=== PATIENT | female | born 1955 | race Caucasian/White ===

== ENCOUNTER 2016-11-13 22:22 | Emergency (ER) | payer MEDICAID ==
[~2016-11-13] VITALS: Ht 152.4 cm; Wt 49.9 kg
[~2016-11-13 22:22] MED LIST: ASPI-991 PO; CARV6.252 PO; CLON1TAB4 PO; FLUO20CA36 PO; FURO40TA5 PO; LISI-603 PO
[2016-11-13] MEDS ORDERED: LORAZEPAM INJ 2 MG/ML VIAL ONE (22:37)
[2016-11-13] MEDS ORDERED: ONDANSETRON 4 MG TAB.RAPDIS ONE (22:37)
[2016-11-13] MEDS ORDERED: ONDANSETRON 4 MG TAB.RAPDIS SL ONE (23:00)
[2016-11-13] MEDS ORDERED: LORAZEPAM INJ 2 MG/ML VIAL IM ONE (23:00)
[2016-11-14 00:44] VITALS: BP 140/92
== END 2016-11-14 00:45 | disposition home or self-care (01) ==
LOC: ER 22:29
DX: F41.9 Anxiety disorder, unspecified (principal); F17.200 Nicotine dependence, unspecified, uncomplicated; Z88.2 Allergy status to sulfonamides; Z79.82 Long term (current) use of aspirin
CPT/HCPCS: A4606; J2060; Q0162; Z7610

== ENCOUNTER 2016-11-20 07:06 | Inpatient (IN) | payer MEDICAID ==
[~2016-11-20] VITALS: Ht 160 cm; Wt 56.2 kg
[2016-11-20] VITALS (18 sets, daily range): BP systolic 50–152; BP diastolic 22–95
[2016-11-20] MEDS ORDERED: LORAZEPAM INJ 2 MG/ML VIAL ONE (07:07)
[2016-11-20] MEDS ORDERED: ALBUTEROL FS 2.5 MG/3 ML VIAL.NEB ONE ×2 (07:10→08:35)
[2016-11-20] MEDS ORDERED: IPRATROPIUM NEB FS 0.5 MG/2.5 ML AMPUL.NEB ONE (07:10)
[2016-11-20] MEDS ORDERED: methylPREDNISolone SOD SUCC 125 MG/2ML VIAL ONE (07:11)
[2016-11-20] MEDS ORDERED: methylPREDNISolone SOD SUCC 125 MG/2ML VIAL IV ONE (07:30)
[2016-11-20] MEDS ORDERED: IPRATROPIUM NEB FS 0.5 MG/2.5 ML AMPUL.NEB NEB ONE (07:30)
[2016-11-20] MEDS ORDERED: LORAZEPAM INJ 2 MG/ML VIAL IV ONE (07:30)
[2016-11-20] MEDS ORDERED: ALBUTEROL FS 2.5 MG/3 ML VIAL.NEB NEB ONE (07:30)
[2016-11-20 07:44] LABS: BASOPHILS # (AUTO) 0.1 /CMM (0.0-0.2); BASOPHILS % (AUTO) 0.6 % (0.0-2.0); DIFF TOTAL % 100 %; EOSINOPHILS % (AUTO) 0.4 % (0.0-6.0); HEMATOCRIT 34 % (33-45); HEMOGLOBIN 11.1 g/dL (11.5-14.8); LYMPHOCYTES # (AUTO) 1.3 /CMM (0.8-4.8); LYMPHOCYTES % (AUTO) 15.6 % (20.0-44.0); MEAN CORPUSCULAR HEMOGLOBIN 28 PG (26.0-33.0); MEAN CORPUSCULAR HGB CONC 32 g/dl (31.0-36.0); MEAN CORPUSCULAR VOLUME 85 fL (82-100); MONOCYTES # (AUTO) 0.4 /CMM (0.1-1.30); MONOCYTES % (AUTO) 4.8 % (2.0-12.0); NEUTROPHILS # (AUTO) 6.5 /CMM (1.8-8.9); NEUTROPHILS % (AUTO) 78.6 % (43.0-81.0); PLATELET COUNT (AUTO) 643 /CMM (150-450); RED BLOOD CELL COUNT(AUTO) 4.03 MIL/uL (4.0-5.2); WHITE BLOOD COUNT (AUTO) 8.2 K/uL (4.3-11.0)
[2016-11-20 07:57] LABS: INR 1.16 (0.87-1.13); PROTHROMBIN TIME 12.6 SECS (9.5-12.7)
[2016-11-20] MEDS ORDERED: ALBUTEROL FS 2.5 MG/3 ML VIAL.NEB CONTNEB ONE (08:00)
[2016-11-20 08:17] LABS: TROPONIN I 0.064 ng/mL (0.00-0.056)
[2016-11-20 08:20] LABS: ALBUMIN 3.4 g/dL (3.4-5.0); BILIRUBIN,DIRECT 0.2 mg/dL (0.0-0.2); BILIRUBIN,TOTAL 0.7 mg/dL (0.2-1.0); CALCIUM, SERUM 8.8 mg/dL (8.5-10.1); CREATININE 0.9 mg/dL (0.6-1.3); INDIRECT BILIRUBIN 0.5 mg/dL (0.0-1.1); POTASSIUM 4.4 mmol/L (3.5-5.1); TOTAL PROTEIN, SERUM 6.8 g/dL (6.4-8.2)
[2016-11-20 08:47] LABS: ABG BASE EXCESS -1.9 mmol/L; ABG HCO3 22.2 mmol/L; ABG PCO2 35.9 mmHg (35.0-45.0); ABG PO2 114.9 mmHg (75.0-100.0); ABG TOTAL HEMOGLOBIN 11.4 G/dL (12.0-16.0); ALLEN TEST Pass; O2Hb 96.3 % (94.0-97.0)
[2016-11-20] MEDS ORDERED: NITROGLYCERIN PACKET 1 GM PACKET ONE (08:51)
[2016-11-20] MEDS ORDERED: ASPIRIN 325 MG TABLET ONE (08:51)
[2016-11-20] MEDS ORDERED: FUROSEMIDE 40 MG/4 ML VIAL ONE (08:51)
[2016-11-20] MEDS ORDERED: FUROSEMIDE 40 MG/4 ML VIAL IV ONE (09:00)
[2016-11-20] MEDS ORDERED: ASPIRIN 325 MG TABLET PO ONE (09:00)
[2016-11-20] MEDS ORDERED: NITROGLYCERIN PACKET 1 GM PACKET TD ONE (09:00)
[2016-11-20] MEDS ORDERED: MAGNESIUM HYDROXIDE 30 ML UDC PO PRN (10:00)
[2016-11-20] MEDS ORDERED: Z GUARD REMEDY 2 OZ OINT TP PRN (10:00)
[2016-11-20] MEDS ORDERED: ACETAMINOPHEN 325 MG TABLET PO PRN (10:00)
[2016-11-20] MEDS ORDERED: ALBUTEROL FS 2.5 MG/0.5 ML VIAL.NEB NEB PRN (10:00)
[2016-11-20] MEDS ORDERED: ZOLPIDEM TARTRATE 5 MG TABLET PO PRN (10:00)
[2016-11-20] MEDS: FUROSEMIDE 40 MG/4 ML VIAL IV SCH ×3 (12:00→18:31)
[2016-11-20] MEDS: methylPREDNISolone SOD SUCC 40 MG/ML VIAL IV SCH ×2 (12:00→21:00)
[2016-11-20] MEDS: HYDROCODONE/APAP 5/325MG 1 EACH TABLET PO PRN ×2 (12:07→19:56)
[2016-11-20] MEDS: ALBUTEROL HALF STRENGTH 1.25 MG/3 ML VIAL.NEB NEB SCH ×2 (13:13→19:14)
[2016-11-20] MEDS ORDERED: IPRATROPIUM NEB FS 0.5 MG/2.5 ML AMPUL.NEB NEB SCH (13:30)
[2016-11-20] MEDS: IPRATROPIUM NEB FS 0.5 MG/2.5 ML AMPUL.NEB NEB SCH ×2 (13:30→19:14)
[2016-11-20] MEDS: FLUOXETINE HCL 20 MG CAPSULE PO SCH (16:17)
[2016-11-20] MEDS: clonazePAM 1 MG TABLET PO SCH (16:17)
[2016-11-20] MEDS: CARVEDILOL 6.25 MG TABLET PO SCH (21:00)
[2016-11-21] VITALS (15 sets, daily range): BP systolic 67–139; BP diastolic 40–91
[2016-11-21] MEDS: ALBUTEROL HALF STRENGTH 1.25 MG/3 ML VIAL.NEB NEB SCH ×4 (01:06→19:41)
[2016-11-21] MEDS: IPRATROPIUM NEB FS 0.5 MG/2.5 ML AMPUL.NEB NEB SCH ×4 (01:06→19:40)
[2016-11-21] MEDS ORDERED: ZOLPIDEM TARTRATE 5 MG TABLET ONE ×2 (01:07→23:11)
[2016-11-21] MEDS ORDERED: ZOLPIDEM TARTRATE 5 MG TABLET PO ONE (01:30)
[2016-11-21 04:50] LABS: DIFF TOTAL % 100 %; HEMATOCRIT 34 % (33-45); HEMOGLOBIN 10.7 g/dL (11.5-14.8); LYMPHOCYTES # (AUTO) 0.5 /CMM (0.8-4.8); LYMPHOCYTES % (AUTO) 4.2 % (20.0-44.0); MEAN CORPUSCULAR HEMOGLOBIN 27 PG (26.0-33.0); MEAN CORPUSCULAR HGB CONC 31 g/dl (31.0-36.0); MEAN CORPUSCULAR VOLUME 85 fL (82-100); MONOCYTES # (AUTO) 0.4 /CMM (0.1-1.30); MONOCYTES % (AUTO) 2.7 % (2.0-12.0); NEUTROPHILS # (AUTO) 12.1 /CMM (1.8-8.9); NEUTROPHILS % (AUTO) 93.1 % (43.0-81.0); PLATELET COUNT (AUTO) 629 /CMM (150-450)
[2016-11-21] MEDS: methylPREDNISolone SOD SUCC 40 MG/ML VIAL IV SCH ×3 (05:00→21:19)
[2016-11-21 05:01] LABS: ALBUMIN 2.9 g/dL (3.4-5.0); BILIRUBIN,TOTAL 0.4 mg/dL (0.2-1.0); CALCIUM, SERUM 8.6 mg/dL (8.5-10.1); CREATININE 1.5 mg/dL (0.6-1.3); POTASSIUM 4.6 mmol/L (3.5-5.1); TOTAL PROTEIN, SERUM 6.3 g/dL (6.4-8.2)
[2016-11-21 05:09] LABS: TROPONIN I 0.085 ng/mL (0.00-0.056)
[2016-11-21] MEDS: PANTOPRAZOLE 40 MG TABLET.DR PO SCH (08:02)
[2016-11-21] MEDS: FLUOXETINE HCL 20 MG CAPSULE PO SCH ×2 (08:02→16:59)
[2016-11-21] MEDS: LISINOPRIL (20MG) 20 MG TABLET PO SCH (08:02)
[2016-11-21] MEDS: clonazePAM 1 MG TABLET PO SCH ×2 (08:03→16:59)
[2016-11-21] MEDS: HYDROCODONE/APAP 5/325MG 1 EACH TABLET PO PRN ×3 (08:03→17:31)
[2016-11-21] MEDS: CARVEDILOL 6.25 MG TABLET PO SCH ×2 (08:03→21:19)
[2016-11-21] MEDS: FUROSEMIDE 40 MG/4 ML VIAL IV SCH ×3 (08:33→16:59)
[2016-11-21] MEDS ORDERED: Magnesium 1GM/D5W 100ML PREMIX 100 ML IV SCH (10:30)
[2016-11-21] MEDS ORDERED: IV SET PRIMARY PUMP SET 1 EA INFUS.SET MC ONE (11:50)
[2016-11-21] MEDS: MAG HYDROX/AL HYDROX/SIMETH 30 ML UDC PO PRN (17:31)
[2016-11-21] MEDS ORDERED: ZOLPIDEM TARTRATE 5 MG TABLET PO PRN (23:30)
[2016-11-22] VITALS: BP 96/59
[2016-11-22] MEDS: IPRATROPIUM NEB FS 0.5 MG/2.5 ML AMPUL.NEB NEB SCH ×4 (01:21→19:39)
[2016-11-22] MEDS: ALBUTEROL HALF STRENGTH 1.25 MG/3 ML VIAL.NEB NEB SCH ×4 (01:21→19:39)
[2016-11-22] MEDS: ONDANSETRON HCL/PF 4 MG/2 ML VIAL IVP PRN ×2 (04:06→12:33)
[2016-11-22] MEDS: methylPREDNISolone SOD SUCC 40 MG/ML VIAL IV SCH ×2 (04:11→12:33)
[2016-11-22] MEDS: HYDROCODONE/APAP 5/325MG 1 EACH TABLET PO PRN ×3 (04:44→19:59)
[2016-11-22 06:00] VITALS: BP 106/72
[2016-11-22 08:00] VITALS: BP 126/82
[2016-11-22 08:06] LABS: DIFF TOTAL % 100 %; HEMATOCRIT 33 % (33-45); HEMOGLOBIN 10.3 g/dL (11.5-14.8); LYMPHOCYTES # (AUTO) 0.4 /CMM (0.8-4.8); LYMPHOCYTES % (AUTO) 2.9 % (20.0-44.0); MEAN CORPUSCULAR HEMOGLOBIN 27 PG (26.0-33.0); MEAN CORPUSCULAR HGB CONC 32 g/dl (31.0-36.0); MEAN CORPUSCULAR VOLUME 86 fL (82-100); MONOCYTES # (AUTO) 0.5 /CMM (0.1-1.30); MONOCYTES % (AUTO) 3.5 % (2.0-12.0); NEUTROPHILS # (AUTO) 13.3 /CMM (1.8-8.9); NEUTROPHILS % (AUTO) 93.6 % (43.0-81.0); PLATELET COUNT (AUTO) 565 /CMM (150-450); RED BLOOD CELL COUNT(AUTO) 3.78 MIL/uL (4.0-5.2); WHITE BLOOD COUNT (AUTO) 14.2 K/uL (4.3-11.0)
[2016-11-22 08:42] LABS: ALBUMIN 2.8 g/dL (3.4-5.0); BILIRUBIN,TOTAL 0.3 mg/dL (0.2-1.0); CALCIUM, SERUM 8.4 mg/dL (8.5-10.1); CREATININE 1.5 mg/dL (0.6-1.3); PHOSPHORUS 5.2 mg/dL (2.5-4.9); POTASSIUM 4.5 mmol/L (3.5-5.1); TOTAL PROTEIN, SERUM 6.1 g/dL (6.4-8.2)
[2016-11-22 08:50] LABS: TROPONIN I 0.09 ng/mL (0.00-0.056)
[2016-11-22] MEDS: clonazePAM 1 MG TABLET PO SCH ×2 (09:02→17:06)
[2016-11-22] MEDS: PANTOPRAZOLE 40 MG TABLET.DR PO SCH (09:02)
[2016-11-22] MEDS: FLUOXETINE HCL 20 MG CAPSULE PO SCH ×2 (09:02→17:06)
[2016-11-22] MEDS: LISINOPRIL (20MG) 20 MG TABLET PO SCH (09:03)
[2016-11-22] MEDS: CARVEDILOL 6.25 MG TABLET PO SCH ×2 (09:03→21:00)
[2016-11-22] MEDS ORDERED: DEXTROSE 50%-WATER 50 ML DISP.SYRIN IV PRN (10:00)
[2016-11-22] MEDS ORDERED: BLOOD SUGAR DIAGNOSTIC 1 EACH STRIP VI SCH (12:00)
[2016-11-22] MEDS: BLOOD SUGAR DIAGNOSTIC 1 EACH STRIP IN SCH ×3 (12:39→21:13)
[2016-11-22] MEDS: INSULIN REGULAR, HUMAN 100 UNIT/ML 3 ML VIAL SQ PRN ×2 (12:54→17:10)
[2016-11-22 16:00] VITALS: BP 105/62
[2016-11-22 16:01] VITALS: BP 105/62
[2016-11-22 20:12] VITALS: BP 102/55
[2016-11-22] MEDS: *INSULIN REGULAR(HUMULIN R)HUM 100 UNIT/ML VIAL SQ PRN (21:16)
[2016-11-23] MEDS: HYDROCODONE/APAP 5/325MG 1 EACH TABLET PO PRN ×4 (00:43→19:34)
[2016-11-23] MEDS: ONDANSETRON HCL/PF 4 MG/2 ML VIAL IVP PRN (00:45)
[2016-11-23] MEDS: IPRATROPIUM NEB FS 0.5 MG/2.5 ML AMPUL.NEB NEB SCH ×4 (01:22→19:39)
[2016-11-23] MEDS: ALBUTEROL HALF STRENGTH 1.25 MG/3 ML VIAL.NEB NEB SCH ×4 (01:22→19:39)
[2016-11-23 07:09] LABS: BASOPHILS % (AUTO) 0.1 % (0.0-2.0); DIFF TOTAL % 100 %; EOSINOPHILS % (AUTO) 0.3 % (0.0-6.0); HEMATOCRIT 34 % (33-45); LYMPHOCYTES # (AUTO) 1.3 /CMM (0.8-4.8); LYMPHOCYTES % (AUTO) 9.3 % (20.0-44.0); MEAN CORPUSCULAR HEMOGLOBIN 27 PG (26.0-33.0); MEAN CORPUSCULAR HGB CONC 32 g/dl (31.0-36.0); MEAN CORPUSCULAR VOLUME 86 fL (82-100); MONOCYTES # (AUTO) 0.9 /CMM (0.1-1.30); MONOCYTES % (AUTO) 6.8 % (2.0-12.0); NEUTROPHILS # (AUTO) 11.4 /CMM (1.8-8.9); NEUTROPHILS % (AUTO) 83.5 % (43.0-81.0); PLATELET COUNT (AUTO) 571 /CMM (150-450); WHITE BLOOD COUNT (AUTO) 13.7 K/uL (4.3-11.0)
[2016-11-23 07:27] LABS: CALCIUM, SERUM 8.3 mg/dL (8.5-10.1); CREATININE 1.3 mg/dL (0.6-1.3); PHOSPHORUS 4.3 mg/dL (2.5-4.9); POTASSIUM 4.7 mmol/L (3.5-5.1)
[2016-11-23 08:00] VITALS: BP 117/82
[2016-11-23] MEDS: BLOOD SUGAR DIAGNOSTIC 1 EACH STRIP IN SCH ×4 (08:02→20:53)
[2016-11-23] MEDS: FLUOXETINE HCL 20 MG CAPSULE PO SCH ×2 (08:03→16:57)
[2016-11-23] MEDS: clonazePAM 1 MG TABLET PO SCH ×2 (08:03→16:57)
[2016-11-23] MEDS: CARVEDILOL 6.25 MG TABLET PO SCH ×2 (08:03→20:50)
[2016-11-23] MEDS: PANTOPRAZOLE 40 MG TABLET.DR PO SCH (08:03)
[2016-11-23 08:04] VITALS: BP 117/82
[2016-11-23] MEDS ORDERED: Magnesium 1GM/D5W 100ML PREMIX 100 ML IV SCH (09:00)
[2016-11-23] MEDS ORDERED: SECONDARY IV SET 1 EA INFUS.SET MC ONE (09:45)
[2016-11-23] MEDS ORDERED: IV NS 0.9% 250 ML IV ONE (09:45)
[2016-11-23] MEDS ORDERED: IV SET PRIMARY PUMP SET 1 EA INFUS.SET MC ONE (09:45)
[2016-11-23] MEDS: LEVOFLOXACIN (500MG) 500 MG TABLET PO SCH (09:50)
[2016-11-23] MEDS: MAG HYDROX/AL HYDROX/SIMETH 30 ML UDC PO PRN ×2 (10:58→17:15)
[2016-11-23] MEDS: MORPHINE SULFATE INJ 2 MG/ML DISP.SYRIN IV PRN ×3 (12:20→20:50)
[2016-11-23 16:00] VITALS: BP 92/59
[2016-11-23] MEDS: INSULIN REGULAR, HUMAN 100 UNIT/ML 3 ML VIAL SQ PRN (17:03)
[2016-11-23 20:00] VITALS: BP_SYST 153; BP_SYST 99; BP_DIAS 59; BP_DIAS 93
[2016-11-24] MEDS: IPRATROPIUM NEB FS 0.5 MG/2.5 ML AMPUL.NEB NEB SCH ×4 (01:17→20:27)
[2016-11-24] MEDS: ALBUTEROL HALF STRENGTH 1.25 MG/3 ML VIAL.NEB NEB SCH ×4 (01:17→20:27)
[2016-11-24] MEDS: MORPHINE SULFATE INJ 2 MG/ML DISP.SYRIN IV PRN ×5 (01:45→21:05)
[2016-11-24 04:00] VITALS: BP 109/74
[2016-11-24 06:57] LABS: POTASSIUM 5.1 mmol/L (3.5-5.1)
[2016-11-24] MEDS: BLOOD SUGAR DIAGNOSTIC 1 EACH STRIP IN SCH ×4 (07:35→21:34)
[2016-11-24] MEDS: PANTOPRAZOLE 40 MG TABLET.DR PO SCH (07:35)
[2016-11-24 07:38] LABS: BASOPHILS % (AUTO) 0.3 % (0.0-2.0); EOSINOPHILS # (AUTO) 0.1 /CMM (0.0-0.7); EOSINOPHILS % (AUTO) 0.6 % (0.0-6.0); HEMATOCRIT 34 % (33-45); HEMOGLOBIN 10.8 g/dL (11.5-14.8); LYMPHOCYTES # (AUTO) 1.7 /CMM (0.8-4.8); LYMPHOCYTES % (AUTO) 16.4 % (20.0-44.0); MEAN CORPUSCULAR HEMOGLOBIN 27 PG (26.0-33.0); MEAN CORPUSCULAR HGB CONC 32 g/dl (31.0-36.0); MEAN CORPUSCULAR VOLUME 86 fL (82-100); MONOCYTES # (AUTO) 0.8 /CMM (0.1-1.30); MONOCYTES % (AUTO) 8.2 % (2.0-12.0); NEUTROPHILS # (AUTO) 7.6 /CMM (1.8-8.9); NEUTROPHILS % (AUTO) 74.5 % (43.0-81.0); PLATELET COUNT (AUTO) 516 /CMM (150-450); WHITE BLOOD COUNT (AUTO) 10.2 K/uL (4.3-11.0)
[2016-11-24 08:00] VITALS: BP 108/70
[2016-11-24 08:17] LABS: DIFF TOTAL % 100 %
[2016-11-24] MEDS: clonazePAM 1 MG TABLET PO SCH ×2 (08:20→16:40)
[2016-11-24] MEDS: FLUOXETINE HCL 20 MG CAPSULE PO SCH ×2 (08:20→16:40)
[2016-11-24] MEDS: CARVEDILOL 6.25 MG TABLET PO SCH ×2 (08:21→21:00)
[2016-11-24] MEDS: MAG HYDROX/AL HYDROX/SIMETH 30 ML UDC PO PRN ×2 (08:27→15:51)
[2016-11-24] MEDS: HYDROCODONE/APAP 5/325MG 1 EACH TABLET PO PRN (11:53)
[2016-11-24 16:00] VITALS: BP 103/58
[2016-11-24] MEDS: TOBRAMYCIN OPHTH 5ML 5 ML BOTTLE RIGHTEYE SCH ×2 (17:47→21:10)
[2016-11-24 19:51] LABS: ADD UA MICROSCOPIC NO; KETONES,URINE NEGATIVE (NEGATIVE); LEUKOCYTE ESTERASE ,URINE NEGATIVE (NEGATIVE); PH,URINE 7.5 (5.0-8.0)
[2016-11-24 20:00] VITALS: BP 100/61
[2016-11-24 20:28] VITALS: BP 100/61
[2016-11-25] VITALS: BP 103/64
[2016-11-25] MEDS: ALBUTEROL HALF STRENGTH 1.25 MG/3 ML VIAL.NEB NEB SCH ×3 (00:44→14:15)
[2016-11-25] MEDS: IPRATROPIUM NEB FS 0.5 MG/2.5 ML AMPUL.NEB NEB SCH ×3 (00:44→14:15)
[2016-11-25] MEDS: MORPHINE SULFATE INJ 2 MG/ML DISP.SYRIN IV PRN ×3 (01:02→15:40)
[2016-11-25] MEDS: HYDROCODONE/APAP 5/325MG 1 EACH TABLET PO PRN ×2 (03:27→12:34)
[2016-11-25 04:00] VITALS: BP 98/70
[2016-11-25] MEDS: BLOOD SUGAR DIAGNOSTIC 1 EACH STRIP IN SCH ×2 (05:03→11:20)
[2016-11-25] MEDS: TOBRAMYCIN OPHTH 5ML 5 ML BOTTLE RIGHTEYE SCH ×2 (05:04→11:19)
[2016-11-25 08:00] VITALS: BP 116/68
[2016-11-25] MEDS: PANTOPRAZOLE 40 MG TABLET.DR PO SCH (08:37)
[2016-11-25] MEDS: clonazePAM 1 MG TABLET PO SCH (08:37)
[2016-11-25] MEDS: FLUOXETINE HCL 20 MG CAPSULE PO SCH (08:37)
[2016-11-25] MEDS: CARVEDILOL 6.25 MG TABLET PO SCH (08:37)
[2016-11-25] MEDS: LEVOFLOXACIN (500MG) 500 MG TABLET PO SCH (08:37)
[2016-11-25] MEDS: *INSULIN REGULAR(HUMULIN R)HUM 100 UNIT/ML VIAL SQ PRN (11:21)
[2016-11-25] MEDS: NYSTATIN (PYXIS) 500,000 UNIT/5 ML ORAL.SUSP PO SCH ×2 (12:33→16:22)
[2016-11-25 16:00] VITALS: BP 122/75
== END 2016-11-25 16:35 | disposition home or self-care (01) | DRG 194 ==
LOC: ER 07:08 → ICU 10:15 → TELE1 11-21 10:15 → MEDSG1 11-22 08:42
PROVIDERS: ADMIT Student in an Organized Health Care Education/Training Program; ATTEND Student in an Organized Health Care Education/Training Program
DX: I50.33 Acute on chronic diastolic (congestive) heart failure (principal); J96.01 Acute respiratory failure with hypoxia; N17.0 Acute kidney failure with tubular necrosis; J44.1 Chronic obstructive pulmonary disease with (acute) exacerbation; F17.200 Nicotine dependence, unspecified, uncomplicated; Z91.14 Patient's other noncompliance with medication regimen; I25.10 Atherosclerotic heart disease of native coronary artery without angina pectoris; I10 Essential (primary) hypertension; E78.5 Hyperlipidemia, unspecified; K21.9 Gastro-esophageal reflux disease without esophagitis; F41.0 Panic disorder [episodic paroxysmal anxiety]; Z90.710 Acquired absence of both cervix and uterus; R74.0 Nonspecific elevation of levels of transaminase and lactic acid dehydrogenase [LDH]; I24.8 Other forms of acute ischemic heart disease; E11.9 Type 2 diabetes mellitus without complications; F31.9 Bipolar disorder, unspecified; I42.9 Cardiomyopathy, unspecified; Z59.0 Homelessness; J98.11 Atelectasis; Z91.19 Patient's noncompliance with other medical treatment and regimen; H16.009 Unspecified corneal ulcer, unspecified eye
CPT/HCPCS: 36415; 36600; 71010-TC; 80048-TC; 80053-TC; 80061-TC; 80076-TC; 81000-TC; 82803-TC; 82962-TC; 83735-TC; 83880; 84100-TC; 84484-TC; 85025-TC; 85730-TC; 87081-TC; 94799-TC; A4606; J1815; J1940; J2060; J2270; J2405; J2920; J2930; J3475; J7050; Z7610

== ENCOUNTER 2016-12-15 16:02 | Emergency (ER) | payer MEDICAID, OTHER ==
[~2016-12-15] VITALS: Ht 152.4 cm; Wt 49.9 kg
[~2016-12-15 16:02] MED LIST changes: -ASPI-991 PO
[2016-12-15] MEDS ORDERED: LORAZEPAM 1 MG TABLET PO ONE (18:30)
[2016-12-15] MEDS ORDERED: ONDANSETRON 4 MG TAB.RAPDIS SL ONE (18:30)
[2016-12-15] MEDS ORDERED: ONDANSETRON 4 MG TAB.RAPDIS ONE (18:39)
[2016-12-15] MEDS ORDERED: LORAZEPAM 1 MG TABLET ONE (18:39)
[2016-12-15 19:48] VITALS: BP 140/103
== END 2016-12-15 19:50 | disposition home or self-care (01) ==
LOC: ER 16:03
DX: F41.9 Anxiety disorder, unspecified (principal); I50.9 Heart failure, unspecified; J44.9 Chronic obstructive pulmonary disease, unspecified; F17.200 Nicotine dependence, unspecified, uncomplicated; F43.10 Post-traumatic stress disorder, unspecified; Z88.2 Allergy status to sulfonamides
CPT/HCPCS: 99284; A4606; Q0162; Z7610

== ENCOUNTER 2017-01-03 22:06 | Emergency (ER) | payer OTHER ==
[~2017-01-03] VITALS: Ht 165.1 cm; Wt 65.8 kg
[2017-01-03] MEDS ORDERED: ONDANSETRON 4 MG TAB.RAPDIS ONE (22:39)
[2017-01-03 22:59] VITALS: BP 114/72
[2017-01-03] MEDS ORDERED: ONDANSETRON 4 MG TAB.RAPDIS SL ONE (23:00)
== END 2017-01-03 22:59 | disposition home or self-care (01) ==
LOC: ER 22:09
DX: F41.9 Anxiety disorder, unspecified (principal); F15.10 Other stimulant abuse, uncomplicated; I50.9 Heart failure, unspecified; J44.9 Chronic obstructive pulmonary disease, unspecified; F32.9 Major depressive disorder, single episode, unspecified; Z88.2 Allergy status to sulfonamides; F17.200 Nicotine dependence, unspecified, uncomplicated
CPT/HCPCS: 99284; A4606; Q0162; Z7610

== ENCOUNTER 2017-01-24 01:52 | Inpatient (IN) | payer OTHER ==
[~2017-01-24] VITALS: Ht 165.1 cm; Wt 63.5 kg
--- NOTE | 2017-01-24 02:00 | NUR ---
PT BB RA60 FROM HOME. N/V X3 DAYS. PT NOTED ANXIOUS. PT AOX4 RR EVEN AND UNLABORED. NO SOB NOTED. NAD NOTED. NO NVD AT THIS TIME. PT NOT DIAPHORETIC. PT GOWNED AND PLACED ON MONITOR WAITING FOR MD BILLY.
[2017-01-24] MEDS ORDERED: ONDANSETRON HCL/PF 4 MG/2 ML VIAL ONE ×2 (02:10→04:21)
[2017-01-24] MEDS ORDERED: ASPIRIN 81 MG TAB.CHEW ONE (02:10)
[2017-01-24] MEDS ORDERED: IV NS 0.9% 1,000 ML ONE (02:11)
[2017-01-24] MEDS ORDERED: NITROGLYCERIN PACKET 1 GM PACKET ONE (02:11)
[2017-01-24] MEDS ORDERED: IV SET PRIMARY 1 EA INFUS.SET MC ONE (02:11)
[2017-01-24] MEDS ORDERED: LORAZEPAM INJ 2 MG/ML VIAL ONE (02:20)
--- NOTE | 2017-01-24 02:25 | NUR ---
XRAY AT BEDSIDE
[2017-01-24] MEDS ORDERED: ASPIRIN 81 MG TAB.CHEW PO ONE (02:30)
[2017-01-24] MEDS ORDERED: LORAZEPAM INJ 2 MG/ML VIAL IV ONE (02:30)
[2017-01-24] MEDS ORDERED: NITROGLYCERIN PACKET 1 GM PACKET TD ONE (02:30)
[2017-01-24] MEDS ORDERED: ONDANSETRON HCL/PF 4 MG/2 ML VIAL IVP ONE (02:30)
[2017-01-24] MEDS ORDERED: IV NS 0.9% 1,000 ML BAG IV ONE (02:30)
--- NOTE | 2017-01-24 02:41 | NUR ---
LAB AT BEDSIDE FOR BLOOD DRAW
[2017-01-24 02:48] LABS: BASOPHILS # (AUTO) 0.1 /CMM (0.0-0.2); BASOPHILS % (AUTO) 0.8 % (0.0-2.0); EOSINOPHILS # (AUTO) 0.1 /CMM (0.0-0.7); EOSINOPHILS % (AUTO) 1.2 % (0.0-6.0); HEMATOCRIT 37 % (33-45); HEMOGLOBIN 11.5 g/dL (11.5-14.8); LYMPHOCYTES # (AUTO) 1.3 /CMM (0.8-4.8); LYMPHOCYTES % (AUTO) 16.7 % (20.0-44.0); MEAN CORPUSCULAR HEMOGLOBIN 25 PG (26.0-33.0); MEAN CORPUSCULAR HGB CONC 31 g/dl (31.0-36.0); MEAN CORPUSCULAR VOLUME 81 fL (82-100); MONOCYTES # (AUTO) 0.5 /CMM (0.1-1.30); MONOCYTES % (AUTO) 5.9 % (2.0-12.0); NEUTROPHILS # (AUTO) 5.9 /CMM (1.8-8.9); NEUTROPHILS % (AUTO) 75.4 % (43.0-81.0); PLATELET COUNT (AUTO) 388 /CMM (150-450); RDW COEFFICIENT OF VARIATION 21.8 (11.5-15.0); RED BLOOD CELL COUNT(AUTO) 4.57 MIL/uL (4.0-5.2); WHITE BLOOD COUNT (AUTO) 7.8 K/uL (4.3-11.0)
[2017-01-24] MEDS ORDERED: LORAZEPAM 1 MG TABLET ONE (02:52)
[2017-01-24] MEDS ORDERED: LORAZEPAM 1 MG TABLET PO ONE (03:00)
[2017-01-24 03:08] LABS: D-DIMER 1.34 mg/L(FEU (0.17-0.50); INR 1.17 (0.87-1.13); PROTHROMBIN TIME 12.6 SECS (9.5-12.7)
[2017-01-24] MEDS ORDERED: AZITHROMYCIN 500 MG in IV D5W 250 ML IV ONE (03:30)
[2017-01-24] MEDS ORDERED: FUROSEMIDE 40 MG/4 ML VIAL IV ONE (03:30)
[2017-01-24 03:32] LABS: TROPONIN I 0.088 ng/mL (0.00-0.056)
[2017-01-24 03:33] LABS: BILIRUBIN,DIRECT 0.2 mg/dL (0.0-0.2); BILIRUBIN,TOTAL 0.6 mg/dL (0.2-1.0); CALCIUM, SERUM 8.4 mg/dL (8.5-10.1); CREATININE 0.9 mg/dL (0.6-1.3); TOTAL PROTEIN, SERUM 6.8 g/dL (6.4-8.2)
[2017-01-24 03:39] LABS: POTASSIUM 2.8 mmol/L (3.5-5.1)
[2017-01-24] MEDS ORDERED: IV SET PRIMARY PUMP SET 1 EA INFUS.SET MC ONE (03:43)
[2017-01-24] MEDS ORDERED: AZITHROMYCIN 500 MG VIAL ONE (03:43)
[2017-01-24] MEDS ORDERED: IV D5W 250 ML IV ONE (03:43)
[2017-01-24] MEDS ORDERED: FUROSEMIDE 20 MG/2 ML VIAL ONE (03:43)
[2017-01-24] MEDS ORDERED: LORA1TAB82 PO (03:52)
[2017-01-24] MEDS ORDERED: POTASSIUM CHLORIDE 20 MEQ TAB.PRT.SR PO ONE ×3 (04:00→09:30)
--- NOTE | 2017-01-24 04:09 | NUR ---
PT ASSIGNED TO [facility] 326-2
--- NOTE | 2017-01-24 04:10 | NUR ---
PT ASSIGNED TO ROOM 324-2
--- NOTE | 2017-01-24 04:18 | NUR ---
REPORT GIVEN TO MAR GALVEZ FOR C.O.C
[2017-01-24] MEDS ORDERED: MISCELLANEOUS MED 1 EA EA XX ONE (04:30)
--- NOTE | 2017-01-24 04:34 | NUR ---
PT TRANSFERED PER ACLS PROTOCOL.
[2017-01-24 04:40] VITALS: BP 143/83
[2017-01-24 05:00] VITALS: BP 109/69
[2017-01-24] MEDS ORDERED: LORAZEPAM 1 MG TABLET PO PRN (05:00)
[2017-01-24] MEDS ORDERED: ACETAMINOPHEN 325 MG TABLET PO PRN (05:00)
[2017-01-24] MEDS ORDERED: LEVOFLOXACIN (500MG) 500 MG TABLET PO SCH (05:00)
[2017-01-24] MEDS ORDERED: HYDROCODONE/APAP 5/325MG 1 EACH TABLET ONE (05:34)
[2017-01-24] MEDS ORDERED: LEVOFLOXACIN (500MG) 500 MG TABLET ONE (05:34)
[2017-01-24] MEDS: HYDROCODONE/APAP 5/325MG 1 EACH TABLET PO PRN ×3 (05:56→18:42)
[2017-01-24 06:49] LABS: BASOPHILS % (AUTO) 0.3 % (0.0-2.0); EOSINOPHILS # (AUTO) 0.1 /CMM (0.0-0.7); EOSINOPHILS % (AUTO) 0.8 % (0.0-6.0); HEMATOCRIT 35 % (33-45); HEMOGLOBIN 11.1 g/dL (11.5-14.8); LYMPHOCYTES # (AUTO) 1.4 /CMM (0.8-4.8); LYMPHOCYTES % (AUTO) 16.2 % (20.0-44.0); MEAN CORPUSCULAR HEMOGLOBIN 26 PG (26.0-33.0); MEAN CORPUSCULAR HGB CONC 32 g/dl (31.0-36.0); MEAN CORPUSCULAR VOLUME 81 fL (82-100); MONOCYTES # (AUTO) 0.4 /CMM (0.1-1.30); MONOCYTES % (AUTO) 5.3 % (2.0-12.0); NEUTROPHILS # (AUTO) 6.5 /CMM (1.8-8.9); NEUTROPHILS % (AUTO) 77.4 % (43.0-81.0); PLATELET COUNT (AUTO) 400 /CMM (150-450); RDW COEFFICIENT OF VARIATION 21.4 (11.5-15.0); WHITE BLOOD COUNT (AUTO) 8.4 K/uL (4.3-11.0)
--- NOTE | 2017-01-24 06:53 | NUR ---
SITE RELIABILITY ENGINEER ADMITTING OPENING AND CLOSING NOTES RECEIVED PATIENT FROM ER VIA GURNEY IN BED ACLS PROTOCOL 1 EMT AND 1 RN, ALERT AND ORIENTED X 4 IV SITE NO S/S OF INFILTRATED, PATIENT DENIES PAIN AT THIS TIME. CAREFUL HEAD TO TOE SKIN ASSESSMENT IS DONE. SKIN IS INTACT RESPIRATIONS EVEN AND UNLABORED. LUNG SOUNDS CLEAR UPON AUSCULTATION, NO S/S OF ACUTE DISTRESS, NO SOB, NO COUGH, NO CONGESTION, SKIN WARM AND DRY TO TOUCH, AFEBRILE, ALL NURSING CARE NEEDS PROVIDED AND RENDERED, NEEDS ATTENDED AND ANTICIPATED, VS STABLE, KEPT CLEAN AND DRY AND COMFORTABLE, BLADDER NOT DISTENDED, ABDOMEN SOFT AND NON TENDER. NO C/O OF CONSTIPATION. ALL DUE MEDS WAS GIVEN TOLERATED. FREQUENT VISUAL CHECK DONE SAFE HAZARD FREE ENVIRONMENT PROVIDED. CALL LIGHT WITHIN EASY TO REACH, ON LOW BED AT ALL TIMES TO ENSURE SAFETY. WILL ENDORSE TO THE NEXT SHIFT CONTINUITY OF CARE.
[2017-01-24 07:17] LABS: TROPONIN I 0.097 ng/mL (0.00-0.056)
--- NOTE | 2017-01-24 07:22 | NUR ---
TELE/RN AM NOTES RECEIVED PATIENT IN BED, AWAKE, ALERT, WITHOUT SOB, NO PAIN, NO CHEST PAIN, RESTING COMFORTABLY. IV LINE PATENT, INTACT RFA. NEEDS MET, WITH CALL LIGHT WITHIN EASY REACH. WILL CONTINUE TO MONITOR ACCORDINGLY
[2017-01-24 07:34] LABS: ALBUMIN 2.7 g/dL (3.4-5.0); BILIRUBIN,TOTAL 0.6 mg/dL (0.2-1.0); CALCIUM, SERUM 8.1 mg/dL (8.5-10.1); CREATININE 0.9 mg/dL (0.6-1.3); POTASSIUM 3.1 mmol/L (3.5-5.1); TOTAL PROTEIN, SERUM 6.2 g/dL (6.4-8.2)
[2017-01-24 08:00] VITALS: BP 113/72
[2017-01-24] MEDS ORDERED: ASPIRIN EC 325 MG TABLET.DR PO SCH (09:00)
[2017-01-24] MEDS ORDERED: CARV3.122 PO (09:23)
[2017-01-24] MEDS ORDERED: Lorazepam PO (09:23)
[2017-01-24] MEDS ORDERED: POTA10TA10 PO (09:23)
[2017-01-24] MEDS ORDERED: FURO20TA4 PO (09:23)
[2017-01-24] MEDS ORDERED: Aspirin PO (09:23)
[2017-01-24] MEDS ORDERED: LISI-607 PO (09:25)
[2017-01-24] MEDS ORDERED: FUROSEMIDE 20 MG TABLET PO SCH (09:30)
[2017-01-24] MEDS ORDERED: CARVEDILOL 3.125 MG TABLET PO SCH (09:30)
[2017-01-24] MEDS ORDERED: LISINOPRIL (5MG) 5 MG TABLET PO SCH (09:30)
[2017-01-24] MEDS: POTASSIUM CHLORIDE 10 MEQ TABLET.SA PO SCH ×2 (10:16→10:22)
[2017-01-24 16:00] VITALS: BP 116/78
--- NOTE | 2017-01-24 16:41 | NUR ---
TELE/RN NOTES DR. VANEGAS, AND DR. AGUILAR INFORMED ABOUT PATIENTS ECG REPORT WITH EJECTION FRACTION 10-15%, PER DR. VANEGAS OK TO PATIENT TO D/C HOME
--- NOTE | 2017-01-24 18:58 | NUR ---
DISCHARGED PATIENT HOME IN STABLE CONDITION, VITAL SIGNS WITHIN NORMAL. WITHOUT CHEST PAIN, OR SOB.WALKED OUT WITH OFFICE PROFESSIONAL ASSISTANCE, WITH ALL HER BELONGINGS, AND D/C PAPERS, BY TAXI VOUCHER. ENCOURAGED TO F/U WITH PRIMARY PHYSICIAN WITHIN A WEEK. DISCHARGE CARE EXPLAINED, VERBALIZED UNDERSTANDING
== END 2017-01-24 18:55 | disposition home or self-care (01) | DRG 249 ==
LOC: ER 01:54 → TELE 04:11 → MED 10:37
PROVIDERS: ADMIT Internal Medicine; ATTEND Internal Medicine
DX: K52.9 Noninfective gastroenteritis and colitis, unspecified (principal); I21.4 Non-ST elevation (NSTEMI) myocardial infarction; I11.0 Hypertensive heart disease with heart failure; I50.22 Chronic systolic (congestive) heart failure; J44.9 Chronic obstructive pulmonary disease, unspecified; F41.0 Panic disorder [episodic paroxysmal anxiety]; E78.5 Hyperlipidemia, unspecified; I25.10 Atherosclerotic heart disease of native coronary artery without angina pectoris; K21.9 Gastro-esophageal reflux disease without esophagitis; Z59.0 Homelessness; Z87.891 Personal history of nicotine dependence; Z91.19 Patient's noncompliance with other medical treatment and regimen; J98.11 Atelectasis
CPT/HCPCS: 36415; 71010-TC; 80048-TC; 80053-TC; 80061-TC; 80076-TC; 83880; 84484-TC; 85025-TC; 85378-TC; 85730-TC; 87040-TC; 87081-TC; 93307-TC; A4606; J0456; J1940; J2060; J2405; J7030; J7060; Z7610

== ENCOUNTER 2017-01-30 03:36 | Emergency (ER) | payer OTHER ==
[~2017-01-30] VITALS: Ht 152.4 cm; Wt 49.9 kg
[~2017-01-30 03:36] MED LIST changes: +Aspirin PO; +CARV3.122 PO; -CARV6.252 PO; -CLON1TAB4 PO; -FLUO20CA36 PO; +FURO20TA4 PO; -FURO40TA5 PO; -LISI-603 PO; +LISI-607 PO; +Lorazepam PO; +POTA10TA10 PO
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
--- NOTE | 2017-01-30 04:30 | NUR ---
started a saline lock on the right forearm g20, blood drawn and sent to lab.
[2017-01-30] MEDS ORDERED: MAG HYDROX/AL HYDROX/SIMETH 30 ML UDC PO ONE (05:00)
[2017-01-30] MEDS ORDERED: NITROGLYCERIN PACKET 1 GM PACKET TD ONE (05:00)
[2017-01-30] MEDS ORDERED: ASPIRIN 81 MG TAB.CHEW PO ONE (05:00)
[2017-01-30] MEDS ORDERED: ASPIRIN 81 MG TAB.CHEW ONE (05:03)
[2017-01-30] MEDS ORDERED: NITROGLYCERIN PACKET 1 GM PACKET ONE (05:03)
[2017-01-30] MEDS ORDERED: MAG HYDROX/AL HYDROX/SIMETH 30 ML UDC ONE (05:03)
--- NOTE | 2017-01-30 05:10 | NUR ---
URINE COLLECTED VIA CLEAN CATCH, SENT TO LAB.
[2017-01-30 05:22] LABS: BASOPHILS % (AUTO) 0.1 % (0.0-2.0); EOSINOPHILS # (AUTO) 0.2 /CMM (0.0-0.7); EOSINOPHILS % (AUTO) 2.6 % (0.0-6.0); HEMATOCRIT 36 % (33-45); HEMOGLOBIN 11.2 g/dL (11.5-14.8); LYMPHOCYTES % (AUTO) 11.5 % (20.0-44.0); MEAN CORPUSCULAR HEMOGLOBIN 25 PG (26.0-33.0); MEAN CORPUSCULAR HGB CONC 31 g/dl (31.0-36.0); MEAN CORPUSCULAR VOLUME 81 fL (82-100); MONOCYTES # (AUTO) 0.9 /CMM (0.1-1.30); MONOCYTES % (AUTO) 9.5 % (2.0-12.0); NEUTROPHILS # (AUTO) 6.8 /CMM (1.8-8.9); NEUTROPHILS % (AUTO) 76.3 % (43.0-81.0); PLATELET COUNT (AUTO) 516 /CMM (150-450); RED BLOOD CELL COUNT(AUTO) 4.51 MIL/uL (4.0-5.2)
[2017-01-30 05:52] LABS: CALCIUM, SERUM 8.8 mg/dL (8.5-10.1)
[2017-01-30 05:55] LABS: CANNABINOID, URINE NEGATIVE (NEGATIVE); PHENCYCLIDINE SCREEN,URINE NEGATIVE (NEGATIVE)
[2017-01-30 06:03] LABS: BILIRUBIN,DIRECT 0.1 mg/dL (0.0-0.2); BILIRUBIN,TOTAL 0.3 mg/dL (0.2-1.0); TOTAL PROTEIN, SERUM 6.7 g/dL (6.4-8.2); TROPONIN I 0.075 ng/mL (0.00-0.056)
[2017-01-30 06:39] LABS: D-DIMER 1.56 mg/L(FEU (0.17-0.50); INR 1.05 (0.87-1.13); PROTHROMBIN TIME 11.3 SECS (9.5-12.7)
[2017-01-30 06:49] VITALS: BP 134/85
[2017-01-30] MEDS ORDERED: FUROSEMIDE 40 MG/4 ML VIAL ONE (06:50)
[2017-01-30] MEDS ORDERED: ACETAMINOPHEN ES 500 MG TABLET ONE (06:52)
[2017-01-30] MEDS ORDERED: ACETAMINOPHEN ES 500 MG TABLET PO ONE (07:00)
[2017-01-30] MEDS ORDERED: FUROSEMIDE 40 MG/4 ML VIAL IV ONE (07:00)
--- NOTE | 2017-01-30 07:03 | NUR ---
patient decided to AMA even after health teachings, patient signed form.
--- NOTE | 2017-01-30 07:04 | NUR ---
Patient was talking with Dr Griggs and was asking for morphine and ativan, however Dr Griggs said she was only going to order tylenol. Patient then started yelling, appearing mad and said, "I don't like that black doctor, I should have just gone to [place]! Im leaving." Patient educated with risk of her current condition, but patient wanted to AMA. Patient signed form.
== END 2017-01-30 07:04 | disposition left against medical advice (07) ==
LOC: ER 03:42
DX: R07.9 Chest pain, unspecified (principal); R94.31 Abnormal electrocardiogram [ECG] [EKG]; I50.9 Heart failure, unspecified; J44.9 Chronic obstructive pulmonary disease, unspecified; F41.9 Anxiety disorder, unspecified; F32.9 Major depressive disorder, single episode, unspecified; F17.200 Nicotine dependence, unspecified, uncomplicated; F15.10 Other stimulant abuse, uncomplicated; Z88.2 Allergy status to sulfonamides; Z79.82 Long term (current) use of aspirin
CPT/HCPCS: 36415; 71010; 80048; 80076; 80305; 83880; 84484; 85025; 85378; 85730; 93005; 99285; 99406; A4606; G0480; J1940; Z7610

== ENCOUNTER 2017-03-02 00:38 | Emergency (ER) | payer OTHER ==
[~2017-03-02] VITALS: Ht 142.2 cm; Wt 49.9 kg
[2017-03-02 00:42] VITALS: BP 139/100
--- NOTE | 2017-03-02 02:01 | NUR ---
CALLED PT IN WR, NO REPONSE
--- NOTE | 2017-03-02 02:45 | NUR ---
CALLED PT IN WR, NO REPONSE
--- NOTE | 2017-03-02 03:21 | NUR ---
CALLED PT IN WR, NO REPONSE
--- NOTE | 2017-03-02 04:12 | NUR ---
CALLED PT IN WR, NO REPONSE
--- NOTE | 2017-03-02 04:54 | NUR ---
CALLED PT IN WR, NO REPONSE
== END 2017-03-02 04:55 | disposition left against medical advice (07) ==
LOC: ER 00:39
DX: Z53.21 Procedure and treatment not carried out due to patient leaving prior to being seen by health care provider (principal)
CPT/HCPCS: A4606; Z7610

== ENCOUNTER 2017-03-02 06:51 | Emergency (ER) | payer OTHER ==
[~2017-03-02] VITALS: Ht 152.4 cm; Wt 44.9 kg
--- NOTE | 2017-03-02 07:20 | NUR ---
PRESENTS SELF TO ED DUE TO NAUSEA AND VOMITING X 3 DAYS. PT IS AFEBRILE. APPEARS ANXIOUS. WILL CONT TO MONITOR
[2017-03-02] MEDS ORDERED: ONDANSETRON HCL/PF 4 MG/2 ML VIAL ONE (07:45)
[2017-03-02] MEDS ORDERED: LORAZEPAM INJ 2 MG/ML VIAL ONE (07:45)
[2017-03-02] MEDS ORDERED: IV NS 0.9% 1,000 ML ONE (07:45)
[2017-03-02] MEDS ORDERED: IV SET PRIMARY PUMP SET 1 EA INFUS.SET MC ONE (07:45)
--- NOTE | 2017-03-02 07:45 | NUR ---
IV ACCESSED TO [facility] 20. BLOOD SAMPLE SENT TO LAB
[2017-03-02 07:59] LABS: BASOPHILS % (AUTO) 0.4 % (0.0-2.0); EOSINOPHILS % (AUTO) 0.2 % (0.0-6.0); HEMATOCRIT 39 % (33-45); HEMOGLOBIN 12.2 g/dL (11.5-14.8); LYMPHOCYTES # (AUTO) 1.2 /CMM (0.8-4.8); LYMPHOCYTES % (AUTO) 16.2 % (20.0-44.0); MEAN CORPUSCULAR HEMOGLOBIN 26 PG (26.0-33.0); MEAN CORPUSCULAR HGB CONC 31 g/dl (31.0-36.0); MEAN CORPUSCULAR VOLUME 81 fL (82-100); MONOCYTES # (AUTO) 0.4 /CMM (0.1-1.30); MONOCYTES % (AUTO) 5.7 % (2.0-12.0); NEUTROPHILS # (AUTO) 5.8 /CMM (1.8-8.9); NEUTROPHILS % (AUTO) 77.5 % (43.0-81.0); PLATELET COUNT (AUTO) 390 /CMM (150-450); RDW COEFFICIENT OF VARIATION 24.4 (11.5-15.0); RED BLOOD CELL COUNT(AUTO) 4.78 MIL/uL (4.0-5.2); WHITE BLOOD COUNT (AUTO) 7.4 K/uL (4.3-11.0)
[2017-03-02] MEDS ORDERED: IV NS 0.9% 1,000 ML BAG IV ONE (08:00)
[2017-03-02] MEDS ORDERED: LORAZEPAM INJ 2 MG/ML VIAL IV ONE (08:00)
[2017-03-02] MEDS ORDERED: ONDANSETRON HCL/PF 4 MG/2 ML VIAL IVP ONE (08:00)
[2017-03-02 08:07] LABS: CALCIUM, SERUM 8.8 mg/dL (8.5-10.1); POTASSIUM 3.1 mmol/L (3.5-5.1)
[2017-03-02 08:14] LABS: ALBUMIN 3.4 g/dL (3.4-5.0); BILIRUBIN,DIRECT 0.6 mg/dL (0.0-0.2); BILIRUBIN,TOTAL 1.8 mg/dL (0.2-1.0); TOTAL PROTEIN, SERUM 7.1 g/dL (6.4-8.2)
--- NOTE | 2017-03-02 08:40 | NUR ---
PT ASLEEP AT THIS TIME. VSS
[2017-03-02 09:56] VITALS: BP 140/80
--- NOTE | 2017-03-02 09:56 | NUR ---
IV removed. Catheter intact and site benign. Pressure and 4x4 applied to site. No bleeding noted.Patient discharged to home in stable condition. Written and verbal after care instructions given. Patient verbalizes understanding of instruction.
== END 2017-03-02 09:57 | disposition home or self-care (01) ==
LOC: ER 06:51
DX: R11.2 Nausea with vomiting, unspecified (principal); F41.9 Anxiety disorder, unspecified; I50.20 Unspecified systolic (congestive) heart failure; J44.9 Chronic obstructive pulmonary disease, unspecified; F32.9 Major depressive disorder, single episode, unspecified; F10.20 Alcohol dependence, uncomplicated; F17.210 Nicotine dependence, cigarettes, uncomplicated
CPT/HCPCS: 36415; 80048; 80076; 83690; 85025; 96361; 96374; 96375; 99284; A4606; J2060; J2405; J7030; Z7610

== ENCOUNTER 2017-12-23 09:58 | Inpatient (IN) | payer MEDICAID, OTHER ==
[~2017-12-23] VITALS: Ht 167.6 cm; Wt 54.9 kg
--- NOTE | 2017-12-23 10:21 | NUR ---
BBRA 60 FROM HOME: ANXIETY ATTACK. RUN OUT OF [employer]. VSS
[2017-12-23 10:31] LABS: BASOPHILS # (AUTO) 0.1 /CMM (0.0-0.2); BASOPHILS % (AUTO) 1.8 % (0.0-2.0); EOSINOPHILS % (AUTO) 0.3 % (0.0-6.0); HEMATOCRIT 36 % (33-45); HEMOGLOBIN 12.4 g/dL (11.5-14.8); LYMPHOCYTES # (AUTO) 0.6 /CMM (0.8-4.8); LYMPHOCYTES % (AUTO) 7.8 % (20.0-44.0); MEAN CORPUSCULAR HEMOGLOBIN 31 PG (26.0-33.0); MEAN CORPUSCULAR HGB CONC 34 g/dl (31.0-36.0); MEAN CORPUSCULAR VOLUME 91 fL (82-100); MONOCYTES # (AUTO) 0.5 /CMM (0.1-1.30); NEUTROPHILS # (AUTO) 7.1 /CMM (1.8-8.9); NEUTROPHILS % (AUTO) 84.1 % (43.0-81.0); PLATELET COUNT (AUTO) 289 /CMM (150-450); RDW COEFFICIENT OF VARIATION 13.6 (11.5-15.0); RED BLOOD CELL COUNT(AUTO) 3.97 MIL/uL (4.0-5.2); WHITE BLOOD COUNT (AUTO) 8.3 K/uL (4.3-11.0)
[2017-12-23 10:41] LABS: CALCIUM, SERUM 8.5 mg/dL (8.5-10.1); CREATININE 1.1 mg/dL (0.6-1.3); POTASSIUM 4.5 mmol/L (3.5-5.1)
[2017-12-23 10:45] LABS: INR 1.2 (0.85-1.15)
[2017-12-23 10:48] LABS: TROPONIN I 0.065 ng/mL (0.00-0.056)
[2017-12-23 10:53] LABS: ALBUMIN 3.3 g/dL (3.4-5.0); BILIRUBIN,DIRECT 0.3 mg/dL (0.0-0.2); BILIRUBIN,TOTAL 0.9 mg/dL (0.2-1.0); TOTAL PROTEIN, SERUM 6.7 g/dL (6.4-8.2)
--- NOTE | 2017-12-23 11:18 | NUR ---
PATIENT NOTED WITH ELEVATED TROPONIN LEVEL. PT DENIES CHEST PAIN. MD CHAMPAGNE AWARE. PT WILL BE ADMITTED TO TELE
--- NOTE | 2017-12-23 11:24 | NUR ---
CALLED NURSING TANK BUILDER HELPER REQUESTING BED.
[2017-12-23] MEDS ORDERED: POTA10TA15 PO (11:28)
[2017-12-23] MEDS ORDERED: ASPI-1169 PO (11:28)
[2017-12-23] MEDS ORDERED: CARV3.122 PO (11:28)
[2017-12-23] MEDS ORDERED: LORA1TAB PO (11:28)
[2017-12-23] MEDS ORDERED: FLUO20CA36 PO (11:28)
[2017-12-23] MEDS ORDERED: LISI-603 PO (11:28)
[2017-12-23] MEDS ORDERED: GABA-534 PO (11:28)
[2017-12-23] MEDS ORDERED: FURO20TA4 PO (11:28)
[2017-12-23] MEDS ORDERED: SPIR25TA PO (11:28)
[2017-12-23] MEDS ORDERED: ASPIRIN 325 MG TABLET PO ONE (11:30)
[2017-12-23] MEDS ORDERED: NITROGLYCERIN PACKET 1 GM PACKET TD ONE (11:30)
[2017-12-23] MEDS ORDERED: FUROSEMIDE 40 MG/4 ML VIAL IV ONE (11:30)
[2017-12-23] MEDS ORDERED: LORAZEPAM 1 MG TABLET PO ONE (11:30)
[2017-12-23] MEDS ORDERED: FUROSEMIDE 40 MG/4 ML VIAL ONE (11:38)
[2017-12-23] MEDS ORDERED: ASPIRIN 325 MG TABLET ONE (11:40)
[2017-12-23] MEDS ORDERED: NITROGLYCERIN PACKET 1 GM PACKET ONE (11:40)
[2017-12-23] MEDS ORDERED: LORAZEPAM 1 MG TABLET ONE (11:40)
[2017-12-23 13:30] VITALS: BP 117/64
--- NOTE | 2017-12-23 13:30 | NUR ---
TELE/RN ADMITTING NOTES RECEIVED PATIENT TO TELE UNIT FROM ER VIA [facility] WITH ADMITTING DIAGNOSIS OF CHF, CHIEF COMPLIANT OF ANXIETY AND CHEST PAIN, PAST MEDICAL HISTORY OF CHF, COPD, ANXIETY, DEPRESSION, ARTHRITIS, X6 ALLERGIC TO SULFA DRUGS. UPON ASSESSMENT PATIENT ALERT AND ORIENTED X3, PERIODS OF CONFUSION AND FORGETFULNESS. PATIENT DENIES ANY PAIN OR DISCOMORT AT THIS TIME. APPEARS CALM AND COMFORTABLE. RESPIRATIONS EVEN AND UNLABORED. ON ROOM AIR, VITAL SIGNS STABLE, WNL. PER TELE READING SINUS TACH HR 101. IV TO LEFT WRIST 20G INTACT. PENDING ADMITTING ORDERS. WILL CONTINUE TO MONITOR.
[2017-12-23] MEDS ORDERED: ACETAMINOPHEN 325 MG TABLET PO PRN (14:30)
[2017-12-23] MEDS ORDERED: Z GUARD REMEDY 2 OZ OINT TP PRN (14:30)
[2017-12-23] MEDS ORDERED: MAG HYDROX/AL HYDROX/SIMETH 30 ML UDC PO PRN (14:30)
[2017-12-23] MEDS ORDERED: ZOLPIDEM TARTRATE 5 MG TABLET PO PRN (14:30)
[2017-12-23] MEDS ORDERED: ONDANSETRON HCL/PF 4 MG/2 ML VIAL IVP PRN (14:30)
[2017-12-23] MEDS ORDERED: MAGNESIUM HYDROXIDE 30 ML UDC PO PRN (14:30)
--- NOTE | 2017-12-23 16:50 | NUR ---
TELE/RN NOTES PATIENT RESTING IN BED COMFORTABLY, NO S/S OF DISTRESS OR DISCOMFORT. PATIENT DENIES ANY CHEST PAIN, ANXIETY AT THIS TIME. PATIENT ASKING FOR DINNER, REASSURED PATIENT WILL BE RECEIVING DINNER SOON SCHEDULED
--- NOTE | 2017-12-23 18:35 | NUR ---
TELE/RN NOTES PATIENT RESTING IN BED , NO SIGNIFICANT CHANGES, STABLE AT THIS TIME. ALL NEEDS MET, SAFETY MEASURES RENDERED. PER ECHOCARDIOGRAMIST PATIENTS EF 25%. PER TELE MONITOR ST HR FLUCTATES TO THE 100S. WILL ENDORSE CARE TO FIRE CONTROL SYSTEM INSTALLER FOR MELLO
--- NOTE | 2017-12-23 19:15 | NUR ---
TELE GENERAL MAINTENANCE ENGINEER INITIAL NOTES GOT REPORT FROM AM NURSE AIMEE, AND SEEN PT IN BED AWAKE AND ALERT CONFUSION NOTED . RE-ORIENTED WHERE SHE AT AND HOW TO USED THE CALL LIGHT SYSTEM NOT IN ANY ACUTE DISTRESS NOTED. RESPIRATION EVEN AND NON-LABORED AND NO SOB NOTED. TELE SINUS TACH HEART RATE 113. KEPT HER WARM AND COMFORTABLE AT ALL TIMES. PLACE CALL LIGHT AT REACH. BED ALARM SET FOR SAFETY. WILL CONTINUE TO MONITOR.
[2017-12-23 20:00] VITALS: BP 113/68
--- NOTE | 2017-12-23 20:47 | NUR ---
INITIAL FINDING OF ECHO STUDY SHOWED EF OF 25%~. INFORMED ATTENDING NURSE (ISAMAR) OF RESULTS.
[2017-12-23] MEDS: CARVEDILOL 3.125 MG TABLET PO SCH (20:57)
[2017-12-23] MEDS: HYDROCODONE/APAP 5/325MG 1 EACH TABLET PO PRN (20:58)
[2017-12-23] MEDS: ENOXAPARIN SODIUM 40 MG/0.4 ML DISP.SYRIN SQ SCH (21:01)
[2017-12-23] MEDS: GABAPENTIN 300 MG CAPSULE PO SCH (21:55)
[2017-12-24] VITALS: BP 123/79
--- NOTE | 2017-12-24 | NUR ---
TELE LASER OPERATOR NOTES PT SEEPING COMFORTABLY IN BED AFTER PAIN MEDS GIVEN. NO SIGNS OF ANY ACUTE DISTRESS NOTED. TELE ST WITH TELE MONITOR. PLACE CALL LIGHT AT REACH.
[2017-12-24 04:00] VITALS: BP 148/93
[2017-12-24] MEDS: LORAZEPAM 1 MG TABLET PO PRN ×2 (06:28→12:21)
[2017-12-24] MEDS: HYDROCODONE/APAP 5/325MG 1 EACH TABLET PO PRN ×3 (06:31→09:51)
--- NOTE | 2017-12-24 06:31 | NUR ---
TELE TRAUMA COUNSELLOR NOTES PT WOKE UP AND SCREAMING ASKING FOR HER NORCO TABLET BECAUSE OF HER PAIN ON HER LOWER BACK AND FEELING SHE GETTING ANXIETY ATTACK. VITAL SIGNS STABLE , NORCO TABLET GIVEN AND ATIVAN ORDERED. EDUCATED PT FOR POSSIBLE SIDE EFFECT AND PT UNDERSTOOD WELL. BED ALARM SET AND KEPT HER WARM AND COMFORTABLE AT ALL TIMES. PLACE CALL LIGHT AT REACH.
--- NOTE | 2017-12-24 07:30 | NUR ---
RECEIVED BEDSIDE SBAR REPORT ON THE PATIENT. PATIENT IS A/O X3 FORGETFUL, ANXIOUS AT TIMES. PATIENT IS ASLEEP IN THE BED, EASILY AWAKEN. BED IS LOCKED IN LOWEST POSITION, SIDE RAILS UP X2, PATIENT IS AMBULATORY, BRP. CALL LIGHT WITHIN REACH. EDUCATED TO CALL FOR ASSISTANCE USING THE CALL LIGHT AND THE PATIENT VERBALIZED UNDERSTANDING. CHEST IS RISING EQUALLY BILATERALLY. PAIN CONTROLLED WITH RECENTLY ADMINISTERED PAIN MEDICATION. ALL NEEDS ARE MET AT THIS TIME. WILL CONTINUE TO ASSESS/MONITOR THROUGHOUT THE SHIFT.
--- NOTE | 2017-12-24 07:38 | NUR ---
TELE LOT TECHNICIAN CLOSING NOTES PT BACK TO REST AFTER ATIVAN GIVEN AND PAIN MEDS. BREATHING EVEN AND UN-LABORED, NOT IN ANY ACUTE DISTRESS NOTED. TELE SINUS TACH. ALL DUE MEDS GIVEN AND ALL NEEDS MET. KEPT HER WARM AND COMFORTABLE AT ALL TIMES. PLACE CALL LIGHT AT REACH. ENDORSE.
[2017-12-24 07:50] LABS: BASOPHILS % (AUTO) 0.2 % (0.0-2.0); EOSINOPHILS # (AUTO) 0.1 /CMM (0.0-0.7); EOSINOPHILS % (AUTO) 1.5 % (0.0-6.0); HEMATOCRIT 35 % (33-45); HEMOGLOBIN 11.9 g/dL (11.5-14.8); LYMPHOCYTES # (AUTO) 0.8 /CMM (0.8-4.8); LYMPHOCYTES % (AUTO) 10.2 % (20.0-44.0); MEAN CORPUSCULAR HEMOGLOBIN 32 PG (26.0-33.0); MEAN CORPUSCULAR HGB CONC 34 g/dl (31.0-36.0); MEAN CORPUSCULAR VOLUME 93 fL (82-100); MONOCYTES # (AUTO) 0.3 /CMM (0.1-1.30); MONOCYTES % (AUTO) 4.5 % (2.0-12.0); NEUTROPHILS # (AUTO) 6.2 /CMM (1.8-8.9); NEUTROPHILS % (AUTO) 83.6 % (43.0-81.0); PLATELET COUNT (AUTO) 271 /CMM (150-450); RDW COEFFICIENT OF VARIATION 14.9 (11.5-15.0); RED BLOOD CELL COUNT(AUTO) 3.78 MIL/uL (4.0-5.2); WHITE BLOOD COUNT (AUTO) 7.4 K/uL (4.3-11.0)
[2017-12-24 08:00] VITALS: BP 131/88
[2017-12-24 08:01] LABS: CALCIUM, SERUM 8.5 mg/dL (8.5-10.1); CREATININE 1.3 mg/dL (0.6-1.3); MAGNESIUM 1.7 mg/dL (1.8-2.4); PHOSPHORUS 4.3 mg/dL (2.5-4.9); POTASSIUM 4.3 mmol/L (3.5-5.1)
[2017-12-24] MEDS: SPIRONOLACTONE 25 MG TABLET PO SCH (09:24)
[2017-12-24] MEDS: FUROSEMIDE 40 MG/4 ML VIAL IV SCH ×3 (09:24→16:00)
[2017-12-24] MEDS: FLUOXETINE HCL 20 MG CAPSULE PO SCH (09:25)
[2017-12-24] MEDS: ASPIRIN 81 MG TAB.CHEW PO SCH (09:25)
[2017-12-24] MEDS: CARVEDILOL 3.125 MG TABLET PO SCH ×2 (09:26→21:41)
[2017-12-24] MEDS: LISINOPRIL (20MG) 20 MG TABLET PO SCH (09:26)
[2017-12-24 10:36] LABS: THYROID STIMULATING HORMONE 1.865 uIU/mL (0.358-3.74)
--- NOTE | 2017-12-24 10:56 | NUR ---
Social service consult for homelessness. Pt. was admitted to [facility] for elevated troponin level. EZRA is also familiar with pt. from previous admissions. EZRA and Dago met with pt. bedside. Pt. is alert and oriented x 4. Pt. is homeless. Pt. stated, she and her fiharjit Byrd almost had a section 8 apartment but it didn't workout. EZRA suggested for pt. to link up for services with [facility] who can assist with housing and other case management and drug abuse social worker. SW to give pt. information to [facility] prior to discharge. Pt. states she lives with her leonardo Byrd behind the [employer] in [place]. EZRA offered pt. homeless detention placement, however, pt. declined. Pt. is willing to accept homeless resources. Pt. is ETOH dependent and declines drug use. Pt. denies suicidal/homicidal ideations and visual/auditory hallucinations at this time. Pt. does not have an advance healthcare directive at this time. Discharge plan for pt. is to be discharged back to the streets in [place]. Pt. will need bus tokens upon discharge. EZRA to provide with the following resources prior to discharge: Homeless Resource Directory, [facility] Program list, Free and low cost health clinics and [facility] and [facility] Mental health clinic. Pt. receives food stamps. Pt. does not have any other source of income. EZRA encouraged pt. to apply for General Relief. Pt. stated she did start the process but did not complete the application. Homeless Patient Waiver Form to be completed by pt. prior to discharge.
[2017-12-24] MEDS: Magnesium 1GM/D5W 100ML PREMIX 100 ML IV SCH ×2 (12:10→13:48)
--- NOTE | 2017-12-24 14:37 | NUR ---
SW met with pt. and gave her the following referrals/resources: Homeless Resource Directory, [facility] Program list, Free and low cost health clinics and [facility] and [facility] health clinic. SW encouraged pt. to go to the [facility] to get a primary physician assigned and for her medications. Homeless patient waiver form was signed by pt. and placed in pt's chart.
[2017-12-24 16:00] VITALS: BP 131/90
--- NOTE | 2017-12-24 16:00 | NUR ---
patient refused 3rd dose of lasix stating " i keep running to the toilet, I just want to relax". risks and benefits discussed. Patient refused.
--- NOTE | 2017-12-24 18:43 | NUR ---
MS RN CLOSING PATIENT IS A/O X3 FORGETFUL, ANXIOUS AT TIMES. PATIENT IS ASLEEP IN THE BED, EASILY AWAKEN. BED IS LOCKED IN LOWEST POSITION, SIDE RAILS UP X2, PATIENT IS AMBULATORY, BRP. CALL LIGHT WITHIN REACH. EDUCATED TO CALL FOR ASSISTANCE USING THE CALL LIGHT AND THE PATIENT VERBALIZED UNDERSTANDING. CHEST IS RISING EQUALLY BILATERALLY.SPO2 96% ON RA. ALL DUE MEDICATIONS ADMINISTERED. DENIES PAIN/DISCOMFORT AT THIS TIME. ALL NEEDS ARE MET AT THIS TIME. WILL ENDORSE TO THE TEA PLANTATION WORKER FOR MELLO.
--- NOTE | 2017-12-24 19:30 | NUR ---
MS/RN NOTES RECEIVED PT. LYING IN BED RESTING. PT. IS EASILY AROUSABLE TO NAME. AWAKE, ALERT AND ORIENTED X3. BREATHING EVEN AND UNLABORED ON ROOM AIR. NO SOB, RESPIRATORY DISTRESS OR COMPLAINTS OF PAIN NOTED AT THIS TIME. PT. WITH LEFT WRIST 20 GAUGE IV SALINE LOCK PRESENT, PATENT AND INTACT. BED LOCKED AND IN LOWEST POSITION, SIDE RAILS UP X2, CALL LIGHT WITHIN REACH, WILL CONTINUE TO MONITOR.
[2017-12-24 20:00] VITALS: BP 117/77
[2017-12-24] MEDS: GABAPENTIN 300 MG CAPSULE PO SCH (21:41)
[2017-12-24] MEDS: ENOXAPARIN SODIUM 40 MG/0.4 ML DISP.SYRIN SQ SCH (21:42)
--- NOTE | 2017-12-25 06:00 | NUR ---
MS/RN NOTES RECEIVED PT. LYING IN BED RESTING. BREATHING EVEN AND UNLABORED ON ROOM AIR. NO SOB, RESPIRATORY DISTRESS OR COMPLAINTS OF PAIN NOTED AT THIS TIME AND THROUGHOUT SHIFT. PT. WITH LEFT WRIST 20 GAUGE IV SALINE LOCK PRESENT, PATENT AND INTACT. ALL PT. NEEDS MET. BED LOCKED AND IN LOWEST POSITION, SIDE RAILS UP X2, CALL LIGHT WITHIN REACH, WILL ENDORSE TO DAYSHIFT NURSE FOR CONTINUITY OF CARE.
[2017-12-25 07:25] LABS: BASOPHILS # (AUTO) 0.1 /CMM (0.0-0.2); EOSINOPHILS # (AUTO) 0.2 /CMM (0.0-0.7); EOSINOPHILS % (AUTO) 2.9 % (0.0-6.0); HEMATOCRIT 38 % (33-45); HEMOGLOBIN 12.9 g/dL (11.5-14.8); LYMPHOCYTES % (AUTO) 13.7 % (20.0-44.0); MEAN CORPUSCULAR HEMOGLOBIN 32 PG (26.0-33.0); MEAN CORPUSCULAR HGB CONC 34 g/dl (31.0-36.0); MEAN CORPUSCULAR VOLUME 93 fL (82-100); MONOCYTES # (AUTO) 0.6 /CMM (0.1-1.30); MONOCYTES % (AUTO) 8.3 % (2.0-12.0); NEUTROPHILS # (AUTO) 5.6 /CMM (1.8-8.9); NEUTROPHILS % (AUTO) 74.1 % (43.0-81.0); PLATELET COUNT (AUTO) 339 /CMM (150-450); RDW COEFFICIENT OF VARIATION 14.5 (11.5-15.0); RED BLOOD CELL COUNT(AUTO) 4.07 MIL/uL (4.0-5.2); WHITE BLOOD COUNT (AUTO) 7.6 K/uL (4.3-11.0)
[2017-12-25 07:40] LABS: TROPONIN I 0.058 ng/mL (0.00-0.056)
[2017-12-25 07:42] LABS: ALBUMIN 2.9 g/dL (3.4-5.0); BILIRUBIN,TOTAL 0.6 mg/dL (0.2-1.0); CALCIUM, SERUM 8.5 mg/dL (8.5-10.1); MAGNESIUM 2.1 mg/dL (1.8-2.4); PHOSPHORUS 4.5 mg/dL (2.5-4.9); TOTAL PROTEIN, SERUM 6.6 g/dL (6.4-8.2)
--- NOTE | 2017-12-25 07:58 | NUR ---
RN OPENING NOTES RECEIVED PT. IN BED A&OX4. BREATHING UNLABORED, AND EVENLY ON ROOM AIR. NO S/S OF ACUTE DISTRESS. BED IS IN LOWEST, AND LOCKED POSITION. 2 SIDE RAILS UP, AND INSTRUCTED PT. TO USE CALL LIGHT FOR ASSISTANCE. ALL NEEDS MET. WILL CONTINUE TO ASSESS AND MONITOR.
[2017-12-25 08:00] VITALS: BP 136/88
[2017-12-25] MEDS: HYDROCODONE/APAP 5/325MG 1 EACH TABLET PO PRN (08:18)
[2017-12-25] MEDS: ASPIRIN 81 MG TAB.CHEW PO SCH (08:35)
[2017-12-25] MEDS: SPIRONOLACTONE 25 MG TABLET PO SCH (08:35)
[2017-12-25] MEDS: FLUOXETINE HCL 20 MG CAPSULE PO SCH (08:35)
[2017-12-25] MEDS: LISINOPRIL (20MG) 20 MG TABLET PO SCH (08:36)
[2017-12-25] MEDS: CARVEDILOL 3.125 MG TABLET PO SCH ×2 (08:36→21:00)
[2017-12-25] MEDS: FUROSEMIDE 40 MG TABLET PO SCH (10:12)
[2017-12-25] MEDS: LORAZEPAM 1 MG TABLET PO PRN ×2 (11:11→21:14)
[2017-12-25 16:00] VITALS: BP 93/56
--- NOTE | 2017-12-25 18:43 | NUR ---
RN NOTES PT. STRONGLY REFUSED TO HAVE BED LINENS CHANGED. PER SWEETBREAD TRIMMER PT. WAS SHOUTING AT HER.
--- NOTE | 2017-12-25 19:29 | NUR ---
RN CLOSING NOTES PT. IS IN BED A&OX4. BREATHING UNLABORED, AND EVENLY ON ROOM AIR. NO S/S OF ACUTE DISTRESS. BED IS IN LOWEST, AND LOCKED POSITION. 2 SIDE RAILS UP, AND INSTRUCTED PT. TO USE CALL LIGHT FOR ASSISTANCE. ALL NEEDS MET. WILL ENDORSE REPORT TO NURSE.
--- NOTE | 2017-12-25 19:40 | NUR ---
MS RN OPENING NOTES RECEIVED PT ALERT, AWAKE, VERBALLY RESPONSIVE. ON ROOM AIR, RESPIRATIONS EVEN, UNLABORED, NO APPARENT DISTRESS NOTED. IV SITE LT WRIST INTACT, PATENT. DENIES ANY PAIN OR DISCOMFORT AT THIS TIME. CALL LIGHT WITHIN REACH. BED LOCKED IN LOWEST POSITION. KEPT CLEAN AND COMFORTABLE. ATTENDED ALL NEEDS. WILL CONTINUE TO MONITOR ACCORDINGLY.
[2017-12-25] MEDS: GABAPENTIN 300 MG CAPSULE PO SCH (21:09)
[2017-12-25] MEDS: ENOXAPARIN SODIUM 40 MG/0.4 ML DISP.SYRIN SQ SCH (21:11)
[2017-12-25 22:00] VITALS: BP 100/52
[2017-12-26] MEDS: HYDROCODONE/APAP 5/325MG 1 EACH TABLET PO PRN (03:53)
--- NOTE | 2017-12-26 06:39 | NUR ---
MS RN CLOSING NOTES PT IN BED, RESTING COMFORTABLY, ON ROOM AIR, RESPIRATIONS EVEN, UNLABORED, NO APPARENT DISTRESS NOTED. IV SITE INTACT, PATENT. CALL LIGHT WITHIN REACH. BED LOCKED IN LOWEST POSITION. KEPT CLEAN AND COMFORTABLE.ATTENDED ALL NEEDS. WILL CONTINUE TO MONITOR ACCORDINGLY.
--- NOTE | 2017-12-26 07:30 | NUR ---
RN OPENING NOTES RECEIVED PT. IN BED SLEEPING. BREATHING UNLABORED, AND EVENLY ON ROOM AIR. NO S/S OF ACUTE DISTRESS. BED IS IN LOWEST, AND LOCKED POSITION. 2 SIDE RAILS UP, AND CALL LIGHT IS WITHIN REACH. WILL CONTINUE TO ASSESS AND MONITOR.
[2017-12-26 07:42] LABS: BASOPHILS % (AUTO) 0.5 % (0.0-2.0); EOSINOPHILS # (AUTO) 0.2 /CMM (0.0-0.7); EOSINOPHILS % (AUTO) 3.9 % (0.0-6.0); HEMATOCRIT 38 % (33-45); HEMOGLOBIN 12.8 g/dL (11.5-14.8); LYMPHOCYTES # (AUTO) 1.1 /CMM (0.8-4.8); LYMPHOCYTES % (AUTO) 17.8 % (20.0-44.0); MEAN CORPUSCULAR HEMOGLOBIN 31 PG (26.0-33.0); MEAN CORPUSCULAR HGB CONC 34 g/dl (31.0-36.0); MEAN CORPUSCULAR VOLUME 92 fL (82-100); MONOCYTES # (AUTO) 0.7 /CMM (0.1-1.30); MONOCYTES % (AUTO) 11.5 % (2.0-12.0); NEUTROPHILS # (AUTO) 3.9 /CMM (1.8-8.9); NEUTROPHILS % (AUTO) 66.3 % (43.0-81.0); PLATELET COUNT (AUTO) 388 /CMM (150-450); RED BLOOD CELL COUNT(AUTO) 4.12 MIL/uL (4.0-5.2); WHITE BLOOD COUNT (AUTO) 5.9 K/uL (4.3-11.0)
[2017-12-26 07:58] LABS: CALCIUM, SERUM 8.7 mg/dL (8.5-10.1); CREATININE 1.1 mg/dL (0.6-1.3); POTASSIUM 4.3 mmol/L (3.5-5.1)
[2017-12-26 08:00] VITALS: BP 82/56
[2017-12-26] MEDS: FLUOXETINE HCL 20 MG CAPSULE PO SCH (09:23)
[2017-12-26] MEDS: ASPIRIN 81 MG TAB.CHEW PO SCH (09:23)
[2017-12-26] MEDS: SPIRONOLACTONE 25 MG TABLET PO SCH (09:23)
[2017-12-26] MEDS: FUROSEMIDE 40 MG TABLET PO SCH (09:23)
[2017-12-26 09:24] VITALS: BP 100/65
[2017-12-26] MEDS: CARVEDILOL 3.125 MG TABLET PO SCH (09:24)
[2017-12-26] MEDS: LISINOPRIL (20MG) 20 MG TABLET PO SCH (09:24)
[2017-12-26] MEDS: LORAZEPAM 1 MG TABLET PO PRN (09:35)
--- NOTE | 2017-12-26 14:50 | NUR ---
TUBE TELLER PT. LEFT IN MEDICALLY STABLE CONDITION WITH MAMADOU JIMENES. DISCHARGE INSTRUCTIONS PROVIDED WITH EDUCATION. PT. VERBALIZED UNDERSTANDING, AND SIGNED DISCHARGE PAPERS. BELONGINGS LIST WAS CHECKED AND SIGNED. ID BAND, AND IV WAS REMOVED WITHOUT COMPLICATIONS. ALL QUESTIONS ANSWERED. PT. LEFT WITH DISCHARGE PAPERS, AND DOCTOR'S PRESCRIPTION.
== END 2017-12-26 14:00 | disposition home or self-care (01) | DRG 194 ==
LOC: ER 09:59 → TELE 11:58 → MED 12-24 08:17
PROVIDERS: ADMIT Nurse Practitioner Acute Care; ATTEND Nurse Practitioner Acute Care
DX: I11.0 Hypertensive heart disease with heart failure (principal); I21.A1 Myocardial infarction type 2; N17.0 Acute kidney failure with tubular necrosis; I50.23 Acute on chronic systolic (congestive) heart failure; E44.0 Moderate protein-calorie malnutrition; E88.09 Other disorders of plasma-protein metabolism, not elsewhere classified; F32.9 Major depressive disorder, single episode, unspecified; F15.10 Other stimulant abuse, uncomplicated; Z59.0 Homelessness; H26.9 Unspecified cataract; Z68.1 Body mass index [BMI] 19.9 or less, adult; E78.5 Hyperlipidemia, unspecified; I25.10 Atherosclerotic heart disease of native coronary artery without angina pectoris; I25.2 Old myocardial infarction; K21.9 Gastro-esophageal reflux disease without esophagitis; Z87.891 Personal history of nicotine dependence; J44.9 Chronic obstructive pulmonary disease, unspecified; F41.0 Panic disorder [episodic paroxysmal anxiety]
CPT/HCPCS: 36415; 71045-TC; 80048-TC; 80053-TC; 80061-TC; 80076-TC; 82306; 82728-TC; 83540-TC; 83735-TC; 83880; 84100-TC; 84439-TC; 84443-TC; 84484-TC; 85025-TC; 85730-TC; 87081-TC; 93307-TC; A4606; J1650; J1940; J3475; Z7610

== ENCOUNTER 2018-03-08 03:37 | Inpatient (IN) | payer MEDICAID ==
[~2018-03-08] VITALS: Ht 167.6 cm; Wt 55.8 kg
[~2018-03-08 03:37] MED LIST changes: +ASPI-1169 PO; -Aspirin PO; -CARV3.122 PO; +FLUO20CA36 PO; -FURO20TA4 PO; +GABA-534 PO; +LISI-603 PO; -LISI-607 PO; -Lorazepam PO; -POTA10TA10 PO; +POTA10TA15 PO; +SPIR25TA PO
--- NOTE | 2018-03-08 03:45 | NUR ---
PT BIBHOME C/O "SOB X3 DAYS; HYPERVENTILATING AT 28 BPM HYDROGEOLOGY PROFESSOR" PT AOX3, SOB NOTED. PT ON ROOM AIR NOTED AT 88%, PT PLACED ON 2L NC WITH IMPROVEMENT TO 97%. NO NVD AT THIS TIME. PT GOWNED AND PLACED ON MONITOR WAITING FOR MD BILLY.
--- NOTE | 2018-03-08 03:48 | NUR ---
DR. SPENCE AT BEDSIDE FOR EVAL.
[2018-03-08] MEDS ORDERED: ONDANSETRON HCL/PF 4 MG/2 ML VIAL IV ONE (04:00)
[2018-03-08 04:04] LABS: BASOPHILS % (AUTO) 0.4 % (0.0-2.0); EOSINOPHILS % (AUTO) 0.8 % (0.0-6.0); HEMATOCRIT 40 % (33-45); HEMOGLOBIN 13.1 g/dL (11.5-14.8); LYMPHOCYTES % (AUTO) 14.8 % (20.0-44.0); MEAN CORPUSCULAR HGB CONC 33 g/dl (31.0-36.0); MEAN CORPUSCULAR VOLUME 91 fL (82-100); MONOCYTES # (AUTO) 0.4 /CMM (0.1-1.30); MONOCYTES % (AUTO) 5.5 % (2.0-12.0); NEUTROPHILS # (AUTO) 5.5 /CMM (1.8-8.9); NEUTROPHILS % (AUTO) 78.5 % (43.0-81.0); PLATELET COUNT (AUTO) 331 /CMM (150-450); RDW COEFFICIENT OF VARIATION 16.5 (11.5-15.0)
[2018-03-08] MEDS ORDERED: ONDANSETRON HCL/PF 4 MG/2 ML VIAL ONE (04:13)
[2018-03-08 04:24] LABS: TROPONIN I 0.044 ng/mL (0.00-0.056)
[2018-03-08 04:29] LABS: ALBUMIN 3.8 g/dL (3.4-5.0); BILIRUBIN,DIRECT 0.2 mg/dL (0.0-0.2); BILIRUBIN,TOTAL 0.8 mg/dL (0.2-1.0); CALCIUM, SERUM 9.3 mg/dL (8.5-10.1); CREATININE 1.1 mg/dL (0.6-1.3); POTASSIUM 3.6 mmol/L (3.5-5.1)
[2018-03-08] MEDS ORDERED: CEFTRIAXONE 1GM BAG (ER ONLY) 50 ML IV ONE (04:49)
[2018-03-08] MEDS ORDERED: AZITHROMYCIN 500 MG VIAL ONE (04:58)
[2018-03-08] MEDS ORDERED: CEFTRIAXONE 1GM BAG (ER ONLY) 1 GM/50 ML PIGGYBACK IV ONE (05:00)
[2018-03-08] MEDS ORDERED: AZITHROMYCIN 500 MG in IV D5W 250 ML IV ONE (05:00)
[2018-03-08] MEDS ORDERED: ACETAMINOPHEN 325 MG TABLET PO PRN (05:00)
[2018-03-08] MEDS ORDERED: Z GUARD REMEDY 2 OZ OINT TP PRN (05:00)
[2018-03-08] MEDS ORDERED: MAGNESIUM HYDROXIDE 30 ML UDC PO PRN (05:00)
[2018-03-08] MEDS ORDERED: FUROSEMIDE 40 MG/4 ML VIAL IV ONE (05:00)
[2018-03-08] MEDS ORDERED: MAG HYDROX/AL HYDROX/SIMETH 30 ML UDC PO PRN (05:00)
--- NOTE | 2018-03-08 05:08 | NUR ---
NOTED DISCOLORATION ON LEFT ORBITAL. MADE AWARE
--- NOTE | 2018-03-08 05:21 | NUR ---
PT ASSIGNED TO [facility] 314-2
--- NOTE | 2018-03-08 05:35 | NUR ---
REPORT GIVEN TO MAR MARTINI FOR MELLO.
[2018-03-08] MEDS ORDERED: LORAZEPAM INJ 2 MG/ML VIAL ONE (05:38)
[2018-03-08] MEDS ORDERED: LORAZEPAM INJ 2 MG/ML VIAL IV PRN (06:00)
--- NOTE | 2018-03-08 06:05 | NUR ---
BOX CAR BRACER OPENING NOTES: RECEIVED PT AND APPEARS TO BE LETHARGIC. NOTED L ORBITAL BRUISING. PT TO BE PLACED ON TELE MONITOR. PT HAS IV ZITHROMAX RUNNING AT 250ML/HR. PT HAS IV ON R AC #20G. CALL LIGHT WITHIN PT'S REACH. BED ALARM ACTIVATED. PT ON 2LPM VIA NC AND IS TOLERATING WELL. WILL CONTINUE TO MONITOR PT.
--- NOTE | 2018-03-08 06:06 | NUR ---
PT TRANSFERRED PER ACLS PROTOCOL.
[2018-03-08 06:10] VITALS: BP 111/85
[2018-03-08 06:36] LABS: INR 1.1 (0.87-1.13)
--- NOTE | 2018-03-08 07:30 | NUR ---
PLASMA PROCESSOR CLOSING NOTES: ALL NEEDS WERE ATTENDED AND ANTICIPATED FOR. PT APPEARS TO BE LETHARGIC. PT WANTS TO SLEEP FOR NOW. NOTED L ORBITAL BRUISING. PT ON TELE MONITOR AND READING SHOWS ST 113. PT HAS IV ON R AC #20G. CALL LIGHT WITHIN PT'S REACH. BED ALARM ACTIVATED. PT ON 2LPM VIA NC AND IS TOLERATING WELL. ENDORSED TO AM NURSE FOR MELLO.
--- NOTE | 2018-03-08 07:40 | NUR ---
RN OPENING NOTES RECEIVED PT. PT IS STABLE AND RESTING IN BED. NO S/S OF RESP DISTRESS/SOB, BREATHING IS UNLABORED HOWEVER RR AT 20-22. PT IS ON NC AT 2L, HOWEVER IS NON-COMPLIANT AND REFUSES TO WEAR IT. NO C/O PAIN AT THIS MOMENT. PT REMAINS LETHARGIC, PER STRADDLE BUG REPORT ATIVAN IVP GIVEN AT 0600 IN ER. TELE MONITOR IN PLACE, READING ST AT APPROX 110 BPM. IV ACCESS LOCATED ON RAC 20G, SL. [place] [id number] NAND TROP AT 0.044. PT KEPT NPO FOR POSSIBLE CARDIAC WORKUP, WILL F/U WITH . SAFETY MEASURES IN PLACE, CALL LIGHT WITHIN REACH. WILL CONTINUE TO MONITOR.
[2018-03-08 08:00] VITALS: BP 148/80
[2018-03-08 09:00] VITALS: BP 148/80
[2018-03-08] MEDS: SPIRONOLACTONE 25 MG TABLET PO SCH (09:00)
[2018-03-08] MEDS: ASPIRIN 81 MG TAB.CHEW PO SCH (09:00)
[2018-03-08] MEDS: LISINOPRIL (20MG) 20 MG TABLET PO SCH (09:00)
[2018-03-08] MEDS: FLUOXETINE HCL 20 MG CAPSULE PO SCH (09:00)
[2018-03-08] MEDS: FUROSEMIDE 40 MG/4 ML VIAL IV SCH ×3 (10:36→17:34)
[2018-03-08 10:56] LABS: THYROID STIMULATING HORMONE 2.062 uIU/mL (0.358-3.74)
[2018-03-08] MEDS: ONDANSETRON HCL/PF 4 MG/2 ML VIAL IVP PRN (11:08)
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
[2018-03-08] MEDS: HYDROCODONE/APAP 5/325MG 1 EACH TABLET PO PRN ×2 (15:10→20:27)
[2018-03-08 16:00] VITALS: BP 127/83
--- NOTE | 2018-03-08 18:39 | NUR ---
RN CLOSING NOTES PT IS IN BED RESTING. NO S/S OF RESPIRATORY DISTRESS OR SOB. NO C/O PAIN AT THIS TIME. PT HAS BEEN LETHARGIC THROUGHOUT DAY, HOWEVER EASILY AROUSABLE. PT GIVEN IV LASIX X 3, PER MD NOTE CONT DIURESIS. ALL PT NEEDS ANTICIPATED AND MET, SAFETY MEASURES IN PLACE, CALL LIGHT IN REACH. WILL ENDORSE TO SOCIAL SCIENCE RESEARCH ASSISTANT FOR MELLO.
--- NOTE | 2018-03-08 19:19 | NUR ---
MS RN OPENING NOTES: RECEIVED PT IN BED AND IS SITTING UP IN HIGH [place]S. INSTRUCTED PT TO KEEP HER NASAL CANNULA ON BUT KEEPS REMOVING IT. PT APPEARS TO BE LETHARGIC. IV IN TACT. CALL LIGHT WITHIN PT'S REACH. BED KEPT IN LOW, LOCKED POSITION, AND SIDE RAILS X 2UP. WILL CONTINUE TO MONITOR PT.
[2018-03-08 20:00] VITALS: BP 114/74
--- NOTE | 2018-03-08 20:29 | NUR ---
MS RN NOTES: PT COMPLAINING OF GENERALIZED PAIN 05/10. PT WAS ADMINISTERED NORCO 5. WILL CONTINUE TO MONITOR PT.
[2018-03-08 20:49] VITALS: BP 114/74
[2018-03-08] MEDS ORDERED: GABAPENTIN 300 MG CAPSULE PO SCH (22:00)
--- NOTE | 2018-03-08 22:41 | NUR ---
MS RN NOTES: SPOKE WITH DR. SELF. INFORMED HIM THAT PATIENT WAS ASKING FOR HE PROZAC 20MG. ALSO INFORMED HIM THAT SHE HAD A SCHEDULED DOSE THIS AM AND WAS NON-ADMIN D/T NPO DIAGNOSIS. OK TO GIVE PROZAC 20MG NOW.
[2018-03-08] MEDS ORDERED: FLUOXETINE HCL 20 MG CAPSULE PO ONE (23:00)
--- NOTE | 2018-03-09 | NUR ---
MS RN NOTES: ENDED UP NON-ADMINISTERING PROZAC D/T PATIENT BEING DROWSY AND LETHARGIC. SHE HAS A SCHEDULED PROZAC.
--- NOTE | 2018-03-09 01:28 | NUR ---
RN MS NOTES PATIENT COMPLAINT OF HEADACHE, NORCO OFFERED ORDERED , PATIENT AGREED TO NORCO,ADMINISTERED ORDERED.WILL CONTINUE TO MONITOR.
--- NOTE | 2018-03-09 06:27 | NUR ---
MS RN CLOSING NOTES: ALL NEEDS WERE ATTENDED AND ANTICIPATED FOR. PT HAS BEEN LETHARGIC THE ENTIRE SHIFT. PT WILL SAY SHE WANTS SODA AND WILL GO BACK TO SLEEP. PT ON 2LPM VIA NC AND WILL TAKE IT OFF FROM TIME TO TIME. EXPLAINED TO PT THE IMPORTANCE OF KEEPING IT ON. BED ALARM ACTIVATED. CALL LIGHT WITHIN PT'S REACH. BED KEPT IN LOW, LOCKED POSITION, AND SIDE RAILS X 2UP. WILL ENDORSE TO AM NURSE FOR MELLO.
[2018-03-09 07:15] LABS: BASOPHILS # (AUTO) 0.1 /CMM (0.0-0.2); BASOPHILS % (AUTO) 0.6 % (0.0-2.0); EOSINOPHILS % (AUTO) 2.2 % (0.0-6.0); HEMATOCRIT 46 % (33-45); HEMOGLOBIN 15.2 g/dL (11.5-14.8); LYMPHOCYTES # (AUTO) 1.2 /CMM (0.8-4.8); LYMPHOCYTES % (AUTO) 12.6 % (20.0-44.0); MEAN CORPUSCULAR HGB CONC 33 g/dl (31.0-36.0); MEAN CORPUSCULAR VOLUME 91 fL (82-100); MONOCYTES # (AUTO) 0.6 /CMM (0.1-1.30); MONOCYTES % (AUTO) 5.8 % (2.0-12.0); NEUTROPHILS # (AUTO) 7.7 /CMM (1.8-8.9); NEUTROPHILS % (AUTO) 78.8 % (43.0-81.0); PLATELET COUNT (AUTO) 326 /CMM (150-450); RDW COEFFICIENT OF VARIATION 16.3 (11.5-15.0); RED BLOOD CELL COUNT(AUTO) 5.02 MIL/uL (4.0-5.2); WHITE BLOOD COUNT (AUTO) 9.8 K/uL (4.3-11.0)
[2018-03-09 07:17] LABS: CALCIUM, SERUM 8.9 mg/dL (8.5-10.1); CREATININE 1.6 mg/dL (0.6-1.3); MAGNESIUM 1.8 mg/dL (1.8-2.4); PHOSPHORUS 5.4 mg/dL (2.5-4.9); POTASSIUM 3.9 mmol/L (3.5-5.1)
--- NOTE | 2018-03-09 07:39 | NUR ---
RN OPENING NOTES RECEIVED PATIENT IN BED RESTING, LETHARGIC. ON 2 LPM OXYGEN VIA NC, SPO2 @ 92%-94%. NO ACUTE DISTRESS, NO SOB. DENIED PAIN OR DISCOMFORT AT THIS TIME. IV SITE INTACT AND PATENT. KEPT PATIENT SAFE AND COMFORTABLE. BED IN LOW/LOCKED POSITION, SIDERAILS UPX2, BED ALARM ON FOR SAFETY, CALL LIGHT IN REACH. WILL CONTINUE TO MONITOR ACCORDINGLY.
[2018-03-09 07:44] LABS: THYROID STIMULATING HORMONE 1.65 uIU/mL (0.358-3.74)
[2018-03-09 08:00] VITALS: BP 135/86
[2018-03-09] MEDS: ASPIRIN 81 MG TAB.CHEW PO SCH (09:15)
[2018-03-09] MEDS: SPIRONOLACTONE 25 MG TABLET PO SCH (09:15)
[2018-03-09] MEDS: FLUOXETINE HCL 20 MG CAPSULE PO SCH (09:15)
[2018-03-09] MEDS: LISINOPRIL (20MG) 20 MG TABLET PO SCH (09:16)
[2018-03-09] MEDS: FUROSEMIDE 100 MG/10 ML VIAL IV SCH ×3 (09:45→18:09)
--- NOTE | 2018-03-09 09:59 | NUR ---
WOUND CARE CONSULT: LIMITED ASSESSMENT DUE TO PT REFUSAL. PT ONLY ALLOWED ASSESSMENT OF EYES AND FACE. RT EYE NOTED TO HAVE PURULENT DRAINAGE TO LOWER LID. LEFT EYE NOTED TO HAVE BRUISING. DEFER TO MD FOR RT EYE. PT STATED REST OF HER BODY IS FINE AND REFUSED ASSESSMENT. PT IS AMBULATORY AND CONTINENT. WILL SEE PRN.
[2018-03-09] MEDS ORDERED: TOBRAMYCIN OPHTH 5ML 5 ML BOTTLE RIGHTEYE SCH (10:30)
[2018-03-09] MEDS: HYDROCODONE/APAP 5/325MG 1 EACH TABLET PO PRN ×2 (10:47→18:07)
--- NOTE | 2018-03-09 12:50 | NUR ---
EZRA met with pt. bedside to discuss discharge plan. SW offered Intermediate placement, however pt. declined stating she wants to be with her isabelle Byrd. Pt. declined residential referrals/resources but will accept bus token for transportation. No other social service needs are required at this time. SW is available, if needed. EZRA updated pt's RN Oj regarding discharge plan.
[2018-03-09] MEDS: TOBRAMYCIN OPHTH 5ML 5 ML BOTTLE RIGHTEYE SCH ×3 (13:31→20:43)
[2018-03-09 16:00] VITALS: BP 117/78
[2018-03-09] MEDS ORDERED: AZITHROMYCIN 500 MG in IV D5W 250 ML IV SCH (16:00)
[2018-03-09] MEDS: CEFTRIAXONE 1 G in IV NS 0.9% 50 ML IV SCH (17:12)
[2018-03-09] MEDS: ONDANSETRON HCL/PF 4 MG/2 ML VIAL IVP PRN (18:32)
--- NOTE | 2018-03-09 19:14 | NUR ---
RN NOTES PATIENT HAVING ANXIETY ATTACK. CALLED MARLA INGRAM NP. ORDER OF ATIVAN 1MG IV ONE TIME. ADMINISTERED ATIVAN 1MG ORDERED. WILL MONIOTR/REASSESS ACCORDINGLY.
[2018-03-09] MEDS ORDERED: LORAZEPAM INJ 2 MG/ML VIAL IV ONE (19:30)
--- NOTE | 2018-03-09 19:30 | NUR ---
RN CLOSING NOTES PATIENT IN BED RESTING, CALM. NO ACUTE DISTRESS, NO SOB. ALL NEEDS ATTENDED AND PROVIDED. KEPT PATIENT SAFE AND COMFORTABLE IN BED. BED IN LOW/LOCKED POSITION, SIDERAILS UPX2, HOB ELEVATED, CALL LIGHT IN REACH. ENDORSED TO NIGHT RN FOR MELLO.
--- NOTE | 2018-03-09 19:40 | NUR ---
RN OPENING MS NOTES RECEIVED PATIENT IN BED AWAKE ALERT AND RESPONSIVE, RESPIRATIONS EVEN AND UNLABORED,02 SAT AT 100% ON 2 LITERS, PATIENT IS CURRENTLY SLEEPING BUT EASILY AROUSABLE S/P ATIVAN ORDERED PATIENT HAD A PANIC ATTACK BUT IS CURRENTLY COMFORTABLE AT THIS TIME, RIGHT AC 20 GAUGE INTACT AND PATENT. NOTED LEFT EYE DISCOLORATION, DENIES ANY PAIN OR DISCOMFORT , WILL CONTINUE TO MONITOR ORIENTED TO STAFF AND ROOM, AND CALL LIGHT, CALL LIGHT KEPT WITHIN REACH WILL CONTINUE TO MONITOR.
[2018-03-09 20:00] VITALS: BP 103/53
[2018-03-10] MEDS: HYDROCODONE/APAP 5/325MG 1 EACH TABLET PO PRN ×2 (01:28→06:01)
[2018-03-10] MEDS: TOBRAMYCIN OPHTH 5ML 5 ML BOTTLE RIGHTEYE SCH ×4 (01:31→14:54)
--- NOTE | 2018-03-10 03:09 | NUR ---
RN MS NOTES CLARIFICATION OF EYEDROPS 2 DROPS GIVEN ORDERED OF TOBRAMYCIN WHEN ADMINISTERED.
--- NOTE | 2018-03-10 06:06 | NUR ---
RN MS NOTES PATIENT COMPLAINT OF HEADACHE, NORCO OFFERED ORDERED , PATIENT AGREED TO NORCO,ADMINISTERED ORDERED.WILL CONTINUE TO MONITOR.
--- NOTE | 2018-03-10 06:45 | NUR ---
RN CLOSING MS NOTES PATIENT IN BED SLEEPING BUT EASILY AROUSABLE, DENIES ANY PAIN OR DISCOMFORT AT THIS TIME, NORCO EFFECTIVE, RESPIRATIONS EVEN AND UNLABORED,02 SAT AT 100% ON 2 LITERS, CURRENTLY COMFORTABLE AT THIS TIME, RIGHT AC 20 GAUGE INTACT AND PATENT, NO REDNESS , NO INFILTRATION PRESENT. CALL LIGHT KEPT WITHIN REACH WILL CONTINUE TO MONITOR AND ENDORSE TO NEXT SHIFT PATIENT REMAINS COMFORTABLE.
[2018-03-10 06:54] LABS: BASOPHILS % (AUTO) 0.8 % (0.0-2.0); EOSINOPHILS % (AUTO) 3.2 % (0.0-6.0); HEMATOCRIT 45 % (33-45); HEMOGLOBIN 14.9 g/dL (11.5-14.8); LYMPHOCYTES # (AUTO) 1.2 /CMM (0.8-4.8); LYMPHOCYTES % (AUTO) 18.6 % (20.0-44.0); MEAN CORPUSCULAR HGB CONC 33 g/dl (31.0-36.0); MEAN CORPUSCULAR VOLUME 91 fL (82-100); MONOCYTES # (AUTO) 0.5 /CMM (0.1-1.30); MONOCYTES % (AUTO) 7.7 % (2.0-12.0); NEUTROPHILS # (AUTO) 4.4 /CMM (1.8-8.9); NEUTROPHILS % (AUTO) 69.7 % (43.0-81.0); PLATELET COUNT (AUTO) 342 /CMM (150-450); RDW COEFFICIENT OF VARIATION 16.1 (11.5-15.0); RED BLOOD CELL COUNT(AUTO) 4.94 MIL/uL (4.0-5.2); WHITE BLOOD COUNT (AUTO) 6.4 K/uL (4.3-11.0)
[2018-03-10 07:01] LABS: ALBUMIN 3.4 g/dL (3.4-5.0); BILIRUBIN,TOTAL 0.3 mg/dL (0.2-1.0); CALCIUM, SERUM 8.7 mg/dL (8.5-10.1); CREATININE 1.6 mg/dL (0.6-1.3); MAGNESIUM 1.9 mg/dL (1.8-2.4); PHOSPHORUS 5.2 mg/dL (2.5-4.9); POTASSIUM 3.7 mmol/L (3.5-5.1); TOTAL PROTEIN, SERUM 7.1 g/dL (6.4-8.2)
[2018-03-10 08:00] VITALS: BP 96/66
--- NOTE | 2018-03-10 08:00 | NUR ---
MS RN NOTES PATIENT IN BED RESTING NO SOB OR ACUTE DISTRESS NOTED. PATIENT ALERT, ORIENTED X3. BED IN LOW LOCKED POSITION. CALL LIGHT WITHIN REACH. WILL CONTINUE TO MONITOR.
[2018-03-10] MEDS: FLUOXETINE HCL 20 MG CAPSULE PO SCH (08:44)
[2018-03-10] MEDS: ASPIRIN 81 MG TAB.CHEW PO SCH (08:44)
[2018-03-10 09:00] VITALS: BP 96/66
[2018-03-10] MEDS ORDERED: POTASSIUM CHLORIDE 20 MEQ TAB.PRT.SR PO SCH (09:00)
[2018-03-10] MEDS ORDERED: CARVEDILOL 3.125 MG TABLET PO SCH (09:00)
[2018-03-10] MEDS ORDERED: FUROSEMIDE 40 MG TABLET PO SCH (09:00)
--- NOTE | 2018-03-10 14:00 | NUR ---
MS RN NOTES PATIENT SEEN AND EVALUATED BY MARLA CENTENO ORDERS TO DISCHARGE HOME.
[2018-03-10] MEDS: CEFTRIAXONE 1 G in IV NS 0.9% 50 ML IV SCH (15:00)
[2018-03-10] MEDS ORDERED: AZITHROMYCIN 250 MG TABLET PO SCH (16:00)
--- NOTE | 2018-03-10 16:00 | NUR ---
MS RN NOTES PATIENT INFORMED OF DISCHARGE. PATIENT NOTED TO BECOME AGITATED NOTED SCREAMING PROFANITIES CALLING, STAFF NAMES. PATIENT STATES SHE MISSES HER FIANCE AND IS WONDERING WHY HE HAS NOT CALLED HER. CORAL VAT HOUSE SUPERVISOR AT BEDSIDE. PROVIDED WITH RESOURCES. PATIENT BECAME SEVERLY AGITATES STATES SHE WILL NOTE LEAVE UNTIL HER FIANCE CALLS HER. BUT SHE IS UNABLE TO RECALL HIS PHONE NUMBER OR ANY KIND OF COMMUNICATION. SECURITY CALLED WITH PRESENCE OF SECURITY PATIENT CALMED. AMERICAN STUDIES PROFESSOR ASSISTED PATIENT IN TAKING A SHOWER. PATIENT NOTED TO COOPERATE WITH SECURITY AT BEDSIDE.
--- NOTE | 2018-03-10 16:45 | NUR ---
MS RN NOTES PATIENT DISCHARGED HOME WITH TAXI. PATIENT IN STABLE CONDITION . MD AWARE OF ALL ABNORMAL LABS. PATIENT COOPERATIVE WITH DISCHARGE. DISCHARGE INSTRUCTIONS PROVIDED. PRESCRIPTION GIVEN TO PATIENT. PERIPHERAL IV REMOVED. ID BAND REMOVED. ALL BELONGINGS ACCOUNTED FOR, BELONGINGS LIST SIGNED. PATIENT PROVIDED WITH DONATED CLOTHS. ESCORTED TO [facility]AXI BY MEDICAL COMMUNICATION SPECIALIST. REFUSED SKIN ASSESSMENT AND PICTURES.
[2018-03-10] MEDS ORDERED: LACTOBACILLUS RHAMNOSUS GG 1 EACH CAP.SPRINK PO SCH (17:00)
[2018-03-23] MEDS ORDERED: FURO-144 PO (13:16)
== END 2018-03-10 16:45 | disposition home or self-care (01) | DRG 190 ==
LOC: ER 03:39 → TELE 05:25 → MED 09:30
PROVIDERS: ADMIT Nurse Practitioner Acute Care; ATTEND Nurse Practitioner Acute Care
DX: I21.A1 Myocardial infarction type 2 (principal); I50.23 Acute on chronic systolic (congestive) heart failure; J18.9 Pneumonia, unspecified organism; I11.0 Hypertensive heart disease with heart failure; N17.9 Acute kidney failure, unspecified; F32.9 Major depressive disorder, single episode, unspecified; F41.9 Anxiety disorder, unspecified; J44.9 Chronic obstructive pulmonary disease, unspecified; Z88.2 Allergy status to sulfonamides; Z79.82 Long term (current) use of aspirin; Z79.899 Other long term (current) drug therapy; I34.0 Nonrheumatic mitral (valve) insufficiency; H10.89 Other conjunctivitis; F17.200 Nicotine dependence, unspecified, uncomplicated; E78.5 Hyperlipidemia, unspecified; F41.0 Panic disorder [episodic paroxysmal anxiety]; I25.10 Atherosclerotic heart disease of native coronary artery without angina pectoris; K21.9 Gastro-esophageal reflux disease without esophagitis; Z95.810 Presence of automatic (implantable) cardiac defibrillator; Z59.0 Homelessness
CPT/HCPCS: 36415; 71045-TC; 80048-TC; 80053-TC; 80061-TC; 80076-TC; 83735-TC; 83880; 84100-TC; 84439-TC; 84443-TC; 84484-TC; 85025-TC; 85730-TC; 87081-TC; A4216; A4606; J0456; J0696; J1940; J2060; J2405; J7060; Z7610

== ENCOUNTER 2018-03-22 05:42 | Inpatient (IN) | payer MEDICAID ==
[~2018-03-22] VITALS: Ht 160 cm; Wt 54.4 kg
--- NOTE | 2018-03-22 05:42 | NUR ---
BB RA C/O "BEEN SOB FOR 3 DAYS; FEELING ANXIOUS". PT IS HYPERTENSIVE BUT OTHERWISE VSS NAD A/OX4. WILL CONTINUE TO MONITOR FOR ANY MORE CHANGES DURING THE SHIFT.
--- NOTE | 2018-03-22 05:45 | NUR ---
ER MD PUGH AT BEDSIDE FOR EVAL
[2018-03-22] MEDS ORDERED: FUROSEMIDE 40 MG/4 ML VIAL IV ONE (06:30)
[2018-03-22] MEDS ORDERED: FUROSEMIDE 40 MG/4 ML VIAL ONE (06:51)
[2018-03-22] MEDS ORDERED: OLANZAPINE 10 MG VIAL IM ONE ×2 (06:53→07:00)
[2018-03-22 07:25] LABS: CARBON DIOXIDE 24 mmol/L (21-32); CHLORIDE 105 mmol/L (98-107); CREATININE 0.8 mg/dL (0.6-1.3); GLUCOSE 132 mg/dL (74-106); POTASSIUM 3.4 mmol/L (3.5-5.1); SODIUM SERUM 140 mmol/L (136-145); UREA NITROGEN, BLOOD 29 mg/dL (7-18)
[2018-03-22] MEDS ORDERED: POTASSIUM CHLORIDE 20 MEQ TAB.PRT.SR PO ONE ×2 (07:30→07:40)
[2018-03-22 07:31] LABS: INR 1.1 (0.87-1.13)
[2018-03-22 07:32] LABS: BASOPHILS % (AUTO) 0.6 % (0.0-2.0); EOSINOPHILS % (AUTO) 0.9 % (0.0-6.0); HEMATOCRIT 38 % (33-45); HEMOGLOBIN 12.8 g/dL (11.5-14.8); LYMPHOCYTES # (AUTO) 0.9 /CMM (0.8-4.8); LYMPHOCYTES % (AUTO) 11.3 % (20.0-44.0); MEAN CORPUSCULAR HGB CONC 34 g/dl (31.0-36.0); MEAN CORPUSCULAR VOLUME 90 fL (82-100); MONOCYTES # (AUTO) 0.3 /CMM (0.1-1.30); MONOCYTES % (AUTO) 3.7 % (2.0-12.0); NEUTROPHILS # (AUTO) 6.6 /CMM (1.8-8.9); NEUTROPHILS % (AUTO) 83.5 % (43.0-81.0); PLATELET COUNT (AUTO) 281 /CMM (150-450); RDW COEFFICIENT OF VARIATION 15.7 (11.5-15.0)
[2018-03-22 07:33] LABS: TROPONIN I 0.048 ng/mL (0.00-0.056)
[2018-03-22 07:38] LABS: ALCOHOL, BLOOD < 3 mg/dL (0-0); B-TYPE NATRIURETIC PEPTIDE 15544 PG/ML (0-125)
--- NOTE | 2018-03-22 07:52 | NUR ---
PAGED DR ALBRIGHT FOR ADMISSION
--- NOTE | 2018-03-22 08:39 | NUR ---
pt sleepy but arousiable unpon command folows simple commands on nc at 2 lpm. pt in high fowlers position given medications pt able to swallow pt alert with orientation x 4. pt noted to be SOB with presured sentence structure. vital signs taken.
[2018-03-22] MEDS ORDERED: Z GUARD REMEDY 2 OZ OINT TP PRN (09:30)
[2018-03-22] MEDS ORDERED: MORPHINE SULFATE INJ 2 MG/ML DISP.SYRIN IV PRN (09:30)
[2018-03-22] MEDS ORDERED: ONDANSETRON HCL/PF 4 MG/2 ML VIAL IVP PRN (09:30)
[2018-03-22] MEDS ORDERED: MAG HYDROX/AL HYDROX/SIMETH 30 ML UDC PO PRN (09:30)
[2018-03-22] MEDS ORDERED: MAGNESIUM HYDROXIDE 30 ML UDC PO PRN (09:30)
[2018-03-22] MEDS ORDERED: ACETAMINOPHEN 325 MG TABLET PO PRN (09:30)
[2018-03-22] MEDS ORDERED: ZOLPIDEM TARTRATE 5 MG TABLET PO PRN (09:30)
[2018-03-22 10:00] VITALS: BP 104/71
--- NOTE | 2018-03-22 10:00 | NUR ---
CHANNEL LIP WETTER NOTES RECEIVED PT FROM E.R. STAFF, AWAKE, SLEEPY, ALERT AND ORIENTED, DENIES PAIN, RESPIRATIONS NORMAL AND NOT LABORED, ABLE TO WALK TO BED, ASSISTED TO BED, MADE WARM AND COMFORTABLE, ROOM SET UP ORIENTATION PROVIDED TO PT, VERBALIZED UNDERSTANDING, KEPT WARM AND COMFORTABLE.
--- NOTE | 2018-03-22 10:02 | NUR ---
pt report given to juanjose Tejada at 0930 pt departed at 0950 to [id number] . pt transferred to bed
[2018-03-22 11:00] VITALS: BP 104/71
[2018-03-22] MEDS: ENOXAPARIN SODIUM 40 MG/0.4 ML DISP.SYRIN SQ SCH (12:17)
[2018-03-22] MEDS: HYDROCODONE/APAP 5/325MG 1 EACH TABLET PO PRN ×2 (12:43→18:49)
[2018-03-22 16:00] VITALS: BP 133/90
--- NOTE | 2018-03-22 18:54 | NUR ---
CARTON LINER NOTES PT IN BED, AWAKE, WITH COMPLAINT OF LEFT LEG PAIN, NORCO GIVEN ORDERED, TOLERATES CURRENT DIET WELL, CALL LIGHT WITHIN REACH, NO SHORTNESS OF BREATH NOTED, TOLERATES ROOM AIR WELL, ALL NEEDS ATTENDED.
--- NOTE | 2018-03-22 19:35 | NUR ---
RN MS TELE OPENING NOTES RECEIVED PATIENT IN BED SLEEPING BUT EASILY AROUSABLE, RESPIRATIONS EVEN AND UNLABORED WITH EQUAL RISE AND FALL OF CHEST, NO DISTRESS PRESENT, NO COMPLAINTS OF PAIN OR DISCOMFORT AT THIS TIME, NO FACIAL GRIMACING PRESENT. LEFT HAND IV SITE, NO REDNESS NO INFILTRATION PRESENT, INTACT AND PATENT,ON TRAVEL SERVICE CONSULTANT SR AT 90-93. FLUIDS OFFERED TOLERATED, ORIENTED TO STAFF AND CALL LIGHT, CALL LIGHT KEPT WITHIN REACH, SAFETY PRECAUTIONS IN PLACE, WILL CONTINUE TO MONITOR.
[2018-03-22 20:00] VITALS: BP 121/69
[2018-03-22] MEDS ORDERED: GABAPENTIN 300 MG CAPSULE PO SCH (22:00)
[2018-03-23] VITALS: BP 103/61
[2018-03-23] MEDS: HYDROCODONE/APAP 5/325MG 1 EACH TABLET PO PRN ×3 (03:23→15:11)
--- NOTE | 2018-03-23 03:23 | NUR ---
TELEMETRY TECH NOTES PATIENT COMPLAINT OF ACHING PAIN TO LEFT LEG 05/10, REQUESTING FOR NORCO PRN , VITAL SIGNS ASSESSED PRIOR TO ADMINISTRATION , 119/73, 94, 98% RA,18,97.6. GIVEN ORDERED, REPOSITIONED FOR COMFORT WILL CONTINUE TO MONITOR EFFECTIVENESS.
[2018-03-23 04:00] VITALS: BP_SYST 116; BP_SYST 95; BP_DIAS 51; BP_DIAS 69
--- NOTE | 2018-03-23 06:45 | NUR ---
RN MS TELE CLOSING NOTES PATIENT IN BED SLEEPING BUT EASILY AROUSABLE, RESPIRATIONS EVEN AND UNLABORED WITH EQUAL RISE AND FALL OF CHEST, NO DISTRESS PRESENT, NO COMPLAINTS OF PAIN OR DISCOMFORT AT THIS TIME, NO FACIAL GRIMACING PRESENT. LEFT HAND IV SITE INTACT AND PATENT , NO REDNESS NO INFILTRATION PRESENT,ON PUBLIC HEALTH SANITARIAN TECHNICIAN SR AT 88. FLUIDS OFFERED TOLERATED,ALL NEEDS ATTENDED AT THIS TIME, FLUIDS AND SNACKS OFFERED TOLERATED, CALL LIGHT KEPT WITHIN REACH, SAFETY PRECAUTIONS IN PLACE, WILL CONTINUE TO MONITOR AND ENDORSE TO NEXT SHIFT.
[2018-03-23 07:09] LABS: BASOPHILS # (AUTO) 0.1 /CMM (0.0-0.2); EOSINOPHILS % (AUTO) 6.6 % (0.0-6.0); HEMATOCRIT 42 % (33-45); HEMOGLOBIN 13.8 g/dL (11.5-14.8); LYMPHOCYTES # (AUTO) 1.2 /CMM (0.8-4.8); LYMPHOCYTES % (AUTO) 20.8 % (20.0-44.0); MEAN CORPUSCULAR HGB CONC 33 g/dl (31.0-36.0); MEAN CORPUSCULAR VOLUME 91 fL (82-100); MONOCYTES # (AUTO) 0.3 /CMM (0.1-1.30); MONOCYTES % (AUTO) 5.5 % (2.0-12.0); NEUTROPHILS # (AUTO) 3.8 /CMM (1.8-8.9); NEUTROPHILS % (AUTO) 66.1 % (43.0-81.0); PLATELET COUNT (AUTO) 293 /CMM (150-450); RDW COEFFICIENT OF VARIATION 16.4 (11.5-15.0); RED BLOOD CELL COUNT(AUTO) 4.56 MIL/uL (4.0-5.2); WHITE BLOOD COUNT (AUTO) 5.7 K/uL (4.3-11.0)
--- NOTE | 2018-03-23 07:30 | NUR ---
RN MS NOTES PT IN BED, ASLEEP, EASILY AROUSABLE, ALERT AND ORIENTED, DENIES PAIN AT THIS TIME, RESPIRATIONS NORMAL AND NOT LABORED, CALL LIGHT WITHIN REACH, KEPT BAGGAGE AGENT BED.
[2018-03-23 07:49] LABS: CALCIUM, SERUM 8.6 mg/dL (8.5-10.1); CREATININE 1.1 mg/dL (0.6-1.3); MAGNESIUM 1.9 mg/dL (1.8-2.4); PHOSPHORUS 4.6 mg/dL (2.5-4.9); POTASSIUM 4.2 mmol/L (3.5-5.1)
[2018-03-23 08:00] VITALS: BP 135/101
[2018-03-23] MEDS ORDERED: LISINOPRIL (20MG) 20 MG TABLET PO SCH (09:00)
[2018-03-23] MEDS ORDERED: ASPIRIN 81 MG TAB.CHEW PO SCH (09:00)
[2018-03-23] MEDS ORDERED: FLUOXETINE HCL 20 MG CAPSULE PO SCH (09:00)
[2018-03-23] MEDS ORDERED: SPIRONOLACTONE 25 MG TABLET PO SCH (09:00)
[2018-03-23] MEDS: ENOXAPARIN SODIUM 40 MG/0.4 ML DISP.SYRIN SQ SCH (09:32)
[2018-03-23] MEDS: POTASSIUM CHLORIDE 20 MEQ TAB.PRT.SR PO SCH ×2 (10:53→12:15)
[2018-03-23] MEDS ORDERED: FUROSEMIDE 40 MG/4 ML VIAL IV SCH (11:00)
--- NOTE | 2018-03-23 12:05 | NUR ---
Social service consult requested by Dr. Scales for homelessness. Pt. is a 62 year old female who was admitted to [facility] for CHF. EZRA is familiar with pt. from several previous admissions. Pt. was recently discharged from [facility] last week. EZRA met with pt. bedside. Pt. is alert and oriented x 4. Pt. states she lost her medication and has had trouble breathing. Pt. tested positive for methamphetamines . Pt. stated she last used methamphetamines two days ago. EZRA offered pt. referrals to inpatient drug treatment programs and homeless nursing home placement and resources. Pt. declined to both. Pt. states she would like to be discharged back to [address] [place] [address]. [place] [address]. Pt. will require taxi transportation upon discharge. EZRA to offer pt. again homeless resources and drug treatment resources prior to discharge. No other social service needs are required at this time. SW is available, if needed.
--- NOTE | 2018-03-23 12:52 | NUR ---
RN MS NOTES PT IN BED, AWAKE, ALERT AND ORIENTED, DENIES PAIN AT THIS TIME, SEEN BY CORAL, VE TEACHER, CALL LIGHT WITHIN REACH, NOTED WITH GOOD APPETITE, NEEDS ATTENDED.
[2018-03-23] MEDS ORDERED: FURO-144 PO (13:16)
[2018-03-23] MEDS ORDERED: FUROSEMIDE 40 MG TABLET PO SCH (13:30)
[2018-03-23] MEDS ORDERED: LORAZEPAM 1 MG TABLET PO PRN (13:30)
[2018-03-23 16:00] VITALS: BP 115/72
--- NOTE | 2018-03-23 16:00 | NUR ---
RN MS NOTES PT IN BED, AWAKE, ALERT AND ORIENTED, NO SHORTNESS OF BREATH, TOLERATING ROOM AIR WELL, PAIN MEDICATION GIVEN FOR LEFT LEG PAIN, PT ABLE TO WALK WITH STEADY GAIT IN HER ROOM, SEEN BY PHYSICAL THERAPIST, PT SEEN BY DR. ALBRIGHT, DISCHARGE INSTRUCTIONS PROVIDED TO PT, VERBALIZED UNDERSTANDING, MEDICATION INSTRUCTIONS PROVIDED TO PT, VERBALIZED UNDERSTANDING, REMINDED PT TO FOLLOW UP WITH HER PRIMARY CARE PHYSICIAN, PT STATED THAT SHE IS GOING TO HER PCP TOMORROW, NEW PRESCRIPTION FOR LASIX GIVEN TO PT, MEDICATION INSTRUCTIONS PROVIDED, VERBALIZED UNDERSTANDING, BELONGINGS ACCOUNTED FOR, ASSISTED TO HOSPITAL LOBBY, PT SAID THAT A FAMILY MEMBER WILL PICK HER UP AT THE LOCATION PROVIDED TO THE TAXI, PICKED UP BY TAXI SERVICE, LEFT IN STABLE CONDITION.
[2018-03-24] MEDS ORDERED: NITROGLYCERIN 4.9 GM SPRAY ONE (14:37)
== END 2018-03-23 16:00 | disposition home or self-care (01) | DRG 194 ==
LOC: ER 05:43 → TELE 09:40 → MED 03-23 09:08
PROVIDERS: ADMIT Internal Medicine; ATTEND Internal Medicine
DX: I11.0 Hypertensive heart disease with heart failure (principal); J96.01 Acute respiratory failure with hypoxia; I50.23 Acute on chronic systolic (congestive) heart failure; F41.9 Anxiety disorder, unspecified; Z91.19 Patient's noncompliance with other medical treatment and regimen; Z59.0 Homelessness; J44.9 Chronic obstructive pulmonary disease, unspecified; F32.9 Major depressive disorder, single episode, unspecified; I25.10 Atherosclerotic heart disease of native coronary artery without angina pectoris; E78.5 Hyperlipidemia, unspecified; K21.9 Gastro-esophageal reflux disease without esophagitis; I25.2 Old myocardial infarction; F41.0 Panic disorder [episodic paroxysmal anxiety]; F19.10 Other psychoactive substance abuse, uncomplicated
CPT/HCPCS: 36415; 71045-TC; 80048-TC; 80305; 83735-TC; 83880; 84100-TC; 84484-TC; 85025-TC; 85730-TC; 87081-TC; A4606; G0480; J1650; J1940; J3490; Z7610

== ENCOUNTER 2018-04-05 03:32 | Emergency (ER) | payer MEDICAID ==
[~2018-04-05] VITALS: Ht 144.8 cm; Wt 57.6 kg
[~2018-04-05 03:32] MED LIST changes: +FURO-144 PO
[2018-04-05] MEDS ORDERED: ONDANSETRON 4 MG TAB.RAPDIS ONE (04:14)
[2018-04-05] MEDS ORDERED: LORAZEPAM 1 MG TABLET ONE (04:14)
--- NOTE | 2018-04-05 04:18 | NUR ---
pt marcelle ritter for c/o anxiety w/ intermittent cp, nausea no vomiting x today. AOx4, anxious, crying, moaning, w/ resp even & unlabored, denies any cp at this time, placed on continuous pulse-ox w/ monitoring.
--- NOTE | 2018-04-05 04:24 | NUR ---
security tech at bedside for blood draw.
--- NOTE | 2018-04-05 04:24 | NUR ---
pt medicated as ordered. On continuous monitoring.
[2018-04-05] MEDS ORDERED: LORAZEPAM 1 MG TABLET PO ONE (04:30)
[2018-04-05] MEDS ORDERED: ONDANSETRON 4 MG TAB.RAPDIS SL ONE (04:30)
[2018-04-05 04:36] LABS: BASOPHILS % (AUTO) 0.3 % (0.0-2.0); EOSINOPHILS % (AUTO) 2.1 % (0.0-6.0); HEMATOCRIT 37 % (33-45); HEMOGLOBIN 12.6 g/dL (11.5-14.8); LYMPHOCYTES # (AUTO) 0.9 /CMM (0.8-4.8); LYMPHOCYTES % (AUTO) 11.3 % (20.0-44.0); MEAN CORPUSCULAR HGB CONC 34 g/dl (31.0-36.0); MEAN CORPUSCULAR VOLUME 91 fL (82-100); MONOCYTES # (AUTO) 0.3 /CMM (0.1-1.30); MONOCYTES % (AUTO) 4.3 % (2.0-12.0); NEUTROPHILS # (AUTO) 6.6 /CMM (1.8-8.9); PLATELET COUNT (AUTO) 366 /CMM (150-450); RDW COEFFICIENT OF VARIATION 16.7 (11.5-15.0); RED BLOOD CELL COUNT(AUTO) 4.08 MIL/uL (4.0-5.2)
[2018-04-05 04:50] LABS: CALCIUM, SERUM 8.8 mg/dL (8.5-10.1); CARBON DIOXIDE 23 mmol/L (21-32); CHLORIDE 106 mmol/L (98-107); CREATININE 1.1 mg/dL (0.6-1.3); GLUCOSE 122 mg/dL (74-106); POTASSIUM 4.1 mmol/L (3.5-5.1); SODIUM SERUM 139 mmol/L (136-145); UREA NITROGEN, BLOOD 30 mg/dL (7-18)
[2018-04-05 05:01] LABS: ALANINE AMINOTRANSFERASE 56 U/L (12-78); ALBUMIN 3.3 g/dL (3.4-5.0); ALCOHOL, BLOOD < 3 mg/dL (0-0); ALKALINE PHOSPHATASE 118 U/L (46-116); ASPARTATE AMINOTRANSFERASE 42 U/L (15-37); BILIRUBIN,DIRECT 0.2 mg/dL (0.0-0.2); TOTAL PROTEIN, SERUM 6.4 g/dL (6.4-8.2); TROPONIN I 0.041 ng/mL (0.00-0.056)
[2018-04-05 05:04] LABS: ACETAMINOPHEN 0 ug/ml (10-30); SALICYLATE 0.6 mg/dL (2.8-20.0)
--- NOTE | 2018-04-05 05:09 | NUR ---
pt asleep in bed w/ resp even & unlabored, nad noted.
[2018-04-05 06:09] VITALS: BP 142/89
--- NOTE | 2018-04-05 06:11 | NUR ---
pt continues to sleep w/ resp even & unlabored, nad noted.
== END 2018-04-05 07:48 | disposition home or self-care (01) ==
LOC: ER 03:33
DX: F41.9 Anxiety disorder, unspecified (principal); F15.10 Other stimulant abuse, uncomplicated; R11.0 Nausea; J44.9 Chronic obstructive pulmonary disease, unspecified; I50.22 Chronic systolic (congestive) heart failure; F17.200 Nicotine dependence, unspecified, uncomplicated; M54.30 Sciatica, unspecified side; Z88.2 Allergy status to sulfonamides; Z79.82 Long term (current) use of aspirin
CPT/HCPCS: 36415; 71045-TC; 80048-TC; 80076-TC; 83880; 84484-TC; 85025-TC; A4606; G0480; Q0162; Z7610

== ENCOUNTER 2018-04-17 03:59 | Inpatient (IN) | payer MEDICAID ==
[~2018-04-17] VITALS: Ht 167.6 cm; Wt 54.0 kg
--- NOTE | 2018-04-17 04:09 | NUR ---
PT TO ER BED 12. BIBRA FROM HOME C/O "ANXIETY ATTACK". PT PLACED IN GOWN AND ON NURSE PRACTITIONER PHYSICIAN ASSISTANT. PT VSS/NAD NOTED/RESP EVEN UNLABORED/SKIN WARM AND DRY/DENIES N-V-D/AFEBRILE/AOX4. AWAITING MD BILLY.
--- NOTE | 2018-04-17 04:15 | NUR ---
EMT AT BEDSIDE FOR EKG.
[2018-04-17] MEDS ORDERED: ONDANSETRON 4 MG TAB.RAPDIS ONE (04:21)
[2018-04-17] MEDS ORDERED: LORAZEPAM 1 MG TABLET ONE (04:21)
--- NOTE | 2018-04-17 04:25 | NUR ---
RT AT BEDSIDE FOR ABG DRAW.
[2018-04-17] MEDS ORDERED: ONDANSETRON 4 MG TAB.RAPDIS SL ONE (04:30)
[2018-04-17] MEDS ORDERED: LORAZEPAM 1 MG TABLET PO ONE (04:30)
--- NOTE | 2018-04-17 04:31 | NUR ---
PT REFUSED ABG MADE AWARE. ORDERED NEB TX. RT AT BEDSIDE.
--- NOTE | 2018-04-17 04:33 | NUR ---
LAB AT BEDSIDE FOR DRAW.
[2018-04-17] MEDS ORDERED: ALBUTEROL FS 2.5 MG/3 ML VIAL.NEB ONE (04:35)
[2018-04-17] MEDS ORDERED: ALBUTEROL FS 2.5 MG/3 ML VIAL.NEB NEB ONE (05:00)
[2018-04-17 05:02] LABS: BASOPHILS # (AUTO) 0.1 /CMM (0.0-0.2); EOSINOPHILS % (AUTO) 1.8 % (0.0-6.0); HEMATOCRIT 42 % (33-45); HEMOGLOBIN 13.4 g/dL (11.5-14.8); LYMPHOCYTES # (AUTO) 1.2 /CMM (0.8-4.8); LYMPHOCYTES % (AUTO) 13.7 % (20.0-44.0); MEAN CORPUSCULAR HGB CONC 32 g/dl (31.0-36.0); MEAN CORPUSCULAR VOLUME 95 fL (82-100); MONOCYTES # (AUTO) 0.5 /CMM (0.1-1.30); MONOCYTES % (AUTO) 5.5 % (2.0-12.0); NEUTROPHILS # (AUTO) 6.8 /CMM (1.8-8.9); PLATELET COUNT (AUTO) 339 /CMM (150-450); RDW COEFFICIENT OF VARIATION 16.9 (11.5-15.0); RED BLOOD CELL COUNT(AUTO) 4.41 MIL/uL (4.0-5.2); WHITE BLOOD COUNT (AUTO) 8.7 K/uL (4.3-11.0)
[2018-04-17] MEDS ORDERED: FUROSEMIDE 40 MG/4 ML VIAL ONE (05:06)
[2018-04-17] MEDS ORDERED: NITROGLYCERIN PACKET 1 GM PACKET ONE (05:07)
[2018-04-17] MEDS ORDERED: ASPIRIN 81 MG TAB.CHEW ONE (05:07)
[2018-04-17 05:18] LABS: TROPONIN I 0.073 ng/mL (0.00-0.056)
--- NOTE | 2018-04-17 05:20 | NUR ---
20G IV TO L AC X 1 ATTEMPT USING ASEPTIC TECHNIQUE. IV FLUSHES EASILY WITH NS, NO S/S INFILTRATION NOTED AT THIS TIME.
[2018-04-17 05:28] LABS: ALBUMIN 3.2 g/dL (3.4-5.0); BILIRUBIN,DIRECT 0.2 mg/dL (0.0-0.2); BILIRUBIN,TOTAL 0.8 mg/dL (0.2-1.0); CALCIUM, SERUM 8.6 mg/dL (8.5-10.1); CREATININE 1.1 mg/dL (0.6-1.3); TOTAL PROTEIN, SERUM 6.6 g/dL (6.4-8.2)
[2018-04-17] MEDS ORDERED: FUROSEMIDE 40 MG/4 ML VIAL IV ONE (05:30)
[2018-04-17] MEDS ORDERED: ASPIRIN 81 MG TAB.CHEW PO ONE (05:30)
[2018-04-17] MEDS ORDERED: NITROGLYCERIN PACKET 1 GM PACKET TD ONE (05:30)
--- NOTE | 2018-04-17 06:13 | NUR ---
ATTEMPTED TO CALL REPORT X 2, CAN'T GET ANYONE TO PICKUP PHONE AFTER BEING PLACED ON HOLD.
--- NOTE | 2018-04-17 06:18 | NUR ---
REPORT GIVEN TO MAR DUMONT FOR MELLO.
[2018-04-17] MEDS ORDERED: ENOXAPARIN SODIUM 60 MG/0.6 ML DISP.SYRIN SQ ONE (06:19)
[2018-04-17] MEDS ORDERED: ENOXAPARIN SODIUM 40 MG/0.4 ML DISP.SYRIN SQ ONE (06:30)
--- NOTE | 2018-04-17 06:30 | NUR ---
PT TRANSPORTED VIA STRETCHER ON NETWORK LIAISON WITH RN PER ACLS PROTOCOL TO TELE 325.
--- NOTE | 2018-04-17 06:31 | NUR ---
CROSS ENTERPRISE INTEGRATOR ADMITTING NOTES RECEIVED PT FROM ER VIA NORA, ACCOMPANIED BY STAFF, A & O X 3, VERBALLY RESPONSIVE BUT SLEEPY @ THIS TIME. RESP EVEN & NON LABORED @ THIS TIME. ON O2 @ 3 LPM VIA GA. ON TELE MONITORING WITH SINUS TACHY 111. VS CHECKED. HOB ELEVATED. BODY CHECK DONE, PHOTOS TAKEN. PLACED IN THE CHART. IV ACCESS TO LAC # 20, SL, INTACT & PATENT. ALL BELONGINGS ACCOUNTED FOR & DOCUMENTED BY HOME HOUSEKEEPER. DENIED ANY CHEST PAIN OR ANY OTHER PAIN @ THIS TIME. SAFETY MEASURES IN PLACE. BED IN LOW LOCKED POSITION. CALL LIGHT WITHIN REACH. RADIOLOGY CALLED TO HAVE THE CONSENT READY FOR CT LUNGS TO R/O PE. ENDORSED TO AM RN FOR CONTINUITY OF CARE.
[2018-04-17 06:35] VITALS: BP 157/99
--- NOTE | 2018-04-17 06:35 | NUR ---
PT REFUSED ABG NURSE NOTIFIED ER NOTIFIED Addendum: 04/17/18 at 0636 by JAMES LOPEZ RT 0435 IN ER
[2018-04-17 06:50] VITALS: BP 157/99
[2018-04-17] MEDS ORDERED: MAG HYDROX/AL HYDROX/SIMETH 30 ML UDC PO PRN (07:00)
[2018-04-17] MEDS ORDERED: ONDANSETRON HCL/PF 4 MG/2 ML VIAL IVP PRN (07:00)
[2018-04-17] MEDS ORDERED: TEMAZEPAM 15 MG CAPSULE PO PRN (07:00)
[2018-04-17] MEDS ORDERED: NITROGLYCERIN 0.4 MG/TAB BOTTLE SL PRN (07:00)
[2018-04-17] MEDS ORDERED: MAGNESIUM HYDROXIDE 30 ML UDC PO PRN (07:00)
--- NOTE | 2018-04-17 07:25 | NUR ---
RN OPENING NOTES RECEIVED PT. IN BED SLEEPING. BREATHING UNLABORED ON OXYGEN AT 3L/MIN VIA NASAL CANNULA. NO S/S OF ACUTE DISTRESS. PT. IS ON TELE MONITOR READING SINUS TACHYCARDIA 100-110 BPM. IV ACCESS IS ON LEFT ANTECUBITAL SITE. BED IS IN LOWEST, AND LOCKED POSITION. 2 SIDE RAILS UP, AND CALL LIGHT WITHIN REACH. ALL NEEDS MET. WILL CONTINUE TO ASSESS AND MONITOR.
--- NOTE | 2018-04-17 07:30 | NUR ---
CULTURE TAKEN FROM BOTH NARES TO TEST FOR MRSA.
[2018-04-17] MEDS: FUROSEMIDE 100 MG/10 ML VIAL IV SCH ×3 (08:07→16:00)
--- NOTE | 2018-04-17 08:20 | NUR ---
PT. IS A&OX4. PT. SIGNED CONSENT FOR CTA TO R/O PE. ALL QUESTIONS ANSWERED.
--- NOTE | 2018-04-17 08:55 | NUR ---
CT WAS ORDERED, STILL WAITING FOR THE CONSENT, RN WILL CALL WHEN READY.
[2018-04-17] MEDS: ASPIRIN 81 MG TAB.CHEW PO SCH (09:00)
[2018-04-17] MEDS ORDERED: IV NS 0.9% 500 ML IV ONE (09:18)
[2018-04-17] MEDS ORDERED: CT SWABBABLE VALVE TRANS SET 1 EA INFUS.SET MC ONE (09:18)
[2018-04-17] MEDS ORDERED: IOHEXOL-350 100 ML VIAL IV ONE (09:18)
[2018-04-17 10:21] LABS: MAGNESIUM 1.8 mg/dL (1.8-2.4)
[2018-04-17 10:40] LABS: MAGNESIUM 1.7 mg/dL (1.8-2.4); PHOSPHORUS 4.5 mg/dL (2.5-4.9)
[2018-04-17] MEDS: ACETAMINOPHEN 325 MG TABLET PO PRN (12:51)
[2018-04-17] MEDS: LORAZEPAM INJ 2 MG/ML VIAL IV PRN (14:00)
[2018-04-17] MEDS: MORPHINE SULFATE INJ 4 MG/ML DISP.SYRIN IV PRN (14:40)
[2018-04-17 15:54] VITALS: BP 125/86
[2018-04-17] MEDS ORDERED: FUROSEMIDE 100 MG/10 ML VIAL IV SCH (17:30)
--- NOTE | 2018-04-17 17:50 | NUR ---
PT. RECEIVED LASIX IVP 80 MG AT 1730.
--- NOTE | 2018-04-17 18:47 | NUR ---
RN CLOSING NOTES PT. IS IN BED A&OX2-3, PERIODS OF CONFUSION. BREATHING UNLABORED, AND EVENLY ON OXYGEN AT 2L/MIN VIA NASAL CANNULA. PT. DENIES PAIN. NO S/S OF ACUTE DISTRESS. IV ACCESS ON LEFT ANTECUBITAL SITE IS INTACT AND PATENT. BED IS IN LOWEST, AND LOCKED POSITION. 2 SIDE RAILS UP, AND INSTRUCTED PT. TO USE CALL LIGHT FOR ASSISTANCE. ALL NEEDS MET. WILL ENDORSE REPORT TO NURSE.
--- NOTE | 2018-04-17 19:30 | NUR ---
MS RN INITIAL NOTE PT IS SITTING UP IN BED WATCHING TV. NO SIGNS OF SOB OR DISTRESS, BREATHING EVENLY AND UNLABORED ON 2L NC. IV ACCESS IS INTACT AND PATENT. LOVENOX IS NOW D/C'D. EDUCATED PT ON NEED TO USE CALL LIGHT FOR ASSISTANCE TO THE BEDSIDE COMMODE. BED IS IN LOW AND LOCKED POSITION, CALL LIGHT WITHIN REACH. WILL CONTINUE TO MONITOR PT.
[2018-04-17 20:00] VITALS: BP 118/70
[2018-04-17] MEDS ORDERED: ENOXAPARIN SODIUM 60 MG/0.6 ML DISP.SYRIN SQ SCH (21:00)
[2018-04-18] MEDS: LORAZEPAM INJ 2 MG/ML VIAL IV PRN ×2 (02:21→11:11)
--- NOTE | 2018-04-18 06:23 | NUR ---
MS RN CLOSING NOTE PT IS IN BED SLEEPING, EASILY AROUSED. NO SIGNS OF SOB OR DISTRESS, BREATHING EVENLY AND UNLABORED. DENIES PAIN AT THIS TIME. NO ACUTE CHANGES THROUGHOUT THE SHIFT. ALL NEEDS WERE ANTICIPATED AND MET. BED IS IN LOW AND LOCKED POSITION, CALL LIGHT WITHIN REACH. WILL ENDORSE TO DAYSHIFT.
[2018-04-18 07:18] LABS: BASOPHILS % (AUTO) 0.3 % (0.0-2.0); EOSINOPHILS % (AUTO) 3.9 % (0.0-6.0); HEMATOCRIT 42 % (33-45); HEMOGLOBIN 13.7 g/dL (11.5-14.8); LYMPHOCYTES # (AUTO) 0.9 /CMM (0.8-4.8); LYMPHOCYTES % (AUTO) 12.3 % (20.0-44.0); MEAN CORPUSCULAR HGB CONC 33 g/dl (31.0-36.0); MEAN CORPUSCULAR VOLUME 94 fL (82-100); MONOCYTES # (AUTO) 0.5 /CMM (0.1-1.30); MONOCYTES % (AUTO) 6.5 % (2.0-12.0); NEUTROPHILS # (AUTO) 5.8 /CMM (1.8-8.9); PLATELET COUNT (AUTO) 321 /CMM (150-450); RDW COEFFICIENT OF VARIATION 16.2 (11.5-15.0); RED BLOOD CELL COUNT(AUTO) 4.46 MIL/uL (4.0-5.2); WHITE BLOOD COUNT (AUTO) 7.5 K/uL (4.3-11.0)
--- NOTE | 2018-04-18 07:20 | NUR ---
ms rn initial notes Received patient in bed, asleep, head of bed elevated, no SOB or distress noted. On room air and tolerated well. Alert and oriented x 2 as endorsed by soda column operator RN. IV intact and patent, HL only. No facial grim gabe noted. Call light with in patient reach, will continue to monitor accordingly.
[2018-04-18 07:37] LABS: ALBUMIN 2.9 g/dL (3.4-5.0); BILIRUBIN,TOTAL 0.7 mg/dL (0.2-1.0); CALCIUM, SERUM 8.4 mg/dL (8.5-10.1); CREATININE 1.3 mg/dL (0.6-1.3); MAGNESIUM 1.7 mg/dL (1.8-2.4); PHOSPHORUS 5.7 mg/dL (2.5-4.9); TOTAL PROTEIN, SERUM 6.4 g/dL (6.4-8.2)
[2018-04-18 07:40] LABS: TROPONIN I 0.048 ng/mL (0.00-0.056)
[2018-04-18 07:57] VITALS: BP 128/68
[2018-04-18 08:00] VITALS: BP 128/68
[2018-04-18] MEDS: Magnesium 1GM/D5W 100ML PREMIX 100 ML IV SCH ×2 (08:53→10:00)
[2018-04-18] MEDS: FUROSEMIDE 100 MG/10 ML VIAL IV SCH ×3 (08:53→16:28)
[2018-04-18] MEDS: ASPIRIN 81 MG TAB.CHEW PO SCH (08:55)
--- NOTE | 2018-04-18 11:10 | NUR ---
Social service consult requested by TARYN Gates for decreased mobility. Pt. is a 62 year old female who was admitted to [facility] for CHF. SW is familiar with pt. from several previous admissions. Pt. was recently discharged from [facility] a few weeks ago. SW met with pt. bedside. Pt. is alert and oriented x 3. Pt. appeared drowsy and not very cooperative with SW during the assessment. SW to reassess pt. later this afternoon.
[2018-04-18 16:00] VITALS: BP 115/69
--- NOTE | 2018-04-18 19:20 | NUR ---
ms rn closing notes All needs provided, attended, and anticipated. patient is in stable condition. Endorsed to next shift RN to continue care. Call light with in patient reach.
--- NOTE | 2018-04-18 19:37 | NUR ---
MSRN SLEEPING APPEARS COMFORTABLE. TO CONTINUE.
[2018-04-18 19:56] VITALS: BP 109/71
[2018-04-18 20:00] VITALS: BP 109/71
--- NOTE | 2018-04-19 06:15 | NUR ---
MSRN VERBALIZES NAYAK TYLENOL 650 PO GIVEN. CRYING AND VERY ANXIOU, ATIVAN 1MG IVP ADMINISTERED.
[2018-04-19] MEDS: ACETAMINOPHEN 325 MG TABLET PO PRN (06:17)
[2018-04-19] MEDS: LORAZEPAM INJ 2 MG/ML VIAL IV PRN ×3 (06:17→20:54)
[2018-04-19 06:23] LABS: BASOPHILS % (AUTO) 0.2 % (0.0-2.0); EOSINOPHILS % (AUTO) 2.3 % (0.0-6.0); HEMATOCRIT 49 % (33-45); HEMOGLOBIN 15.8 g/dL (11.5-14.8); LYMPHOCYTES % (AUTO) 13.2 % (20.0-44.0); MEAN CORPUSCULAR HGB CONC 32 g/dl (31.0-36.0); MEAN CORPUSCULAR VOLUME 94 fL (82-100); MONOCYTES # (AUTO) 0.7 /CMM (0.1-1.30); MONOCYTES % (AUTO) 9.1 % (2.0-12.0); NEUTROPHILS # (AUTO) 5.5 /CMM (1.8-8.9); NEUTROPHILS % (AUTO) 75.2 % (43.0-81.0); PLATELET COUNT (AUTO) 404 /CMM (150-450); RDW COEFFICIENT OF VARIATION 16.3 (11.5-15.0); RED BLOOD CELL COUNT(AUTO) 5.17 MIL/uL (4.0-5.2); WHITE BLOOD COUNT (AUTO) 7.4 K/uL (4.3-11.0)
[2018-04-19 06:45] LABS: ALBUMIN 3.2 g/dL (3.4-5.0); BILIRUBIN,TOTAL 0.5 mg/dL (0.2-1.0); CREATININE 1.2 mg/dL (0.6-1.3); MAGNESIUM 2.2 mg/dL (1.8-2.4); PHOSPHORUS 4.5 mg/dL (2.5-4.9); POTASSIUM 4.2 mmol/L (3.5-5.1); TOTAL PROTEIN, SERUM 7.2 g/dL (6.4-8.2)
--- NOTE | 2018-04-19 07:25 | NUR ---
ms rn initial notes Received patient in bed, asleep, head of bed elevated, no SOB or distress noted, on room air and tolerated well. IV intact and patent HL only. Patient is alert and oriented x 2, anxious. No facial grimace noted. Call light with in patient reach, will continue to monitor accordingly.
[2018-04-19 08:00] VITALS: BP 129/83
[2018-04-19] MEDS: ASPIRIN 81 MG TAB.CHEW PO SCH (08:29)
[2018-04-19] MEDS: FUROSEMIDE 40 MG TABLET PO SCH (08:29)
--- NOTE | 2018-04-19 08:49 | NUR ---
WOUND CARE CONSULT WOUND CARE RECEIVED CONSULT FOR RIGHT AND LEFT FOOT REDNESS. WOUND CARE WILL DEFER CONSULT AND TREATMENT PLAN TO DPM DR FRANCOIS WHO IS CURRENTLY FOLLOWING PATIENT. PATIENT WITH ELAN AT 17, ALL PRESSURE ULCER PREVENTION MEASURES NOTED TO BE IN PLACE. WILL SEE PRN.
[2018-04-19] MEDS: LISINOPRIL (5MG) 5 MG TABLET PO SCH (11:37)
[2018-04-19 16:00] VITALS: BP 99/67
[2018-04-19] MEDS: MORPHINE SULFATE INJ 4 MG/ML DISP.SYRIN IV PRN (18:07)
--- NOTE | 2018-04-19 19:29 | NUR ---
ms rn closing notes All needs provided, attended, and anticipated. Patient in stable condition. Endorsed to next shift RN to continue care. Call light with in patient reach.
--- NOTE | 2018-04-19 19:45 | NUR ---
MSRN FULLY AWAKE, WANTED EARLY SNACKS, PROVIDED. STATED HAS BEEN FEELING HUNGRY TODAY. KEPT COMFORTABLE. REMINDED TO CALL STAFF FOR ANY ASSISTANCE OR DISCOMFORTS, SAFETY PRECAUTIONS EMPHASIZED. CLOSELY WATCHED.
[2018-04-19 20:35] VITALS: BP 90/62
--- NOTE | 2018-04-19 20:56 | NUR ---
MSRN ANXIOUS, GETTING AGITATED, CRYING, ATIVAN 1MG IVP ADMINISTERED. BEDREST INSTRUCTED.
[2018-04-19] MEDS ORDERED: ATORVASTATIN 10 MG TABLET PO SCH (22:00)
[2018-04-19] MEDS ORDERED: GABAPENTIN 300 MG CAPSULE PO SCH (22:00)
--- NOTE | 2018-04-20 04:16 | NUR ---
MSRN SLEPT WELL, CONTINUED MONITORING. DOES NOT EXHIBIT WITHDRAWAL SIGNS.
[2018-04-20] MEDS: MORPHINE SULFATE INJ 4 MG/ML DISP.SYRIN IV PRN ×2 (06:22→10:54)
--- NOTE | 2018-04-20 06:24 | NUR ---
MSRN VERBALIZES SCIATICA PAIN STATED MAINLY ON HER LEFT LATERAL, MORPHINE 1V ADMINISTERED ORDERED. BEDREST INSTRUCTED.
[2018-04-20 07:39] LABS: BASOPHILS # (AUTO) 0.1 /CMM (0.0-0.2); BASOPHILS % (AUTO) 1.3 % (0.0-2.0); EOSINOPHILS % (AUTO) 3.2 % (0.0-6.0); HEMATOCRIT 46 % (33-45); HEMOGLOBIN 15.1 g/dL (11.5-14.8); LYMPHOCYTES # (AUTO) 1.1 /CMM (0.8-4.8); LYMPHOCYTES % (AUTO) 17.1 % (20.0-44.0); MEAN CORPUSCULAR HGB CONC 33 g/dl (31.0-36.0); MEAN CORPUSCULAR VOLUME 94 fL (82-100); MONOCYTES # (AUTO) 0.8 /CMM (0.1-1.30); MONOCYTES % (AUTO) 12.7 % (2.0-12.0); NEUTROPHILS # (AUTO) 4.1 /CMM (1.8-8.9); NEUTROPHILS % (AUTO) 65.7 % (43.0-81.0); PLATELET COUNT (AUTO) 418 /CMM (150-450); RDW COEFFICIENT OF VARIATION 17.1 (11.5-15.0); RED BLOOD CELL COUNT(AUTO) 4.93 MIL/uL (4.0-5.2); WHITE BLOOD COUNT (AUTO) 6.3 K/uL (4.3-11.0)
[2018-04-20 08:00] VITALS: BP 90/56
[2018-04-20 08:00] LABS: CREATININE 1.3 mg/dL (0.6-1.3); MAGNESIUM 2.2 mg/dL (1.8-2.4); PHOSPHORUS 4.8 mg/dL (2.5-4.9); POTASSIUM 3.9 mmol/L (3.5-5.1)
[2018-04-20] MEDS: ASPIRIN 81 MG TAB.CHEW PO SCH (08:20)
[2018-04-20] MEDS: FUROSEMIDE 40 MG TABLET PO SCH (08:20)
[2018-04-20] MEDS: LORAZEPAM INJ 2 MG/ML VIAL IV PRN (08:27)
[2018-04-20 09:00] VITALS: BP 98/56
[2018-04-20] MEDS: LISINOPRIL (5MG) 5 MG TABLET PO SCH (09:00)
[2018-04-20] MEDS ORDERED: FLUOXETINE HCL 20 MG CAPSULE PO SCH (09:00)
--- NOTE | 2018-04-20 10:06 | NUR ---
EZRA met with pt. bedside to discuss discharge plan. Pt. is a methamphetamine user and used prior to hospitalization. Pt. is cooperative with SW but became teary eyed when EZRA informed her that she will be discharged today from the hospital. EZRA provided active listening and emotional support. EZRA gave pt. and pair of pants and top. Pt. was appreciative and with a big smile stated, " how did you know what my style is." Pt. thanked EZRA for the clothing. Pt. states she would like to go to [address] [place] [address] in [place] upon discharge. SW to arrange taxi transportation for the pt. since pt. states she is not familiar with the bus. Pt. called her boyfriend Carson and left him a voicemail message stating she is coming home. EZRA informed pt. she will be discharged after lunch. EZRA gave pt. referral list of homeless shelters and food resources. EZRA also gave pt. application and list to the following affordable housing: [facility], [facility] Affordable housing, [facility] affordable housing and [facility]. No other social service needs are requested at this time. EZRA informed Nursing parts department supervisor Joann that pt. will require taxi upon discharge. Homeless Patient Waiver Form to be signed by pt. upon discharge.
--- NOTE | 2018-04-20 13:00 | NUR ---
DISCHARGE NOTE PT DISCHARGED HOME. NO S/S OF RESP DISTRESS OR SOB. NO C/O PAIN AT THIS TIME. DISCHARGE INSTRUCTIONS GIVEN TO PT. PT VERBALIZES UNDERSTANDING. ALL DISCHARGE PAPERWORK AND BELONGINGS SHEET SIGNED, COPIED AND PLACED IN CHART. WOUND ON RIGHT FOOT TOE PRESENT. PT REFUSES PICTURES OF WOUND. IV ACCESS AND ID BAND REMOVED. PT LEFT HOSPITAL IN TAXI WITH CENSUS ENUMERATOR.
== END 2018-04-20 13:00 | disposition home or self-care (01) | DRG 194 ==
LOC: ER 04:01 → TELE 06:04 → MED 11:32
PROVIDERS: ADMIT Nurse Practitioner Acute Care; ATTEND Nurse Practitioner Acute Care
DX: I11.0 Hypertensive heart disease with heart failure (principal); I21.A1 Myocardial infarction type 2; J90 Pleural effusion, not elsewhere classified; I50.23 Acute on chronic systolic (congestive) heart failure; I25.10 Atherosclerotic heart disease of native coronary artery without angina pectoris; F41.9 Anxiety disorder, unspecified; Z88.2 Allergy status to sulfonamides; F17.210 Nicotine dependence, cigarettes, uncomplicated; K21.9 Gastro-esophageal reflux disease without esophagitis; E78.5 Hyperlipidemia, unspecified; F19.10 Other psychoactive substance abuse, uncomplicated; S91.104A Unspecified open wound of right lesser toe(s) without damage to nail, initial encounter; X58.XXXA Exposure to other specified factors, initial encounter; Y93.9 Activity, unspecified; Y92.009 Unspecified place in unspecified non-institutional (private) residence as the place of occurrence of the external cause; M21.612 Bunion of left foot; M21.611 Bunion of right foot; M20.42 Other hammer toe(s) (acquired), left foot; M20.41 Other hammer toe(s) (acquired), right foot; L60.3 Nail dystrophy; Z59.0 Homelessness; F41.0 Panic disorder [episodic paroxysmal anxiety]; R79.1 Abnormal coagulation profile; Z91.19 Patient's noncompliance with other medical treatment and regimen
CPT/HCPCS: 36415; 71045-TC; 73630-TC; 80048-TC; 80053-TC; 80061-TC; 80076-TC; 83735-TC; 83880; 84100-TC; 84484-TC; 85025-TC; 85378-TC; 87081-TC; A4606; J1650; J1940; J2060; J2270; J3475; J7040; J7050; Q0162; Q9967; Z7610

== ENCOUNTER 2018-04-23 22:44 | Emergency (ER) | payer MEDICAID, OTHER ==
[~2018-04-23] VITALS: Ht 152.4 cm; Wt 50.3 kg
--- NOTE | 2018-04-23 22:53 | NUR ---
PT AMBULATORY TO ER BED . BIBRA FROM STREET C/O BODY PAIN WITH N/V X 3 HOURS. PT ON FORMING DEPARTMENT END FINDER. VSS/RESP EVEN UNLABORED/NAD NOTED/SKIN WARM AND DRY/AFEBRILE/AOX4. AWAITING MD BILLY.
[2018-04-23] MEDS ORDERED: HYDROCODONE/APAP 10/325MG 1 EA TABLET ONE (23:57)
[2018-04-24] MEDS ORDERED: HYDROCODONE/APAP 10/325MG 1 EA TABLET PO ONE
[2018-04-24] MEDS ORDERED: HYDROCODONE/APAP 10/325MG 1 EA TABLET ONE (00:05)
--- NOTE | 2018-04-24 00:11 | NUR ---
ACCIDENTLY PULLED JIGNESH [id number]. WASTED MEDICATION WITH NINOSKA MANUEL
--- NOTE | 2018-04-24 00:13 | NUR ---
WASTED NORCO 10 WITH MAR KWAN. ACCIDENTALLY PULLED.
[2018-04-24] MEDS ORDERED: ONDANSETRON HCL/PF 4 MG/2 ML VIAL IVP ONE (03:00)
[2018-04-24 03:56] VITALS: BP 146/95
== END 2018-04-24 03:57 | disposition home or self-care (01) ==
LOC: ER 22:46
DX: M54.40 Lumbago with sciatica, unspecified side (principal); M19.041 Primary osteoarthritis, right hand; Z76.0 Encounter for issue of repeat prescription; I11.0 Hypertensive heart disease with heart failure; I50.22 Chronic systolic (congestive) heart failure; F41.9 Anxiety disorder, unspecified; F10.10 Alcohol abuse, uncomplicated; J44.9 Chronic obstructive pulmonary disease, unspecified; Z79.82 Long term (current) use of aspirin; Z88.2 Allergy status to sulfonamides
CPT/HCPCS: 72131; 73130; 99284; A4606; Z7610

== ENCOUNTER 2018-05-31 05:44 | Inpatient (IN) | payer MEDICAID, OTHER ==
[~2018-05-31] VITALS: Ht 160 cm; Wt 52.7 kg
--- NOTE | 2018-05-31 05:50 | NUR ---
BIB RA C/C OF ANXIETY. AA/O X4. NO S/S OF SOB. SKINS PINK WARM AND DRY. STABLE CONDITION. "I LIVE ON THE STREET." NAD. VSS. AWAITING EVAL/ORDERS.
[2018-05-31] MEDS ORDERED: LORAZEPAM 1 MG TABLET ONE ×2 (06:14→06:57)
--- NOTE | 2018-05-31 06:16 | NUR ---
1MG ATIVAN PO GIVEN PER ORDERED BY MD LINK
--- NOTE | 2018-05-31 06:18 | NUR ---
CALL LAB RE: BLOOD DRAW
[2018-05-31] MEDS ORDERED: LORAZEPAM 1 MG TABLET PO ONE ×2 (06:30→07:00)
[2018-05-31 06:34] LABS: BASOPHILS % (AUTO) 0.3 % (0.0-2.0); EOSINOPHILS % (AUTO) 1.5 % (0.0-6.0); HEMATOCRIT 38 % (33-45); HEMOGLOBIN 12.5 g/dL (11.5-14.8); LYMPHOCYTES # (AUTO) 0.9 /CMM (0.8-4.8); LYMPHOCYTES % (AUTO) 9.8 % (20.0-44.0); MEAN CORPUSCULAR HEMOGLOBIN 30 PG (26.0-33.0); MEAN CORPUSCULAR HGB CONC 33 g/dl (31.0-36.0); MEAN CORPUSCULAR VOLUME 93 fL (82-100); MONOCYTES # (AUTO) 0.2 /CMM (0.1-1.30); MONOCYTES % (AUTO) 2.8 % (2.0-12.0); NEUTROPHILS # (AUTO) 7.6 /CMM (1.8-8.9); NEUTROPHILS % (AUTO) 85.6 % (43.0-81.0); PLATELET COUNT (AUTO) 406 /CMM (150-450); RDW COEFFICIENT OF VARIATION 16.3 (11.5-15.0); WHITE BLOOD COUNT (AUTO) 8.9 K/uL (4.3-11.0)
--- NOTE | 2018-05-31 06:41 | NUR ---
DR. LINK IS AT THE BEDSIDE SPEAKING TO THE PT.
[2018-05-31 06:43] LABS: CALCIUM, SERUM 8.3 mg/dL (8.5-10.1); CREATININE 0.7 mg/dL (0.6-1.3); POTASSIUM 4.1 mmol/L (3.5-5.1)
[2018-05-31 06:52] LABS: TROPONIN I 0.058 ng/mL (0.00-0.056)
[2018-05-31] MEDS ORDERED: ASPIRIN 325 MG TABLET PO ONE (07:00)
[2018-05-31] MEDS ORDERED: FUROSEMIDE 20 MG/2 ML VIAL IV ONE (07:00)
[2018-05-31] MEDS ORDERED: FUROSEMIDE 20 MG/2 ML VIAL ONE (07:01)
[2018-05-31] MEDS ORDERED: ASPIRIN 325 MG TABLET ONE (07:02)
--- NOTE | 2018-05-31 07:05 | NUR ---
INSERTED IV, ADMINISTERED LASIX, ASA, ATIVAN ORDRED BY .
--- NOTE | 2018-05-31 07:09 | NUR ---
PT DESATURATED TO 85% ON RA. (PT HYPOXIC) PT WAS PLACED ON 3L O2 VIA NC. PT STATED THAT SHE SMOKES UNDER 40 CIGARETTES/DAY.
--- NOTE | 2018-05-31 07:19 | NUR ---
REPORT GIVEN TO MAR ARGUETA FOR MELLO.
--- NOTE | 2018-05-31 07:25 | NUR ---
RECIEVED REPORT AT THIS TIME. PT IS A/OX3. STILL APPEARS VERY ANXIOUS. ON O2 VIA NC AT 3LPM SATTING AT 89-92%. PT NOTED TO BE WET ALL OVER BECAUSE SHE URNATED IN THE BED. PT CHANGED TO GOWN AND PLACED DIAPER. ON CONT CARDIAC AND POX MONITORING. WILL CONT TO MONITOR
--- NOTE | 2018-05-31 08:16 | NUR ---
PT IS ASSIGNED TO ROOM 324-2.
--- NOTE | 2018-05-31 08:26 | NUR ---
REPORT GIVEN TO MAR VASQUEZ FOR CONT OF CARE, PT IS ADMITTED BY DR. LAUREN MEJIA; CHF
--- NOTE | 2018-05-31 09:01 | NUR ---
PT TRANSFERRED TO FLOOR VIA ACLS PROTOCOL
[2018-05-31] MEDS ORDERED: FUROSEMIDE 40 MG/4 ML VIAL IV SCH (10:00)
[2018-05-31] MEDS ORDERED: LISINOPRIL (20MG) 20 MG TABLET PO SCH (10:00)
[2018-05-31] MEDS ORDERED: POTASSIUM CHLORIDE 10 MEQ TABLET.SA PO SCH (10:00)
[2018-05-31] MEDS ORDERED: SPIRONOLACTONE 25 MG TABLET PO SCH (10:00)
[2018-05-31] MEDS ORDERED: FLUOXETINE HCL 20 MG CAPSULE PO SCH (10:00)
[2018-05-31] MEDS ORDERED: ASPIRIN 81 MG TAB.CHEW PO SCH (10:00)
[2018-05-31] MEDS ORDERED: CARVEDILOL 3.125 MG TABLET PO SCH (10:00)
[2018-05-31 10:41] VITALS: BP 119/88
--- NOTE | 2018-05-31 11:30 | NUR ---
COMPUTER PROGRAMMING MANAGER ADMITTING NOTES ADMITTED PT TO UNIT AT 0855 VIA NORA ACCOMPANIED BY RN TRUDY NAVARRO AND Cesar LONG. A/O X3 BUT VERY SLEEPY. VERBALLY RESPONSIVE, NO C/O PAIN VOICED AT THIS TIME. PT WITH DX OF CHF AND ANXIETY. PT ORIENTED TO HER ROOM. PT ON 02 VIA N/C AT 3LPM, BREATHING UNLABORED WITH SP02 OF 90-92%. V/S TAKEN AND RECORDED. SKIN IS INTACT. PT WITH IV ACCESS ON LAC #18, INTACT AND PATENT, FLUSHES WELL. SAFETY MEASURES INITIATED. PT WITH CLEAR LUNG SOUNDS ON AUSCULTATION. ABDOMEN WITH BOWEL SOUNDS ON FOUR QUADRANTS. NO ABDOMINAL DISTENTION NOTED. BED IN LOW/LOCKED POSITION WITH SIDE-RAILS UP X2. BED ALARM ON AND CALL LIGHT WITHIN REACH. WILL CONTINUE TO MONITOR PT. Addendum: 05/31/18 at 1238 by ANGELO GOMES RN addendum; Pt on tele-monitoring with reading of sinus tachy with HR of 110-116, no c/o cardiac distress voiced.
--- NOTE | 2018-05-31 11:35 | NUR ---
RN NOTES PATIENT SEEN BY DR AGUILAR WITH ORDER TO DISCHARGED PT TO [facility] . ERINN GARCIA ARRANGED TRANSPORTATION FOR PT. CALLED AND REPORT GIVEN TO MAR SORTO OF [facility].
--- NOTE | 2018-05-31 12:38 | NUR ---
RN DISCHARGED NOTES PT DISCHARGED TO [facility] WITH STABLE V/S. A/O X3, SAME VERBALLY RESPONSIVE WITH NO C/O PAIN OR DISTRESS VOICED. PT AWARE THAT SHE IS BEING TRANSFERRED TO [facility]. PT ON 02 VIA N/C AT 3LPM, BREATHING EVEN WITH NO SOB NOTED, SP02 92-92%. IV ACCESS ON LAC NOT REMOVED PER REQUEST BY MAR SORTO OF [facility]. PT'S SKIN IS INTACT. ALL BELONGINGS ACCOUNTED FOR AND SIGNED BELONGINGS LIST BY PT. HEALTH TEACHINGS GIVEN AND PT VERBALIZED UNDERSTANDING. PT LEFT UNIT VIA GURNEY AT 1230 IN NO ACUTE SIGNS OF DISTRESS ACCOMPANIED BY 2 EMT'S. MD AND CHARGE NURSE AWARE OF DISCHARGE.
--- NOTE | 2018-05-31 12:58 | NUR ---
RN NOTES EMT'S FORGOT TO TAKE PT'S BELONGINGS. CALL ERINN GARCIA AND SAID THAT SHE WILL CALL THE AMBULANCE SERVICE. RECEIVED ORDER FROM CHARGE NURSE ORIN TO PUT PT'S BELONGINGS IN THE UTILITY ROOM WITH NAME AND ROOM NUMBER.
--- NOTE | 2018-05-31 14:43 | NUR ---
RN NOTES ONE OF THE EMT'S WHO TRANSPORTED PT TO [facility] CAME BACK AND PICKED-UP PT'S BELONGINGS.
[2018-05-31] MEDS ORDERED: GABAPENTIN 300 MG CAPSULE PO SCH (22:00)
== END 2018-05-31 12:30 | disposition short-term general hospital (02) | DRG 133 ==
LOC: ER 05:45 → TELE 08:21
PROVIDERS: ADMIT Internal Medicine; ATTEND Internal Medicine
DX: J96.01 Acute respiratory failure with hypoxia (principal); I50.23 Acute on chronic systolic (congestive) heart failure; I11.0 Hypertensive heart disease with heart failure; J44.9 Chronic obstructive pulmonary disease, unspecified; F41.9 Anxiety disorder, unspecified; F32.9 Major depressive disorder, single episode, unspecified; F19.10 Other psychoactive substance abuse, uncomplicated; Z88.2 Allergy status to sulfonamides; Z91.19 Patient's noncompliance with other medical treatment and regimen; F17.210 Nicotine dependence, cigarettes, uncomplicated; E78.5 Hyperlipidemia, unspecified; F41.0 Panic disorder [episodic paroxysmal anxiety]; I25.10 Atherosclerotic heart disease of native coronary artery without angina pectoris; K21.9 Gastro-esophageal reflux disease without esophagitis; Z59.0 Homelessness
CPT/HCPCS: 36415; 71045-TC; 80048-TC; 84484-TC; 85025-TC; 87081-TC; A4606; J1940

== ENCOUNTER 2018-06-08 22:15 | Emergency (ER) | payer OTHER ==
[~2018-06-08] VITALS: Ht 152.4 cm; Wt 55.3 kg
[2018-06-08 22:16] VITALS: BP 134/87
[2018-06-08] MEDS ORDERED: LORAZEPAM INJ 2 MG/ML VIAL IM ONE (22:30)
[2018-06-08] MEDS ORDERED: ONDANSETRON 4 MG TAB.RAPDIS SL ONE (22:30)
[2018-06-08] MEDS ORDERED: LORAZEPAM INJ 2 MG/ML VIAL ONE (22:36)
[2018-06-08] MEDS ORDERED: ONDANSETRON 4 MG TAB.RAPDIS ONE (22:36)
== END 2018-06-08 23:54 | disposition home or self-care (01) ==
LOC: ER 22:22
DX: F41.9 Anxiety disorder, unspecified (principal); I11.0 Hypertensive heart disease with heart failure; I50.22 Chronic systolic (congestive) heart failure; J44.9 Chronic obstructive pulmonary disease, unspecified; F17.200 Nicotine dependence, unspecified, uncomplicated; Z88.2 Allergy status to sulfonamides; Z79.82 Long term (current) use of aspirin; Z79.899 Other long term (current) drug therapy
CPT/HCPCS: 71045; 93005; 96372; 99284; A4606; J2060; Q0162; Z7610

== ENCOUNTER 2018-06-09 06:01 | Emergency (ER) | payer OTHER ==
--- NOTE | 2018-06-09 06:08 | NUR ---
Called for triage, no answer.
--- NOTE | 2018-06-09 06:31 | NUR ---
PT WAS D/C YESTERDAY FOR ANXIETY. STAYED IN THE WAITING AND BEEN SLEEPING ALL NIGHT. UPON ASKING HER TO LEAVE LOBBY BY SECURITY, SHE DIDNT WANNA WAKE UP AND SAID "I WANNA SLEEP BUT IF YOU WANT ME TO LEAVE I WILL JUST CHECK IN AGAIN. JUST LEAVE ME ALONE". DENIES ANY NEW SX'S AT THIS TIME. RESP EVEN AND UNLABORED.
--- NOTE | 2018-06-09 06:35 | NUR ---
UNABLE TO DEPART PT. DEPART PATIENT BUTTON IS JARAMILLO.
== END 2018-06-09 06:36 | disposition left against medical advice (07) ==
LOC: ER 06:02
DX: F41.9 Anxiety disorder, unspecified (principal); Z53.21 Procedure and treatment not carried out due to patient leaving prior to being seen by health care provider

== ENCOUNTER 2018-07-26 23:19 | Emergency (ER) | payer OTHER ==
[~2018-07-26] VITALS: Ht 165.1 cm; Wt 54.4 kg
[2018-07-26 23:19] VITALS: BP 144/80
[2018-07-26] MEDS ORDERED: LORAZEPAM 1 MG TABLET ONE (23:41)
[2018-07-26] MEDS ORDERED: ASPIRIN 325 MG TABLET ONE (23:42)
[2018-07-27] MEDS ORDERED: ACETAMINOPHEN 325 MG TABLET PO ONE
[2018-07-27] MEDS ORDERED: LORAZEPAM 1 MG TABLET PO ONE
== END 2018-07-26 23:52 | disposition home or self-care (01) ==
LOC: ER 23:20
DX: F41.9 Anxiety disorder, unspecified (principal); J44.9 Chronic obstructive pulmonary disease, unspecified; M54.30 Sciatica, unspecified side; I11.0 Hypertensive heart disease with heart failure; I50.22 Chronic systolic (congestive) heart failure; F17.200 Nicotine dependence, unspecified, uncomplicated; Z88.2 Allergy status to sulfonamides; Z79.82 Long term (current) use of aspirin; Z79.899 Other long term (current) drug therapy
CPT/HCPCS: 99283; A4606; Z7610

== ENCOUNTER 2019-05-02 05:45 | Emergency (ER) | payer OTHER ==
[~2019-05-02] VITALS: Ht 152.4 cm; Wt 49.9 kg
[~2019-05-02 05:45] MED LIST changes: +ATOR10TA PO; -FURO-144 PO; +FURO20TA4 PO
--- NOTE | 2019-05-02 05:50 | NUR ---
PT BIBRA89 C/O "PANIC ATTACK." PER EMS, PT TACHYPNIC, AND HAVING "HOT SWEATS X 5 DAYS" PT AXO4. PT TACHYPNIC, TALKING IN 3-4 WORD SENTENCES. PT PUT ON THE VESSEL SPECIALIST AND PULSE OX. PENDING EVAL FROM ER .
--- NOTE | 2019-05-02 06:05 | NUR ---
LUAN SINGLETON AT BEDSIDE.
--- NOTE | 2019-05-02 06:15 | NUR ---
LABS DRAWN AND SENT TO LAB.
[2019-05-02 06:30] LABS: BASOPHILS % (AUTO) 0.7 % (0.0-2.0); EOSINOPHILS % (AUTO) 1.8 % (0.0-6.0); HEMATOCRIT 33 % (33-45); HEMOGLOBIN 11.4 g/dL (11.5-14.8); MEAN CORPUSCULAR HGB CONC 34 g/dl (31.0-36.0); MEAN CORPUSCULAR VOLUME 95 fL (82-100); MONOCYTES # (AUTO) 0.4 /CMM (0.1-1.30); MONOCYTES % (AUTO) 7.3 % (2.0-12.0); NEUTROPHILS # (AUTO) 3.7 /CMM (1.8-8.9); NEUTROPHILS % (AUTO) 71.2 % (43.0-81.0); PLATELET COUNT (AUTO) 366 /CMM (150-450); RED BLOOD CELL COUNT(AUTO) 3.49 MIL/uL (4.0-5.2); WHITE BLOOD COUNT (AUTO) 5.2 K/uL (4.3-11.0)
[2019-05-02] MEDS ORDERED: LORAZEPAM 1 MG TABLET ONE (06:31)
--- NOTE | 2019-05-02 06:40 | NUR ---
XRAY AT BEDSIDE.
[2019-05-02 06:41] LABS: CALCIUM, SERUM 8.5 mg/dL (8.5-10.1); POTASSIUM 2.9 mmol/L (3.5-5.1)
[2019-05-02] MEDS: LORAZEPAM 1 MG TABLET PO ONE (06:45)
--- NOTE | 2019-05-02 06:45 | NUR ---
PT AMBULATORY WITH STEADY GAIT TO RESTROOM.
[2019-05-02 06:53] LABS: ALBUMIN 3.3 g/dL (3.4-5.0); BILIRUBIN,DIRECT 0.2 mg/dL (0.0-0.2); BILIRUBIN,TOTAL 0.8 mg/dL (0.2-1.0); TOTAL PROTEIN, SERUM 6.3 g/dL (6.4-8.2)
[2019-05-02] MEDS ORDERED: POTASSIUM CHLORIDE 20 MEQ TAB.PRT.SR PO ONE ×2 (07:24→08:09)
[2019-05-02] MEDS: POTASSIUM CHLORIDE 20 MEQ TAB.PRT.SR PO ONE ×2 (07:29→08:11)
[2019-05-02] MEDS: FLUOXETINE HCL 20 MG CAPSULE PO SCH (07:29)
--- NOTE | 2019-05-02 07:29 | NUR ---
REPORT GIVEN TO RE MANUEL FOR MELLO.
--- NOTE | 2019-05-02 08:30 | NUR ---
SHEETMETAL TRADES WORKER CORAL CALLED FOR CONSULT.
--- NOTE | 2019-05-02 08:44 | NUR ---
Social service consult requested by MAR Ahumada for homelessness. Pt. is a 63 year old female who came to ED complaining of panic attack and anxiety. SW met with pt. bedside in ED. SW is familiar with pt. from previous admission in 2018. Pt is alert and oriented x 4. Pt. is ambulatory. Pt. is cooperative and pleasant with SW during the assessment. Pt. kept falling asleep during the assessment and had to be woken up several times. Pt. receives SSI per month. Pt. states she and her boyfriend Carson have been homeless for the past five years. Pt. states they live three times a week at a friend's apartment and the rest of the week they stay in a tent in [place]. Pt. has anxiety and takes medication for it. Pt. denies suicidal and homicidal ideations and visual/auditory hallucinations at this time. Pt. stated she was on hospice but was recently terminated from hospice stating, " my COPD is not terminal anymore." SW offered senior living placement, however pt. declined stating, " I am going to meet up with Carson." Her emergency contact is Carson . Pt. has a history of methamphetamine use but denies using recently. Pt. was given the following homeless resources: [facility], [address] [place] [address] ; [facility] [place], [address] ; [facility] Homeless Resource Directory which includes food stamps, transitional housing, showers and hot meals etc; Mental Health clinics such as [facility] ; [facility] ; Health clinics;[facility] and Alcohol treatment centers such as [facility], ; [facility] Substance Abuse Hotline and [facility] . Homeless Patient Waiver Form was signed by the pt. and placed in pt's chart. Pt. was provided with breakfast and a TAP card. Pt's MAR Ahumada has been updated with pt's discharge plan.
--- NOTE | 2019-05-02 09:05 | NUR ---
SEEN BY GENERAL OFFICE ASSOCIATE CORAL RESOURCES PROVIDED, FOOD TRAY PROVIDED AND PATIENT TOLERATED MEAL, TAP CARD GIVEN. NEEDS ATTENDED AND MET, RX PROVIDED AND EXPLAINED, PIV REMOVED. VSS. Patient discharged in stable condition. Written and verbal after care instructions given. Patient verbalizes understanding of instruction.
[2019-05-02 09:07] VITALS: BP 143/73
== END 2019-05-02 09:08 | disposition home or self-care (01) ==
LOC: ER 05:47
DX: I11.0 Hypertensive heart disease with heart failure (principal); I50.9 Heart failure, unspecified; F41.9 Anxiety disorder, unspecified; E87.6 Hypokalemia; J44.9 Chronic obstructive pulmonary disease, unspecified; M54.30 Sciatica, unspecified side; F17.200 Nicotine dependence, unspecified, uncomplicated; Z88.2 Allergy status to sulfonamides; Z79.82 Long term (current) use of aspirin; Z79.899 Other long term (current) drug therapy; Z59.0 Homelessness
CPT/HCPCS: 36415; 71045-TC; 80048-TC; 80076-TC; 83880; 84484-TC; 85025-TC

== ENCOUNTER 2019-05-03 22:32 | Emergency (ER) | payer OTHER ==
[~2019-05-03] VITALS: Ht 157.5 cm; Wt 63.5 kg
--- NOTE | 2019-05-03 22:49 | NUR ---
ISAAC FROM [address]. AAOX4. CRYING, NO SOB NOTED AT TIME OF ASESSMENT. BROUGHT FOR SOB FROM [facility] [address]. EMS GAVE ALBUTEROL INHALATION WHICH RESOLVED THE SOB, SATTING @ 99% ON RA. PT C/O L LOWER BACK PAIN SHOOTING DOWN TO HER L LEG. PT ALSO REPORTS OF NAUSEA AND VOMITING FOR 3 DAYS. PT ALSO REPORTS THAT SHE STARTED TAKING HER PROZAC STARTING YESTERDAY AFTER NOT TAKING THE MEDS FOR 5 WEEKS PER PT. TO ER BED 10. AWAITING MD FOR WENCESLAO.
[2019-05-03 23:10] LABS: RED BLOOD CELL COUNT(AUTO) 3.39 MIL/uL (4.0-5.2); WHITE BLOOD COUNT (AUTO) 6.6 K/uL (4.3-11.0)
[2019-05-03 23:11] LABS: BASOPHILS # (AUTO) 0.1 /CMM (0.0-0.2); BASOPHILS % (AUTO) 1.1 % (0.0-2.0); EOSINOPHILS % (AUTO) 0.5 % (0.0-6.0); HEMATOCRIT 33 % (33-45); HEMOGLOBIN 11.1 g/dL (11.5-14.8); LYMPHOCYTES # (AUTO) 1.3 /CMM (0.8-4.8); LYMPHOCYTES % (AUTO) 19.2 % (20.0-44.0); MEAN CORPUSCULAR HGB CONC 34 g/dl (31.0-36.0); MEAN CORPUSCULAR VOLUME 98 fL (82-100); MONOCYTES # (AUTO) 0.5 /CMM (0.1-1.30); MONOCYTES % (AUTO) 8.2 % (2.0-12.0); NEUTROPHILS # (AUTO) 4.7 /CMM (1.8-8.9); PLATELET COUNT (AUTO) 395 /CMM (150-450)
--- NOTE | 2019-05-03 23:11 | NUR ---
PT PRESENTED WITH L AC 20G STARTED BY EMS ON FIELD
[2019-05-03 23:19] LABS: ALCOHOL, BLOOD < 3 mg/dL (0-0); CALCIUM, SERUM 8.6 mg/dL (8.5-10.1); CREATININE 1.1 mg/dL (0.6-1.3); MAGNESIUM 1.5 mg/dL (1.8-2.4); POTASSIUM 3.4 mmol/L (3.5-5.1)
[2019-05-03] MEDS ORDERED: ONDANSETRON HCL/PF 4 MG/2 ML VIAL ONE (23:30)
[2019-05-03] MEDS ORDERED: ONDANSETRON HCL/PF - ER 4 MG/2 ML VIAL IV ONE (23:30)
[2019-05-03] MEDS ORDERED: LORAZEPAM INJ 2 MG/ML VIAL IV ONE (23:30)
[2019-05-03] MEDS ORDERED: LORAZEPAM INJ 2 MG/ML VIAL ONE (23:30)
[2019-05-03 23:32] LABS: ALBUMIN 3.4 g/dL (3.4-5.0); BILIRUBIN,DIRECT 0.4 mg/dL (0.0-0.2); BILIRUBIN,TOTAL 1.5 mg/dL (0.2-1.0); TOTAL PROTEIN, SERUM 6.3 g/dL (6.4-8.2)
--- NOTE | 2019-05-04 00:14 | NUR ---
PT IN BATHROOM. AMBULATED W/ STEADY GAIT W/O ASSISTANCE
[2019-05-04] MEDS ORDERED: POTASSIUM CHLORIDE 20 MEQ TAB.PRT.SR PO ONE ×2 (00:30→00:39)
[2019-05-04] MEDS ORDERED: MAGNESIUM OXIDE 400 MG TABLET PO ONE (00:30)
[2019-05-04] MEDS ORDERED: FUROSEMIDE 40 MG/4 ML VIAL IV ONE (00:30)
[2019-05-04] MEDS ORDERED: ASPIRIN 325 MG TABLET PO ONE (00:30)
[2019-05-04] MEDS ORDERED: FUROSEMIDE 40 MG/4 ML VIAL ONE (00:39)
[2019-05-04] MEDS ORDERED: ASPIRIN 325 MG TABLET ONE (00:39)
[2019-05-04] MEDS ORDERED: MAGNESIUM OXIDE 400 MG TABLET ONE (00:53)
--- NOTE | 2019-05-04 00:56 | NUR ---
ORDER RECEIVED FOR MAGOX 800MG PO. MEDICATION TAKEN FROM SARA D/T MEDICATION NOT AVAILABLE IN ER [facility]
--- NOTE | 2019-05-04 01:11 | NUR ---
PT STILL UNABLE TO URINATE FOR URINE SPECIMEN COLLECTION.
[2019-05-04 01:19] VITALS: BP 131/82
--- NOTE | 2019-05-04 01:23 | NUR ---
URINE COLLECTED AND SENT TO LAB
--- NOTE | 2019-05-04 01:28 | NUR ---
PT ACCEPTED TO [facility] . ([phone] RM [id number]. NURSE IS HAZELY. WILL CALL BACK WITH AMBULANCE ETA.
--- NOTE | 2019-05-04 01:42 | NUR ---
VERBAL ORDERS NOT TO 2ND EKG PER DR. CLAYTON.
--- NOTE | 2019-05-04 01:46 | NUR ---
REPORT GIVEN TO MAR DELEON FROM [facility]. PT WILL BE UNDER THE CARE OF DR. ABBI HENNESSY
--- NOTE | 2019-05-04 02:10 | NUR ---
PT BEING TRANSPORTED TO [facility] VIA AMBULANCE ON [facility] WITH ACLS PROTOCOL. NO NOTED DISTRESS UPON DISCHARGE. REPORT GIVEN TO AMBULANCE STAFF
== END 2019-05-04 02:25 | disposition short-term general hospital (02) ==
LOC: ER 22:34
DX: I11.0 Hypertensive heart disease with heart failure (principal); I50.22 Chronic systolic (congestive) heart failure; R79.89 Other specified abnormal findings of blood chemistry; E87.6 Hypokalemia; E83.42 Hypomagnesemia; F41.9 Anxiety disorder, unspecified; D64.9 Anemia, unspecified; R94.5 Abnormal results of liver function studies; F17.200 Nicotine dependence, unspecified, uncomplicated; F10.10 Alcohol abuse, uncomplicated; E78.5 Hyperlipidemia, unspecified; J44.9 Chronic obstructive pulmonary disease, unspecified; M54.30 Sciatica, unspecified side; R00.0 Tachycardia, unspecified; F15.10 Other stimulant abuse, uncomplicated; Y90.0 Blood alcohol level of less than 20 mg/100 ml; Z59.0 Homelessness; Z98.890 Other specified postprocedural states; Z90.710 Acquired absence of both cervix and uterus; Z90.49 Acquired absence of other specified parts of digestive tract; Z88.2 Allergy status to sulfonamides; Z79.82 Long term (current) use of aspirin
CPT/HCPCS: 36415; 71045; 80048; 80076; 80307; 83735; 83880; 84484; 85025; 93005; 96374; 96375; 99291; J1940; J2060; J2405; 80305; G0480

== ENCOUNTER 2019-05-17 03:27 | Inpatient (IN) | payer OTHER ==
[~2019-05-17] VITALS: Ht 154.9 cm; Wt 53.1 kg
--- NOTE | 2019-05-17 03:55 | NUR ---
BIBRA [address] AAOX4. BREATHING SHALLOW AND RAPID. ANXIOUS. C/O WORSENING SOB X3-4 DAYS. PT CALLED [facility] REPA[facility] AROUND MIDNIGHT FOR THE SAME REASON RECEIVED ALBUTEROL AND GOT BETTER, PT WAS NOT PRGOUGHT TO HOSPITAL. PT CALLED FOR THE SECOND TIME D/T SOB IF BACK AND GETTING WORST. TO ER BED 10. MD AT BEDSIDE FOR EVAL. AWAITING ORDERS
[2019-05-17] MEDS ORDERED: ONDANSETRON HCL/PF 4 MG/2 ML VIAL IV ONE (04:00)
[2019-05-17 04:12] LABS: BASOPHILS # (AUTO) 0.1 /CMM (0.0-0.2); BASOPHILS % (AUTO) 1.4 % (0.0-2.0); EOSINOPHILS % (AUTO) 1.1 % (0.0-6.0); HEMATOCRIT 36 % (33-45); LYMPHOCYTES # (AUTO) 0.6 /CMM (0.8-4.8); LYMPHOCYTES % (AUTO) 6.6 % (20.0-44.0); MEAN CORPUSCULAR HGB CONC 33 g/dl (31.0-36.0); MEAN CORPUSCULAR VOLUME 98 fL (82-100); MONOCYTES # (AUTO) 0.4 /CMM (0.1-1.30); MONOCYTES % (AUTO) 4.6 % (2.0-12.0); NEUTROPHILS # (AUTO) 8.2 /CMM (1.8-8.9); NEUTROPHILS % (AUTO) 86.3 % (43.0-81.0); PLATELET COUNT (AUTO) 430 /CMM (150-450); WHITE BLOOD COUNT (AUTO) 9.5 K/uL (4.3-11.0)
[2019-05-17] MEDS ORDERED: ONDANSETRON HCL/PF 4 MG/2 ML VIAL ONE ×2 (04:12→06:27)
[2019-05-17 04:20] LABS: CALCIUM, SERUM 8.8 mg/dL (8.5-10.1); CREATININE 1.1 mg/dL (0.6-1.3)
--- NOTE | 2019-05-17 04:25 | NUR ---
XRAY AT BEDSIDE
[2019-05-17 04:37] LABS: ALBUMIN 3.4 g/dL (3.4-5.0); BILIRUBIN,DIRECT 0.1 mg/dL (0.0-0.2); BILIRUBIN,TOTAL 0.5 mg/dL (0.2-1.0)
[2019-05-17] MEDS ORDERED: ASPIRIN 325 MG TABLET PO ONE (05:30)
[2019-05-17] MEDS ORDERED: ASPIRIN 325 MG TABLET ONE (05:38)
--- NOTE | 2019-05-17 06:25 | NUR ---
Spoke with Nereida Hall Central Supply Technician Supervisor. report given. awaiting authorization. will call back for approval. contact info [phone]
[2019-05-17] MEDS ORDERED: ONDANSETRON HCL/PF - ER 4 MG/2 ML VIAL IV ONE (06:30)
[2019-05-17] MEDS ORDERED: FUROSEMIDE 40 MG/4 ML VIAL ONE (06:30)
[2019-05-17] MEDS ORDERED: FUROSEMIDE 40 MG/4 ML VIAL IV ONE (06:30)
--- NOTE | 2019-05-17 06:30 | NUR ---
PT COMPLAINED OF NAUSEA AND STOMACH DISCOMFORT. MD MADE AWARE. ORDER RECEIVED TO GIVE ZOFRAN 4MG IV
--- NOTE | 2019-05-17 06:44 | NUR ---
BED ASSIGNMENT 113-1
--- NOTE | 2019-05-17 07:30 | NUR ---
REPORT RECEIVED FROM TORIE MANUEL FOR MELLO
--- NOTE | 2019-05-17 07:31 | NUR ---
REPORT GIVEN TO MAR KIM FOR MELLO
--- NOTE | 2019-05-17 08:09 | NUR ---
EPIC CALLED, DR CORRALES PAGED.
--- NOTE | 2019-05-17 08:23 | NUR ---
REPORT GIVEN TO CANDACE MANUEL OF TELE UNIT
[2019-05-17] MEDS ORDERED: LORAZEPAM 1 MG TABLET PO PRN (08:30)
--- NOTE | 2019-05-17 08:51 | NUR ---
DR AGUILAR AT BEDSIDE
[2019-05-17] MEDS ORDERED: LORAZEPAM 1 MG TABLET ONE (08:53)
[2019-05-17 08:55] VITALS: BP 92/70
[2019-05-17 09:00] VITALS: BP 95/72
--- NOTE | 2019-05-17 09:00 | NUR ---
RN NOTES PT RECEIVED FROM ER IN ROOM 113-1, A/Ox4, VERY ANXIOUS , ON 2L O2 N/C , O2 SAT 98%, C/O SOB ON EXERTION, ON TELE SR-ST , R AC IV SITE G 20 CLEAN, DRY AND INTACT, PT UP TO BATHROOM VOIDING, INCONTINENT AT TIMES , SR UP x3, SR UP x3, CALL LIGHT WITHIN EASY REACH, BED LOCKED AND IN LOWEST POSITION, CONTINUE TO MONITOR .
[2019-05-17] MEDS: FUROSEMIDE 40 MG/4 ML VIAL IV SCH ×2 (09:16→17:12)
[2019-05-17] MEDS ORDERED: IPRATROPIUM NEB FS 0.5 MG/2.5 ML AMPUL.NEB NEB PRN (09:30)
[2019-05-17] MEDS ORDERED: LEVALBUTEROL HCL NEB 1.25 MG/0.5 ML VIAL.NEB NEB PRN (09:30)
[2019-05-17] MEDS: ENOXAPARIN SODIUM 40 MG/0.4 ML DISP.SYRIN SQ SCH (10:15)
[2019-05-17] MEDS: CARVEDILOL 3.125 MG TABLET PO SCH ×2 (10:16→20:40)
[2019-05-17 12:00] VITALS: BP_SYST 111; BP_SYST 115; BP_DIAS 61; BP_DIAS 75
--- NOTE | 2019-05-17 14:08 | NUR ---
RN NOTES PT STABLE, CALM AT THIS TIME, VSS STABLE , CONTINUE TO MONITOR
[2019-05-17 16:00] VITALS: BP_SYST 116; BP_SYST 120; BP_DIAS 63; BP_DIAS 73
[2019-05-17] MEDS: ATORVASTATIN 10 MG TABLET PO SCH (17:12)
--- NOTE | 2019-05-17 18:45 | NUR ---
RN NOTES DR AGUILAR NOTIFIED REGARDING TROPONIN RESULTS .
--- NOTE | 2019-05-17 18:52 | NUR ---
RN NOTES NO SIGNIIFCANT CHANGES NOTED ON THIS SHIFT , WILL ENDORSE TO PARA PROFESSIONAL NURSE FOR CONTINUITY OF CARE .
[2019-05-17] MEDS ORDERED: FUROSEMIDE 40 MG/4 ML VIAL IV SCH (19:00)
[2019-05-17 20:00] VITALS: BP 105/71
--- NOTE | 2019-05-17 20:35 | NUR ---
GRANTS OFFICER NOTE CALL TO DR AGUILAR CONCERNING PT REQUESTING PAIN MEDICATION, GIVEN NEW ORDER FOR NORCO 5/325 MG PO Q4H PRN, ORDERS READBACK AND VERIFIED.
[2019-05-17] MEDS: HYDROCODONE/APAP 5/325MG 1 EACH TABLET PO PRN (20:40)
[2019-05-17] MEDS: Z GUARD REMEDY 4 OZ OINT TP SCH (20:41)
[2019-05-17] MEDS: GABAPENTIN 300 MG CAPSULE PO SCH (21:30)
[2019-05-18] VITALS (7 sets, daily range): BP systolic 87–142; BP diastolic 42–96
[2019-05-18] MEDS: HYDROCODONE/APAP 5/325MG 1 EACH TABLET PO PRN ×2 (06:47→20:40)
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
[2019-05-18] MEDS ORDERED: METOPROLOL TARTRATE 50 MG TABLET PO ONE (08:30)
[2019-05-18] MEDS: FUROSEMIDE 40 MG/4 ML VIAL IV SCH (08:44)
[2019-05-18] MEDS: CARVEDILOL 3.125 MG TABLET PO SCH ×2 (08:48→20:46)
[2019-05-18] MEDS: LISINOPRIL (10MG) 10 MG TABLET PO SCH (08:51)
[2019-05-18] MEDS: Z GUARD REMEDY 4 OZ OINT TP SCH ×2 (08:51→20:44)
[2019-05-18] MEDS ORDERED: CARVEDILOL 12.5 MG TABLET PO SCH (09:00)
[2019-05-18] MEDS ORDERED: FLUOXETINE HCL 20 MG CAPSULE PO SCH (09:00)
[2019-05-18] MEDS: ENOXAPARIN SODIUM 40 MG/0.4 ML DISP.SYRIN SQ SCH (09:03)
[2019-05-18] MEDS ORDERED: CARV3.122 PO (09:26)
[2019-05-18] MEDS ORDERED: LORAZEPAM INJ 2 MG/ML VIAL IV ONE (09:30)
[2019-05-18] MEDS: SPIRONOLACTONE 25 MG TABLET PO SCH (10:14)
[2019-05-18] MEDS ORDERED: IOHEXOL-350 100 ML VIAL IV ONE (10:14)
[2019-05-18] MEDS ORDERED: METOPROLOL TARTRATE INJ 5 MG/5 ML AMPUL ONE (10:27)
[2019-05-18] MEDS ORDERED: NITROGLYCERIN 4.9 GM SPRAY SL ONE (10:30)
[2019-05-18] MEDS ORDERED: IV NS 0.9% 500 ML IV ONE (10:30)
[2019-05-18] MEDS ORDERED: METOPROLOL TARTRATE INJ 5 MG/5 ML AMPUL IVP ONE (10:30)
--- NOTE | 2019-05-18 10:35 | NUR ---
RN NOTE SAFETY PATIENT HAD MULTIPLE PILL BOTTLES IN PURSE. NURSE UNAWARE IF PATIENT TOOK MEDICATION. RN TOOK MEDICATION FROM PATIENT LOCKED AT NURSING STATION. PATIENT STABLE FOR TRANSPORT.
--- NOTE | 2019-05-18 10:37 | NUR ---
RN NOTE PATIENT TAKEN TO RADIOLOGY FOR PROCEDURE. GIVEN ONE DOSE PO METROPROL PRIOR TO PROCEDURE, GIVEN 1MG OF ATIVAN PRIOR TO PROCEDURE PER MD ORDER. VITALS WITHIN NORMAL LIMITS, PATINT TAKEN ON GURNEY. AWAITING RESULT TO UPDATE MD.
[2019-05-18] MEDS ORDERED: NITROGLYCERIN 0.4 MG/TAB BOTTLE ONE (10:43)
--- NOTE | 2019-05-18 11:05 | NUR ---
RN NOTE CT CALLED RN , PATIENT BLOOD PRESSURE DROPPED SBP BELOW 90/76. ACCORDING TO RADIOLOGY PATIENT IS LETHARGIC. RN CALLED MD WHO IS AWARE OF PATIENT CONDITION. MD OK PROCEDURE IF SBP IS ABOVE 90. BUT CURRENT SBP IS 70. RN MONITORING PATIENT ON ARRIVAL TO UNIT BP IS 83/76. PATIET IS RESPONSIVE GARBLED SPEECH O2 SATURATOIN IS 96% ON 2 LITERS NASAL CANNULA.
--- NOTE | 2019-05-18 11:08 | NUR ---
oriented x2, drowsy, doesnt always follow instructions etc: hold your breat. initial SBP 70s; saturating 92% on room air HR 65; will hold CTA until further orders. Report given to floor RN
--- NOTE | 2019-05-18 12:08 | NUR ---
RN NOTE PATINET ALERT AND ORIENTED. LETHARGIC. BLOOD PRESSURE INCREASED O2 AT 98%.
--- NOTE | 2019-05-18 13:56 | NUR ---
RN NOTE PATIENT RE ASSESSED VITALS, BP 76/46 O2 SATURATION HR 60, 99% ON 2 LITERS NASLA CANNULA. LETHARGIC. TRENDELENBURG POSITION . ORDER FROM MD FOR IV BOLUS 250ML. CONTINUE TO MONITOR.
--- NOTE | 2019-05-18 14:18 | NUR ---
Social service consult requested by Dr. Thapa for homelessness. Pt. is a 63 year old female who was admitted to [facility] for CHF and elevated Troponin. EZRA is familiar with pt. from previous admissions. SW met with pt. bedside. Pt. is alert and oriented x 3. Pt. [place] the [place] of [place] with her boyfriend Carson . Pt. receives SSI per month. Pt. states she and her boyfriend Carson have been homeless for the past five years. Pt. states they live three times a week at a friend's apartment and the rest of the week they stay in a tent in [place]. Pt. has anxiety and takes medication for it. Pt. denies suicidal and homicidal ideations and visual/auditory hallucinations at this time. Pt. stated she was on hospice but was recently terminated from hospice stating, " my COPD is not terminal anymore." EZRA was informed by human services case manager Kady that pt. has been accepted at [facility] in [place]. EZRA asked pt. if she is willing to go and pt. accepted to go to the [facility]. Kady human services case manager to arrange transportation and time of discharge.
[2019-05-18] MEDS ORDERED: IV NS 0.9% 250 ML IV ONE (14:30)
[2019-05-18 16:52] LABS: BASOPHILS # (AUTO) 0.1 /CMM (0.0-0.2); EOSINOPHILS % (AUTO) 2.7 % (0.0-6.0); HEMATOCRIT 40 % (33-45); HEMOGLOBIN 12.9 g/dL (11.5-14.8); LYMPHOCYTES # (AUTO) 0.8 /CMM (0.8-4.8); MEAN CORPUSCULAR HGB CONC 33 g/dl (31.0-36.0); MEAN CORPUSCULAR VOLUME 97 fL (82-100); MONOCYTES # (AUTO) 0.4 /CMM (0.1-1.30); NEUTROPHILS # (AUTO) 4.1 /CMM (1.8-8.9); NEUTROPHILS % (AUTO) 74.3 % (43.0-81.0); PLATELET COUNT (AUTO) 492 /CMM (150-450); RED BLOOD CELL COUNT(AUTO) 4.09 MIL/uL (4.0-5.2); WHITE BLOOD COUNT (AUTO) 5.5 K/uL (4.3-11.0)
[2019-05-18 17:20] LABS: CALCIUM, SERUM 8.1 mg/dL (8.5-10.1); CREATININE 1.2 mg/dL (0.6-1.3); POTASSIUM 4.3 mmol/L (3.5-5.1)
[2019-05-18 17:41] LABS: THYROID STIMULATING HORMONE 1.147 uIU/mL (0.358-3.74)
[2019-05-18] MEDS: ATORVASTATIN 10 MG TABLET PO SCH (18:18)
--- NOTE | 2019-05-18 19:18 | NUR ---
CLINICAL PROJECT MANAGER RECEIVE PT IN BED A/O X 2, NSR 66 HR IN THE TELE MONITOR, STABLE, RESPIRATIONS EVEN AND UNLABORED, SAFETY MEASURES IN PLACE. WILL CONTINUE TO MONITOR
[2019-05-18] MEDS: GABAPENTIN 300 MG CAPSULE PO SCH (21:02)
--- NOTE | 2019-05-18 21:34 | NUR ---
PAGED AND SPOKE TO DR. LAUREN DAWKINS RELAYED PT BEHAVIOR AGITATED NOW, AGGRESSIVE BEHAVIOR AND KEPT ON SCREAMING NON STOP FOR NO REASON. PT KEPT ON CRYING EVEN ATTENDED. PER DR. AGUILAR PLS OBTAIN PSYCHIATRIC CONSULT, GIVE ZYPREXA 2.5 MG IM Q8HR PRN FOR AGITATION. AND WILL CONTINUE CT ANGIOGRAM HEART W/ 3D IMAGING TOMORROW 05/19/2019 READ BACK AND VERIFIED ORDERS NOTED AND CARRIED OUT.
[2019-05-18] MEDS ORDERED: OLANZAPINE 10 MG VIAL IM ONE (22:09)
[2019-05-18] MEDS: OLANZAPINE 10 MG VIAL IM PRN (22:13)
--- NOTE | 2019-05-18 23:13 | NUR ---
PT CALM AND SLEEPING NO S/S OF DISTRESS ZYPREXA IM EFFECTIVE WILL CONT TO MTR
[2019-05-19] VITALS: BP 96/62
[2019-05-19 04:00] VITALS: BP 96/52
--- NOTE | 2019-05-19 06:16 | NUR ---
ANATOMY AND PHYSIOLOGY INSTRUCTOR ASLEEP AND EASILY AWAKEN, ON CARDIAC MONITORING NSR 71 IN THE TELE MONITOR. RESPIRATIONS EVEN AND UNLABORED. STABLE, SLEPT WELL THROUGHOUT THE NIGHT. KEPT CLEAN AND DRY AND COMFORTABLE. NEEDS ATTENDED AND ANTICIPATED. NURSING CARE RENDERED, NO C/O PAIN AT THIS TIME. SAFETY MEASURES AT ALL TIMES. ENDORSE TO THE NEXT SHIFT.
--- NOTE | 2019-05-19 06:38 | NUR ---
PT REQUESTED TO DO HER BLOOD DRAW LATER AM WILL RE TRY AGAIN PER PT "I WANTED TO SLEEP AT THIS TIME" DESPITE EXPLAINING RISKS AND BENEFITS WILL ENDORSE AT AM
--- NOTE | 2019-05-19 06:42 | NUR ---
FACESHEET WAS GIVEN TO PSYCHIATRIC CHARGE NURSE FOR PSYCH CONSULT
[2019-05-19 08:00] VITALS: BP 113/74
[2019-05-19] MEDS: SPIRONOLACTONE 25 MG TABLET PO SCH (08:13)
[2019-05-19] MEDS: CARVEDILOL 3.125 MG TABLET PO SCH (08:13)
[2019-05-19] MEDS: LISINOPRIL (10MG) 10 MG TABLET PO SCH (08:13)
[2019-05-19] MEDS: ENOXAPARIN SODIUM 40 MG/0.4 ML DISP.SYRIN SQ SCH (08:19)
[2019-05-19] MEDS ORDERED: FLUOXETINE HCL 20 MG CAPSULE PO SCH (09:00)
[2019-05-19] MEDS: Z GUARD REMEDY 4 OZ OINT TP SCH (09:00)
--- NOTE | 2019-05-19 09:36 | NUR ---
WOUND CARE CONSULT: PT REFUSED SKIN ASSESSMENT. PER NURSING STAFF, PT IS AMBULATORY AND CONTINENT WITH CURRENT ELAN OF 21. WILL SEE PRN.
--- NOTE | 2019-05-19 10:30 | NUR ---
PATIENT DROWSY AND AGITATED. REFUSED TO GO TO CTA DESPITE ENCOURAGEMENT. CALLED SISTER ALEKSANDRA AND NOTIFIED HOSPITALIST. PER RUBEN MADERA, WILL RETURN IN AFTERNOON TO TRY AGAIN
[2019-05-19 11:26] LABS: CALCIUM, SERUM 8.5 mg/dL (8.5-10.1); POTASSIUM 4.8 mmol/L (3.5-5.1)
--- NOTE | 2019-05-19 12:22 | NUR ---
PATIENT TAKEN TO CTA VIA BED
[2019-05-19] MEDS: OLANZAPINE 10 MG VIAL IM PRN (15:42)
--- NOTE | 2019-05-19 16:20 | NUR ---
RN D/C NOTE PATIENT CRYING AND SCREAMING UPON LEARNING ABOUT PLACEMENT. ODERED ZYPREXA GIVEN PRN AGITATION. PATIENT REFUSED BOARD AND CARE STATING SHE WANTS TO "BE WITH JALIL." EDUCATED PROVIDED ON RISKS, PATIENT ADAMANT. WIRE SPLICER, HOUSE SUP AND FACILITIES ADMINISTRATOR AWARE. PATIENT SIGNED HOMELESS WAIVER AND BELONGINGS CHECKLIST. NO PICTURES TO BE TAKEN, SKIN IS IN TACT. PRESCRIPTION PROVIDED TO PATIENT. IV CATH REMOVED, INTACT, NO S/S BLEEDING, PRESSURE DRESSING APPLIED. PATIENT WAS WHEELED OUT, PROVIDED A TAP CARD, SOCIAL RESOURCES AND IS GOING TO LOCATION OF CHOICE.
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
[2019-05-19] MEDS ORDERED: CARV3.12 PO (18:58)
[2019-05-19] MEDS ORDERED: ASPI-605 PO (18:58)
[2019-05-19] MEDS ORDERED: FLUO40CA8 PO (18:58)
[2019-05-20] MEDS ORDERED: FLUOXETINE HCL 20 MG CAPSULE PO SCH (09:00)
== END 2019-05-19 16:24 | disposition home or self-care (01) | DRG 194 ==
LOC: ER 03:30 → TELE1 08:10 → MEDSG1 05-18 11:10 → TELE1 05-18 13:55 → MEDSG1 05-19 09:00
PROVIDERS: ADMIT Internal Medicine; ATTEND Internal Medicine
DX: I11.0 Hypertensive heart disease with heart failure (principal); I21.4 Non-ST elevation (NSTEMI) myocardial infarction; I42.0 Dilated cardiomyopathy; I50.23 Acute on chronic systolic (congestive) heart failure; Z59.0 Homelessness; K21.9 Gastro-esophageal reflux disease without esophagitis; J44.9 Chronic obstructive pulmonary disease, unspecified; E78.5 Hyperlipidemia, unspecified; F41.0 Panic disorder [episodic paroxysmal anxiety]; F41.9 Anxiety disorder, unspecified; M54.30 Sciatica, unspecified side; Z88.2 Allergy status to sulfonamides; Z79.82 Long term (current) use of aspirin; Z79.899 Other long term (current) drug therapy; F32.9 Major depressive disorder, single episode, unspecified; F10.21 Alcohol dependence, in remission; F17.200 Nicotine dependence, unspecified, uncomplicated; F19.10 Other psychoactive substance abuse, uncomplicated; F06.31 Mood disorder due to known physiological condition with depressive features
CPT/HCPCS: 36415; 71045-TC; 80048-TC; 80061-TC; 80076-TC; 82962-TC; 83605-TC; 83880; 84443-TC; 84484-TC; 85025-TC; 85730-TC; 87040-TC; 87081-TC; 93307-TC; G0378; J1650; J1940; J2060; J2405; J3490; J7030; Q9967

== ENCOUNTER 2019-05-19 18:16 | Emergency (ER) | payer OTHER ==
[~2019-05-19] VITALS: Ht 152.4 cm; Wt 56.7 kg
[~2019-05-19 18:16] MED LIST changes: -ASPI-1169 PO; +CARV3.122 PO; -POTA10TA15 PO
[2019-05-19] MEDS ORDERED: methylPREDNISolone SOD SUCC 125 MG/2ML VIAL IV ONE (18:30)
[2019-05-19] MEDS ORDERED: IV NS 0.9% 1,000 ML BAG IV ONE (18:30)
[2019-05-19] MEDS ORDERED: ALBUTEROL FS 2.5 MG/3 ML VIAL.NEB NEB ONE (18:30)
[2019-05-19] MEDS ORDERED: LORAZEPAM INJ 2 MG/ML VIAL IV ONE (18:30)
--- NOTE | 2019-05-19 18:30 | NUR ---
BIBRA 82 C/O LOW BP 64/44, BG 100. PT STATES FEELING ANXIOUS. IV ACCESS OBTAINED BY PARAMEDICS, LEFT WRIST 18G. DENIES CP, SOB, DIZZINESS, WEAKNESS. SKIN INTACT, NO ACUTE DISTRESS NOTED. ON MONITOR AND O2 VIA NC. READY FOR EVAL.
[2019-05-19] MEDS ORDERED: methylPREDNISolone SOD SUCC 125 MG/2ML VIAL ONE (18:39)
[2019-05-19] MEDS ORDERED: LORAZEPAM INJ 2 MG/ML VIAL ONE (18:40)
[2019-05-19] MEDS ORDERED: ALBUTEROL FS 2.5 MG/3 ML VIAL.NEB ONE (18:48)
--- NOTE | 2019-05-19 18:51 | NUR ---
RT AT BEDSIDE FOR BREATHING TX
[2019-05-19] MEDS ORDERED: ASPI-605 PO (18:58)
[2019-05-19] MEDS ORDERED: CARV3.12 PO (18:58)
[2019-05-19] MEDS ORDERED: FLUO40CA8 PO (18:58)
[2019-05-19 18:59] LABS: BASOPHILS # (AUTO) 0.1 /CMM (0.0-0.2); BASOPHILS % (AUTO) 0.9 % (0.0-2.0); EOSINOPHILS % (AUTO) 1.4 % (0.0-6.0); HEMATOCRIT 40 % (33-45); HEMOGLOBIN 12.9 g/dL (11.5-14.8); LYMPHOCYTES # (AUTO) 0.8 /CMM (0.8-4.8); LYMPHOCYTES % (AUTO) 8.4 % (20.0-44.0); MEAN CORPUSCULAR HGB CONC 32 g/dl (31.0-36.0); MEAN CORPUSCULAR VOLUME 98 fL (82-100); MONOCYTES # (AUTO) 0.6 /CMM (0.1-1.30); MONOCYTES % (AUTO) 5.7 % (2.0-12.0); NEUTROPHILS # (AUTO) 8.2 /CMM (1.8-8.9); NEUTROPHILS % (AUTO) 83.6 % (43.0-81.0); PLATELET COUNT (AUTO) 458 /CMM (150-450); RED BLOOD CELL COUNT(AUTO) 4.09 MIL/uL (4.0-5.2); WHITE BLOOD COUNT (AUTO) 9.8 K/uL (4.3-11.0)
[2019-05-19 19:09] LABS: CALCIUM, SERUM 9.2 mg/dL (8.5-10.1); CREATININE 1.1 mg/dL (0.6-1.3); POTASSIUM 4.6 mmol/L (3.5-5.1)
[2019-05-19 19:15] LABS: ALBUMIN 3.4 g/dL (3.4-5.0); BILIRUBIN,DIRECT 0.1 mg/dL (0.0-0.2); BILIRUBIN,TOTAL 0.5 mg/dL (0.2-1.0); TOTAL PROTEIN, SERUM 6.9 g/dL (6.4-8.2)
--- NOTE | 2019-05-19 20:28 | NUR ---
PT ASLEEP IN BED, VSS. WILL CONT TO MONITOR.
--- NOTE | 2019-05-19 21:01 | NUR ---
URINE COLLECTED VIA STRAIGHT CATH PER PROTOCOL AND SENT TO STAT LAB
[2019-05-19 21:02] LABS: APPEARANCE,URINE Clear (CLEAR); BILIRUBIN,URINE Negative (NEGATIVE); BLOOD, URINE Negative Ery/uL (NEGATIVE); COLOR,URINE Yellow (YELLOW); KETONES,URINE Negative (NEGATIVE); LEUKOCYTE ESTERASE ,URINE Negative (NEGATIVE); NITRITE, URINE Negative (NEGATIVE); PROTEIN,URINE Negative (NEGATIVE); UGLUCOSE Negative (NEGATIVE); UROBILINOGEN,URINE 0.2 EU/dL (0.2)
[2019-05-19 21:44] VITALS: BP 114/72
== END 2019-05-19 21:45 | disposition home or self-care (01) ==
LOC: ER 18:19
DX: E86.0 Dehydration (principal); I11.0 Hypertensive heart disease with heart failure; I50.22 Chronic systolic (congestive) heart failure; F41.9 Anxiety disorder, unspecified; J44.1 Chronic obstructive pulmonary disease with (acute) exacerbation; M54.30 Sciatica, unspecified side; E78.5 Hyperlipidemia, unspecified; I42.0 Dilated cardiomyopathy; F10.10 Alcohol abuse, uncomplicated; F17.200 Nicotine dependence, unspecified, uncomplicated; Y90.9 Presence of alcohol in blood, level not specified; Z59.0 Homelessness; Z88.2 Allergy status to sulfonamides; Z79.82 Long term (current) use of aspirin
CPT/HCPCS: 36415; 71045; 80048; 80076; 81001; 83690; 84484; 85025; 87086; 93005; 94640; 96361; 96374; 96375; 99284; J2060; J2930; J7030; 81000-TC

== ENCOUNTER 2019-05-25 07:03 | Emergency (ER) | payer OTHER ==
[~2019-05-25] VITALS: Ht 152.4 cm; Wt 48.5 kg
[~2019-05-25 07:03] MED LIST changes: +ASPI-605 PO; +CARV3.12 PO; -CARV3.122 PO; -FLUO20CA36 PO; +FLUO40CA8 PO
--- NOTE | 2019-05-25 07:08 | NUR ---
BIBRA60 FROM HOME C/O SOB X1 DAY. REC'D ALBUTEROL 5MG BREATHING TREATMENT AND 4MG ZOFRAN ODT EN ROUTE, NO RELIEF. TO ER BED 9, AOx4 , HOOKED TO MONITOR, PATIENT'S O2 SATURATION ROOMA AIR AT 89%, PLACED NC AT 2LPM, O2 SATURATION AFTER IS 95%. CHANGED TO GOWN, PROVIDED W WARM BLANKET, DR ROSARIO AT BEDSIDE
[2019-05-25] MEDS ORDERED: LORAZEPAM INJ 2 MG/ML VIAL IV ONE (07:30)
[2019-05-25] MEDS ORDERED: LORAZEPAM INJ 2 MG/ML VIAL ONE (07:30)
[2019-05-25 07:36] LABS: BASOPHILS # (AUTO) 0.1 /CMM (0.0-0.2); BASOPHILS % (AUTO) 1.3 % (0.0-2.0); EOSINOPHILS % (AUTO) 2.7 % (0.0-6.0); HEMATOCRIT 37 % (33-45); LYMPHOCYTES # (AUTO) 0.7 /CMM (0.8-4.8); LYMPHOCYTES % (AUTO) 11.8 % (20.0-44.0); MEAN CORPUSCULAR HGB CONC 33 g/dl (31.0-36.0); MEAN CORPUSCULAR VOLUME 96 fL (82-100); MONOCYTES # (AUTO) 0.5 /CMM (0.1-1.30); MONOCYTES % (AUTO) 8.6 % (2.0-12.0); NEUTROPHILS # (AUTO) 4.8 /CMM (1.8-8.9); NEUTROPHILS % (AUTO) 75.6 % (43.0-81.0); PLATELET COUNT (AUTO) 411 /CMM (150-450); RED BLOOD CELL COUNT(AUTO) 3.83 MIL/uL (4.0-5.2); WHITE BLOOD COUNT (AUTO) 6.3 K/uL (4.3-11.0)
[2019-05-25 07:52] LABS: CALCIUM, SERUM 8.3 mg/dL (8.5-10.1); CREATININE 0.9 mg/dL (0.6-1.3); POTASSIUM 3.3 mmol/L (3.5-5.1)
--- NOTE | 2019-05-25 08:34 | NUR ---
ROOM GIVEN 119-1
--- NOTE | 2019-05-25 08:35 | NUR ---
GAVE ADMITTING MOVE SHEET AND CLINICALS FOR THIS PATIENT
[2019-05-25] MEDS ORDERED: FUROSEMIDE 40 MG/4 ML VIAL IV ONE (09:00)
[2019-05-25] MEDS ORDERED: ASPIRIN 325 MG TABLET PO ONE (09:00)
[2019-05-25] MEDS ORDERED: FUROSEMIDE 40 MG/4 ML VIAL ONE (09:15)
[2019-05-25] MEDS ORDERED: ASPIRIN 325 MG TABLET ONE (09:16)
--- NOTE | 2019-05-25 09:23 | NUR ---
PT REFUSED ASA 325MG, AWARE
--- NOTE | 2019-05-25 13:31 | NUR ---
CALL FROM GREETING CARD MAKER, STILL WAITING ON [facility] FOR A BED
--- NOTE | 2019-05-25 14:39 | NUR ---
CALLED DR AGUILAR; DR ROSARIO SPOKE WITH DR AGUILAR ABOUT THE TROPIN LEVEL INCREASE AFTER SECOND REDRAW AT DR AGUILAR'S REQUEST. DR ROSARIO STATED THAT PT NEEDS TO BE TRANSFERED TO FACILITY WITH FISH FARM MANAGER. DR AGUILAR IS WORKING ON WHERE TO TRANSFER PT, AND WE ARE WAITING FOR HIM TO CALL.
--- NOTE | 2019-05-25 16:19 | NUR ---
CALLED OSVALDO NANCE ([phone]). SHE STATED THAT [facility] AFTER SECOND SHIFT TAKES OVER, AND THEN THEY WILL PROVIDE A BED, AND SET UP TRANSPORT. WAITING FOR CALL BACK.
--- NOTE | 2019-05-25 17:54 | NUR ---
CALL BACK FROM [facility]ANO,ASIAN STUDIES PROGRAM CHAIR, PATIENT GOT ACCEPTED AT [facility] AND STILL WAITING ON A BED,DR CLAYTON INFORMED
--- NOTE | 2019-05-25 19:28 | NUR ---
REPORT GIVEN TO STACY MANUEL FOR MELLO
--- NOTE | 2019-05-25 20:47 | NUR ---
SPOKE WITH OSVALDO HALL CM, SHE STATED THAT [facility] HAS NO BED AVAILABLE AT THIS TIME. SHE IS WORKING ON FINDING A BED AT EITHER [facility], OR [facility]. WAITING FOR CALL BACK.
[2019-05-25 22:00] VITALS: BP 100/60
--- NOTE | 2019-05-26 00:28 | NUR ---
[facility]. ROOM 130-1. # FOR REPORT [phone]
--- NOTE | 2019-05-26 00:49 | NUR ---
[facility] 35 MIN.
--- NOTE | 2019-05-26 01:20 | NUR ---
REPORT GIVEN TO MAR YO FROM [facility].
--- NOTE | 2019-05-26 01:28 | NUR ---
[facility] AT BEDSIDE FOR TRANSPORT TO [facility]
== END 2019-05-26 01:51 | disposition short-term general hospital (02) ==
LOC: ER 07:06
DX: I21.4 Non-ST elevation (NSTEMI) myocardial infarction (principal); I11.0 Hypertensive heart disease with heart failure; I50.9 Heart failure, unspecified; F41.9 Anxiety disorder, unspecified; J44.9 Chronic obstructive pulmonary disease, unspecified; E78.5 Hyperlipidemia, unspecified; F17.200 Nicotine dependence, unspecified, uncomplicated; Z79.82 Long term (current) use of aspirin; Z79.899 Other long term (current) drug therapy
CPT/HCPCS: 36415; 71045; 80048; 83880; 84484 ×2; 85025; 93005 ×2; 96374; 96375; 99291; J1940; J2060; J7030

== ENCOUNTER 2019-06-15 02:32 | Emergency (ER) | payer OTHER ==
--- NOTE | 2019-06-15 02:35 | NUR ---
PT SENT TO WAITING ROOM AREA, NO BEDS AVAILABLE AT THE MOMENT. NAD NOTED. PT AXO4. RESPIRATIONS EVEN AND UNLABORED. PT NOT SI/HI.
--- NOTE | 2019-06-15 02:45 | NUR ---
PT CALLED IN WAITING AREA, NO ANSWER.
--- NOTE | 2019-06-15 02:50 | NUR ---
PT CALLED IN WAITING AREA, NO ANSWER.
== END 2019-06-15 03:18 | disposition left against medical advice (07) ==
LOC: ER 02:35
DX: Z53.21 Procedure and treatment not carried out due to patient leaving prior to being seen by health care provider (principal)

== ENCOUNTER 2019-06-15 03:40 | Emergency (ER) | payer OTHER ==
[~2019-06-15] VITALS: Ht 152.4 cm; Wt 49.0 kg
--- NOTE | 2019-06-15 04:19 | NUR ---
presented to the ER w/ c/o anxiety . pt placed on a monitor . vs obtained.
[2019-06-15] MEDS ORDERED: ALPRAZOLAM 0.25 MG TABLET ONE (04:40)
[2019-06-15] MEDS ORDERED: ALPRAZOLAM 0.25 MG TABLET PO ONE (05:00)
[2019-06-15 05:07] LABS: BASOPHILS # (AUTO) 0.1 /CMM (0.0-0.2); BASOPHILS % (AUTO) 1.1 % (0.0-2.0); EOSINOPHILS % (AUTO) 1.6 % (0.0-6.0); HEMATOCRIT 38 % (33-45); HEMOGLOBIN 12.5 g/dL (11.5-14.8); LYMPHOCYTES # (AUTO) 0.8 /CMM (0.8-4.8); LYMPHOCYTES % (AUTO) 11.1 % (20.0-44.0); MEAN CORPUSCULAR HGB CONC 33 g/dl (31.0-36.0); MEAN CORPUSCULAR VOLUME 95 fL (82-100); MONOCYTES # (AUTO) 0.4 /CMM (0.1-1.30); MONOCYTES % (AUTO) 6.1 % (2.0-12.0); NEUTROPHILS # (AUTO) 5.8 /CMM (1.8-8.9); NEUTROPHILS % (AUTO) 80.1 % (43.0-81.0); PLATELET COUNT (AUTO) 261 /CMM (150-450); RED BLOOD CELL COUNT(AUTO) 3.95 MIL/uL (4.0-5.2); WHITE BLOOD COUNT (AUTO) 7.2 K/uL (4.3-11.0)
[2019-06-15 05:17] LABS: CALCIUM, SERUM 9.5 mg/dL (8.5-10.1); POTASSIUM 3.9 mmol/L (3.5-5.1)
[2019-06-15 05:30] LABS: ALBUMIN 3.5 g/dL (3.4-5.0); BILIRUBIN,DIRECT 0.2 mg/dL (0.0-0.2); BILIRUBIN,TOTAL 0.8 mg/dL (0.2-1.0); TOTAL PROTEIN, SERUM 7.1 g/dL (6.4-8.2)
[2019-06-15] MEDS ORDERED: FUROSEMIDE 40 MG/4 ML VIAL IV ONE (05:30)
[2019-06-15] MEDS ORDERED: FUROSEMIDE 40 MG/4 ML VIAL ONE (05:32)
[2019-06-15] MEDS ORDERED: ASPIRIN 81 MG TAB.CHEW PO ONE (06:00)
--- NOTE | 2019-06-15 06:15 | NUR ---
PER INSURANCE REQUEST, PT TO BE TRANSFERRED TO [facility]. WAITING FOR MORE INFORMATION FROM EYE DROPPER ASSEMBLER
[2019-06-15] MEDS ORDERED: ASPIRIN 81 MG TAB.CHEW ONE (06:25)
[2019-06-15] MEDS ORDERED: NITROGLYCERIN PACKET 1 GM PACKET ONE (06:25)
[2019-06-15] MEDS ORDERED: ENOXAPARIN SODIUM 40 MG/0.4 ML DISP.SYRIN SQ ONE (06:30)
[2019-06-15] MEDS ORDERED: NITROGLYCERIN PACKET 1 GM PACKET TOP ONE (06:30)
[2019-06-15] MEDS ORDERED: ENOXAPARIN SODIUM 60 MG/0.6 ML DISP.SYRIN SQ ONE (06:31)
--- NOTE | 2019-06-15 06:36 | NUR ---
PT UNABLE TO BE TRANSFERRED TO [facility], NEEDS TO BE TRANSFERRED TO FACILITY WITH SAFEMAKER. [facility] SAFEMAKER CURRENTLY DOWN. [facility] INSULATION CUPOLA CHARGER WORKING ON FINDING PLACEMENT FOR THIS PATIENT.
--- NOTE | 2019-06-15 07:15 | NUR ---
DR. CLAYTON SPEAKING WITH [place] VAMP PRESSER
--- NOTE | 2019-06-15 07:23 | NUR ---
PT ASSESSED ON BED, AAOX4, NOT IN RESPIRATORY DISTRESS, V/S STABLE, KEPT RESTED AND COMFORTABLE, AWAITING INFO FOR PT TRANSFER.
--- NOTE | 2019-06-15 07:35 | NUR ---
AT BEDSIDE FOR EVAL.
--- NOTE | 2019-06-15 07:57 | NUR ---
ER PHLEB AT BEDSIDE FOR BLOOD DRAW.
--- NOTE | 2019-06-15 10:10 | NUR ---
Patient discharged by to home in stable condition. Written and verbal after care instructions given. Patient verbalizes understanding of instruction.
[2019-06-15 10:13] VITALS: BP 138/91
--- NOTE | 2019-06-15 10:13 | NUR ---
IV removed. Catheter intact and site benign. Pressure and 4x4 applied to site. No bleeding noted.
== END 2019-06-15 10:14 | disposition home or self-care (01) ==
LOC: ER 03:45
DX: I21.4 Non-ST elevation (NSTEMI) myocardial infarction (principal); I11.0 Hypertensive heart disease with heart failure; I50.22 Chronic systolic (congestive) heart failure; F41.9 Anxiety disorder, unspecified; F12.10 Cannabis abuse, uncomplicated; J44.9 Chronic obstructive pulmonary disease, unspecified; M54.30 Sciatica, unspecified side; I25.10 Atherosclerotic heart disease of native coronary artery without angina pectoris; E78.5 Hyperlipidemia, unspecified; F41.0 Panic disorder [episodic paroxysmal anxiety]; F10.10 Alcohol abuse, uncomplicated; F17.200 Nicotine dependence, unspecified, uncomplicated; Y90.0 Blood alcohol level of less than 20 mg/100 ml; Z98.890 Other specified postprocedural states; Z91.19 Patient's noncompliance with other medical treatment and regimen; Z88.2 Allergy status to sulfonamides; Z79.82 Long term (current) use of aspirin
CPT/HCPCS: 36415; 71045; 80048; 80076; 80305; 80307; 83880; 84484 ×2; 85025; 85730; 93005; 96372; 96374; 99291; J1650; J1940; G0480

== ENCOUNTER 2019-07-24 02:12 | Emergency (ER) | payer OTHER ==
[~2019-07-24] VITALS: Ht 165.1 cm; Wt 63.5 kg
[2019-07-24] MEDS ORDERED: LORAZEPAM INJ 2 MG/ML VIAL ONE (02:24)
[2019-07-24] MEDS ORDERED: LORAZEPAM INJ 2 MG/ML VIAL IM ONE (02:30)
--- NOTE | 2019-07-24 07:30 | NUR ---
PATIENT IS A TRANSIENT AND CAME INTO ER FOR NAUSEA AND VOMITING RELATED TO ANXIETY. AAOX3. PATIENT IS STABLE AND DOES NOT HAVE SOB. NO ACUTE DISTRESS NOTED. PATIENT IS IN BED 7 AND GIVEN BLANKET FOR COMFORT. WILL CONTINUE TO MONITOR PATIENT FOR SAFETY.
--- NOTE | 2019-07-24 08:49 | NUR ---
PT AWAKE YELLING SITTING AT THE EDGE OF THE BED. NOTED X1 VOMITING, COFFEE GROUND. KEPT PT CLEAN AND DRY. WILL CONTINUE TO MONITOR.
--- NOTE | 2019-07-24 09:25 | NUR ---
PATIENT'S BLOOD DRAWN AND URINE OBTAINED AND SENT TO LAB.
--- NOTE | 2019-07-24 09:27 | NUR ---
BLOOD SUGAR AT 119MG/DL
[2019-07-24] MEDS ORDERED: ONDANSETRON HCL/PF 4 MG/2 ML VIAL ONE (10:06)
[2019-07-24 10:29] LABS: CALCIUM, SERUM 9.3 mg/dL (8.5-10.1); CREATININE 1.2 mg/dL (0.6-1.3); POTASSIUM 3.9 mmol/L (3.5-5.1)
[2019-07-24] MEDS ORDERED: IV NS 0.9% 1,000 ML BAG IV ONE (10:30)
[2019-07-24] MEDS ORDERED: ONDANSETRON HCL/PF 4 MG/2 ML VIAL IVP ONE (10:30)
[2019-07-24 10:35] LABS: ALBUMIN 3.6 g/dL (3.4-5.0); BILIRUBIN,DIRECT 0.2 mg/dL (0.0-0.2); BILIRUBIN,TOTAL 0.7 mg/dL (0.2-1.0)
--- NOTE | 2019-07-24 12:07 | NUR ---
Patient given written and verbal discharge instructions. Patient verbalizes understanding of instructions. Patient is ambulatory with steady gait. Refuses offer of assisted placement. Patient given list of available shelters in surrounding area. Pt refused to signed all discharge paperwork, witnessed with 1 rn, Pt left in stable condition
[2019-07-24 12:09] VITALS: BP 139/70
== END 2019-07-24 12:10 | disposition home or self-care (01) ==
LOC: ER 02:13
DX: F41.9 Anxiety disorder, unspecified (principal); I11.0 Hypertensive heart disease with heart failure; I50.9 Heart failure, unspecified; J44.9 Chronic obstructive pulmonary disease, unspecified; I25.2 Old myocardial infarction; E78.5 Hyperlipidemia, unspecified; F17.200 Nicotine dependence, unspecified, uncomplicated; Z88.2 Allergy status to sulfonamides; Z79.82 Long term (current) use of aspirin; Z79.899 Other long term (current) drug therapy
CPT/HCPCS: 36415; 71045; 80048; 80076; 82962; 83690; 84484; 96372; 96374; 99284; J2060; J2405; J7030

== ENCOUNTER 2019-07-25 12:31 | Emergency (ER) | payer OTHER ==
[~2019-07-25] VITALS: Ht 165.1 cm; Wt 63.5 kg
[2019-07-25] MEDS ORDERED: ONDANSETRON 4 MG TAB.RAPDIS SL ONE (13:00)
[2019-07-25] MEDS ORDERED: LORAZEPAM 1 MG TABLET PO ONE (13:00)
[2019-07-25] MEDS ORDERED: ONDANSETRON 4 MG TAB.RAPDIS ONE (13:10)
[2019-07-25] MEDS ORDERED: LORAZEPAM 1 MG TABLET ONE (13:10)
--- NOTE | 2019-07-25 14:45 | NUR ---
Social service consult requested for homelessness. Pt. is a 63 year old male who came to ED complaining of nausea. SW is familiar with pt. from previous ED and inpatient visits. Pt. was recently discharged this AM and came back. Pt. is alert and oriented x 4. Pt. is ambulatory. SW offered pt. long-term placement and resources, however, pt. declined stating," I don't want anything." Pt. was given a TAP card that she accepted. No other social service needs are requested at this time.
--- NOTE | 2019-07-25 15:00 | NUR ---
SEEN BY CORAL, REFUSED JAIL PLACEMENT; TAP CARD GIVEN
[2019-07-25 15:01] VITALS: BP 123/84
== END 2019-07-25 15:01 | disposition home or self-care (01) ==
LOC: ER 12:32
DX: F41.9 Anxiety disorder, unspecified (principal); R11.0 Nausea; I11.0 Hypertensive heart disease with heart failure; I50.9 Heart failure, unspecified; J44.9 Chronic obstructive pulmonary disease, unspecified; I25.2 Old myocardial infarction; F17.200 Nicotine dependence, unspecified, uncomplicated; E78.5 Hyperlipidemia, unspecified; Z88.2 Allergy status to sulfonamides; Z59.0 Homelessness; Z79.82 Long term (current) use of aspirin; Z79.899 Other long term (current) drug therapy
CPT/HCPCS: 99283; Q0162

== ENCOUNTER 2019-09-18 20:07 | Emergency (ER) | payer OTHER ==
[~2019-09-18] VITALS: Ht 165.1 cm; Wt 63.5 kg
--- NOTE | 2019-09-18 20:11 | NUR ---
"BIBRA[address] C/O NAUSEA AND VOMITTING X10 DAYS " PT AAOX4, -SOB, PT ON MONITOR, DENIES ANY PAIN/DISCOMFORT, VSS, NAD NOTED. PENDING MD BILLY
[2019-09-18] MEDS ORDERED: ONDANSETRON HCL/PF 4 MG/2 ML VIAL IVP ONE (20:30)
[2019-09-18] MEDS ORDERED: ONDANSETRON HCL/PF 4 MG/2 ML VIAL ONE (20:31)
[2019-09-18 20:40] LABS: BASOPHILS # (AUTO) 0.1 /CMM (0.0-0.2); BASOPHILS % (AUTO) 1.6 % (0.0-2.0); EOSINOPHILS % (AUTO) 0.7 % (0.0-6.0); HEMATOCRIT 36 % (33-45); HEMOGLOBIN 11.5 g/dL (11.5-14.8); LYMPHOCYTES # (AUTO) 0.7 /CMM (0.8-4.8); LYMPHOCYTES % (AUTO) 11.2 % (20.0-44.0); MEAN CORPUSCULAR HGB CONC 32 g/dl (31.0-36.0); MEAN CORPUSCULAR VOLUME 92 fL (82-100); MONOCYTES # (AUTO) 0.7 /CMM (0.1-1.30); MONOCYTES % (AUTO) 11.5 % (2.0-12.0); NEUTROPHILS # (AUTO) 4.4 /CMM (1.8-8.9); PLATELET COUNT (AUTO) 299 /CMM (150-450); RED BLOOD CELL COUNT(AUTO) 3.86 MIL/uL (4.0-5.2); WHITE BLOOD COUNT (AUTO) 5.9 K/uL (4.3-11.0)
[2019-09-18 21:12] LABS: CALCIUM, SERUM 8.5 mg/dL (8.5-10.1); CREATININE 1.3 mg/dL (0.6-1.3); POTASSIUM 3.1 mmol/L (3.5-5.1)
[2019-09-18 21:19] LABS: ALBUMIN 3.4 g/dL (3.4-5.0); BILIRUBIN,DIRECT 0.9 mg/dL (0.0-0.2); BILIRUBIN,TOTAL 2.1 mg/dL (0.2-1.0); TOTAL PROTEIN, SERUM 6.5 g/dL (6.4-8.2)
[2019-09-18] MEDS ORDERED: ASPIRIN 325 MG TABLET PO ONE (21:30)
[2019-09-18] MEDS ORDERED: FUROSEMIDE 40 MG/4 ML VIAL IV ONE (21:30)
[2019-09-18] MEDS ORDERED: NITROGLYCERIN PACKET 1 GM PACKET TD ONE (21:30)
--- NOTE | 2019-09-18 21:35 | NUR ---
GAVE MOVESHEET TO ADMITTING
[2019-09-18] MEDS ORDERED: FUROSEMIDE 40 MG/4 ML VIAL ONE (21:44)
[2019-09-18] MEDS ORDERED: ASPIRIN 325 MG TABLET ONE (21:44)
[2019-09-18] MEDS ORDERED: NITROGLYCERIN PACKET 1 GM PACKET ONE (21:44)
[2019-09-18] MEDS ORDERED: LORAZEPAM INJ 2 MG/ML VIAL ONE (22:57)
[2019-09-18] MEDS ORDERED: LORAZEPAM INJ 2 MG/ML VIAL IV ONE (23:00)
--- NOTE | 2019-09-18 23:00 | NUR ---
PT VERBALIZES SHE NEEDS "ATIVAN", DR. PUGH AWARE. WITH ORDERS.
[2019-09-19 00:34] VITALS: BP 144/85
--- NOTE | 2019-09-19 00:50 | NUR ---
PT IN BED, SLEEPING AT THIS TIME, EASILY AROUSABLE, PT ON MONITOR ,VS UPDATED, NAD NOTED.
--- NOTE | 2019-09-19 02:27 | NUR ---
pt accepted to [facility]. [phone]. NURSE JAS. ACCEPTING . DR CABELLO. ETA FOR AMBULNZ [phone]
--- NOTE | 2019-09-19 03:23 | NUR ---
REPORT GIVEN TO ESTELA MANUEL.
== END 2019-09-19 03:58 | disposition short-term general hospital (02) ==
LOC: ER 20:08
DX: I11.0 Hypertensive heart disease with heart failure (principal); I50.22 Chronic systolic (congestive) heart failure; R79.89 Other specified abnormal findings of blood chemistry; J44.9 Chronic obstructive pulmonary disease, unspecified; F41.9 Anxiety disorder, unspecified; I25.2 Old myocardial infarction; E78.5 Hyperlipidemia, unspecified; F17.200 Nicotine dependence, unspecified, uncomplicated; Z88.2 Allergy status to sulfonamides; Z59.0 Homelessness; Z79.82 Long term (current) use of aspirin; Z79.899 Other long term (current) drug therapy
CPT/HCPCS: 36415; 71045; 80048; 80076; 83880; 84484; 85025; 93005; 96374; 96375; 99285; J1940; J2060; J2405

== ENCOUNTER 2019-10-06 05:54 | Emergency (ER) | payer OTHER ==
[~2019-10-06] VITALS: Ht 149.9 cm; Wt 47.6 kg
[2019-10-06] MEDS ORDERED: ACETAMINOPHEN 325 MG TABLET PO ONE (06:30)
[2019-10-06] MEDS ORDERED: ACETAMINOPHEN 325 MG TABLET ONE (07:11)
--- NOTE | 2019-10-06 07:50 | NUR ---
CALLED FOR FOOD TRAY
[2019-10-06] MEDS ORDERED: LORAZEPAM 1 MG TABLET PO ONE (09:00)
[2019-10-06] MEDS ORDERED: LORAZEPAM 0.5 MG TABLET ONE (09:03)
--- NOTE | 2019-10-06 11:00 | NUR ---
TRAINING AND DEVELOPMENT PROFESSIONAL ISRRAEL AT BEDSIDE
--- NOTE | 2019-10-06 12:42 | NUR ---
Social service consult requested by ER for homelessness. Pt is a 62 year old female who was admitted to [facility] ER for anxiety and medication refill. Pt was sitting up in her bed during assessment and presented as anxious and distressed. Pt was alert and oriented x 4 (person, place, time, and situation.) Pt is ambulatory. Pt states that she receives on-going mental health services from Dr. Reza at [facility] but has ran out of her medication and has not had the opportunity to shredder picker her refill. Pt states she has a mental health diagnosis of anxiety. Pt states that she is homeless and has been homeless for 5 years. Pt states she is having anxiety symptoms because she had an argument with her boyfriend and "they broke up." Pt denies alcohol and cigarette use, but states she smokes marijuana. Pt states she smoked marijuana "about 1 week ago." Pt receives $900 in [employer] monthly benefits. Pt denies suicidal and homicidal ideation. Pt denies auditory and visual hallucinations. EZRA provided pt with housing and longterm options, including the following winter longterm shredder picker locations: [facility]; shredder picker address: [address] [place] [address], [place] [facility] Ride: [address] [place] [address], and [facility]: [address] [address] [facility] [address]. EZRA also provided pt with the following housing and health services referrals: [facility] [address] [place] [address] [address]; , [facility] [address] [facility] [place] [address]; , and [facility] [address] [place] [address]; . [facility] Homeless Resources Directory and health and mental health clinic referrals were also provided. EZRA also provided pt with the following substance abuse treatment program referrals: [facility] [address] [place] [address]; , [facility] [address] [place] [address]; , and [facility] [address] [facility] [place] [address]; . Pt was also provided with clothing. Pt will sign homeless waiver at discharge and pt will require a TAP card upon discharge. No other services needed at this time. SW is available if needed.
--- NOTE | 2019-10-06 15:32 | NUR ---
Patient given written and verbal discharge instructions. Patient verbalizes understanding of instructions. Patient is ambulatory with steady gait. Refuses offer of group home placement. Patient given list of available shelters in surrounding area. Discharged in proper clothing. Name band removed. Tap card provided. All belongings returned.
[2019-10-06 15:35] VITALS: BP 141/87
== END 2019-10-06 15:36 | disposition home or self-care (01) ==
LOC: ER 05:55
DX: S22.32XA Fracture of one rib, left side, initial encounter for closed fracture (principal); I11.0 Hypertensive heart disease with heart failure; I50.9 Heart failure, unspecified; J44.9 Chronic obstructive pulmonary disease, unspecified; F41.9 Anxiety disorder, unspecified; I25.2 Old myocardial infarction; F17.200 Nicotine dependence, unspecified, uncomplicated; E78.5 Hyperlipidemia, unspecified; Z88.2 Allergy status to sulfonamides; Z59.0 Homelessness; Z79.899 Other long term (current) drug therapy; Z79.82 Long term (current) use of aspirin; Y08.89XA Assault by other specified means, initial encounter; Y93.89 Activity, other specified; Y92.89 Other specified places as the place of occurrence of the external cause; Y99.8 Other external cause status
CPT/HCPCS: 71100-TC

== ENCOUNTER 2019-11-23 00:25 | Emergency (ER) | payer OTHER ==
[~2019-11-23] VITALS: Ht 149.9 cm; Wt 47.6 kg
[2019-11-23] MEDS ORDERED: IBUPROFEN 400 MG TABLET ONE (00:45)
[2019-11-23] MEDS: IBUPROFEN 400 MG TABLET PO ONE (00:47)
--- NOTE | 2019-11-23 00:50 | NUR ---
ISAAC. TO ER BED 11. AAOX4. NO RESP DISTRESS NOTED. AMBUALTORY. CAME IN FOR LOWER BACK PAIN 8/10 ACHING. PT REPORTS PAIN IS EXCRUTIATING THAT SHE CANT LIE ON HER BACK. PT ALSO REPORTS THAT SHE IS NAUSEOUS. WAS AT BEDSIDE FOR EVAL. ORDERS RECEIVED NOTED AND CARRIED OUT.
--- NOTE | 2019-11-23 00:57 | NUR ---
xray at bedside. rapid dtrep and flu swab sent to lab
--- NOTE | 2019-11-23 02:36 | NUR ---
Patient discharged to home in stable condition. Written and verbal after care instructions given. Patient verbalizes understanding of instruction. Pt ambulatory with a steady gait
[2019-11-23 02:37] VITALS: BP 131/76
== END 2019-11-23 02:38 | disposition home or self-care (01) ==
LOC: ER 00:26
DX: J06.9 Acute upper respiratory infection, unspecified (principal); J44.9 Chronic obstructive pulmonary disease, unspecified; F41.9 Anxiety disorder, unspecified; I25.2 Old myocardial infarction; E11.9 Type 2 diabetes mellitus without complications; I11.0 Hypertensive heart disease with heart failure; I50.22 Chronic systolic (congestive) heart failure; F17.200 Nicotine dependence, unspecified, uncomplicated; Z88.2 Allergy status to sulfonamides; Z59.0 Homelessness; Z79.82 Long term (current) use of aspirin; Z79.899 Other long term (current) drug therapy
CPT/HCPCS: 71045-TC; 86403-TC

== ENCOUNTER 2020-03-19 22:43 | Emergency (ER) | payer MEDICAID, OTHER ==
[~2020-03-19] VITALS: Ht 152.4 cm; Wt 49.9 kg
--- NOTE | 2020-03-19 23:03 | NUR ---
BIBS TO ER BED 3. AAOX4. NOT IN RESP DISTRESS. AMBUALTORY ON STEADY GAIT. CAME IN FOR L FLANK PAIN SINCE WEDNESDAY. PER PT, PAIN IS 9/10, SHARP SHOOTING INTERMITENT. SHE IS UNABLE TO STAY STILL. PT REPORT NAUSEA. URINE COLLECTED. AWAITING MD FOR EVAL.
[2020-03-19] MEDS ORDERED: ONDANSETRON HCL/PF 4 MG/2 ML VIAL ONE (23:09)
[2020-03-19] MEDS ORDERED: MORPHINE SULFATE INJ 4 MG/ML DISP.SYRIN ONE (23:09)
[2020-03-19 23:14] LABS: APPEARANCE,URINE Clear (CLEAR); BILIRUBIN,URINE Negative (NEGATIVE); BLOOD, URINE Trace-lysed Ery/uL (NEGATIVE); COLOR,URINE Yellow (YELLOW); KETONES,URINE Negative (NEGATIVE); LEUKOCYTE ESTERASE ,URINE Negative (NEGATIVE); NITRITE, URINE Negative (NEGATIVE); PROTEIN,URINE 100 mg/dl (NEGATIVE); UGLUCOSE Negative (NEGATIVE)
[2020-03-19 23:21] LABS: BASOPHILS # (AUTO) 0.1 /CMM (0.0-0.2); BASOPHILS % (AUTO) 0.9 % (0.0-2.0); EOSINOPHILS % (AUTO) 2.3 % (0.0-6.0); HEMATOCRIT 41 % (33-45); HEMOGLOBIN 13.6 g/dL (11.5-14.8); LYMPHOCYTES # (AUTO) 0.8 /CMM (0.8-4.8); LYMPHOCYTES % (AUTO) 9.3 % (20.0-44.0); MEAN CORPUSCULAR HGB CONC 33 g/dl (31.0-36.0); MEAN CORPUSCULAR VOLUME 98 fL (82-100); MONOCYTES # (AUTO) 0.9 /CMM (0.1-1.30); MONOCYTES % (AUTO) 10.7 % (2.0-12.0); NEUTROPHILS # (AUTO) 6.3 /CMM (1.8-8.9); NEUTROPHILS % (AUTO) 76.8 % (43.0-81.0); PLATELET COUNT (AUTO) 290 /CMM (150-450); WHITE BLOOD COUNT (AUTO) 8.2 K/uL (4.3-11.0)
--- NOTE | 2020-03-19 23:23 | NUR ---
BLOOD AND URINE COLLECTED SENT TO LAB
[2020-03-19 23:30] LABS: BACTERIA,URINE Few /HPF (None Seen); SQUAMOUS EPITHELIAL CELL,UR Few /HPF (None Seen); WBC,URINE 0-2 /HPF (0-3)
[2020-03-19] MEDS ORDERED: ONDANSETRON HCL/PF 4 MG/2 ML VIAL IVP ONE (23:30)
[2020-03-19] MEDS ORDERED: MORPHINE SULFATE INJ 2 MG/ML DISP.SYRIN IV ONE (23:30)
[2020-03-19] MEDS ORDERED: IV NS 0.9% 1,000 ML BAG IV ONE (23:30)
--- NOTE | 2020-03-19 23:31 | NUR ---
RETURNED FROM CT
[2020-03-19 23:35] LABS: ALBUMIN 3.9 g/dL (3.4-5.0); BILIRUBIN,DIRECT 0.1 mg/dL (0.0-0.2); BILIRUBIN,TOTAL 0.5 mg/dL (0.2-1.0); CALCIUM, SERUM 9.1 mg/dL (8.5-10.1); TOTAL PROTEIN, SERUM 7.8 g/dL (6.4-8.2)
[2020-03-19 23:37] LABS: POTASSIUM 2.8 mmol/L (3.5-5.1)
[2020-03-19] MEDS ORDERED: POTASSIUM CHLORIDE 20 MEQ TAB.PRT.SR PO ONE (23:49)
[2020-03-19] MEDS ORDERED: HYDROMORPHONE 1 MG/1 ML DISP.SYRIN ONE (23:49)
[2020-03-20] MEDS ORDERED: POTASSIUM CHLORIDE 20 MEQ TAB.PRT.SR PO ONE
[2020-03-20] MEDS ORDERED: HYDROMORPHONE 1 MG/1 ML DISP.SYRIN IV ONE
--- NOTE | 2020-03-20 00:19 | NUR ---
Patient is ambulatory with a steady gait to the restroom.
--- NOTE | 2020-03-20 00:35 | NUR ---
IV removed. Catheter intact and site benign. Pressure and 4x4 applied to site. No bleeding noted.
--- NOTE | 2020-03-20 00:35 | NUR ---
Patient discharged to home in stable condition. Written and verbal after care instructions given. Patient verbalizes understanding of instruction.
--- NOTE | 2020-03-20 00:35 | NUR ---
PATIENT GIVEN PRESCRIPTION NORCO, INSTRUCTED NOT TO OPERATE BEHIND MACHINERY, PATIENT VERBALIZES UNDERSTANDING.
[2020-03-20 00:36] VITALS: BP 129/74
[2020-07-29] MEDS ORDERED: FURO80TA3 PO (11:12)
[2020-07-29] MEDS ORDERED: POTA20TA83 PO (11:12)
== END 2020-03-20 00:36 | disposition home or self-care (01) ==
LOC: ER 22:46
DX: N20.0 Calculus of kidney (principal); I11.0 Hypertensive heart disease with heart failure; I50.22 Chronic systolic (congestive) heart failure; J44.9 Chronic obstructive pulmonary disease, unspecified; E78.5 Hyperlipidemia, unspecified; Z76.5 Malingerer [conscious simulation]; Z88.2 Allergy status to sulfonamides; Z59.0 Homelessness; Z79.82 Long term (current) use of aspirin; Z79.899 Other long term (current) drug therapy
CPT/HCPCS: 36415; 74176; 80048; 80076; 81001; 85025; 96374 ×2; 96375; 99284; J1170; J2270; J2405; J7030; 81000-TC; 87086-TC

== ENCOUNTER 2020-03-22 19:27 | Emergency (ER) | payer MEDICAID ==
[~2020-03-22] VITALS: Ht 152.4 cm; Wt 49.9 kg
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
[2020-03-22 19:58] LABS: APPEARANCE,URINE Clear (CLEAR); BILIRUBIN,URINE SMALL (NEGATIVE); BLOOD, URINE Negative Ery/uL (NEGATIVE); COLOR,URINE Yellow (YELLOW); KETONES,URINE Trace (NEGATIVE); LEUKOCYTE ESTERASE ,URINE Negative (NEGATIVE); NITRITE, URINE Negative (NEGATIVE); PROTEIN,URINE 30 mg/dl (NEGATIVE); UGLUCOSE Negative (NEGATIVE)
[2020-03-22] MEDS ORDERED: ONDANSETRON HCL/PF 4 MG/2 ML VIAL ONE (19:58)
[2020-03-22] MEDS ORDERED: MORPHINE SULFATE INJ 4 MG/ML DISP.SYRIN ONE (19:58)
[2020-03-22] MEDS ORDERED: KETOROLAC TROMETHAMINE 15 MG/ML VIAL ONE (19:58)
[2020-03-22] MEDS ORDERED: ONDANSETRON HCL/PF 4 MG/2 ML VIAL IVP ONE (20:00)
[2020-03-22] MEDS ORDERED: MORPHINE SULFATE INJ 2 MG/ML DISP.SYRIN IV ONE (20:00)
[2020-03-22] MEDS ORDERED: KETOROLAC TROMETHAMINE INJ 30 MG/ML VIAL IV ONE (20:00)
[2020-03-22 20:17] LABS: RBC,URINE 0-2 /HPF (0-2)
[2020-03-22 20:18] LABS: BACTERIA,URINE Few /HPF (None Seen); CALCIUM OXALATE CRYSTALS,UR Few /HPF (None Seen); MUCUS,URINE Few /LPF (None Seen); WBC,URINE 0-2 /HPF (0-3)
[2020-03-22 20:27] LABS: BASOPHILS % (AUTO) 1.1 % (0.0-2.0); EOSINOPHILS % (AUTO) 5.4 % (0.0-6.0); HEMATOCRIT 44 % (33-45); HEMOGLOBIN 14.6 g/dL (11.5-14.8); LYMPHOCYTES # (AUTO) 0.9 /CMM (0.8-4.8); LYMPHOCYTES % (AUTO) 20.8 % (20.0-44.0); MEAN CORPUSCULAR HGB CONC 33 g/dl (31.0-36.0); MEAN CORPUSCULAR VOLUME 98 fL (82-100); MONOCYTES # (AUTO) 0.4 /CMM (0.1-1.30); MONOCYTES % (AUTO) 9.7 % (2.0-12.0); NEUTROPHILS # (AUTO) 2.7 /CMM (1.8-8.9); PLATELET COUNT (AUTO) 349 /CMM (150-450); RED BLOOD CELL COUNT(AUTO) 4.53 MIL/uL (4.0-5.2); WHITE BLOOD COUNT (AUTO) 4.3 K/uL (4.3-11.0)
[2020-03-22 20:30] VITALS: BP 159/87
[2020-03-22 20:40] LABS: CALCIUM, SERUM 9.2 mg/dL (8.5-10.1); POTASSIUM 3.8 mmol/L (3.5-5.1)
[2020-03-22 20:46] LABS: ALBUMIN 3.6 g/dL (3.4-5.0); BILIRUBIN,DIRECT 0.1 mg/dL (0.0-0.2); BILIRUBIN,TOTAL 0.2 mg/dL (0.2-1.0); TOTAL PROTEIN, SERUM 7.3 g/dL (6.4-8.2)
--- NOTE | 2020-03-22 21:00 | NUR ---
Patient discharged to home in stable condition. Written and verbal after care instructions given. Patient verbalizes understanding of instruction. IV removed. Catheter intact and site benign. Pressure and 4x4 applied to site. No bleeding noted.
[2020-07-29] MEDS ORDERED: FURO80TA3 PO (11:12)
[2020-07-29] MEDS ORDERED: POTA20TA83 PO (11:12)
== END 2020-03-22 21:04 | disposition home or self-care (01) ==
LOC: ER 19:33
DX: N23 Unspecified renal colic (principal); I11.0 Hypertensive heart disease with heart failure; I50.9 Heart failure, unspecified; J44.9 Chronic obstructive pulmonary disease, unspecified; F41.9 Anxiety disorder, unspecified; I25.2 Old myocardial infarction; E78.5 Hyperlipidemia, unspecified; F17.200 Nicotine dependence, unspecified, uncomplicated; Z88.2 Allergy status to sulfonamides; Z59.0 Homelessness; Z79.82 Long term (current) use of aspirin; Z79.899 Other long term (current) drug therapy
CPT/HCPCS: 36415; 74176; 80048; 80076; 81001; 83690; 85025; 96374; 96375; 99284; J1885; J2270; J2405; 81000-TC

== ENCOUNTER 2020-04-23 14:38 | Emergency (ER) | payer SELFPAY ==
[~2020-04-23] VITALS: Ht 152.4 cm; Wt 57.6 kg
[2020-04-23 15:00] VITALS: BP 135/81
[2020-04-23] MEDS ORDERED: KETOROLAC TROMETHAMINE INJ 30 MG/ML VIAL IV ONE (15:00)
[2020-04-23] MEDS ORDERED: IV NS 0.9% 500 ML BAG IV ONE (15:00)
--- NOTE | 2020-04-23 15:00 | NUR ---
patient came in to the er c/o lower back pain. On room air, breathing evenly and unlabored. connected to the monitor and pulse ox. kept comfortable, will continue to monitor accordinfgly.
--- NOTE | 2020-04-23 15:05 | NUR ---
patient verbally aggressive to staff and MD.
[2020-04-23] MEDS ORDERED: KETOROLAC TROMETHAMINE 15 MG/ML VIAL ONE (15:07)
--- NOTE | 2020-04-23 15:13 | NUR ---
Patient eloped from facility. ER MD notified.
[2020-04-23 15:16] LABS: BASOPHILS % (AUTO) 0.7 % (0.0-2.0); EOSINOPHILS % (AUTO) 3.2 % (0.0-6.0); HEMATOCRIT 44 % (33-45); HEMOGLOBIN 14.8 g/dL (11.5-14.8); LYMPHOCYTES % (AUTO) 13.9 % (20.0-44.0); MEAN CORPUSCULAR HGB CONC 34 g/dl (31.0-36.0); MEAN CORPUSCULAR VOLUME 95 fL (82-100); MONOCYTES # (AUTO) 0.7 /CMM (0.1-1.30); MONOCYTES % (AUTO) 9.6 % (2.0-12.0); NEUTROPHILS % (AUTO) 72.6 % (43.0-81.0); PLATELET COUNT (AUTO) 357 /CMM (150-450); RED BLOOD CELL COUNT(AUTO) 4.63 MIL/uL (4.0-5.2); WHITE BLOOD COUNT (AUTO) 6.9 K/uL (4.3-11.0)
[2020-04-23 15:33] LABS: CALCIUM, SERUM 9.5 mg/dL (8.5-10.1); POTASSIUM 3.1 mmol/L (3.5-5.1)
[2020-04-23 15:47] LABS: ALBUMIN 4.1 g/dL (3.4-5.0); BILIRUBIN,DIRECT 0.1 mg/dL (0.0-0.2); BILIRUBIN,TOTAL 0.6 mg/dL (0.2-1.0)
== END 2020-04-23 15:14 | disposition left against medical advice (07) ==
LOC: ER 14:45
DX: R10.32 Left lower quadrant pain (principal); R10.12 Left upper quadrant pain; I11.0 Hypertensive heart disease with heart failure; I50.9 Heart failure, unspecified; J44.9 Chronic obstructive pulmonary disease, unspecified; F41.9 Anxiety disorder, unspecified; F17.200 Nicotine dependence, unspecified, uncomplicated; E78.5 Hyperlipidemia, unspecified; Z88.2 Allergy status to sulfonamides; Z59.0 Homelessness; Z79.82 Long term (current) use of aspirin; Z79.899 Other long term (current) drug therapy
CPT/HCPCS: 80048; 80076; 83690; 85025; 96374; 99283; J1885; J7030; J7040

== ENCOUNTER 2020-06-08 22:57 | Emergency (ER) | payer SELFPAY ==
[~2020-06-08] VITALS: Ht 152.4 cm; Wt 49.9 kg
[2020-06-08 23:02] VITALS: BP 127/70
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
--- NOTE | 2020-06-08 23:20 | NUR ---
PATIENT ALSO STATES THAT SHE HAS A HISTORY OF KIDNEY STONES. NO REDNESS, BRUISING, OR WOUNDS NOTED ON THE PATIENT'S NOSE OR LOWER BACK. NO OTHER INJURIES NOTED.
[2020-06-08] MEDS ORDERED: LORAZEPAM 1 MG TABLET PO ONE (23:30)
[2020-06-08] MEDS ORDERED: FLUOXETINE HCL 20 MG CAPSULE PO SCH (23:30)
[2020-06-08 23:34] LABS: BASOPHILS % (AUTO) 0.9 % (0.0-2.0); EOSINOPHILS % (AUTO) 3.2 % (0.0-6.0); HEMATOCRIT 41 % (33-45); HEMOGLOBIN 13.5 g/dL (11.5-14.8); LYMPHOCYTES # (AUTO) 1.2 /CMM (0.8-4.8); LYMPHOCYTES % (AUTO) 24.1 % (20.0-44.0); MEAN CORPUSCULAR HGB CONC 33 g/dl (31.0-36.0); MEAN CORPUSCULAR VOLUME 96 fL (82-100); MONOCYTES # (AUTO) 0.5 /CMM (0.1-1.30); MONOCYTES % (AUTO) 10.5 % (2.0-12.0); NEUTROPHILS # (AUTO) 3.1 /CMM (1.8-8.9); NEUTROPHILS % (AUTO) 61.3 % (43.0-81.0); PLATELET COUNT (AUTO) 343 /CMM (150-450); RED BLOOD CELL COUNT(AUTO) 4.28 MIL/uL (4.0-5.2); WHITE BLOOD COUNT (AUTO) 5.1 K/uL (4.3-11.0)
[2020-06-08] MEDS ORDERED: LORAZEPAM 1 MG TABLET ONE (23:34)
[2020-06-08] MEDS ORDERED: FLUOXETINE HCL 20 MG CAPSULE ONE (23:51)
--- NOTE | 2020-06-08 23:54 | NUR ---
fluoxetine 20 mg po given as ordered
[2020-06-08 23:55] LABS: CALCIUM, SERUM 8.9 mg/dL (8.5-10.1); CREATININE 0.9 mg/dL (0.6-1.3)
[2020-06-09 00:01] LABS: ALBUMIN 3.8 g/dL (3.4-5.0); BILIRUBIN,DIRECT 0.1 mg/dL (0.0-0.2); BILIRUBIN,TOTAL 0.3 mg/dL (0.2-1.0); POTASSIUM 2.8 mmol/L (3.5-5.1)
[2020-06-09 00:02] LABS: SALICYLATE 2.2 mg/dL (2.8-20.0)
[2020-06-09] MEDS ORDERED: QUETIAPINE FUMARATE 25 MG TABLET PO PRN (00:30)
[2020-06-09] MEDS ORDERED: POTASSIUM CHLORIDE 20 MEQ TAB.PRT.SR PO ONE ×2 (00:30→00:37)
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
--- NOTE | 2020-06-09 00:47 | NUR ---
PATIENT IS SLEEPING. EASILY AROUSABLE. BREATHING EVENLY AND UNLABORED ON ROOM AIR. SITTER AT BEDSIDE.
--- NOTE | 2020-06-09 01:03 | NUR ---
PATIENT LEFT WITHOUT DISCHARGE INSTRUCTIONS, PATIENT STATES THAT "I FEEL BETTER, THANK YOU."
== END 2020-06-09 01:04 | disposition home or self-care (01) ==
LOC: ER 22:58
DX: F41.9 Anxiety disorder, unspecified (principal); I11.0 Hypertensive heart disease with heart failure; I50.22 Chronic systolic (congestive) heart failure; J44.9 Chronic obstructive pulmonary disease, unspecified; E78.5 Hyperlipidemia, unspecified; Z88.2 Allergy status to sulfonamides; Z59.0 Homelessness; Z79.82 Long term (current) use of aspirin; Z79.899 Other long term (current) drug therapy
CPT/HCPCS: 36415; 80048; 80076; 80307; 80329; 85025; 99284; G0480

== ENCOUNTER 2020-07-27 21:40 | Inpatient (IN) | payer MEDICAID ==
[~2020-07-27] VITALS: Ht 152.4 cm; Wt 55.0 kg
[2020-07-27] MEDS ORDERED: LORAZEPAM 0.5 MG TABLET PO ONE (22:30)
[2020-07-27] MEDS ORDERED: ONDANSETRON HCL/PF 4 MG/2 ML VIAL IVP ONE (22:30)
[2020-07-27] MEDS ORDERED: ONDANSETRON HCL/PF 4 MG/2 ML VIAL ONE (23:35)
[2020-07-27] MEDS ORDERED: LORAZEPAM 0.5 MG TABLET ONE (23:36)
--- NOTE | 2020-07-27 23:39 | NUR ---
PATIENT CAME TO ER BED 11 C/O SHORTNESS OF BREATH. PT STATES, "WHEN I LAY DOWN, IT FEELS LIKE I AM DROWNING. PATIENT IS AAOX4. BREATHING EVENLY AND UNLABORED ON ROOM AIR AT 100% OXYGEN SATURATION. CONNECTED TO THE PEER SPECIALIST.
[2020-07-28] VITALS (8 sets, daily range): BP systolic 123–140; BP diastolic 75–89
[2020-07-28 00:01] LABS: BASOPHILS # (AUTO) 0.1 /CMM (0.0-0.2); BASOPHILS % (AUTO) 1.1 % (0.0-2.0); EOSINOPHILS % (AUTO) 2.7 % (0.0-6.0); HEMATOCRIT 35 % (33-45); HEMOGLOBIN 11.3 g/dL (11.5-14.8); LYMPHOCYTES # (AUTO) 1.1 /CMM (0.8-4.8); LYMPHOCYTES % (AUTO) 14.2 % (20.0-44.0); MEAN CORPUSCULAR HGB CONC 33 g/dl (31.0-36.0); MEAN CORPUSCULAR VOLUME 95 fL (82-100); MONOCYTES # (AUTO) 0.6 /CMM (0.1-1.30); MONOCYTES % (AUTO) 7.5 % (2.0-12.0); NEUTROPHILS # (AUTO) 5.6 /CMM (1.8-8.9); NEUTROPHILS % (AUTO) 74.5 % (43.0-81.0); PLATELET COUNT (AUTO) 322 /CMM (150-450); RED BLOOD CELL COUNT(AUTO) 3.62 MIL/uL (4.0-5.2); WHITE BLOOD COUNT (AUTO) 7.6 K/uL (4.3-11.0)
[2020-07-28 00:35] LABS: CALCIUM, SERUM 8.9 mg/dL (8.5-10.1); POTASSIUM 3.2 mmol/L (3.5-5.1)
[2020-07-28] MEDS ORDERED: FUROSEMIDE 40 MG/4 ML VIAL IV ONE (01:00)
[2020-07-28] MEDS ORDERED: ASPIRIN 81 MG TAB.CHEW PO ONE (01:00)
[2020-07-28] MEDS ORDERED: FUROSEMIDE 40 MG/4 ML VIAL ONE (01:47)
[2020-07-28] MEDS ORDERED: ASPIRIN 81 MG TAB.CHEW ONE (01:47)
[2020-07-28] MEDS ORDERED: IV D5/0.45 NACL 1,000 ML IV PRN (02:13)
[2020-07-28] MEDS ORDERED: MAG HYDROX/AL HYDROX/SIMETH 30 ML UDC PO PRN (02:30)
[2020-07-28] MEDS ORDERED: Z GUARD REMEDY 2 OZ OINT TP PRN (02:30)
[2020-07-28] MEDS ORDERED: ONDANSETRON HCL/PF 4 MG/2 ML VIAL IVP PRN (02:30)
[2020-07-28] MEDS ORDERED: MAGNESIUM HYDROXIDE 30 ML UDC PO PRN (02:30)
[2020-07-28] MEDS ORDERED: FUROSEMIDE 40 MG/4 ML VIAL IV SCH (02:30)
[2020-07-28] MEDS ORDERED: ACETAMINOPHEN 325 MG TABLET PO PRN (02:30)
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
--- NOTE | 2020-07-28 02:50 | NUR ---
IS AT BEDSIDE.
--- NOTE | 2020-07-28 03:05 | NUR ---
BED ASSIGNMENT 311-2
--- NOTE | 2020-07-28 03:11 | NUR ---
REPORT GIVEN TO HAYDEN MANUEL FOR MELLO.
--- NOTE | 2020-07-28 03:30 | NUR ---
AUTOMATIC MOUNTER NOTES RECEIVED PATIENT FROM E.R. STAFF NURSE WITH STRETCHER, AWAKE, CONSCIOUS, A/O X4, BREATHING AT ROOM AIR, UNLABORED BREATHING, NO SIGNS OF RESPIRATORY DISTRESS, IV ACCESS ON RIGHT HAND #20G, PATENT, V/S TAKEN, BP- 140/85, HR- 101, RR- 18, T- 98.5, O2 SAT 92%, NO COMPLAINTS OF PAIN AT THIS TIME, WILL CONTINUE TO MONITOR.
--- NOTE | 2020-07-28 03:40 | NUR ---
TELE MONITOR ATTACHED TO PATIENT.
[2020-07-28] MEDS: ZOLPIDEM TARTRATE 5 MG TABLET PO PRN (04:20)
[2020-07-28] MEDS: FUROSEMIDE 40 MG/4 ML VIAL IV SCH ×5 (05:47→21:31)
--- NOTE | 2020-07-28 06:57 | NUR ---
ASSISTANT PROFESSOR OF GERMAN CLOSING NOTES ENDORSED PATIENT IN BED, AWAKE, CONSCIOUS, A/O X4, BREATHING AT ROOM AIR, NO SIGNS OF RESPIRATORY DISTRESS WHOLE SHIFT, IV ACCESS ON RIGHT HAND #20G D5 1/2NS @75ML/HR INFUSING WELL, NO REDNESS OR INFILTRATION NOTED,PATENT, NO COMPLAINTS OF WHOLE SHIFT, DUE MEDS GIVEN, BED IN LOWEST POSITION, SIDE RAILS UP X2 FOR SAFETY.
--- NOTE | 2020-07-28 07:30 | NUR ---
MS/RN Opening note Patient received from shift supervisor film processing. A/O X3, vital signs stable, denies any pain, discomfort or shortness of breath. Refusing to be connected to IV hydration, stating that she was getting up and down to use the restroom all the time due to previous medication that was given. Tele reading NSR to ST, highest heart rate being 110, when patient is ambulating. All questions and concerns addressed, call light within reach, safety measures in place. Will continue to monitor and ensure safety.
--- NOTE | 2020-07-28 07:40 | NUR ---
PATIENT'S WEIGHT 121.5 lbs.
[2020-07-28] MEDS: ASPIRIN EC 81 MG TABLET.DR PO SCH (08:34)
[2020-07-28] MEDS: SPIRONOLACTONE 25 MG TABLET PO SCH (08:34)
[2020-07-28] MEDS: LISINOPRIL (20MG) 20 MG TABLET PO SCH (08:34)
[2020-07-28] MEDS: FLUOXETINE HCL 20 MG/5 ML UDC PO SCH ×2 (08:35→11:32)
[2020-07-28] MEDS: ENOXAPARIN SODIUM 40 MG/0.4 ML DISP.SYRIN SQ SCH (08:35)
--- NOTE | 2020-07-28 09:00 | NUR ---
MS/RN S/B Dr Pereyra Seen by Dr Pereyra - if ejection fracture low, then should have ICD placed, cannot get life vest while homeless.
[2020-07-28] MEDS: HYDROCODONE/APAP 5/325MG TABLET PO PRN ×3 (09:47→20:17)
--- NOTE | 2020-07-28 11:00 | NUR ---
MS/RN Labs Morning labs reviewed: -trop 0.088
[2020-07-28] MEDS ORDERED: ENOXAPARIN SODIUM 40 MG/0.4 ML DISP.SYRIN SQ SCH (11:30)
--- NOTE | 2020-07-28 15:07 | NUR ---
MS/RN S/B Dr Bueno Seen by Dr Bueno - [facility], await 2Decho, morning labs ordered.
[2020-07-28] MEDS: LORAZEPAM 0.5 MG TABLET PO PRN (17:46)
[2020-07-28] MEDS ORDERED: ATORVASTATIN 10 MG TABLET PO SCH (18:00)
--- NOTE | 2020-07-28 19:28 | NUR ---
MS/RN End note Patient remains in stable condition, all needs attended. Compliant with plan of care and medications. Will endorse to night stocker.
--- NOTE | 2020-07-28 19:30 | NUR ---
TELE/RN OPENING NOTES: PATIENT REPORT RECEIVED FROM DAY SHIFT RNORIN. PT IS RESTING IN BED, A/O X3, VITAL SIGNS STABLE, DENIES ANY PAIN, DISCOMFORT OR SHORTNESS OF BREATH. IV ON THE RIGHT THUMB HL. TELE READING AT THIS TIME IS ST, HR: 110. SAFETY MEASURES IN PLACE. CALL LIGHT WITHIN REACH, BED IN LOW, LOCKED POSITION WITH SR UP X2. WILL CONTINUE TO MONITOR ACCORDINGLY.
--- NOTE | 2020-07-28 20:11 | NUR ---
TELE/RN NOTES: PT COMPLAINS OF FEELING SWEATY, COLD TO TOUCH. BLOOD SUGAR CHECKED. 114. PT IS STABLE. ALERT AND ORIENTED X 3. WILL KEEP MONITORING.
--- NOTE | 2020-07-28 20:17 | NUR ---
TELE/RN NOTES: PT REQUESTED FOR PAIN MED NORCO FOR BACK PAIN AND GENERALIZED PAIN. BP STABLE AND WNL. ADMINISTERED NORCO 5/325 PO PRN. TOLERATED WELL. WILL CONTINUE TO MONITOR ACCORDINGLY AND REASSESS.
[2020-07-28] MEDS: CARVEDILOL 3.125 MG TABLET PO SCH (21:20)
--- NOTE | 2020-07-28 21:47 | NUR ---
TELE/RN NOTES: PT REFUSES IV LINE INSERTION. DR. ARAMIS SCHROEDER INFORMED AND SAID IT'S OKAY TO GIVE VIA INTRAMUSCULAR. ADMINISTERED LASIX 40MG 4ML IM. 2 RNS WITNESSED. PT TOLERATED WELL. NO C/O PAIN AT THIS TIME.
[2020-07-28] MEDS ORDERED: GABAPENTIN 300 MG CAPSULE PO SCH (22:00)
[2020-07-29] VITALS: BP 115/75
[2020-07-29] MEDS: ZOLPIDEM TARTRATE 5 MG TABLET PO PRN (00:25)
--- NOTE | 2020-07-29 00:25 | NUR ---
TELE/RN NOTES: PT COMPLAINED OF DIFFICULTY SLEEPING, VS STABLE. ADMINISTERED 5MG AMBIEN PO ORDERED FOR INSOMNIA. WILL CONTINUE TO MONITOR ACCORDINGLY.
[2020-07-29] MEDS: FUROSEMIDE 40 MG/4 ML VIAL IV SCH ×3 (00:56→09:25)
[2020-07-29 04:00] VITALS: BP 110/64
--- NOTE | 2020-07-29 07:33 | NUR ---
TELE/RN CLOSING NOTES: PATIENT REMAINS RESTING IN BED, A/O X3, DENIES ANY PAIN, DISCOMFORT. NO SOB NOTED. NO IV LINE DUE TO PATIENT'S REFUSAL X3. EDUCATED ON RISKS AND BENEFITS, STILL REFUSED X3. TELE READING AT THIS TIME IS ST, HR: 105. ALL DUE MEDS GIVEN AND NURSING NEEDS MET AND RENDERED. STRICT INTAKE AND OUTPUT DOCUMENTED. SAFETY MEASURES IN PLACE. CALL LIGHT WITHIN REACH, BED IN LOW, LOCKED POSITION WITH SR UP X2. ENDORSED TO DAY SHIFT FOR MELLO.
[2020-07-29 07:37] LABS: BASOPHILS # (AUTO) 0.1 /CMM (0.0-0.2); BASOPHILS % (AUTO) 1.8 % (0.0-2.0); EOSINOPHILS % (AUTO) 6.6 % (0.0-6.0); HEMATOCRIT 47 % (33-45); HEMOGLOBIN 15.2 g/dL (11.5-14.8); LYMPHOCYTES # (AUTO) 1.3 /CMM (0.8-4.8); LYMPHOCYTES % (AUTO) 19.4 % (20.0-44.0); MEAN CORPUSCULAR HGB CONC 33 g/dl (31.0-36.0); MEAN CORPUSCULAR VOLUME 96 fL (82-100); MONOCYTES # (AUTO) 0.8 /CMM (0.1-1.30); MONOCYTES % (AUTO) 12.7 % (2.0-12.0); NEUTROPHILS # (AUTO) 3.9 /CMM (1.8-8.9); NEUTROPHILS % (AUTO) 59.5 % (43.0-81.0); PLATELET COUNT (AUTO) 397 /CMM (150-450); RED BLOOD CELL COUNT(AUTO) 4.83 MIL/uL (4.0-5.2); WHITE BLOOD COUNT (AUTO) 6.5 K/uL (4.3-11.0)
[2020-07-29 08:00] VITALS: BP 124/76
--- NOTE | 2020-07-29 08:00 | NUR ---
RN NOTES RECEIVED PATIENT IN THE BED A/O X3, ROOM AIR, TELE SR78 WITH PVC. NO ACUTE RESPIRATORY DISTRESS, WAS COMPLAINING OF GENERALIZED PAIN, ADMINISTERED DUE MEDICATION, NO IV ACCESS REFUSED. PATIENT AMBULATORY SELF CARE. SAFETY PRECAUTION MAINTAINED AL THE TIME.
[2020-07-29 08:04] LABS: CALCIUM, SERUM 8.8 mg/dL (8.5-10.1); CREATININE 1.3 mg/dL (0.6-1.3); PHOSPHORUS 4.9 mg/dL (2.5-4.9); POTASSIUM 3.2 mmol/L (3.5-5.1)
[2020-07-29 08:46] VITALS: BP 124/76
[2020-07-29 09:21] LABS: THYROID STIMULATING HORMONE 1.44 uIU/mL (0.358-3.74)
[2020-07-29] MEDS: SPIRONOLACTONE 25 MG TABLET PO SCH (09:23)
[2020-07-29] MEDS: ASPIRIN EC 81 MG TABLET.DR PO SCH (09:23)
[2020-07-29] MEDS: CARVEDILOL 3.125 MG TABLET PO SCH (09:24)
[2020-07-29] MEDS: LISINOPRIL (20MG) 20 MG TABLET PO SCH (09:25)
[2020-07-29] MEDS: ENOXAPARIN SODIUM 40 MG/0.4 ML DISP.SYRIN SQ SCH (09:30)
[2020-07-29] MEDS: FLUOXETINE HCL 20 MG/5 ML UDC PO SCH (09:30)
[2020-07-29] MEDS: HYDROCODONE/APAP 5/325MG TABLET PO PRN (09:31)
--- NOTE | 2020-07-29 09:31 | NUR ---
RN NOTES ADMINISTERED NARCO 5/325 MG PO PRN FOR GENERALIZED PAIN 06/10 PER PATIENT REQUEST, V/S TAKEN BP 124/76, P-82, R-19. CONTINUED MONITORING.
[2020-07-29] MEDS ORDERED: FUROSEMIDE 80 MG TABLET PO SCH (10:30)
[2020-07-29] MEDS ORDERED: POTASSIUM CHLORIDE 20 MEQ TAB.PRT.SR PO SCH (10:30)
[2020-07-29] MEDS: POTASSIUM CHLORIDE 20 MEQ TAB.PRT.SR PO SCH ×2 (10:50→11:48)
--- NOTE | 2020-07-29 11:10 | NUR ---
Measurer Machine Consultation: SW met with this patient today to complete the social media coordinator consultation. Reason for consultation is possible homelessness. Patient is a 64 year old female. Patient was sitting up in her hospital bed and receptive to meeting with this SW. Patient is awake, alert, oriented x 4. Patient came to the ED due to SOB. Patient has hx of CHF, HTN, Anxiety, Depression, and Panic Attacks. Patient stated that she had run out of her medications and "I wasn't feeling well". Patient reported that she lives with her boyfriend in a guest house that they are renting from a friend. Patient reported that they have been living at this guest house since October 2019 (address is [address] [place] [address]). Patient's phone number was verified, and patient stated that the current phone number is [phone]. Patient stated that she is thankful that she is not homeless, because prior to moving into the guest house, she and her boyfriend had been homeless for 5 years. Patient reports that she is grateful to have a home, and that she is now working towards applying for social security benefits. Patient reports being independent with all ADL's. 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 Patient denied drug use. Patient reported a hx of anxiety, depression, and panic attacks, and stated she has been taking Prozac for the past 19 years. Patient reported no hx of psychiatric hospitalization. Patient denied any hallucinations, and denied any hx or current SI. Patient appropriately engaged in dialogue with this SW during this interview. Patient maintained appropriate eye contact, and patient's affect and behavior were WNL. Speech and thought process/content were clear and appropriate. SW assisted the patient in exploring the need for any community resources, and patient expressed wanting information on food pantries, mental health services, and medical clinics. SW provided patient with the following resources: 1) The [facility], which includes a list of places throughout the [facility] for hot meals and food pantries (ex. [facility] food pantry in [place], ; [facility], ; [employer] in [place], ; [facility] in [place] [phone]. 2) Behavioral Health Referrals: [facility] [phone]; [facility] [phone]; [facility] [phone]. 3) Medical Clinics with pharmacy services: [facility] located at [address], [facility] [phone]; [facility] at [address]; [facility] located at [address] [facility], . Patient expressed being thankful for the resources provided. Patient stated she did not have any other concerns or questions at this time. SW thanked patient for her time. EZRA met with MAR Reina and informed her of above assessment and resources provided. No further SS interventions needed at this time, however social media coordinator will continue to be available to the patient during her hospitalization, as needed.
[2020-07-29] MEDS ORDERED: FURO80TA3 PO (11:12)
[2020-07-29] MEDS ORDERED: POTA20TA83 PO (11:12)
[2020-07-29] MEDS: LORAZEPAM 0.5 MG TABLET PO PRN (12:37)
--- NOTE | 2020-07-29 12:37 | NUR ---
rn notes administered ativan 0.5 mg po prn for anxiety, crying , v/s taken bp 104/57, p76, continued monitoring.
--- NOTE | 2020-07-29 13:51 | NUR ---
RN NOTES MEDICATION WERE ADMINISTERED FOR ANXIETY EFFECTIVE, PATIENT RESTING IN THE BED. PER HOSPITALIST PATIENT WILL DISCHARGE HOME SELF CARE TODAY.,
--- NOTE | 2020-07-29 16:11 | NUR ---
PRODUCT SAFETY LEAD NOTES PATIENT DISCHARGE AT THIS TIME GOING HOME SELF CARE. PATIENT STABLE, V/S WNL, MED RECONCILIATION AN DISCHARGE ORDER REVIEWED AND EXPLAINED TO THE PATIENT. PATIENT VERBALIZED UNDERSTANDING. PATIENT SIGN PAPERWORK, BELONGING WITH THE PATIENT. MEDICATION ELECTRONICALLY DONE BY HOSPITALIST. PATIENT WILL CORRECTIONAL OFFICER LIEUTENANT FROM [facility]. PATIENT WILL FOLLOW PRIMARY MD. ESCORTED PATIENT TO THE LOBBY FOR SAFETY, ABBI CARD GIVEN .
[2020-07-29 16:22] VITALS: BP 95/56
== END 2020-07-29 16:25 | disposition home or self-care (01) | DRG 194 ==
LOC: ER 21:43 → TELE 07-28 03:06
PROVIDERS: ADMIT Internal Medicine; ATTEND Internal Medicine
DX: I11.0 Hypertensive heart disease with heart failure (principal); I50.23 Acute on chronic systolic (congestive) heart failure; I25.10 Atherosclerotic heart disease of native coronary artery without angina pectoris; F32.9 Major depressive disorder, single episode, unspecified; F41.9 Anxiety disorder, unspecified; J44.9 Chronic obstructive pulmonary disease, unspecified; M54.30 Sciatica, unspecified side; I42.0 Dilated cardiomyopathy; E78.5 Hyperlipidemia, unspecified; I25.2 Old myocardial infarction; Z79.899 Other long term (current) drug therapy; Z59.0 Homelessness; Z90.710 Acquired absence of both cervix and uterus; Z79.82 Long term (current) use of aspirin; Z88.2 Allergy status to sulfonamides; F12.90 Cannabis use, unspecified, uncomplicated; F41.0 Panic disorder [episodic paroxysmal anxiety]; K21.9 Gastro-esophageal reflux disease without esophagitis; F17.200 Nicotine dependence, unspecified, uncomplicated; F10.11 Alcohol abuse, in remission; Y90.9 Presence of alcohol in blood, level not specified; G62.9 Polyneuropathy, unspecified; I21.4 Non-ST elevation (NSTEMI) myocardial infarction; F19.10 Other psychoactive substance abuse, uncomplicated; J98.11 Atelectasis; N20.0 Calculus of kidney
CPT/HCPCS: 36415; 71045-TC; 80048-TC; 80061-TC; 82962-TC; 83735-TC; 83880; 84100-TC; 84443-TC; 84484-TC; 85025-TC; 87081-TC; 93307-TC; C9803-CS; G0378; J1650; J1940; J2405; J3490

== ENCOUNTER 2020-08-09 09:29 | Inpatient (IN) | payer MEDICAID ==
[~2020-08-09] VITALS: Ht 152.4 cm; Wt 45.9 kg
[~2020-08-09 09:29] MED LIST changes: -FURO20TA4 PO; +FURO80TA3 PO; +POTA20TA83 PO
[2020-08-09] MEDS ORDERED: LORAZEPAM 1 MG TABLET PO ONE (10:30)
[2020-08-09] MEDS ORDERED: LORAZEPAM 1 MG TABLET ONE (11:08)
--- NOTE | 2020-08-09 11:35 | NUR ---
ASSUMED CARE. PT STABLE, RR EVEN & UNLABORED. PLACED ON 2L OF O2, O2 SAT 100%. ON TELE, SB. TECHNICAL DESIGNER @ BS FOR BLOOD DRAW. WILL CONT TO MONITOR.
[2020-08-09 11:53] LABS: BASOPHILS # (AUTO) 0.1 /CMM (0.0-0.2); BASOPHILS % (AUTO) 1.3 % (0.0-2.0); EOSINOPHILS % (AUTO) 1.7 % (0.0-6.0); HEMATOCRIT 37 % (33-45); HEMOGLOBIN 11.9 g/dL (11.5-14.8); LYMPHOCYTES % (AUTO) 13.3 % (20.0-44.0); MEAN CORPUSCULAR HGB CONC 33 g/dl (31.0-36.0); MEAN CORPUSCULAR VOLUME 99 fL (82-100); MONOCYTES # (AUTO) 0.5 /CMM (0.1-1.30); NEUTROPHILS # (AUTO) 5.9 /CMM (1.8-8.9); NEUTROPHILS % (AUTO) 76.7 % (43.0-81.0); PLATELET COUNT (AUTO) 356 /CMM (150-450); RED BLOOD CELL COUNT(AUTO) 3.69 MIL/uL (4.0-5.2); WHITE BLOOD COUNT (AUTO) 7.6 K/uL (4.3-11.0)
[2020-08-09 12:21] LABS: CALCIUM, SERUM 9.1 mg/dL (8.5-10.1); CREATININE 1.1 mg/dL (0.6-1.3); POTASSIUM 3.5 mmol/L (3.5-5.1)
--- NOTE | 2020-08-09 12:52 | NUR ---
PANEL ON-CALL PAGED
--- NOTE | 2020-08-09 13:58 | NUR ---
COVID TEST DONE & SENT TO LAB.
--- NOTE | 2020-08-09 14:10 | NUR ---
PT ASLEEP, EASILY AWAKEN BY VERBAL STIMULI. DENIES CP, SOB, DIZZINESS, N/V AT THIS TIME. WILL CONT TO MONITOR.
--- NOTE | 2020-08-09 15:41 | NUR ---
COVID NEGATIVE RESULT PER LAB.
--- NOTE | 2020-08-09 16:50 | NUR ---
bed assigned is 315-2
--- NOTE | 2020-08-09 17:41 | NUR ---
REPORT GIVEN TO MAR HOWELL FOR MELLO.
[2020-08-09 18:15] VITALS: BP 148/91
--- NOTE | 2020-08-09 18:15 | NUR ---
COMMUNITY SERVICE ORGANIZATION DIRECTOR NOTES PATIENT ARRIVED TO THE UNIT AT 1810, ALERT AND ORIENTED X 3. ON NASAL CANNULA 2 LITERS, SPO2 AT 99% DENIES SOB, NO SIGNS OF RESPIRATORY DISTRESS AT THIS TIME WITH EVEN NON-LABORED BREATHING. WILL PLACE PATIENT ON AWARD CLERK. IV ACCESS INTACT AND PATENT ON LEFT AC 20 GAUGE. SAFETY PRECAUTIONS IMPLEMENTED WITH BED LOCKED, BED IN THE LOWEST POSITION AND CALL LIGHT WITHIN EASY REACH OF THE PATIENT. WILL ENDORSE PLAN OF CARE TO UPCOMING RN.
[2020-08-09] MEDS: LISINOPRIL (20MG) 20 MG TABLET PO SCH (18:30)
[2020-08-09] MEDS: ASPIRIN EC 81 MG TABLET.DR PO SCH (18:30)
[2020-08-09] MEDS: FUROSEMIDE 80 MG TABLET PO SCH (18:30)
[2020-08-09] MEDS: ATORVASTATIN 10 MG TABLET PO SCH (18:30)
[2020-08-09] MEDS: ENOXAPARIN SODIUM 40 MG/0.4 ML DISP.SYRIN SQ SCH (18:31)
[2020-08-09 20:00] VITALS: BP 145/89
[2020-08-09] MEDS ORDERED: ZOLPIDEM TARTRATE 5 MG TABLET PO PRN (21:30)
[2020-08-09] MEDS ORDERED: ACETAMINOPHEN 325 MG TABLET PO PRN (21:30)
[2020-08-09] MEDS ORDERED: ONDANSETRON HCL/PF 4 MG/2 ML VIAL IVP PRN (21:30)
[2020-08-09] MEDS ORDERED: MAGNESIUM HYDROXIDE 30 ML UDC PO PRN (21:30)
[2020-08-09] MEDS: CARVEDILOL 3.125 MG TABLET PO SCH (21:41)
[2020-08-09] MEDS: GABAPENTIN 300 MG CAPSULE PO SCH (21:41)
[2020-08-09] MEDS: POTASSIUM CHLORIDE 20 MEQ TAB.PRT.SR PO SCH (21:41)
[2020-08-09] MEDS: SPIRONOLACTONE 25 MG TABLET PO SCH (21:42)
[2020-08-09] MEDS: HYDROCODONE/APAP 5/325MG TABLET PO PRN (23:07)
[2020-08-10] VITALS (7 sets, daily range): BP systolic 100–127; BP diastolic 52–81
[2020-08-10] MEDS: HYDROCODONE/APAP 5/325MG TABLET PO PRN ×3 (05:36→16:27)
--- NOTE | 2020-08-10 06:00 | NUR ---
VENEER STOCK GRADER CLOSING NOTES: PATIENT IN BED, ASLEEP,AROUSABLE. NO S/S OF DISTRESS NOTED.CALL LIGHT WITHIN REACH. BED IN LOWEST AND LOCKED POSITION.
[2020-08-10 06:57] LABS: BASOPHILS # (AUTO) 0.2 /CMM (0.0-0.2); BASOPHILS % (AUTO) 3.9 % (0.0-2.0); HEMATOCRIT 34 % (33-45); HEMOGLOBIN 11.4 g/dL (11.5-14.8); LYMPHOCYTES # (AUTO) 0.8 /CMM (0.8-4.8); LYMPHOCYTES % (AUTO) 14.6 % (20.0-44.0); MEAN CORPUSCULAR HGB CONC 33 g/dl (31.0-36.0); MEAN CORPUSCULAR VOLUME 97 fL (82-100); MONOCYTES # (AUTO) 0.4 /CMM (0.1-1.30); MONOCYTES % (AUTO) 7.5 % (2.0-12.0); PLATELET COUNT (AUTO) 294 /CMM (150-450); RED BLOOD CELL COUNT(AUTO) 3.53 MIL/uL (4.0-5.2); WHITE BLOOD COUNT (AUTO) 5.7 K/uL (4.3-11.0)
[2020-08-10 07:18] LABS: ALBUMIN 3.1 g/dL (3.4-5.0); BILIRUBIN,TOTAL 0.6 mg/dL (0.2-1.0); CALCIUM, SERUM 8.2 mg/dL (8.5-10.1); MAGNESIUM 1.7 mg/dL (1.8-2.4); PHOSPHORUS 3.9 mg/dL (2.5-4.9); POTASSIUM 3.4 mmol/L (3.5-5.1); TOTAL PROTEIN, SERUM 6.6 g/dL (6.4-8.2)
--- NOTE | 2020-08-10 07:23 | NUR ---
RN NOTES RECEIVED PATIENT IN BED RESTING COMFORTABLY IN MODERATE HIGH BACK REST. ALERT AND ORIENTED X 3. ON RA, TOLERATING WELL, NO SIGNS OF DISTRESS NOTED AT THIS TIME. ON STRATEGIC COMMUNICATIONS SPECIALIST, SR WITH HR OF 80'S. IV ACCESS INTACT AND PATENT ON LEFT AC [address] GAUGE. SAFETY PRECAUTIONS IN PLACE, BED LOCKED, BED IN THE LOWEST POSITION AND CALL LIGHT WITHIN EASY REACH OF THE PATIENT. WILL CONTINUE TO MONITOR.
[2020-08-10] MEDS: LISINOPRIL (20MG) 20 MG TABLET PO SCH (08:49)
[2020-08-10] MEDS: POTASSIUM CHLORIDE 20 MEQ TAB.PRT.SR PO SCH (08:50)
[2020-08-10] MEDS: ASPIRIN EC 81 MG TABLET.DR PO SCH (08:50)
[2020-08-10] MEDS: FUROSEMIDE 80 MG TABLET PO SCH (08:50)
[2020-08-10] MEDS: CARVEDILOL 3.125 MG TABLET PO SCH ×2 (08:51→21:06)
[2020-08-10] MEDS: SPIRONOLACTONE 25 MG TABLET PO SCH (08:51)
[2020-08-10] MEDS: FLUOXETINE HCL 20 MG CAPSULE PO SCH (08:51)
[2020-08-10] MEDS: Magnesium 1GM/D5W 100ML PREMIX 100 ML IV SCH ×2 (09:52→11:04)
[2020-08-10] MEDS ORDERED: POTASSIUM CHLORIDE 20 MEQ POWDER PACKET NG SCH (10:00)
[2020-08-10] MEDS: ATORVASTATIN 10 MG TABLET PO SCH (17:22)
[2020-08-10] MEDS: ENOXAPARIN SODIUM 40 MG/0.4 ML DISP.SYRIN SQ SCH (17:23)
--- NOTE | 2020-08-10 18:45 | NUR ---
RN NOTES PATIENT IN BED RESTING COMFORTABLY IN MODERATE HIGH BACK REST. ALERT AND ORIENTED X 3. ON RA, TOLERATING WELL, NO SIGNS OF DISTRESS NOTED THROUGHOUT THE SHIFT. ON LABOR ARBITRATOR HEARING OFFICE, SR WITH HR OF 70'S. IV ACCESS INTACT AND PATENT ON LEFT AC 20 GAUGE. SAFETY PRECAUTIONS IN PLACE, BED LOCKED, BED IN THE LOWEST POSITION AND CALL LIGHT WITHIN EASY REACH OF THE PATIENT. WILL ENDORSE TO STAMP ANALYST NURSE FOR MELLO.
--- NOTE | 2020-08-10 20:00 | NUR ---
RN NOTES PM SHIFT RECEIVED PATIENT IN BED, ALERT AND ORIENTED X4, NO RESPIRATORY DISTRESS, NO REPORT OF SHORTNESS OF BREATH, NO COMPLAIN OF PAIN AT THIS TIME, REMINDED PATIENT OF FLUID RESTRICTION OF 1L PER 24 HOUR. KEPT SAFE, CALL LIGHT WITHIN REACH.
[2020-08-10] MEDS: GABAPENTIN 300 MG CAPSULE PO SCH (22:04)
[2020-08-11] VITALS: BP 99/68
[2020-08-11 04:00] VITALS: BP 143/98
--- NOTE | 2020-08-11 06:13 | NUR ---
RN NOTES ALERT AND ORIENTED X4, NO SOB, NO DYSPNEA, VOIDING GOOD, GIVEN AMBIEN AT HS, NO OTHER COMPLAINTS DURING SHIFT, DAILY WEIGHT, FLUID RESTRICTION OF 1L PER 24 HOUR, INTAKE AND OUTPUT, KEPT SAFE, CALL LIGHT WITHIN REACH.
--- NOTE | 2020-08-11 07:32 | NUR ---
RN NOTES RECEIVED PATIENT IN BED RESTING COMFORTABLY IN MODERATE HIGH BACK REST. ALERT AND ORIENTED X 3. ON RA, TOLERATING WELL, NO SIGNS OF DISTRESS NOTED AT THIS TIME. ON GRINDER MACHINE SETTER, SR WITH HR OF 80'S. IV ACCESS INTACT AND PATENT ON LEFT AC 20 GAUGE. SAFETY PRECAUTIONS IN PLACE, BED LOCKED, BED IN THE LOWEST POSITION AND CALL LIGHT WITHIN EASY REACH OF THE PATIENT. WILL CONTINUE TO MONITOR.
[2020-08-11] MEDS: HYDROCODONE/APAP 5/325MG TABLET PO PRN ×2 (07:50→11:51)
[2020-08-11 08:00] VITALS: BP 132/92
[2020-08-11] MEDS: FLUOXETINE HCL 20 MG CAPSULE PO SCH (08:50)
[2020-08-11] MEDS: CARVEDILOL 3.125 MG TABLET PO SCH (08:50)
[2020-08-11] MEDS: ASPIRIN EC 81 MG TABLET.DR PO SCH (08:50)
[2020-08-11 08:51] VITALS: BP 132/92
[2020-08-11] MEDS: FUROSEMIDE 80 MG TABLET PO SCH (08:51)
[2020-08-11] MEDS: POTASSIUM CHLORIDE 20 MEQ TAB.PRT.SR PO SCH (08:51)
[2020-08-11] MEDS: LISINOPRIL (20MG) 20 MG TABLET PO SCH (08:51)
[2020-08-11] MEDS: SPIRONOLACTONE 25 MG TABLET PO SCH (08:51)
[2020-08-11 09:33] LABS: CALCIUM, SERUM 8.6 mg/dL (8.5-10.1); CREATININE 1.1 mg/dL (0.6-1.3); MAGNESIUM 2.2 mg/dL (1.8-2.4); POTASSIUM 4.5 mmol/L (3.5-5.1)
--- NOTE | 2020-08-11 14:59 | NUR ---
RN DISCHARGED NOTES PATIENT DISCHARGED IN STABLE CONDITION. A/O X4. ABLE TO MAKE NEEDS KNOWN. V/S TAKEN, STABLE AND RECORDED. PATIENT'S IV ACCESS REMOVED AND APPLIED PRESSURE DRESSING. NAME ARM BAND REMOVED. REFUSED PHYSICAL ASSESSMENT. ALL BELONGINGS CHECKED AND SIGNED. HEALTH TEACHINGS/ DISCHARGED INSTRUCTIONS AND PRESCRIPTION MEDICATION GIVEN AND VERBALIZED UNDERSTANDING. PATIENT LEFT UNIT VIA WHEELCHAIR AND ACCOMPANIED TO THE LOBBY BY SHIRIN POLO WITH NO SIGNS OF DISTRESS NOTED. PATIENT WAS PICKED UP BY [facility] PROVIDED BY [facility]. CHARGE NURSE AWARE OF DISCHARGED.
== END 2020-08-11 14:45 | disposition home or self-care (01) | DRG 194 ==
LOC: ER 09:31 → TELE 17:31 → MED 08-11 08:09
PROVIDERS: ADMIT Nurse Practitioner Acute Care; ATTEND Nurse Practitioner Acute Care
DX: I11.0 Hypertensive heart disease with heart failure (principal); I50.23 Acute on chronic systolic (congestive) heart failure; I25.5 Ischemic cardiomyopathy; E78.5 Hyperlipidemia, unspecified; F32.9 Major depressive disorder, single episode, unspecified; G62.9 Polyneuropathy, unspecified; Z59.0 Homelessness; M54.30 Sciatica, unspecified side; Z79.82 Long term (current) use of aspirin; J44.9 Chronic obstructive pulmonary disease, unspecified; I25.10 Atherosclerotic heart disease of native coronary artery without angina pectoris; G89.29 Other chronic pain; F41.9 Anxiety disorder, unspecified; I25.2 Old myocardial infarction
CPT/HCPCS: 36415; 71045-TC; 80048-TC; 80053-TC; 80061-TC; 83735-TC; 83880; 84100-TC; 84484-TC; 85025-TC; 87081-TC; C9803-CS; G0378; J1650; J3475

== ENCOUNTER 2020-08-21 04:18 | Inpatient (IN) | payer MEDICAID ==
[~2020-08-21] VITALS: Ht 152.4 cm; Wt 52.2 kg
--- NOTE | 2020-08-21 04:18 | NUR ---
BIB EMS C/O ANXIETY, NAUSEA SINCE 199. NOTED PT HYPERVENTILATING; PT AAOX4, -SOB, NOT IN ACUTE DISTRESS, GOWNED, PLACED ON MONITOR. VSS. PENDING ER PROVIDER WENCESLAO
[2020-08-21] MEDS ORDERED: LORAZEPAM 1 MG TABLET ONE (04:30)
[2020-08-21] MEDS ORDERED: LORAZEPAM 1 MG TABLET PO ONE (04:30)
[2020-08-21 04:47] LABS: BASOPHILS % (AUTO) 0.2 % (0.0-2.0); EOSINOPHILS % (AUTO) 1.7 % (0.0-6.0); HEMATOCRIT 35 % (33-45); HEMOGLOBIN 11.5 g/dL (11.5-14.8); LYMPHOCYTES # (AUTO) 0.9 /CMM (0.8-4.8); LYMPHOCYTES % (AUTO) 12.1 % (20.0-44.0); MEAN CORPUSCULAR HGB CONC 33 g/dl (31.0-36.0); MEAN CORPUSCULAR VOLUME 98 fL (82-100); MONOCYTES # (AUTO) 0.5 /CMM (0.1-1.30); NEUTROPHILS # (AUTO) 5.9 /CMM (1.8-8.9); PLATELET COUNT (AUTO) 337 /CMM (150-450); RED BLOOD CELL COUNT(AUTO) 3.57 MIL/uL (4.0-5.2); WHITE BLOOD COUNT (AUTO) 7.5 K/uL (4.3-11.0)
[2020-08-21 05:06] LABS: CALCIUM, SERUM 8.3 mg/dL (8.5-10.1); POTASSIUM 3.1 mmol/L (3.5-5.1)
[2020-08-21] MEDS ORDERED: ONDANSETRON HCL/PF 4 MG/2 ML VIAL ONE (05:25)
[2020-08-21] MEDS ORDERED: ONDANSETRON HCL/PF 4 MG/2 ML VIAL IV ONE (05:30)
--- NOTE | 2020-08-21 06:03 | NUR ---
DR. LOPEZ SPEAKING WITH DR. TOLEDO REGARDING ADMISSON
--- NOTE | 2020-08-21 06:03 | NUR ---
ER SPOKE TO DR. STEWART REGARDING PT ADMISSION.
--- NOTE | 2020-08-21 06:16 | NUR ---
REC'D NEG COVID RESULTS. AND NURSING SUP MADE AWARE. CALLED NURSE SUP FOR BED
--- NOTE | 2020-08-21 06:31 | NUR ---
TELE 313-2.
--- NOTE | 2020-08-21 06:37 | NUR ---
ATTEMPTED TO GIVE REPORT, CHARGE WILL TAKE REPORT IN 10MINS
--- NOTE | 2020-08-21 06:51 | NUR ---
REPORT CALLED TO MAR EDOUARD. PENDING HOSPITAL ADMISSION.
[2020-08-21] MEDS ORDERED: LORA-259 PO (07:41)
[2020-08-21] MEDS ORDERED: POTA10TA10 PO (07:41)
[2020-08-21] MEDS ORDERED: FURO-144 PO (07:41)
--- NOTE | 2020-08-21 07:45 | NUR ---
CHIPPER FEEDER OPENING NOTES PT TRANSPORTED TO UNIT AT THIS TIME VIA GURNEY. PT IS A/O X4, NO SOB NOTED, NO S/S OF ANY ACUTE DISTRESS NOTED. NO C/O PAIN AT THIS TIME. RESPIRATIONS ARE EVEN AND UNLABORED WITH EQUAL RISE AND FALL IN CHEST. PT ON EXTERNAL TELE RESEARCH ANIMAL FACILITY SUPERVISOR READING SR IN THE 90S WITH PVCS. IV ACCESS NOTED IN RFA G#20, INTACT, PATENT AND FLUSHING WELL. LUNGS ARE CLEAR TO AUSCULTATION, GOOD CIRCULATION NOTED, ACTIVE BOWEL SOUNDS IN ALL QUADRANTS, PULSES ARE PRESENT, SKIN IS WARM TO TOUCH. SKIN IS INTACT. BELONGING ACCOUNTED FOR, SIGNED BY PATIENT AND FILED IN CHART. SAFETY PRECAUTION IN PLACE AND MAINTAINED AT ALL TIMES. BED IN LOWEST LOCKED POSITION, HOB ELEVATED, SIDE RAILS UP X 2, CALL LIGHT WITHIN REACH. WILL CONTINUE TO MONITOR
--- NOTE | 2020-08-21 07:52 | NUR ---
PT TRANSPORTED TO 3RD FLOOR
[2020-08-21] MEDS ORDERED: MORPHINE SULFATE INJ 2 MG/ML DISP.SYRIN IV PRN (08:00)
[2020-08-21] MEDS ORDERED: ONDANSETRON HCL/PF 4 MG/2 ML VIAL IVP PRN (08:00)
[2020-08-21] MEDS ORDERED: ACETAMINOPHEN 325 MG TABLET PO PRN (08:00)
[2020-08-21] MEDS ORDERED: LORAZEPAM 1 MG TABLET PO PRN (08:00)
[2020-08-21 08:55] LABS: CALCIUM, SERUM 8.8 mg/dL (8.5-10.1); CREATININE 0.9 mg/dL (0.6-1.3); POTASSIUM 3.2 mmol/L (3.5-5.1)
[2020-08-21] MEDS: ASPIRIN EC 81 MG TABLET.DR PO SCH (08:56)
[2020-08-21] MEDS: LISINOPRIL (20MG) 20 MG TABLET PO SCH (08:57)
[2020-08-21] MEDS: FLUOXETINE HCL 20 MG CAPSULE PO SCH (08:57)
[2020-08-21] MEDS: CARVEDILOL 3.125 MG TABLET PO SCH ×2 (08:57→21:07)
[2020-08-21] MEDS: SPIRONOLACTONE 25 MG TABLET PO SCH (08:58)
[2020-08-21] MEDS: POTASSIUM CHLORIDE 10 MEQ TABLET.SA PO SCH (08:58)
[2020-08-21] MEDS ORDERED: FUROSEMIDE 20 MG/2 ML VIAL IV SCH (09:00)
[2020-08-21 09:02] LABS: ALBUMIN 3.7 g/dL (3.4-5.0); MAGNESIUM 1.9 mg/dL (1.8-2.4); PHOSPHORUS 4.4 mg/dL (2.5-4.9); TOTAL PROTEIN, SERUM 7.7 g/dL (6.4-8.2)
[2020-08-21] MEDS: ENOXAPARIN SODIUM 40 MG/0.4 ML DISP.SYRIN SQ SCH (09:06)
[2020-08-21] MEDS: FUROSEMIDE 40 MG/4 ML VIAL IV SCH ×3 (09:06→16:46)
[2020-08-21 10:00] VITALS: BP 144/82
--- NOTE | 2020-08-21 11:30 | NUR ---
PT NOTED VOMITING FOOD PARTICLE OF RICE/BEANS AND C/O OF PAIN 05/10. VS WNL. PER PATIENT REQUEST MORPHINE 2MG IV Q4HR PRN FOR PAIN AND ZOFRAN 4MG IVP Q6HR PRN FOR NAUSEA/VOMITING WAS ADMINISTERED PER ORDER. WILL CONTINUE TO MONITOR
[2020-08-21 16:00] VITALS: BP 119/73
--- NOTE | 2020-08-21 19:03 | NUR ---
APPLICATIONS SYSTEMS ENGINEER CLOSING NOTES PT AWAKE IN BED AT THIS. PT REMAINED STABLE THROUGHOUT SHIFT. PT KEPT CLEAN AND DRY. ALL NEED, CARE, MEDICATIONS AND TREATMENT ADMINISTERED ANTICIPATED PER ORDER. SAFETY PRECAUTION IN PLACE AND MAINTAINED AT ALL TIMES. BED IN LOWEST LOCKED POSITION, HOB ELEVATED, SIDE RAILS UP X 2, CALL LIGHT WITHIN REACH. WILL ENDORSE TO FINANCE OFFICER NURSE FOR MELLO
--- NOTE | 2020-08-21 19:30 | NUR ---
RN OPENING NOTES PATIENT RECEIVED RESTING IN BED A/O X 4. STABLE ON RA WITH BREATHING EVEN AND UNLABORED, NO SOB NOTED. NO SIGNS OF ACUTE DISTRESS. NO COMPLAINTS OF PAIN OR DISCOMFORT AT THE MOMENT. TELE MONITOR READING NSR WITH PVC'S. IV LOCATED ON RFA #20. SAFETY PRECAUTIONS IN PLACE WITH BED IN LOWEST POSITION, CALL LIGHT WITHIN REACH, BREAKS ON, SIDE RAILS UP. WILL CONTINUE TO MONITOR THROUGHOUT THE NIGHT.
[2020-08-21 20:00] VITALS: BP 116/69
[2020-08-21] MEDS ORDERED: GABAPENTIN 300 MG CAPSULE PO SCH (22:00)
[2020-08-22] VITALS: BP 132/70
[2020-08-22 04:00] VITALS: BP 105/52
[2020-08-22 06:50] LABS: BASOPHILS # (AUTO) 0.1 /CMM (0.0-0.2); BASOPHILS % (AUTO) 1.3 % (0.0-2.0); EOSINOPHILS % (AUTO) 5.7 % (0.0-6.0); HEMATOCRIT 36 % (33-45); HEMOGLOBIN 11.9 g/dL (11.5-14.8); LYMPHOCYTES # (AUTO) 1.3 /CMM (0.8-4.8); LYMPHOCYTES % (AUTO) 21.2 % (20.0-44.0); MEAN CORPUSCULAR HGB CONC 33 g/dl (31.0-36.0); MEAN CORPUSCULAR VOLUME 97 fL (82-100); MONOCYTES # (AUTO) 0.5 /CMM (0.1-1.30); MONOCYTES % (AUTO) 8.2 % (2.0-12.0); NEUTROPHILS # (AUTO) 3.9 /CMM (1.8-8.9); NEUTROPHILS % (AUTO) 63.6 % (43.0-81.0); PLATELET COUNT (AUTO) 314 /CMM (150-450); RED BLOOD CELL COUNT(AUTO) 3.71 MIL/uL (4.0-5.2); WHITE BLOOD COUNT (AUTO) 6.2 K/uL (4.3-11.0)
--- NOTE | 2020-08-22 06:54 | NUR ---
RN CLOSING NOTES PATIENT RESTING IN BED A/O X 4. STABLE ON RA WITH BREATHING EVEN AND UNLABORED, NO SOB NOTED. NO SIGNS OF ACUTE DISTRESS. NO COMPLAINTS OF PAIN OR DISCOMFORT AT THE MOMENT. TELE MONITOR READING NSR WITH PVC'S AND BBB. IV LOCATED ON RFA #20. SAFETY PRECAUTIONS IN PLACE WITH BED IN LOWEST POSITION, CALL LIGHT WITHIN REACH, BREAKS ON, SIDE RAILS UP. ALL NEEDS ATTENDED TO. WILL ENDORSE TO ONCOMING SHIFT ABOUT MELLO.
--- NOTE | 2020-08-22 07:24 | NUR ---
Tele/RN - Assessment Patient in bed awake, A/O X 4, denies chest pain at this time, no complaints overnight, states breathing better, stable on room air, no apparent distress seen, tele shows SR with BBB/PVCs. Saline lock on the RFA is patent, intact, flushing well. Lab results still pending. Continue strict I&O monitoring. Fall and aspiration precautions maintained. Patient updated on plan of care and in agreement. Will continue with current medical management.
[2020-08-22] MEDS ORDERED: PANTOPRAZOLE 40 MG TABLET.DR PO SCH (07:30)
[2020-08-22 07:39] LABS: ALBUMIN 3.2 g/dL (3.4-5.0); BILIRUBIN,TOTAL 0.6 mg/dL (0.2-1.0); CALCIUM, SERUM 8.5 mg/dL (8.5-10.1); CREATININE 1.2 mg/dL (0.6-1.3); MAGNESIUM 1.6 mg/dL (1.8-2.4); PHOSPHORUS 4.6 mg/dL (2.5-4.9); POTASSIUM 3.1 mmol/L (3.5-5.1)
[2020-08-22 08:00] VITALS: BP 159/77
[2020-08-22] MEDS: POTASSIUM CHLORIDE 10 MEQ TABLET.SA PO SCH (08:12)
[2020-08-22] MEDS: CARVEDILOL 3.125 MG TABLET PO SCH (08:12)
[2020-08-22] MEDS: FLUOXETINE HCL 20 MG CAPSULE PO SCH (08:12)
[2020-08-22] MEDS: SPIRONOLACTONE 25 MG TABLET PO SCH (08:12)
[2020-08-22] MEDS: ASPIRIN EC 81 MG TABLET.DR PO SCH (08:12)
[2020-08-22] MEDS: LISINOPRIL (20MG) 20 MG TABLET PO SCH (08:13)
[2020-08-22] MEDS: ENOXAPARIN SODIUM 40 MG/0.4 ML DISP.SYRIN SQ SCH (08:13)
[2020-08-22] MEDS: Magnesium 1GM/D5W 100ML PREMIX 100 ML IV SCH ×2 (09:36→10:41)
--- NOTE | 2020-08-22 11:13 | NUR ---
Briar Shop Supervisor met with the patient at bedside as patient is homeless. Patient is a 64 year-old female. Patient was asleep when this SW met with the patient. Patient was easily aroused by verbal cues. Patient was lying in bed and kept eyes closed. Patient confirmed date of and social security number on face sheet. Patient reported that she lives in an addition to her friend's home and has lived there for three months. Patient provided verbal consent to speak to the isabelle Woo . Plan:SW to follow up with isabelle Woo to confirm living situation.
[2020-08-22 12:00] VITALS: BP 108/77
--- NOTE | 2020-08-22 13:19 | NUR ---
Power Plant Manager attempted to speak with Chilo Holland . Phone line has been disconnected. SW unable to verify patient's new address of [address] [place] [id number].
--- NOTE | 2020-08-22 15:45 | NUR ---
Tele/RN - Discharge Patient is alert and oriented X 4, discharged home in stable condition, SR on the monitor, remain afebrile, denies chest pain, no c/o shortness of breath, stable on room air, ambulates with assistance. Reviewed discharge instructions with patient and she verbalized full understanding of all teachings including medications, importance of fluid restriction/dietary compliance, and follow-up care with Dr. Pereyra in 1 week. Patient was also provided information on how to follow up at [facility]. Patient was advised to seek immediate medical attention for worsening symptoms, chest pain, shortness of breath, palpitations, abdominal pain/distention, intractable nausea and vomiting, diarrhea, weakness, loss of consciousness, neurological deficit, or any other emergent concerns. All belongings with patient and she deny any missing items. Skin is intact. Saline lock removed on the RFA with catheter tip intact, no redness, no swelling noted at the site. Discharge paperwork signed and copies were given per protocol. Patient left the unit at 15:40 via taxi.
== END 2020-08-22 16:00 | disposition home or self-care (01) | DRG 194 ==
LOC: ER 04:21 → TELE 06:36
PROVIDERS: ADMIT Internal Medicine; ATTEND Internal Medicine
DX: I11.0 Hypertensive heart disease with heart failure (principal); I50.23 Acute on chronic systolic (congestive) heart failure; F41.9 Anxiety disorder, unspecified; J96.01 Acute respiratory failure with hypoxia; E78.5 Hyperlipidemia, unspecified; E87.6 Hypokalemia; F17.210 Nicotine dependence, cigarettes, uncomplicated; F32.9 Major depressive disorder, single episode, unspecified; I42.0 Dilated cardiomyopathy; J44.9 Chronic obstructive pulmonary disease, unspecified; Z79.82 Long term (current) use of aspirin; G62.9 Polyneuropathy, unspecified; M54.30 Sciatica, unspecified side; I21.A1 Myocardial infarction type 2; I25.2 Old myocardial infarction
CPT/HCPCS: 36415; 71045-TC; 80048-TC; 80053-TC; 83735-TC; 83880; 84100-TC; 84484-TC; 85025-TC; 87081-TC; C9803; G0378; J1650; J1940; J2270; J2405; J3475; J7030

== ENCOUNTER 2020-08-25 00:23 | Inpatient (IN) | payer MEDICAID ==
[~2020-08-25] VITALS: Ht 152.4 cm; Wt 46.3 kg
[~2020-08-25 00:23] MED LIST changes: -ATOR10TA PO; +FURO-144 PO; -FURO80TA3 PO; +LORA-259 PO; +POTA10TA10 PO; -POTA20TA83 PO
--- NOTE | 2020-08-25 00:30 | NUR ---
PATIENT CAME TO ER BED 2 C/O NAUSEA AND VOMITING 7x. PATIENT IS ANXIOUS. SHORT OF BREATH. AAOX4. BREATHING EVENLY AND UNLABORED ON ROOM AIR. AMBULATORY. CONNECTED TO POLICE CRIME SCENE TECHNICIAN.
[2020-08-25] MEDS ORDERED: FUROSEMIDE 40 MG/4 ML VIAL IV ONE (01:00)
[2020-08-25] MEDS ORDERED: ONDANSETRON HCL/PF - ER 4 MG/2 ML VIAL IV ONE (01:00)
[2020-08-25 01:19] LABS: BASOPHILS # (AUTO) 0.2 /CMM (0.0-0.2); BASOPHILS % (AUTO) 2.1 % (0.0-2.0); EOSINOPHILS % (AUTO) 2.5 % (0.0-6.0); HEMATOCRIT 41 % (33-45); HEMOGLOBIN 13.3 g/dL (11.5-14.8); LYMPHOCYTES # (AUTO) 1.1 /CMM (0.8-4.8); LYMPHOCYTES % (AUTO) 12.3 % (20.0-44.0); MEAN CORPUSCULAR HGB CONC 33 g/dl (31.0-36.0); MEAN CORPUSCULAR VOLUME 99 fL (82-100); MONOCYTES # (AUTO) 0.7 /CMM (0.1-1.30); MONOCYTES % (AUTO) 7.4 % (2.0-12.0); NEUTROPHILS # (AUTO) 6.8 /CMM (1.8-8.9); NEUTROPHILS % (AUTO) 75.7 % (43.0-81.0); PLATELET COUNT (AUTO) 420 /CMM (150-450); RED BLOOD CELL COUNT(AUTO) 4.14 MIL/uL (4.0-5.2)
[2020-08-25 01:34] LABS: CALCIUM, SERUM 9.4 mg/dL (8.5-10.1); CREATININE 0.9 mg/dL (0.6-1.3)
[2020-08-25 01:37] LABS: ALBUMIN 4.1 g/dL (3.4-5.0); BILIRUBIN,DIRECT 0.2 mg/dL (0.0-0.2); BILIRUBIN,TOTAL 0.6 mg/dL (0.2-1.0)
[2020-08-25] MEDS ORDERED: ONDANSETRON HCL/PF 4 MG/2 ML VIAL ONE (01:37)
[2020-08-25] MEDS ORDERED: FUROSEMIDE 40 MG/4 ML VIAL ONE (01:37)
[2020-08-25] MEDS ORDERED: LORAZEPAM 1 MG TABLET PO ONE (02:30)
--- NOTE | 2020-08-25 02:36 | NUR ---
LIZID SWABBED, SENT TO LAB.
[2020-08-25] MEDS ORDERED: LORAZEPAM 1 MG TABLET ONE (02:42)
--- NOTE | 2020-08-25 02:52 | NUR ---
[facility] PAGED
--- NOTE | 2020-08-25 02:56 | NUR ---
DR. TOLEDO SPEAKING TO DR. NATION REGARDING ADMISSION.
--- NOTE | 2020-08-25 03:01 | NUR ---
COVID NEGATIVE PER LAB
--- NOTE | 2020-08-25 03:03 | NUR ---
CALLED MAR MENON FOR TELE BED
[2020-08-25] MEDS ORDERED: ONDANSETRON HCL/PF 4 MG/2 ML VIAL IVP PRN (03:30)
[2020-08-25] MEDS ORDERED: ACETAMINOPHEN 325 MG TABLET PO PRN (03:30)
[2020-08-25] MEDS ORDERED: MAGNESIUM HYDROXIDE 30 ML UDC PO PRN (03:30)
--- NOTE | 2020-08-25 03:39 | NUR ---
REPORT GIVEN TO ABRAHAM MANUEL FOR MELLO.
[2020-08-25 04:00] VITALS: BP 138/79
--- NOTE | 2020-08-25 04:00 | NUR ---
COAL FEEDER OPERATORRESTAURANT GREETER NOTES RECEIVED FROM ER THIS 64 Y.O. FEMALE,ALERT,ORIENTED X3-4,CHIEF COMPLAINTS OF VOMITING 7X,BREATHING REGULAR,NOT IN ANY FORM OF DISTRESS.SALINE LOCK LEFT AC INTACT AND PATENT.AMBULATE WITH STEADY GAIT.NO SKIN ISSUES.CALL LIGHT IN REACH,NEEDS ANTICIPATED.
[2020-08-25] MEDS: MORPHINE SULFATE INJ 2 MG/ML DISP.SYRIN IV PRN ×2 (04:53→12:45)
--- NOTE | 2020-08-25 04:53 | NUR ---
CORRESPONDENCE REVIEW CLERK NOTES C/O LOWER BACK PAIN 8/10 ON PAIN SCALE,MORPHINE 2MG IV GIVEN ORDERED,
--- NOTE | 2020-08-25 06:46 | NUR ---
LOCAL AREA NETWORK ADMINISTRATOR NOTES PAIN MANAGEMENT EFFECTIVE,ON BED WATCHING TV PROGRAM,NO DISTRESS.WILL ENDORSE TO DAY NURSE FOR MELLO.
--- NOTE | 2020-08-25 07:30 | NUR ---
BIOMASS BOILER OPERATOR NOTES PATIENT RECEIVED IN BED, ALERT AND ORIENTED X 3. ON NASAL CANNULA, 2 LITERS WITH NO SIGNS OF RESPIRATORY DISTRESS WITH EVEN NON-LABORED BREATHING AND NO SIGN OF SOB NOTED. PATIENT SKIN WARM AND DRY TO TOUCH. IV ACCES INTACT AND PATENT. ON WATER RESOURCE ENGINEERING SPECIALIST SINUS RHYTHM 95. SAFETY PRECAUTIONS IMPLEMENTED WITH BED LOCKED, BED IN THE LOWEST POSITION, BILATERAL SIDE RAILS UP, BED ALARM ON, AND CALL LIGHT WITHIN EASY REACH OF PATIENT. WILL CONTINUE TO MONITOR PATIENT.
[2020-08-25 08:00] VITALS: BP 132/83
[2020-08-25] MEDS: ASPIRIN EC 81 MG TABLET.DR PO SCH (08:42)
[2020-08-25] MEDS: PANTOPRAZOLE 40 MG TABLET.DR PO SCH (08:42)
[2020-08-25] MEDS: DOCUSATE SODIUM 100 MG CAPSULE PO SCH ×2 (08:42→16:39)
[2020-08-25] MEDS: ENOXAPARIN SODIUM 40 MG/0.4 ML DISP.SYRIN SQ SCH (08:44)
[2020-08-25] MEDS ORDERED: FUROSEMIDE 40 MG/4 ML VIAL IV SCH (09:00)
[2020-08-25] MEDS ORDERED: ASPIRIN EC 81 MG TABLET.DR PO SCH (10:30)
[2020-08-25] MEDS ORDERED: ENOXAPARIN SODIUM 40 MG/0.4 ML DISP.SYRIN SQ SCH (10:30)
[2020-08-25] MEDS: POTASSIUM CHLORIDE 20 MEQ TAB.PRT.SR PO SCH ×3 (11:39→13:38)
[2020-08-25] MEDS: FUROSEMIDE 100 MG/10 ML VIAL IV SCH ×3 (11:39→18:45)
[2020-08-25] MEDS: SPIRONOLACTONE 25 MG TABLET PO SCH (11:39)
[2020-08-25] MEDS: FLUOXETINE HCL 20 MG CAPSULE PO SCH (11:39)
[2020-08-25] MEDS: LISINOPRIL (20MG) 20 MG TABLET PO SCH (11:40)
[2020-08-25] MEDS: CARVEDILOL 3.125 MG TABLET PO SCH ×2 (11:40→20:10)
[2020-08-25 12:00] VITALS: BP 132/75
[2020-08-25] MEDS: NICOTINE PATCH (14MG) 14 MG PATCH.TD24 TD SCH (12:44)
[2020-08-25 16:00] VITALS: BP 121/83
--- NOTE | 2020-08-25 18:26 | NUR ---
DIGITAL ASSOCIATE NOTES PATIENT IN BED RESTING COMFORTABLY, ALERT AND ORIENTED X 3. ON NASAL CANNULA 2 LITERS, WITH NO SIGNS OF RESPIRATORY DISTRESS WITH NON-LABORED BREATHING. ON BOXING MACHINE OPERATOR, SINUS RHYTHM 79. IV ACCESS INTACT AND PATENT, SKIN KEPT CLEAN AND DRY. PATIENT PRESENTS WITH NO PAIN OR DISCOMFORT AT THIS TIME. MET ALL OF PATIENT'S NEEDS. SAFETY PRECAUTIONS IMPLEMENTED WITH BED LOCKED, BED IN THE LOWEST POSITION, BILATERAL SIDE RAILS UP, BED ALARM ON, AND CALL LIGHT WITHIN EASY REACH OF PATIENT. WILL ENDORSE PLAN OF CARE TO UPCOMING RN.
--- NOTE | 2020-08-25 19:00 | NUR ---
design technology teacher opening notes Received Pt from morning nurse. Pt is sitting in bed comfortably watching TV. Pt is alert and orientedX3. Respiration is normal in room air. No SOB. No S/s of distress noted. Tele monitor showed SR Hr at 80 bpm. IV sites at LAC # 20 is clean, intact and flushes well. Safety precautions is maintained. Bed at low position, brakes locked, side rails upX3, HOB elevated and call light is within reach. Will continue to monitor.
[2020-08-25 20:00] VITALS: BP 99/62
[2020-08-25] MEDS ORDERED: GABAPENTIN 300 MG CAPSULE PO SCH (22:00)
[2020-08-26] VITALS: BP 105/66
[2020-08-26] MEDS: LORAZEPAM 1 MG TABLET PO PRN ×2 (00:14→14:04)
--- NOTE | 2020-08-26 00:16 | NUR ---
technology applications teacher notes Pt's feeling anxious and requesting meds. Administered Ativan 1 mg/po/prn as ordered for anxiety. Vs is stable. Safety precautions is maintained. Will continue to monitor.
[2020-08-26 04:00] VITALS: BP_SYST 103; BP_SYST 99; BP_DIAS 62; BP_DIAS 70
[2020-08-26 06:44] LABS: BASOPHILS # (AUTO) 0.1 /CMM (0.0-0.2); BASOPHILS % (AUTO) 1.1 % (0.0-2.0); EOSINOPHILS % (AUTO) 5.4 % (0.0-6.0); HEMATOCRIT 40 % (33-45); HEMOGLOBIN 13.2 g/dL (11.5-14.8); LYMPHOCYTES # (AUTO) 1.1 /CMM (0.8-4.8); LYMPHOCYTES % (AUTO) 15.2 % (20.0-44.0); MEAN CORPUSCULAR HGB CONC 33 g/dl (31.0-36.0); MEAN CORPUSCULAR VOLUME 97 fL (82-100); MONOCYTES # (AUTO) 0.8 /CMM (0.1-1.30); MONOCYTES % (AUTO) 11.3 % (2.0-12.0); NEUTROPHILS # (AUTO) 4.8 /CMM (1.8-8.9); PLATELET COUNT (AUTO) 389 /CMM (150-450); RED BLOOD CELL COUNT(AUTO) 4.14 MIL/uL (4.0-5.2); WHITE BLOOD COUNT (AUTO) 7.1 K/uL (4.3-11.0)
--- NOTE | 2020-08-26 06:50 | NUR ---
graphics intern closing notes Pt is resting in bed comfortably. Pt is alert and orientedX2-3 with episode of confusion. Respiration is normal in room air. No SOB. No S/s of distress noted. Tele monitor showed SR Hr at 73 bpm. VS is stable. Routine meds were given as ordered. IV sites at LAC # 20 is clean, intact, flushes well and SL. Kept Pt clean, dry and comfortable. All needs met and attended. Safety precautions is maintained. Bed at low position, brakes locked, side rails upX3, HOB elevated and call light is within reach. Will endorse to morning nurse.
--- NOTE | 2020-08-26 07:31 | NUR ---
LEAD MANUFACTURING TECHNICIAN NOTES PATIENT RECEIVED IN BED, ALERT AND ORIENTED X 2-3. ON ROOM AIR AT THIS TIME WITH NO SIGNS OF RESPIRATORY DISTRESS WITH EVEN NON-LABORED BREATHING AND NO SIGN OF SOB NOTED. PATIENT SKIN WARM AND DRY TO TOUCH. IV ACCES INTACT AND PATENT. ON SCREEN OPERATOR SINUS RHYTHM 79. SAFETY PRECAUTIONS IMPLEMENTED WITH BED LOCKED, BED IN THE LOWEST POSITION, BILATERAL SIDE RAILS UP, BED ALARM ON, AND CALL LIGHT WITHIN EASY REACH OF PATIENT. WILL CONTINUE TO MONITOR PATIENT.
[2020-08-26 07:53] LABS: CALCIUM, SERUM 9.1 mg/dL (8.5-10.1); CREATININE 1.2 mg/dL (0.6-1.3); PHOSPHORUS 5.3 mg/dL (2.5-4.9); POTASSIUM 4.8 mmol/L (3.5-5.1)
[2020-08-26 08:00] VITALS: BP 104/69
[2020-08-26] MEDS: PANTOPRAZOLE 40 MG TABLET.DR PO SCH (08:38)
[2020-08-26] MEDS: SPIRONOLACTONE 25 MG TABLET PO SCH (08:39)
[2020-08-26] MEDS: NICOTINE PATCH (14MG) 14 MG PATCH.TD24 TD SCH (08:39)
[2020-08-26] MEDS: ENOXAPARIN SODIUM 40 MG/0.4 ML DISP.SYRIN SQ SCH (08:39)
[2020-08-26] MEDS: FLUOXETINE HCL 20 MG CAPSULE PO SCH (08:39)
[2020-08-26] MEDS: DOCUSATE SODIUM 100 MG CAPSULE PO SCH (08:39)
[2020-08-26] MEDS: ASPIRIN EC 81 MG TABLET.DR PO SCH (08:40)
[2020-08-26] MEDS: CARVEDILOL 3.125 MG TABLET PO SCH (08:41)
[2020-08-26 08:42] VITALS: BP 104/69
[2020-08-26] MEDS: LISINOPRIL (20MG) 20 MG TABLET PO SCH (08:42)
[2020-08-26] MEDS ORDERED: FUROSEMIDE 40 MG/4 ML VIAL IV SCH (09:00)
--- NOTE | 2020-08-26 15:30 | NUR ---
SANDWICH MAKER NOTES PATIENT ALERT AND ORIENTED X 3. ON ROOM AIR WITH NO SIGNS OF RESPIRATORY DISTRESS PRESENT, WITH NO SIGNS OF SOB, AND NON-LABORED EVEN BREATHING. VITAL SIGNS WNL. IV ACCESS REMOVED CATHETER TIP INTACT AND APPLIED PRESSURE TO SITE. ID BAND REMOVED. PATIENT ACCOUNTED FOR ALL OF BELONGINGS. PATIENT SKIN DRY CLEAN AND INTACT. EXIT CARE PROVIDED TO PATIENT, TO TAKE ALL MEDICATIONS PRESCRIBED AND TO FOLLOW UP WITH PRIMARY CARE PROVIDER. PATIENT STATES THE NEED OF A BUS PASS, BUS PASS PROVIDED TO PATIENT DUE TO NOT HAVING ANY MONEY AND NO ONE ABLE TO PICK HER UP. PATIENT LEFT UNIT VIA WHEELCHAIR ACCOMPANIED BY STAFF.
== END 2020-08-26 15:30 | disposition home or self-care (01) | DRG 194 ==
LOC: ER 00:25 → TELE 03:41 → MED 08-26 11:33
PROVIDERS: ADMIT Nurse Practitioner Acute Care; ATTEND Nurse Practitioner Acute Care
DX: I11.0 Hypertensive heart disease with heart failure (principal); I50.23 Acute on chronic systolic (congestive) heart failure; J96.01 Acute respiratory failure with hypoxia; I25.2 Old myocardial infarction; I42.0 Dilated cardiomyopathy; E78.5 Hyperlipidemia, unspecified; F32.9 Major depressive disorder, single episode, unspecified; K21.9 Gastro-esophageal reflux disease without esophagitis; J44.9 Chronic obstructive pulmonary disease, unspecified; F17.210 Nicotine dependence, cigarettes, uncomplicated; Z59.0 Homelessness; Z79.82 Long term (current) use of aspirin; Z91.19 Patient's noncompliance with other medical treatment and regimen; G62.9 Polyneuropathy, unspecified; M54.30 Sciatica, unspecified side; F41.9 Anxiety disorder, unspecified; Z88.2 Allergy status to sulfonamides; Z71.6 Tobacco abuse counseling
CPT/HCPCS: 36415; 71045-TC; 80048-TC; 80076-TC; 83690-TC; 83735-TC; 83880; 84100-TC; 84484-TC; 85025-TC; 87081-TC; C9803; G0378; J1650; J1940; J2270; J2405

== ENCOUNTER 2020-09-03 10:16 | Emergency (ER) | payer MEDICAID ==
[~2020-09-03] VITALS: Ht 152.4 cm; Wt 53.5 kg
--- NOTE | 2020-09-03 10:20 | NUR ---
BIBRA from home with c/o nausea. no vomiting. no abdominal pain, no chest pain. no diaphoresis. awaiting for md jade
[2020-09-03] MEDS ORDERED: ONDANSETRON 4 MG TAB.RAPDIS ONE (10:28)
[2020-09-03] MEDS ORDERED: ONDANSETRON 4 MG TAB.RAPDIS SL ONE (10:30)
--- NOTE | 2020-09-03 10:54 | NUR ---
This SW received a call from ED RN Eloy. Per Eloy, patient is not able to fill prescriptions and needs assistance from social work associate. SW met with the patient at bedside. Patient is well-known to this SW from prior Med Surg admission. Patient is alert and oriented x4. Patient informed SW that she has not been able to fill prescriptions even though patient has dropped off prescription at [facility]. SW informed patient that she would need to follow-up with patient's medical insurance for approval. Patient was in agreement to do this, stating "I will call them today." No further SS interventions necessary at this time. SW will remain available for all needs regarding this patient.
[2020-09-03 10:57] VITALS: BP 135/81
--- NOTE | 2020-09-03 10:58 | NUR ---
Patient discharged to home in stable condition. Written and verbal after care instructions given. Patient verbalizes understanding of instruction.
== END 2020-09-03 10:58 | disposition home or self-care (01) ==
LOC: ER 10:20
DX: R11.0 Nausea (principal); I11.0 Hypertensive heart disease with heart failure; I50.22 Chronic systolic (congestive) heart failure; M54.30 Sciatica, unspecified side; J44.9 Chronic obstructive pulmonary disease, unspecified; E78.5 Hyperlipidemia, unspecified; F32.9 Major depressive disorder, single episode, unspecified; F41.9 Anxiety disorder, unspecified; K21.9 Gastro-esophageal reflux disease without esophagitis; Z90.710 Acquired absence of both cervix and uterus; Z98.890 Other specified postprocedural states; Z88.2 Allergy status to sulfonamides; Z88.8 Allergy status to other drugs, medicaments and biological substances; Z59.0 Homelessness; Z79.82 Long term (current) use of aspirin; Z79.899 Other long term (current) drug therapy
CPT/HCPCS: 99283; Q0162

== ENCOUNTER 2020-09-07 02:42 | Inpatient (IN) | payer MEDICAID ==
[2020-09-07] VITALS (8 sets, daily range): BP systolic 94–159; BP diastolic 46–116
[~2020-09-07] VITALS: Ht 152.4 cm; Wt 55.3 kg
--- NOTE | 2020-09-07 02:53 | NUR ---
PT BIBRA FROM HOME C/O SOB X 2 DAYS. NOTED TACHYPNEIC. PT ADMITS TO BE ANXIOUS. PT HAS A HX OF COPD AND CHF. PT AAOX4, NO ACUTE DISTRESS NOTED. PT CONNECTED TO THE FILM READER AND POX
--- NOTE | 2020-09-07 03:19 | NUR ---
BLOOD COLLECTED AND SENT TO LAB
--- NOTE | 2020-09-07 03:21 | NUR ---
XRAY AT BEDSIDE
[2020-09-07 03:29] LABS: CALCIUM, SERUM 9.9 mg/dL (8.5-10.1); POTASSIUM 3.9 mmol/L (3.5-5.1)
--- NOTE | 2020-09-07 03:29 | NUR ---
COVID SWAB COLLECTED AND SENT TO THE LAB.
[2020-09-07] MEDS ORDERED: LISI-603 PO (03:32)
[2020-09-07] MEDS ORDERED: FURO-144 PO (03:33)
[2020-09-07] MEDS ORDERED: SPIR25TA6 PO (03:33)
[2020-09-07] MEDS ORDERED: FLUO10CA26 PO (03:33)
[2020-09-07] MEDS ORDERED: LORA-259 PO (03:34)
[2020-09-07] MEDS ORDERED: GABA-532 PO (03:35)
[2020-09-07] MEDS ORDERED: ASPI-1169 PO (03:35)
[2020-09-07] MEDS ORDERED: FUROSEMIDE 20 MG/2 ML VIAL ONE (03:36)
[2020-09-07] MEDS ORDERED: LORAZEPAM INJ 2 MG/ML VIAL ONE (03:37)
[2020-09-07] MEDS ORDERED: ASPIRIN 325 MG TABLET ONE (03:52)
[2020-09-07 03:55] LABS: BASOPHILS # (AUTO) 0.1 /CMM (0.0-0.2); BASOPHILS % (AUTO) 1.1 % (0.0-2.0); EOSINOPHILS % (AUTO) 2.5 % (0.0-6.0); HEMATOCRIT 37 % (33-45); HEMOGLOBIN 11.9 g/dL (11.5-14.8); LYMPHOCYTES % (AUTO) 13.7 % (20.0-44.0); MEAN CORPUSCULAR HGB CONC 32 g/dl (31.0-36.0); MEAN CORPUSCULAR VOLUME 99 fL (82-100); MONOCYTES # (AUTO) 0.5 /CMM (0.1-1.30); MONOCYTES % (AUTO) 7.3 % (2.0-12.0); NEUTROPHILS # (AUTO) 5.5 /CMM (1.8-8.9); NEUTROPHILS % (AUTO) 75.4 % (43.0-81.0); PLATELET COUNT (AUTO) 281 /CMM (150-450); RED BLOOD CELL COUNT(AUTO) 3.76 MIL/uL (4.0-5.2); WHITE BLOOD COUNT (AUTO) 7.3 K/uL (4.3-11.0)
[2020-09-07] MEDS ORDERED: MAGNESIUM HYDROXIDE 30 ML UDC PO PRN (04:00)
[2020-09-07] MEDS ORDERED: ASPIRIN 325 MG TABLET PO ONE (04:00)
[2020-09-07] MEDS ORDERED: LORAZEPAM INJ 2 MG/ML VIAL IV ONE (04:00)
[2020-09-07] MEDS ORDERED: MAG HYDROX/AL HYDROX/SIMETH 30 ML UDC PO PRN (04:00)
[2020-09-07] MEDS ORDERED: FUROSEMIDE 20 MG/2 ML VIAL IV ONE (04:00)
[2020-09-07] MEDS ORDERED: ACETAMINOPHEN 325 MG TABLET PO PRN (04:00)
[2020-09-07] MEDS ORDERED: ONDANSETRON HCL/PF 4 MG/2 ML VIAL ONE (04:02)
[2020-09-07] MEDS ORDERED: ONDANSETRON HCL/PF 4 MG/2 ML VIAL IV ONE (04:30)
--- NOTE | 2020-09-07 05:09 | NUR ---
PATIENT TAKEN TO ASSIGNED ROOM FOR MELLO.
--- NOTE | 2020-09-07 05:10 | NUR ---
PATIENT ARRIVED ON THE FLOOR FROM ER, AWAKE, A/O X4. NO S/S OF DISTRESS NOTED. NO COMPLAIN OF PAIN. CALL LIGHT WITHIN REACH. BED ALARM ON. BED IN LOWEST AND LOCKED POSITION. HOB ELEVATED AT ALL TIMES. WITH O2 AT 3L/MIN NASAL CANNULA.
--- NOTE | 2020-09-07 06:04 | NUR ---
PATIENT'S BP= 159/116, DL=277. INFORMED DR LANGFORD.
[2020-09-07] MEDS ORDERED: CARVEDILOL 6.25 MG TABLET PO ONE (06:30)
--- NOTE | 2020-09-07 07:00 | NUR ---
IT TECHNICAL SPECIALIST CLOSING NOTES: PATIENT IS IN BED, AWAKE, A/O X4. NORCO 1 TAB PO GIVEN FOR RIGHT ARM PAIN 05/10. CALL LIGHT WITHIN REACH. BED ALARM ON. BED IN LOWEST AND LOCKED POSITION. PATIENT NEEDS SCD'S, SLEEVES AT THE BEDSIDE, NO MACHINE ENDORSED TO THE NEXT SHIFT RN. NO DVT PROPHYLAXIS YET ORDERED, ENDORSED TO THE NEXT SHIFT RN. NO S/S OF DISTRESS NOTED.
[2020-09-07] MEDS: HYDROCODONE/APAP 5/325MG TABLET PO PRN (07:04)
[2020-09-07] MEDS ORDERED: FUROSEMIDE 40 MG/4 ML VIAL IV SCH (09:00)
[2020-09-07] MEDS ORDERED: GABAPENTIN 100 MG CAPSULE PO SCH (09:00)
[2020-09-07] MEDS ORDERED: FUROSEMIDE 100 MG/10 ML VIAL IV SCH (09:30)
[2020-09-07] MEDS: LISINOPRIL (20MG) 20 MG TABLET PO SCH (09:40)
[2020-09-07] MEDS: SPIRONOLACTONE 25 MG TABLET PO SCH (09:40)
[2020-09-07] MEDS: POTASSIUM CHLORIDE 10 MEQ TABLET.SA PO SCH (09:40)
[2020-09-07] MEDS: ASPIRIN EC 81 MG TABLET.DR PO SCH (09:40)
[2020-09-07] MEDS: ENOXAPARIN SODIUM 40 MG/0.4 ML DISP.SYRIN SQ SCH (09:42)
[2020-09-07] MEDS: MORPHINE SULFATE INJ 2 MG/ML DISP.SYRIN IV PRN ×2 (09:56→22:30)
[2020-09-07 11:05] LABS: BILIRUBIN,DIRECT 0.2 mg/dL (0.0-0.2); BILIRUBIN,TOTAL 0.8 mg/dL (0.2-1.0)
[2020-09-07] MEDS: FUROSEMIDE 100 MG/10 ML VIAL IV SCH ×3 (12:32→20:00)
[2020-09-07] MEDS: LORAZEPAM INJ 2 MG/ML VIAL IV PRN (12:35)
--- NOTE | 2020-09-07 16:16 | NUR ---
Removed Right Wrist IV line due to infiltration . A new IV line placed to the left FA G 22, flushing well .
--- NOTE | 2020-09-07 18:28 | NUR ---
Patient is resting in bed.; alert and orient x3. Breathing unlabored at this time and pt on 2 L of oxygen via NC. Breathing improved since morning. Patient received two doses of Lasix 80mg IV. IV line intact and patent. Patient is able to ambulate with assistance but prefer to stay in bed due to weakness. All needs attended. Patient kept comfortable at all times . Will endorse to next shift for MELLO
--- NOTE | 2020-09-07 19:43 | NUR ---
WIPING CLOTH CUTTER OPENING NOTES PATIENT SLEEPING, AWAKENS TO NAME. A/OX3. ON 2L NC; NO S/S OF ACUTE RESPIRATORY DISTRESS; BREATHING IS EVEN AND UNLABORED. PATIENT DENIES PAIN AT THIS TIME. TELE MONITOR READING NSR, HEART RATE 70. IV PRESENT ON LEFT FA, SIZE 22, INTACT & PATENT, HEP LOCKED. CONTACT/DROPLET PRECAUTIONS IN PLACE FOR R/O COVID 19; RESULTS PENDING. SAFETY MEASURES IN PLACE AND PATIENT'S NEEDS MET. BED LOCKED, HOB ELEVATED, SIDE RAILS X2, CALL LIGHT WITHIN REACH. WILL CONTINUE TO MONITOR.
--- NOTE | 2020-09-07 20:42 | NUR ---
SENIOR PRODUCER NOTES PATIENT'S BP: 94/61, HR: 62. HELD SCHEDULED LASIX 80 MG HELD. WILL CONTINUE TO MONITOR.
[2020-09-07] MEDS: GABAPENTIN 300 MG CAPSULE PO SCH (21:09)
[2020-09-08] VITALS (7 sets, daily range): BP systolic 93–122; BP diastolic 59–75
--- NOTE | 2020-09-08 | NUR ---
RECEIVED REPORTS FROM MAR SELF FOR MELLO. PATIENT IS CALM AND COMFORTABLE, HAPPY. NO S/S OF DISTRESS NOTED. NO COMPLAIN OF PAIN. CALL LIGHT WITHIN REACH. BED ALARM ON. BED IN LOWEST AND LOCKED POSITION. PLACED ON O2 AT 2L/MIN NASAL CANNULA. INSTRUCTED TO CALL FOR ASSISTANCE TO BATHROOM, PATIENT VERBALIZED UNDERSTANDING. PATIENT IS A/O X4.
--- NOTE | 2020-09-08 00:10 | NUR ---
HIGH SCHOOL PHYSICAL EDUCATION TEACHER NOTES PATIENT'S COVID RESULTED NEGATIVE AND TRANSFERRED TO [facility] IN STABLE CONDITION. ENDORSED TO RN PLAN OF CARE.
[2020-09-08] MEDS: MORPHINE SULFATE INJ 2 MG/ML DISP.SYRIN IV PRN ×4 (05:35→23:57)
--- NOTE | 2020-09-08 06:26 | NUR ---
MANAGER SCHEDULING CLOSING NOTES: PATIENT IN BED, ASLEEP, AROUSABLE. A/O X4. NO S/S OF DISTRESS NOTED. MORPHINE 1MG IV GIVEN FOR PAIN LEVEL 8/10. CALL LIGHT WITHIN REACH. BED IN LOWEST AND LOCKED POSITION.
[2020-09-08 07:05] LABS: ALBUMIN 3.3 g/dL (3.4-5.0); BILIRUBIN,TOTAL 0.4 mg/dL (0.2-1.0); CALCIUM, SERUM 8.4 mg/dL (8.5-10.1); CREATININE 1.2 mg/dL (0.6-1.3); MAGNESIUM 1.8 mg/dL (1.8-2.4); PHOSPHORUS 5.6 mg/dL (2.5-4.9); POTASSIUM 4.1 mmol/L (3.5-5.1); TOTAL PROTEIN, SERUM 7.5 g/dL (6.4-8.2)
--- NOTE | 2020-09-08 07:40 | NUR ---
MS/RN OPENING NOTE PATIENT WAS RECEIVED FROM RADIO INSTALLER NURSE. PATIENT IS LAYING IN BED COMFORTABLY. A/O X3. PATIENT HAD PAIN 8/10 BUT IS NOW HAVING 2/10 PAIN, MORPHINE GIVEN FROM RADIO INSTALLER NURSE IS EFFECTIVE. PATIENT IS ON 2L OF OXYGEN VIA NASAL CANNULA PRN, TOLERATING WELL. SAFETY MEASURES IN PLACE, BED IN LOCKED AND IN LOWEST POSITION, CALL LIGHT WITHIN REACH, WILL CONTINUE TO MONITOR AND ENSURE SAFETY.
[2020-09-08 08:10] LABS: BASOPHILS # (AUTO) 0.1 /CMM (0.0-0.2); BASOPHILS % (AUTO) 1.7 % (0.0-2.0); HEMATOCRIT 36 % (33-45); HEMOGLOBIN 11.9 g/dL (11.5-14.8); LYMPHOCYTES # (AUTO) 1.1 /CMM (0.8-4.8); LYMPHOCYTES % (AUTO) 13.8 % (20.0-44.0); MEAN CORPUSCULAR HGB CONC 33 g/dl (31.0-36.0); MEAN CORPUSCULAR VOLUME 97 fL (82-100); MONOCYTES # (AUTO) 0.5 /CMM (0.1-1.30); MONOCYTES % (AUTO) 6.8 % (2.0-12.0); NEUTROPHILS # (AUTO) 5.8 /CMM (1.8-8.9); NEUTROPHILS % (AUTO) 72.7 % (43.0-81.0); PLATELET COUNT (AUTO) 413 /CMM (150-450); RED BLOOD CELL COUNT(AUTO) 3.74 MIL/uL (4.0-5.2)
[2020-09-08] MEDS: ENOXAPARIN SODIUM 40 MG/0.4 ML DISP.SYRIN SQ SCH (08:33)
[2020-09-08] MEDS: ASPIRIN EC 81 MG TABLET.DR PO SCH (08:34)
[2020-09-08] MEDS: POTASSIUM CHLORIDE 10 MEQ TABLET.SA PO SCH (08:34)
[2020-09-08] MEDS: SPIRONOLACTONE 25 MG TABLET PO SCH (08:35)
[2020-09-08] MEDS: CARVEDILOL 6.25 MG TABLET PO SCH ×2 (08:42→20:55)
[2020-09-08] MEDS: LISINOPRIL (20MG) 20 MG TABLET PO SCH (08:42)
[2020-09-08] MEDS: FUROSEMIDE 40 MG TABLET PO SCH (08:42)
[2020-09-08] MEDS ORDERED: ASPIRIN 81 MG TAB.CHEW PO SCH (09:00)
[2020-09-08] MEDS: LORAZEPAM INJ 2 MG/ML VIAL IV PRN (09:46)
--- NOTE | 2020-09-08 14:58 | NUR ---
MS/RN S/B DR. SALGUERO CHEST XRAY AND LABS ORDERED FOR TOMORROW MORNING.
--- NOTE | 2020-09-08 15:00 | NUR ---
/RN S/B DR. ALTAMIRANO S/B DR. ALTAMIRANO ICD IF PATIENT CAN GO TO OFFICE TO SCHEDULE. LIFE VEST TO BE ARRANGED IN THE MORNING BY CASE MANAGEMENT.
--- NOTE | 2020-09-08 15:12 | NUR ---
MS/MAR S/B DR. MOREIRA S/B DR. MOREIRA CONTINUE WITH CURRENT VENT SETTINGS DUE TO WHINING UNSUCCESSFUL. Addendum: 09/08/20 at 1515 by TONY ARENAS RN PLEASE DISREGARD ABOVE NOTE, WRONG PATIENT
--- NOTE | 2020-09-08 18:18 | NUR ---
MS/RN CLOSING NOTE PATIENT REMAINS IN STABLE CONDITION. A/O X3 WITH EPISODES OF CONFUSION. VS WITHIN NORMAL RANGE. PATIENT IS ON 2L/MIN OF OXYGEN VIA NASAL CANNULA, TOLERATING WELL. TELEMONITOR READING NSR 92. PATIENT HAS LEFT FA #22, INTACT AND PATENT. PATIENT RECEIVED MS 1MG AT 1300 AND ATIVAN 0.5MG AT 0945. SAFETY MEASURES IN PLACE, BED LOCKED AND IN LOWEST POSITION, CALL LIGHT WITHIN REACH. WILL ENDORSE TO ACIDIZER WATER WELL.
--- NOTE | 2020-09-08 19:10 | NUR ---
TELE/RN OPENING NOTES: RECEIVED PATIENT IN STABLE CONDITION. A/O X3, VERBALLY RESPONSIVE AND ABLE TO MAKE NEEDS KNOWN. PER DAY SHIFT, PT. HAS EPISODES OF CONFUSION. PATIENT IS ON 2L/MIN OF OXYGEN VIA NASAL CANNULA, TOLERATING WELL. TELEMONITOR READING NSR 86 WITH BBB AND PEAK P WAVES. IV ACCESS IS ON THE LEFT FA #22G, INTACT AND PATENT. SAFETY MEASURES IN PLACE, BED LOCKED AND IN LOWEST POSITION, CALL LIGHT WITHIN REACH. SR UP X2. PT AWARE TO TO PRESS THE CALL LIGHT WHEN NEEDS ASSISTANCE FOR SAFETY. WILL CONTINUE TO MONITOR ACCORDINGLY.
--- NOTE | 2020-09-08 19:39 | NUR ---
TELE/RN NOTES: PT. COMPLAINED OF LEVEL 8 PAIN ON HER RIGHT BACK. REQUESTED FOR PAIN MEDICATION. CHECKED BP. 110/64. HR: 84. NO C/O PAIN AT THIS TIME. ADMINISTERED 1MG MORPHINE SULFATE ORDERED FOR PAIN Q4H PRN. WILL CONTINUE TO MONITOR ACCORDINGLY.
[2020-09-08] MEDS: GABAPENTIN 300 MG CAPSULE PO SCH (21:53)
[2020-09-09] VITALS: BP 126/53
[2020-09-09 04:00] VITALS: BP 130/83
[2020-09-09 06:19] LABS: CALCIUM, SERUM 8.3 mg/dL (8.5-10.1)
[2020-09-09] MEDS: MORPHINE SULFATE INJ 2 MG/ML DISP.SYRIN IV PRN ×4 (06:24→21:37)
--- NOTE | 2020-09-09 06:26 | NUR ---
TELE/RN NOTES: PT. COMPLAINED OF LEVEL 8 PAIN ON HER RIGHT BACK AND LEGS. REQUESTED FOR PAIN MEDICATION. CHECKED BP. 126/60. HR: 86. NO C/O PAIN AT THIS TIME. ADMINISTERED 1MG MORPHINE SULFATE ORDERED FOR PAIN Q4H PRN. WILL CONTINUE TO MONITOR ACCORDINGLY.
[2020-09-09 06:34] LABS: BASOPHILS # (AUTO) 0.1 /CMM (0.0-0.2); BASOPHILS % (AUTO) 1.5 % (0.0-2.0); EOSINOPHILS % (AUTO) 5.4 % (0.0-6.0); HEMATOCRIT 36 % (33-45); HEMOGLOBIN 11.8 g/dL (11.5-14.8); LYMPHOCYTES # (AUTO) 1.4 /CMM (0.8-4.8); LYMPHOCYTES % (AUTO) 19.6 % (20.0-44.0); MEAN CORPUSCULAR HGB CONC 33 g/dl (31.0-36.0); MEAN CORPUSCULAR VOLUME 97 fL (82-100); MONOCYTES # (AUTO) 0.6 /CMM (0.1-1.30); MONOCYTES % (AUTO) 9.1 % (2.0-12.0); NEUTROPHILS # (AUTO) 4.4 /CMM (1.8-8.9); NEUTROPHILS % (AUTO) 64.4 % (43.0-81.0); PLATELET COUNT (AUTO) 450 /CMM (150-450); RED BLOOD CELL COUNT(AUTO) 3.68 MIL/uL (4.0-5.2); WHITE BLOOD COUNT (AUTO) 6.9 K/uL (4.3-11.0)
[2020-09-09 06:38] LABS: POTASSIUM 4.6 mmol/L (3.5-5.1)
--- NOTE | 2020-09-09 06:55 | NUR ---
TELE/RN CLOSING NOTES: PATIENT REMAINS IN STABLE CONDITION. A/O X3, VERBALLY RESPONSIVE AND ABLE TO MAKE NEEDS KNOWN. NO EPISODES OF CONFUSION. PATIENT IS ON 2L/MIN OF OXYGEN VIA NASAL CANNULA, TOLERATING WELL. TELEMONITOR READING NSR 86 WITH BBB AND PEAK P WAVES. IV ACCESS IS ON THE LEFT FA #22G, INTACT AND PATENT. SAFETY MEASURES IN PLACE, BED LOCKED AND IN LOWEST POSITION, CALL LIGHT WITHIN REACH. SR UP X2. PAIN MANAGED THROUGHOUT THE NIGHT. ALL DUE MEDS GIVEN ORDERED. ALL NURSING NEEDS MET. WILL ENDORSE TO DAY SHIFT FOR MELLO.
--- NOTE | 2020-09-09 07:23 | NUR ---
TELE/RN NOTES: BD CHECK FOR 729 IS 72. NO S/S OF HYPOGLYCEMIA. WILL ENDORSE TO DAY RN TO KEEP MONITORING.
--- NOTE | 2020-09-09 07:25 | NUR ---
SHIPPER NOTES RECEIVED PATIENT IN BED ASLEEP. AROUSABLE TO VERBAL AND TACTILE STIMULI. HOB ELEVATED. ON TELE MONITORING SR: 80. ON O2 AT 2L/MIN VIA NC ELMO WELL. LEFT FA # 22 SL INTACT AND PATENT. BED IN LOWEST POSITION, LOCKED. BED ALARM ON. ABLE TO VERBALIZE NEEDS.
[2020-09-09] MEDS: LORAZEPAM INJ 2 MG/ML VIAL IV PRN ×2 (07:57→20:23)
[2020-09-09 08:00] VITALS: BP 118/75
[2020-09-09] MEDS: ASPIRIN EC 81 MG TABLET.DR PO SCH (08:20)
[2020-09-09] MEDS: FUROSEMIDE 40 MG TABLET PO SCH (08:20)
[2020-09-09] MEDS: SPIRONOLACTONE 25 MG TABLET PO SCH (08:20)
[2020-09-09] MEDS: POTASSIUM CHLORIDE 10 MEQ TABLET.SA PO SCH (08:20)
[2020-09-09] MEDS: CARVEDILOL 6.25 MG TABLET PO SCH ×2 (08:20→21:00)
[2020-09-09] MEDS: ENOXAPARIN SODIUM 40 MG/0.4 ML DISP.SYRIN SQ SCH (08:21)
[2020-09-09] MEDS: LISINOPRIL (20MG) 20 MG TABLET PO SCH (08:21)
[2020-09-09 12:00] VITALS: BP 108/71
--- NOTE | 2020-09-09 12:56 | NUR ---
CITY LETTER CARRIER NOTES PATIENT OFF UNIT, WENT TO FUNERAL SALES MANAGER.
[2020-09-09] MEDS ORDERED: CT SWABBABLE VALVE TRANS SET 1 EA INFUS.SET MC ONE (13:00)
[2020-09-09] MEDS ORDERED: IOHEXOL-350 100 ML VIAL IV ONE (13:00)
[2020-09-09] MEDS ORDERED: IV NS 0.9% 250 ML IV ONE (13:01)
[2020-09-09] MEDS ORDERED: NITROGLYCERIN 0.4 MG/TAB BOTTLE ONE (13:13)
[2020-09-09] MEDS ORDERED: METOPROLOL TARTRATE INJ 5 MG/5 ML AMPUL ONE (13:13)
--- NOTE | 2020-09-09 13:28 | NUR ---
RN NOTES: Post CTA: Patient able to tolerate the procedure without any discomfort. Transferred patient back to patient room in stable condition.
[2020-09-09] MEDS ORDERED: NITROGLYCERIN 0.4 MG/TAB BOTTLE SL ONE (13:30)
[2020-09-09] MEDS ORDERED: METOPROLOL TARTRATE INJ 5 MG/5 ML AMPUL IVP PRN (13:30)
--- NOTE | 2020-09-09 13:52 | NUR ---
BOAT CLEANER NOTES PATIENT RETURNED TO UNIT FROM GLASS POLISHER.
[2020-09-09 16:00] VITALS: BP 120/69
--- NOTE | 2020-09-09 19:32 | NUR ---
HOME CARE SCHEDULER NOTES PATIENT RESTING COMFORTABLY IN BED. HOB ELEVATED. NO S/S OF RESPIRATORY DISTRESS. DENIES ANY C/O PAIN NOR DISCOMFORT AT THIS TIME. LEFT FA # 22 SL INTACT AND PATENT. BED IN LOWEST POSITION, LOCKED. BED ALARM ON. ABLE TO VERBALIZE NEEDS. IN NO APPARENT DISTRESS.
--- NOTE | 2020-09-09 19:36 | NUR ---
HEALTH SPA MANAGER OPENING NOTES PATIENT AWAKE IN BED. A/OX3. ON RA; PATIENT DENIES SOB; BREATHING IS EVEN AND UNLABORED. NO C/O PAIN AT THIS TIME. TELE MONITOR READING NSR. IV PRESENT ON LEFT FA, SIZE 22, INTACT & PATENT, HEP LOCKED. SAFETY MEASURES IN PLACE AND PATIENT'S NEEDS MET. BED LOCKED, ALARM ON, SIDE RAILS X2, HOB ELEVATED, SIDE RAILS X3, CALL LIGHT WITHIN REACH. WILL CONTINUE TO MONITOR.
[2020-09-09 20:00] VITALS: BP 105/62
[2020-09-09] MEDS: GABAPENTIN 300 MG CAPSULE PO SCH (22:07)
[2020-09-10] VITALS (8 sets, daily range): BP systolic 95–127; BP diastolic 60–80
[2020-09-10] MEDS: HYDROCODONE/APAP 5/325MG TABLET PO PRN (00:15)
[2020-09-10 06:05] LABS: BASOPHILS % (AUTO) 0.3 % (0.0-2.0); HEMATOCRIT 39 % (33-45); HEMOGLOBIN 12.8 g/dL (11.5-14.8); LYMPHOCYTES # (AUTO) 1.3 /CMM (0.8-4.8); LYMPHOCYTES % (AUTO) 21.8 % (20.0-44.0); MEAN CORPUSCULAR HGB CONC 33 g/dl (31.0-36.0); MEAN CORPUSCULAR VOLUME 97 fL (82-100); MONOCYTES # (AUTO) 0.8 /CMM (0.1-1.30); MONOCYTES % (AUTO) 13.4 % (2.0-12.0); NEUTROPHILS # (AUTO) 3.6 /CMM (1.8-8.9); NEUTROPHILS % (AUTO) 57.5 % (43.0-81.0); PLATELET COUNT (AUTO) 438 /CMM (150-450); RED BLOOD CELL COUNT(AUTO) 4.01 MIL/uL (4.0-5.2); WHITE BLOOD COUNT (AUTO) 6.2 K/uL (4.3-11.0)
[2020-09-10 06:17] LABS: CALCIUM, SERUM 8.9 mg/dL (8.5-10.1); CREATININE 1.1 mg/dL (0.6-1.3); POTASSIUM 5.1 mmol/L (3.5-5.1)
[2020-09-10] MEDS: MORPHINE SULFATE INJ 2 MG/ML DISP.SYRIN IV PRN ×4 (06:18→21:14)
--- NOTE | 2020-09-10 07:15 | NUR ---
CALENDER FEEDER CLOSING NOTES PATIENT SLEEPING, EASY TO AWAKEN. A/OX3. ON RA; NO S/S OF ACUTE RESPIRATORY DISTRESS; BREATHING IS EVEN AND UNLABORED. NO S/S OF PAIN NOTED. TELE MONITOR READING NSR. IV PRESENT ON LEFT FA, SIZE 22, INTACT & PATENT, HEP LOCKED. SAFETY MEASURES IN PLACE AND PATIENT'S NEEDS MET. BED LOCKED, ALARM ON, SIDE RAILS X2, HOB ELEVATED, SIDE RAILS X3, CALL LIGHT WITHIN REACH. ENDORSED TO DAY SHIFT RN PLAN OF CARE.
--- NOTE | 2020-09-10 07:30 | NUR ---
CENSUS CLERK NOTES RECEIVED PATIENT IN BED ASLEEP. AROUSABLE TO VERBAL AND TACTILE STIMULI. HOB ELEVATED. ON TELE MONITORING SR: 75. ON ROOM AIR WITH SPO2 95%. LEFT AC # 18 SL INTACT AND PATENT. BED IN LOWEST POSITION, LOCKED. BED ALARM ON. ABLE TO VERBALIZE NEEDS.
[2020-09-10] MEDS: LISINOPRIL (20MG) 20 MG TABLET PO SCH (09:00)
[2020-09-10] MEDS: ENOXAPARIN SODIUM 40 MG/0.4 ML DISP.SYRIN SQ SCH (09:09)
[2020-09-10] MEDS: POTASSIUM CHLORIDE 10 MEQ TABLET.SA PO SCH (09:10)
[2020-09-10] MEDS: ASPIRIN EC 81 MG TABLET.DR PO SCH (09:10)
[2020-09-10] MEDS: FUROSEMIDE 40 MG TABLET PO SCH (09:10)
[2020-09-10] MEDS: SPIRONOLACTONE 25 MG TABLET PO SCH (09:10)
[2020-09-10] MEDS: CARVEDILOL 6.25 MG TABLET PO SCH (09:14)
[2020-09-10] MEDS ORDERED: CARV6.252 PO (14:18)
--- NOTE | 2020-09-10 19:22 | NUR ---
MS/TELE/RN RECEIVED PATIENT IN ROOM LYING AWAKE, ALERT AND ORIENTED, COMFORTABLE, NO C/O PAIN, NO DISTRESS NOTED, PLAN OF CARE DISCUSSED, VERBALIZED UNDERSTANDING, CALL LIGHT WITHIN REACH. WILL MONITOR.
--- NOTE | 2020-09-10 19:42 | NUR ---
COIL TESTER NOTES PATIENT RESTING COMFORTABLY IN BED. HOB ELEVATED. NO S/S OF RESPIRATORY DISTRESS. DENIES ANY C/O PAIN NOR DISCOMFORT AT THIS TIME. LEFT AC # 18 SL INTACT AND PATENT. AWAITING FOR LIFE VEST. BED IN LOWEST POSITION, LOCKED. BED ALARM ON. ABLE TO VERBALIZE NEEDS. IN NO APPARENT DISTRESS.
[2020-09-10] MEDS: GABAPENTIN 300 MG CAPSULE PO SCH (21:11)
--- NOTE | 2020-09-10 21:17 | NUR ---
MS/TELE/RN PATIENT WAS VERY ANXIOUS, CRYING, STATED THAT SHE WANTS TO GO HOME, TALKED TO THE PATIENT TO CALM DOWN, NOT SUCCESSFUL, ATTEMPTED TO GIVE ATIVAN BUT REFUSED, PREFERRED TO GET PAIN SHOT INSTEAD. MORPHINE 1 MG WAS GIVEN ORDERED. WILL MONITOR.
[2020-09-11] VITALS: BP 115/72
[2020-09-11] MEDS: CARVEDILOL 6.25 MG TABLET PO SCH ×3 (00:22→21:00)
[2020-09-11] MEDS: MORPHINE SULFATE INJ 2 MG/ML DISP.SYRIN IV PRN ×3 (01:07→22:25)
[2020-09-11] MEDS: HYDROCODONE/APAP 5/325MG TABLET PO PRN ×4 (03:56→19:42)
[2020-09-11 04:00] VITALS: BP 106/66
--- NOTE | 2020-09-11 06:11 | NUR ---
MS/TELE/RN PATIENT APPEAR SLEEPING AT THIS TIME, APPEAR COMFORTABLE, NO SIGNS OF DISTRESS NOTED, CALL LIGHT IN REACH, ON AND OFF SLEEP NOTED DURING THE SHIFT, ALL NEEDS ATTENDED AT THIS TIME, WILL CONTINUE TO MONITOR.
--- NOTE | 2020-09-11 07:44 | NUR ---
TELE/RN OPENING NOTES RECEIVED PATIENT ON BED, AWAKE ALERT AND ORIENTED X 4. NO COMPLAINED OF PAIN NOTED AT THIS TIME. PATIENT IN NO APPARENT RESPIRATORY DISTRESS NOTED. WILL CONTINUE TO MONITOR.
[2020-09-11 08:00] VITALS: BP 113/70
--- NOTE | 2020-09-11 08:08 | NUR ---
TELE/RN NOTES TELE MONITOR READING SINUS RHYTHM 72 BPM. WILL CONTINUE TO MONITOR.
--- NOTE | 2020-09-11 08:50 | NUR ---
TELE/RN NOTES PATIENT COMPLAINED OF PAIN RATED 7/10 NORCO 5/325MG 1 TAB WAS GIVEN. WILL CONTINUE TO MONITOR.
[2020-09-11] MEDS: SPIRONOLACTONE 25 MG TABLET PO SCH (08:53)
[2020-09-11] MEDS: LISINOPRIL (20MG) 20 MG TABLET PO SCH (08:54)
[2020-09-11] MEDS: ASPIRIN EC 81 MG TABLET.DR PO SCH (08:54)
[2020-09-11] MEDS: FUROSEMIDE 40 MG TABLET PO SCH (08:54)
[2020-09-11] MEDS: POTASSIUM CHLORIDE 10 MEQ TABLET.SA PO SCH (08:54)
[2020-09-11] MEDS: ENOXAPARIN SODIUM 40 MG/0.4 ML DISP.SYRIN SQ SCH (08:56)
[2020-09-11] MEDS: LORAZEPAM INJ 2 MG/ML VIAL IV PRN ×2 (10:22→20:51)
[2020-09-11] MEDS: ONDANSETRON HCL/PF 4 MG/2 ML VIAL IVP PRN ×2 (10:25→21:21)
--- NOTE | 2020-09-11 10:38 | NUR ---
TELE/RN NOTES BP 113/70 P 62 COREG 6.25MG 1 TAB AND LISINOPRIL 20MG 1 TAB WAS WITH HELD. PATIENT COMPLAINED OF NAUSEA AND FEELING ANXIOUS, ZOFRAN 4 MG IV WAS GIVEN AND ATIVAN 0.5MG IV WAS GIVEN. WILL CONTINUE TO MONITOR.
[2020-09-11 15:32] VITALS: BP 102/59
--- NOTE | 2020-09-11 17:43 | NUR ---
TELE/RN NOTES DR. ORTIZ ORDER TO GET CONSENT FOR IMPLANTED DEFIBRILLATOR. NOTED AND CARRIED OUT. CONSENT WAS SIGN BY THE PATIENT AND ATTACH TO CHART DR. ORTIZ IS AWARE.
[2020-09-11 18:00] VITALS: BP 102/59
--- NOTE | 2020-09-11 19:05 | NUR ---
title attorney opening notes received patient in bed awake alert and oriented x4 , respirations even and unlabored with equal rise and fall, on survey methodologist sr 71. right fa #22g intact and patent no redness, no infiltration, oriented to staff and call light and kept within reach , denies any pain or discomfort at this time, safety and fall precautions maintained, all needs attended will continue to monitor.
--- NOTE | 2020-09-11 19:20 | NUR ---
TELE/RN CLOSING NOTES PATIENT IS ON BED. ALERT AND ORIENTED X 4. PATIENT DENIES PAIN AT THIS TIME. PATIENT IN NO APPARENT RESPIRATORY DISTRESS NOTED. IV ACCESS AT RIGHT FOREARM # 22G PATENT AND INTACT. TELE MONITOR IN PLACE READING SINUS RHYTHM 66 BPM. SEEN AND EXAMINED BY BY MD WITH ORDERS MADE AND CARRIED OUT. ALL DUE MEDICATION WAS GIVEN. SAFETY PRECAUTIONS WAS IN PLACE. BED IN LOWEST POSITION AND LOCKED. SIDERAILS UP X2. CALL LIGHT WITHIN REACH. WILL ENDORSED TO BRAIDING MACHINE TENDER FOR MELLO.
--- NOTE | 2020-09-11 19:42 | NUR ---
rn surgical pcu notes patient complained of generalized pain states "08/10, can i have a norco?" vs assessed wnl. norco prn given as ordered, will continue to monitor for effectiveness.
[2020-09-11 20:00] VITALS: BP 108/67
--- NOTE | 2020-09-11 20:55 | NUR ---
rn hematology notes patient states she feels anxious requested for ativan prn ativan given as ordered, ativan 0.25mk/0.5mg given as ordered, the rest witnessed and wasted with juanjose orantes.
[2020-09-11] MEDS: GABAPENTIN 300 MG CAPSULE PO SCH (21:21)
--- NOTE | 2020-09-11 21:22 | NUR ---
antique furniture reproducer notes patient states she was feeling nausea related to her anxiety. patient requested for nausea medication, zofran prn offered pt agreed and given will continue to monitor for effectiveness.
--- NOTE | 2020-09-11 22:16 | NUR ---
AIRPORT OPERATIONS SPECIALIST NOTES RECEIVED CALL FROM DANIEL VAIL WITH NEW ORDER FOR NPO AT MIDNIGHT FOR ICD PLACEMENT IN AM 09/12/20 NO SCHEDULED TIME OF NOW.
--- NOTE | 2020-09-11 22:27 | NUR ---
GLASS PULVERIZER EQUIPMENT OPERATOR NOTES PATIENT COMPLAINED OF PAIN 8/10 GENERALIZED PAIN REQUESTING FOR MORPHINE PRN GIVEN ORDERED 0.5ML GIVEN, REST WITNESSED AND WASTED WITH RN. VS WNL WILL CONTINUE TO MONITOR.
[2020-09-12] VITALS (7 sets, daily range): BP systolic 101–141; BP diastolic 59–72
[2020-09-12] MEDS: LORAZEPAM INJ 2 MG/ML VIAL IV PRN ×2 (06:14→16:06)
--- NOTE | 2020-09-12 06:19 | NUR ---
gas burner operator notes patient states she feels anxious requested for ativan prn ativan given as ordered, ativan 0.25ml/0.5mg given as ordered, the rest witnessed and wasted with juanjose orantes.
[2020-09-12 06:24] LABS: CALCIUM, SERUM 9.1 mg/dL (8.5-10.1); CREATININE 1.1 mg/dL (0.6-1.3); POTASSIUM 5.7 mmol/L (3.5-5.1)
--- NOTE | 2020-09-12 06:27 | NUR ---
rn cvicu closing notes patient in bed awake alert and oriented x4 , respirations even and unlabored with equal rise and fall, on secured entrance monitor sr 65. right fa #22g intact and patent no redness, no infiltration, call light kept within reach , denies any pain or discomfort at this time, safety and fall precautions maintained, all needs attended will continue to monitor and endorse to next shift, maintained npo since midnight for procedure as ordered.
[2020-09-12 07:00] LABS: BASOPHILS # (AUTO) 0.1 /CMM (0.0-0.2); BASOPHILS % (AUTO) 1.6 % (0.0-2.0); EOSINOPHILS % (AUTO) 7.9 % (0.0-6.0); HEMATOCRIT 41 % (33-45); HEMOGLOBIN 13.1 g/dL (11.5-14.8); LYMPHOCYTES # (AUTO) 1.3 /CMM (0.8-4.8); LYMPHOCYTES % (AUTO) 21.7 % (20.0-44.0); MEAN CORPUSCULAR HGB CONC 32 g/dl (31.0-36.0); MEAN CORPUSCULAR VOLUME 98 fL (82-100); MONOCYTES # (AUTO) 0.9 /CMM (0.1-1.30); MONOCYTES % (AUTO) 14.9 % (2.0-12.0); NEUTROPHILS # (AUTO) 3.2 /CMM (1.8-8.9); NEUTROPHILS % (AUTO) 53.9 % (43.0-81.0); PLATELET COUNT (AUTO) 454 /CMM (150-450); RED BLOOD CELL COUNT(AUTO) 4.14 MIL/uL (4.0-5.2); WHITE BLOOD COUNT (AUTO) 5.9 K/uL (4.3-11.0)
--- NOTE | 2020-09-12 07:55 | NUR ---
RN OPENING NOTE Patient is resting in bed, A/O x4, showing no signs of acute distress or SOB, stable on RA. Tele monitor SR70s. Patient denies any pain or discomfort at this time. Iv line in the RFA#22g is clean and intact flushing well. Bed is in lowest position, side rails x2 in upright position, call light is within reach, fall safety and aspiration precautions enforced. Will continue with plan of care.
[2020-09-12] MEDS: CARVEDILOL 6.25 MG TABLET PO SCH ×2 (09:00→21:00)
[2020-09-12] MEDS: FUROSEMIDE 40 MG TABLET PO SCH (09:00)
[2020-09-12] MEDS ORDERED: POTASSIUM CHLORIDE 20 MEQ TAB.PRT.SR PO SCH (09:00)
[2020-09-12] MEDS: ENOXAPARIN SODIUM 40 MG/0.4 ML DISP.SYRIN SQ SCH (09:00)
[2020-09-12] MEDS: LISINOPRIL (20MG) 20 MG TABLET PO SCH (09:00)
[2020-09-12] MEDS: ASPIRIN EC 81 MG TABLET.DR PO SCH (09:00)
[2020-09-12] MEDS ORDERED: SPIRONOLACTONE 25 MG TABLET PO SCH (09:00)
--- NOTE | 2020-09-12 09:15 | NUR ---
RN NOTE Patient is scheduled for surgery at 1100. Per Dr. Hayden: to address potassium level of 5.7 prior to surgery. Notified Dr. Caraballo and received order T.O. order to check blood sugar level and if >200, then give 5 units regular insulin. Blood sugar level is 73. Manual BP is 105/60. Notified MD and received order for sodium bicarb 1 amp IVP ONE TIME. Order repeated back and will carry out. Pharmacy aware. Charge nurse aware.
[2020-09-12] MEDS ORDERED: SODIUM BICARBONATE SYR 50 MEQ/50 ML DISP.SYRIN IV ONE (09:30)
--- NOTE | 2020-09-12 10:34 | NUR ---
RN NOTE Per Dr. Caraballo to DC soidum bicarb and start keyaxelate 30G PO.
[2020-09-12] MEDS ORDERED: SODIUM POLYSTYRENE SULFONATE 15 G/60 ML BOTTLE PO ONE (11:00)
[2020-09-12] MEDS: MORPHINE SULFATE INJ 2 MG/ML DISP.SYRIN IV PRN ×2 (13:41→22:35)
--- NOTE | 2020-09-12 18:37 | NUR ---
RN CLOSING NOTE Patient is resting in bed, A/O x4, showing no signs of acute distress or SOB, stable on RA. Tele monitor SR70s. Iv line in the RFA#22g is clean and intact flushing well. All patient needs met, all due medications given, patient kept clean and dry throughout shift. Bed is in lowest position, side rails x2 in upright position, call light is within reach, fall safety and aspiration precautions enforced. Will endorse to sewer pipe layer helper.
--- NOTE | 2020-09-12 19:29 | NUR ---
RN OPENING NOTE: Patient in bed sleeping comfortably. Patient on telemetry monitoring, sinus rhythm. Patient on room air, breathing is unlabored and equal, no SOB or acute respiratory distress noted. Noted IV access on right forearm 22 gauge. Patent, dressing dry and intact, no redness, or infiltration. Safety precaution is in place, bed is in the lowest level, bed is locked, side rails x2 are up, and call light is within reach. Will continue to monitor.
[2020-09-12] MEDS: HYDROCODONE/APAP 5/325MG TABLET PO PRN (20:03)
--- NOTE | 2020-09-12 20:03 | NUR ---
Patient complains of lower back pain. Patient rates pain 7 on a 0-10 numerical scale. Administered PRN [place] per MD order. Will continue to monitor.
[2020-09-12] MEDS: GABAPENTIN 300 MG CAPSULE PO SCH (21:04)
--- NOTE | 2020-09-12 21:06 | NUR ---
Reassessed patient pain. Patient rates pain 5 on a 0-10 numerical scale and verbalized Vina effective. Will continue to monitor.
--- NOTE | 2020-09-12 22:35 | NUR ---
Patient complains of lower back pain. Patient describes pain as aching and rates pain 8 on a 0-10 numerical scale. Administered PRN Morphine per MD order. Will continue to monitor.
[2020-09-13] VITALS (12 sets, daily range): BP systolic 93–139; BP diastolic 52–81
[2020-09-13] MEDS: LORAZEPAM INJ 2 MG/ML VIAL IV PRN ×3 (01:17→16:57)
--- NOTE | 2020-09-13 01:17 | NUR ---
Patient is anxious and crying. Administered PRN Ativan per MD order. Will continue to monitor.
[2020-09-13 06:03] LABS: BASOPHILS # (AUTO) 0.1 /CMM (0.0-0.2); BASOPHILS % (AUTO) 1.7 % (0.0-2.0); EOSINOPHILS % (AUTO) 6.9 % (0.0-6.0); HEMATOCRIT 39 % (33-45); HEMOGLOBIN 12.9 g/dL (11.5-14.8); LYMPHOCYTES # (AUTO) 1.1 /CMM (0.8-4.8); LYMPHOCYTES % (AUTO) 22.3 % (20.0-44.0); MEAN CORPUSCULAR HGB CONC 33 g/dl (31.0-36.0); MEAN CORPUSCULAR VOLUME 96 fL (82-100); MONOCYTES # (AUTO) 0.7 /CMM (0.1-1.30); MONOCYTES % (AUTO) 14.7 % (2.0-12.0); NEUTROPHILS # (AUTO) 2.6 /CMM (1.8-8.9); NEUTROPHILS % (AUTO) 54.4 % (43.0-81.0); PLATELET COUNT (AUTO) 423 /CMM (150-450); RED BLOOD CELL COUNT(AUTO) 4.06 MIL/uL (4.0-5.2); WHITE BLOOD COUNT (AUTO) 4.7 K/uL (4.3-11.0)
--- NOTE | 2020-09-13 06:48 | NUR ---
RN CLOSING NOTE: Patient awake in bed, resting comfortably. Patient shows no signs of SOB or acute respiratory distress. All needs were taken care of. Safety precaution is maintained, bed is in the lowest level, wheels are locked, alarm is on, side rails x2 are up, and call light is within reach. Will endorse to next shift.
[2020-09-13 07:49] LABS: CALCIUM, SERUM 9.1 mg/dL (8.5-10.1); MAGNESIUM 2.3 mg/dL (1.8-2.4); PHOSPHORUS 5.3 mg/dL (2.5-4.9); POTASSIUM 5.2 mmol/L (3.5-5.1)
--- NOTE | 2020-09-13 08:00 | NUR ---
tele layer out plate glass: initial assessment received pt in bed awake, a/ox4. no c/o pain, chest pain, or sob at this time. remains npo, pt for icd placement in the morning. pt verbalized understanding. instructed to call for assistance. will continue to monitor.
--- NOTE | 2020-09-13 08:22 | NUR ---
tele yardage caller: notes dr. alvarado notified re: potassium level 5.2, spoke to him over the phone, stated, "that's fine." no new order receive.
[2020-09-13] MEDS: FUROSEMIDE 40 MG TABLET PO SCH (08:59)
[2020-09-13] MEDS: LISINOPRIL (20MG) 20 MG TABLET PO SCH (08:59)
[2020-09-13] MEDS: CARVEDILOL 6.25 MG TABLET PO SCH ×2 (08:59→20:52)
[2020-09-13] MEDS: ASPIRIN EC 81 MG TABLET.DR PO SCH (08:59)
[2020-09-13] MEDS ORDERED: FUROSEMIDE 20 MG/2 ML VIAL IV ONE (09:00)
[2020-09-13] MEDS: ENOXAPARIN SODIUM 40 MG/0.4 ML DISP.SYRIN SQ SCH (09:00)
--- NOTE | 2020-09-13 09:20 | NUR ---
tele sewer line repairer: notes pt c/o being anxious m/b crying and irritable. pt requesting for ativan. ativan 0.5mg ivp given by rn. instructed to call for assistance.
--- NOTE | 2020-09-13 09:50 | NUR ---
tele draw furnace tender: notes pt dozing on and off. remains npo. call light within reach. will continue to monitor.
--- NOTE | 2020-09-13 10:10 | NUR ---
tele director wholesale: notes pt was picked up by o.r. team for icd placement via bed at this time.
[2020-09-13] MEDS ORDERED: FENTANYL PF 100MCG/2ML AMPUL ONE (10:31)
[2020-09-13] MEDS ORDERED: LIDOCAINE 1% INJ 50 ML MDV IJ ONE (10:32)
[2020-09-13] MEDS ORDERED: IOHEXOL 240MG/ML 0 ML IV ONE (10:32)
--- NOTE | 2020-09-13 12:05 | NUR ---
tele research program assistant: notes received pt from recovery room via bed, pt is awake, and a/ox4. s/p icd placement to left upper chest wall with dermabond dressing in place. no bleeding noted. no c/o pain, feels great and wants to go home. o.r. nurse went to get a sling in o.r. vss, afebrile. instructed to call for assistance. will continue to monitor.
--- NOTE | 2020-09-13 12:10 | NUR ---
tele maintenance shop laborer: notes o.r. nurse applied sling to left upper ext. will continue to monitor.
[2020-09-13] MEDS: HYDROCODONE/APAP 5/325MG TABLET PO PRN ×2 (13:13→20:52)
--- NOTE | 2020-09-13 13:13 | NUR ---
tele trauma program manager: notes c/o 05/10 left arm pain. sling remains in place. medicated with norco 5/325mg po as ordered. pt request for dilaudid, saying morphine doesn't help her. left message to dr. hidalgo.
--- NOTE | 2020-09-13 14:13 | NUR ---
tele shirt hemmer: notes pt still hurting as stated, really prefers dilaudid. informed her that dr. hidalgo was notified and waiting for his call. offered morphine, but pt still refuses. will continue to monitor.
--- NOTE | 2020-09-13 14:20 | NUR ---
tele supervisor press room: notes dr. hidalgo called back and no on dilaudid, pt made aware. pt will call if she needs the morphine.
[2020-09-13] MEDS: MORPHINE SULFATE INJ 2 MG/ML DISP.SYRIN IV PRN ×3 (14:25→23:54)
--- NOTE | 2020-09-13 14:25 | NUR ---
tele time checker: notes pt change her mind and request for morphine due to 9/10 left arm pain. sling remains in place, arm elevated with pillow. morphine 1mg ivp given by rn. will continue to monitor. instructed to call for assistance. will continue to monitor.
--- NOTE | 2020-09-13 14:55 | NUR ---
tele fleecer: notes pt on the phone and crying, verbalized some relief but still with discomfort. will continue to monitor.
--- NOTE | 2020-09-13 15:40 | NUR ---
tele reforestation worker: notes pt sounds asleep at this time. no distress noted. will continue to monitor.
--- NOTE | 2020-09-13 17:35 | NUR ---
tele cable technician: notes report given to ernst (rn) for continuity of care.
--- NOTE | 2020-09-13 19:00 | NUR ---
HOUSEHOLD CHORES CLOSING NOTES PT AWAKE IN BED AT THIS. PT REMAINED STABLE THROUGHOUT SHIFT. PT KEPT CLEAN AND DRY. ALL CARE, NEEDS, MEDICATION AND TREATMENT ADMINISTERED ANTICIPATED PER ORDER. PAIN MANAGEMENT ADMINISTERED. SAFETY PRECAUTION IN PLACE AND MAINTAINED AT ALL TIMES. BED IN LOWEST LOCKED POSITION, HOB ELEVATED, SIDE RAILS UP X 2, CALL LIGHT WITHIN REACH. WILL ENDORSE TO SPRING CRATER NURSE FOR MELLO
--- NOTE | 2020-09-13 19:01 | NUR ---
PT C/O OF ACHING, THROBBING LEFT ARM PAIN OF 10/10. VS WNL. PER PATIENT REQUEST, MORPHINE SULFATE 1MG IV Q4HR PRN FOR SEVERE PAIN WAS ADMINISTERED AT THIS TIME PER ORDER, WILL CONTINUE TO MONITOR
--- NOTE | 2020-09-13 19:48 | NUR ---
MOP HANDLE ASSEMBLER NOTES PATIENT IN BED, AWAKE, ALERT AND ORIENTED X 4. BREATHING EVEN AND UNLABORED ON ROOM AIR. SHOWS NO SIGNS OF ACUTE RESPIRATORY DISTRESS, NO ACUTE PAIN. S/P ICD PLACEMENT 09/13 WITH . TELE MONITOR SR. IV ON RFA 22G SL AND L HAND 22SL. SHOWS NO SIGNS OF INFILTRATION, NO REDNESS. SAFETY PRECAUTION IN PLACE. BED IN LOWEST POSITION, LOCKED, AND CALL LIGHT KEPT WITHIN REACH. WILL CONTINUE TO MONITOR.
--- NOTE | 2020-09-13 20:52 | NUR ---
MATE SHIP NOTES PATIENT COMPLAINING OF PAIN 04/10. GIVEN NORCO AT 2051. VITAL SIGNS WNL. WILL CONTINUE TO MONITOR.
[2020-09-13] MEDS: GABAPENTIN 300 MG CAPSULE PO SCH (21:04)
--- NOTE | 2020-09-13 23:54 | NUR ---
CHALK MACHINE OPERATOR NOTES PATIENT COMPLAINING OF PAIN 07/11. MORPHINE GIVEN AT 2354. VITAL SIGNS WNL. WILL CONTINUE TO MONITOR.
[2020-09-14] VITALS: BP 116/68
[2020-09-14] MEDS: LORAZEPAM INJ 2 MG/ML VIAL IV PRN (01:30)
--- NOTE | 2020-09-14 01:30 | NUR ---
HEAD CHARGER NOTES PATIENT CRYING AND APPEARED ANXIOUS. REQUESTED FOR ATIVAN. GIVEN PRN ATIVAN AT 0130. WILL CONTINUE TO MONITOR.
[2020-09-14 04:00] VITALS: BP 122/65
[2020-09-14] MEDS: MORPHINE SULFATE INJ 2 MG/ML DISP.SYRIN IV PRN ×2 (04:19→08:10)
--- NOTE | 2020-09-14 04:19 | NUR ---
MANAGER SECURITY AND SAFETY NOTES PATIENT COMPLAINING OF PAIN 07/11. GIVEN MORPHINE AT 0419. VITAL SIGNS WNL. WILL CONTINUE TO MONITOR.
[2020-09-14 06:57] LABS: CALCIUM, SERUM 9.3 mg/dL (8.5-10.1); CREATININE 0.9 mg/dL (0.6-1.3); POTASSIUM 4.8 mmol/L (3.5-5.1)
--- NOTE | 2020-09-14 07:07 | NUR ---
MUSIC EDUCATION DIRECTOR NOTES PATIENT IN BED, ASLEEP, ALERT AND ORIENTED X 4. BREATHING EVEN AND UNLABORED ON ROOM AIR. SHOWS NO SIGNS OF ACUTE RESPIRATORY DISTRESS, NO ACUTE PAIN. S/P ICD PLACEMENT 09/13 WITH . TELE MONITOR SR. IV ON RFA 22G SL AND L HAND 22SL. SHOWS NO SIGNS OF INFILTRATION, NO REDNESS. ALL DUE MEDICATIONS GIVEN. ALL NEEDS ATTENDED TO. SAFETY PRECAUTIONS IN PLACE. BED IN LOWEST POSITION, LOCKED, AND CALL LIGHT KEPT WITHIN REACH. WILL ENDORSE TO ONCOMING NURSE.
[2020-09-14 08:00] VITALS: BP 132/71
--- NOTE | 2020-09-14 08:00 | NUR ---
RECEIVED PT. THIS AM,CONSTANTLY CALLING FOR PAIN MEDS.REASSURED.
[2020-09-14] MEDS: HYDROCODONE/APAP 5/325MG TABLET PO PRN ×2 (09:40→13:21)
[2020-09-14] MEDS: ENOXAPARIN SODIUM 40 MG/0.4 ML DISP.SYRIN SQ SCH (09:46)
[2020-09-14] MEDS: ASPIRIN EC 81 MG TABLET.DR PO SCH (09:47)
[2020-09-14] MEDS: FUROSEMIDE 40 MG TABLET PO SCH (09:48)
[2020-09-14] MEDS: CARVEDILOL 6.25 MG TABLET PO SCH (09:48)
--- NOTE | 2020-09-14 12:00 | NUR ---
MD IN,DC ORDER GIVEN.
[2020-09-14 12:37] VITALS: BP 108/55
[2020-09-14] MEDS: LISINOPRIL (20MG) 20 MG TABLET PO SCH (12:37)
--- NOTE | 2020-09-14 15:05 | NUR ---
ALL PAPERS SIGNED INCLUDING BELONGING SHEET. HEP LOCKS OUT.GIVEN CD'S.INSTRUCTED TO MAKE APPT. WITH DR. ALTAMIRANO AND HER PMD.VERBALIZED UNDERSTANDING OF ALL INSTRUCTIONS.TAKEN TO LOBBY VIA W/C BY SHIRIN.ANNMARIEFRIEND MEETING HER IN FRONT LOBBY.
[2020-09-18] MEDS ORDERED: FLUO40CA8 PO (11:14)
[2020-09-18] MEDS ORDERED: FURO-144 PO (11:14)
[2020-09-18] MEDS ORDERED: LORA-259 PO (11:14)
== END 2020-09-14 15:00 | disposition home or self-care (01) | DRG 161 ==
LOC: ER 02:43 → TELE2 04:57 → TELE 09-08 00:01 → MED 09-14 12:04
PROVIDERS: ADMIT Family Medicine
PROC: 0JH608Z Insertion of Defibrillator Generator into Chest Subcutaneous Tissue and Fascia, Open Approach (ICD-10-PCS; principal; 2020-09-13)
PROC: 02HK3KZ Insertion of Defibrillator Lead into Right Ventricle, Percutaneous Approach (ICD-10-PCS; 2020-09-13)
DX: I11.0 Hypertensive heart disease with heart failure (principal); I21.A1 Myocardial infarction type 2; I50.23 Acute on chronic systolic (congestive) heart failure; N17.0 Acute kidney failure with tubular necrosis; I25.2 Old myocardial infarction; J44.9 Chronic obstructive pulmonary disease, unspecified; E78.5 Hyperlipidemia, unspecified; E87.2 Acidosis; E16.2 Hypoglycemia, unspecified; E87.5 Hyperkalemia; F17.210 Nicotine dependence, cigarettes, uncomplicated; F32.9 Major depressive disorder, single episode, unspecified; K21.9 Gastro-esophageal reflux disease without esophagitis; Z59.0 Homelessness; Z79.82 Long term (current) use of aspirin; Z90.710 Acquired absence of both cervix and uterus; M54.30 Sciatica, unspecified side; I27.20 Pulmonary hypertension, unspecified; Z91.19 Patient's noncompliance with other medical treatment and regimen; I42.8 Other cardiomyopathies
CPT/HCPCS: 36415; 71045-TC; 75574; 80048-TC; 80053-TC; 82247-TC; 82248-TC; 82962-TC; 83605-TC; 83735-TC; 83880; 84100-TC; 84484-TC; 85025-TC; 85730-TC; 86850-TC; 87040-TC; 87081-TC; A4565; C1722; G0378; J0690; J1650; J1940; J2060; J2270; J2405; J2704; J3010; J3490; J7050; Q9966; Q9967; U0003

== ENCOUNTER 2020-09-17 06:20 | Inpatient (IN) | payer MEDICAID ==
[~2020-09-17] VITALS: Ht 152.4 cm; Wt 54.9 kg
[~2020-09-17 06:20] MED LIST changes: +ASPI-1169 PO; +CARV6.252 PO; +FLUO10CA26 PO; +GABA-532 PO; +SPIR25TA6 PO
--- NOTE | 2020-09-17 06:27 | NUR ---
PT AAOX4. AMBULATORY WITH STEADY GAIT. BIBSELF C/O MIDSTERNAL CP RADIATING TO NECK AND UPPER BACK. PT PLACED ON STOCKROOM HELPER AND PULSE OX. NO ACUTE DISTRESS NOTED. AWAITING FOR MD FOR EVAL AND ORDERS. WILL COTINUE TO MONITOR. VSS.
[2020-09-17] MEDS ORDERED: NITROGLYCERIN 0.4 MG/TAB BOTTLE ONE (06:51)
[2020-09-17] MEDS ORDERED: ASPIRIN 325 MG TABLET ONE (06:52)
--- NOTE | 2020-09-17 06:58 | NUR ---
MD AWARE OF BP BEING 122/76, WAS TOLD TO HOLD NITRO SL.
[2020-09-17] MEDS ORDERED: ASPIRIN 325 MG TABLET PO ONE (07:00)
[2020-09-17] MEDS ORDERED: NITROGLYCERIN 0.4 MG/TAB BOTTLE SL ONE (07:00)
--- NOTE | 2020-09-17 07:15 | NUR ---
CHEMICAL PROCESS PROJECT ENGINEER AT BEDSIDE FOR LABS
--- NOTE | 2020-09-17 07:19 | NUR ---
RADIOLOGY AT BEDSIDE FOR XRAY
[2020-09-17 07:28] LABS: BASOPHILS # (AUTO) 0.1 /CMM (0.0-0.2); BASOPHILS % (AUTO) 1.6 % (0.0-2.0); EOSINOPHILS % (AUTO) 8.6 % (0.0-6.0); HEMATOCRIT 38 % (33-45); HEMOGLOBIN 12.2 g/dL (11.5-14.8); LYMPHOCYTES # (AUTO) 0.9 /CMM (0.8-4.8); LYMPHOCYTES % (AUTO) 11.1 % (20.0-44.0); MEAN CORPUSCULAR HGB CONC 32 g/dl (31.0-36.0); MEAN CORPUSCULAR VOLUME 97 fL (82-100); MONOCYTES # (AUTO) 0.9 /CMM (0.1-1.30); MONOCYTES % (AUTO) 10.9 % (2.0-12.0); NEUTROPHILS # (AUTO) 5.4 /CMM (1.8-8.9); NEUTROPHILS % (AUTO) 67.8 % (43.0-81.0); PLATELET COUNT (AUTO) 332 /CMM (150-450); RED BLOOD CELL COUNT(AUTO) 3.89 MIL/uL (4.0-5.2); WHITE BLOOD COUNT (AUTO) 7.9 K/uL (4.3-11.0)
[2020-09-17] MEDS ORDERED: ONDANSETRON HCL/PF 4 MG/2 ML VIAL ONE (07:34)
[2020-09-17 07:47] LABS: CALCIUM, SERUM 9.2 mg/dL (8.5-10.1); CREATININE 0.9 mg/dL (0.6-1.3); POTASSIUM 4.1 mmol/L (3.5-5.1)
[2020-09-17] MEDS ORDERED: ONDANSETRON HCL/PF - ER 4 MG/2 ML VIAL IV ONE (08:00)
[2020-09-17] MEDS ORDERED: ACETAMINOPHEN 325 MG TABLET ONE (08:29)
[2020-09-17] MEDS ORDERED: ACETAMINOPHEN 325 MG TABLET PO ONE (08:30)
--- NOTE | 2020-09-17 08:53 | NUR ---
MOVE SHEET SUBMITTED AND CALLED FOR A TELE BED.
--- NOTE | 2020-09-17 09:59 | NUR ---
BED 324-1
--- NOTE | 2020-09-17 10:15 | NUR ---
[facility] DR. CLARITA CABALLERO ON-CALL. WAITING FOR CALL BACK. PRIMARY NURSE AWARE.
--- NOTE | 2020-09-17 10:16 | NUR ---
REPORT GIVEN TO JOSE C AT [facility] FOR MELLO
[2020-09-17] MEDS ORDERED: HALOPERIDOL LACTATE INJ 5 MG/ML VIAL ONE (10:25)
[2020-09-17] MEDS ORDERED: HALOPERIDOL LACTATE INJ 5 MG/ML VIAL IV ONE (10:30)
[2020-09-17 10:50] VITALS: BP 123/73
--- NOTE | 2020-09-17 10:50 | NUR ---
tele watershed coordinator: admission admitted this 64 years old female pt from [facility] with dx: chf with chief complaint of nausea, vomiting, and chest pain. pt dozing on and off, but easily arousable. place pt on tele. vss, afebrile. oriented to room and surroundings. kept comfortable. call light within reach. will continue to monitor. dr. prieto notified of admission. awaiting orders.
--- NOTE | 2020-09-17 10:59 | NUR ---
pt transferred to [facility] endorsed to luke tan by bedside. vss
[2020-09-17 12:00] VITALS: BP 112/51
[2020-09-17] MEDS ORDERED: Z GUARD REMEDY 2 OZ OINT TP PRN (12:00)
[2020-09-17] MEDS ORDERED: ACETAMINOPHEN 325 MG TABLET PO PRN (12:00)
[2020-09-17] MEDS ORDERED: MAG HYDROX/AL HYDROX/SIMETH 30 ML UDC PO PRN (12:00)
[2020-09-17] MEDS ORDERED: MAGNESIUM HYDROXIDE 30 ML UDC PO PRN (12:00)
[2020-09-17] MEDS ORDERED: ONDANSETRON HCL/PF 4 MG/2 ML VIAL IVP PRN (12:00)
[2020-09-17 12:09] LABS: CHOLESTEROL 155 mg/dL (<200); HDL CHOLESTEROL 57 mg/dL (40-60); LDL 84 mg/dL (0-99); TRIGLYCERIDES 69 mg/dL (30-150)
[2020-09-17 12:30] VITALS: BP 119/63
--- NOTE | 2020-09-17 12:30 | NUR ---
tele heating and cooling systems engineer: notes pt dozing and off, easily arousable. in no apparent distress noted. will continue to monitor.
[2020-09-17] MEDS: FUROSEMIDE 40 MG/4 ML VIAL IV SCH ×2 (12:34→17:17)
[2020-09-17] MEDS: ENOXAPARIN SODIUM 40 MG/0.4 ML DISP.SYRIN SQ SCH (12:38)
[2020-09-17] MEDS: POTASSIUM CHLORIDE 10 MEQ TABLET.SA PO SCH (12:38)
--- NOTE | 2020-09-17 14:00 | NUR ---
tele felled seam operator: notes sounds asleep. no distress noted. will continue to monitor.
--- NOTE | 2020-09-17 15:10 | NUR ---
tele cold roll operator: notes st andrae to check pt's icd and report place in chart.
[2020-09-17 16:00] VITALS: BP 118/61
[2020-09-17] MEDS: HYDROCODONE/APAP 5/325MG TABLET PO PRN (17:23)
--- NOTE | 2020-09-17 17:23 | NUR ---
tele software analyst: notes pt awaken, c/o 05/10 left (icd site), medicated with norco 1 tab po as ordered. instructed to call for assistance. will continue to monitor.
--- NOTE | 2020-09-17 18:23 | NUR ---
m/s dough molder: notes pt sounds asleep. no distress noted. needs attended. will continue to monitor.
--- NOTE | 2020-09-17 19:05 | NUR ---
tele account development representative: notes bedside report given to junior (juanjose) for continuity of care.
--- NOTE | 2020-09-17 19:50 | NUR ---
MICROSTRATEGY DEVELOPER NOTE: PATIENT RESTING IN BED, NO ACUTE DISTRESS NOTED. BREATHING EVEN AND UNLABORED, NO SOB NOTED. IV TO RAC AND LEFT HAND IN PLACE. BED LOCKED AND IN LOWEST POSITION, CALL LIGHT IN REACH. WILL CONTINUE TO MONITOR.
[2020-09-17 20:00] VITALS: BP 105/63
[2020-09-17] MEDS: CARVEDILOL 6.25 MG TABLET PO SCH (21:00)
[2020-09-17] MEDS: LORAZEPAM 0.5 MG TABLET PO PRN (21:51)
--- NOTE | 2020-09-17 21:55 | NUR ---
GRILL CHEF NOTE: PATIENT COMPLAINS OF ANXIETY AND REQUESTING FOR MEDICATION, ATIVAN 1MG ORAL GIVEN PER MD ORDER. WILL CONTINUE TO MONITOR.
[2020-09-17] MEDS ORDERED: GABAPENTIN 300 MG CAPSULE PO SCH (22:00)
[2020-09-18] VITALS: BP 98/64
[2020-09-18 04:00] VITALS: BP 110/61
[2020-09-18] MEDS: HYDROCODONE/APAP 5/325MG TABLET PO PRN ×2 (04:30→08:43)
--- NOTE | 2020-09-18 04:30 | NUR ---
CHAIN SALES CONSULTANT NOTE: PATIENT COMPLAINS OF PAIN TO BACK 05/10, NORCO 5/325MG 1 TAB ORAL GIVEN PER MD ORDER. WILL CONTINUE TO MONITOR.
--- NOTE | 2020-09-18 06:20 | NUR ---
TELEPHONE DIAPHRAGM ASSEMBLER NOTE: PATIENT RESTING IN BED, NO ACUTE DISTRESS NOTED. BREATHING EVEN AND UNLABORED, NO SOB NOTED. IV TO RAC AND LEFT HAND IN PLACE. BED LOCKED AND IN LOWEST POSITION, CALL LIGHT IN REACH. WILL ENDORSE TO DAY NURSE TO CONTINUE WITH PLAN OF CARE.
--- NOTE | 2020-09-18 07:30 | NUR ---
CHIEF TALENT OFFICER NOTES PT IN BED, AWAKE, ALERT AND ORIENTED, EATING BREAKFAST, NO SIGN OF PAIN OR DISTRESS, BREATHING PATTERN NORMAL, CALL LIGHT WITHIN REACH, KEPT AUTOMOTIVE FUEL SYSTEMS CONVERTER BED, NEEDS ATTENDED.
[2020-09-18 08:00] VITALS: BP 104/57
[2020-09-18] MEDS: POTASSIUM CHLORIDE 10 MEQ TABLET.SA PO SCH (08:41)
[2020-09-18] MEDS: FUROSEMIDE 40 MG/4 ML VIAL IV SCH (08:42)
[2020-09-18] MEDS: ENOXAPARIN SODIUM 40 MG/0.4 ML DISP.SYRIN SQ SCH (08:46)
[2020-09-18] MEDS: CARVEDILOL 6.25 MG TABLET PO SCH (08:51)
[2020-09-18 08:52] VITALS: BP 104/57
[2020-09-18] MEDS ORDERED: ASPIRIN EC 81 MG TABLET.DR PO SCH (09:00)
[2020-09-18] MEDS ORDERED: FLUOXETINE HCL 20 MG CAPSULE PO SCH (09:00)
[2020-09-18] MEDS ORDERED: LISINOPRIL (20MG) 20 MG TABLET PO SCH (09:00)
[2020-09-18] MEDS ORDERED: SPIRONOLACTONE 25 MG TABLET PO SCH (09:00)
[2020-09-18] MEDS ORDERED: FLUO40CA8 PO (11:14)
[2020-09-18] MEDS ORDERED: LORA-259 PO (11:14)
[2020-09-18] MEDS ORDERED: FURO-144 PO (11:14)
[2020-09-18] MEDS: LORAZEPAM 0.5 MG TABLET PO PRN (12:41)
--- NOTE | 2020-09-18 13:30 | NUR ---
POOL NURSE NOTES PT IN BED, AWAKE, ALERT AND ORIENTED, NO COMPLAINT AT THIS TIME, ON ROOM AIR, NOT IN DISTRESS, WALKING INSIDE HER ROOM WITH STEADY GIT, SEEN BY DR. LYONS, DISCHARGE ORDER GIVEN, DISCHARGE AND MEDICATION INSTRUCTIONS PROVIDED TO PT, PT TO FOLLOW UP WITH HIS PCP AND DR. ALTAMIRANO, VERBALIZED UNDERSTANDING, BELONGINGS ACCOUNTED FOR, ASSISTED TO HOSPITAL LOBBY VIA WHEELCHAIR BY EVENT HOST, PICKED UP BY A TAXI TO BE TRANSPORTED TO HER HOME, LEFT IN STABLE CONDITION.
== END 2020-09-18 13:30 | disposition home or self-care (01) | DRG 194 ==
LOC: ER 06:23 → TELE 10:01
PROVIDERS: ADMIT Internal Medicine; ATTEND Internal Medicine
DX: I11.0 Hypertensive heart disease with heart failure (principal); I50.23 Acute on chronic systolic (congestive) heart failure; I42.0 Dilated cardiomyopathy; E87.2 Acidosis; I21.A1 Myocardial infarction type 2; J44.9 Chronic obstructive pulmonary disease, unspecified; F32.9 Major depressive disorder, single episode, unspecified; E78.5 Hyperlipidemia, unspecified; M54.30 Sciatica, unspecified side; Z72.0 Tobacco use; Z95.810 Presence of automatic (implantable) cardiac defibrillator; F41.0 Panic disorder [episodic paroxysmal anxiety]; I25.2 Old myocardial infarction; Z79.82 Long term (current) use of aspirin; Z79.899 Other long term (current) drug therapy; Z90.710 Acquired absence of both cervix and uterus
CPT/HCPCS: 36415; 71045-TC; 80048-TC; 80061-TC; 83880; 84484-TC; 85025-TC; C9803; G0378; J1630; J1650; J1940; J2405

== ENCOUNTER 2020-09-21 06:46 | Emergency (ER) | payer MEDICAID ==
[~2020-09-21] VITALS: Ht 152.4 cm; Wt 49.9 kg
[~2020-09-21 06:46] MED LIST changes: -ASPI-1169 PO; -CARV3.12 PO; -FLUO10CA26 PO; -GABA-532 PO; -SPIR25TA6 PO
--- NOTE | 2020-09-21 07:10 | NUR ---
BIB SELF C/O NAUSEA, VOMITING AND SOB SINCE YESTERDAY. HX OF COPD AND CHF. PACEMAKER PLACED 3 DAYS AGO. TO ER BED 7, CHANGED TO HOSP GOWN, HOOKED TO MONITOR, PATIENT'S O2 SAT AT 98% RA. BREATHING EVEN AND UNLABORED.
[2020-09-21 07:41] LABS: BASOPHILS % (AUTO) 0.2 % (0.0-2.0); EOSINOPHILS % (AUTO) 6.9 % (0.0-6.0); HEMATOCRIT 35 % (33-45); HEMOGLOBIN 11.4 g/dL (11.5-14.8); LYMPHOCYTES # (AUTO) 0.9 /CMM (0.8-4.8); MEAN CORPUSCULAR HGB CONC 32 g/dl (31.0-36.0); MEAN CORPUSCULAR VOLUME 97 fL (82-100); MONOCYTES # (AUTO) 0.7 /CMM (0.1-1.30); MONOCYTES % (AUTO) 9.6 % (2.0-12.0); NEUTROPHILS # (AUTO) 5.5 /CMM (1.8-8.9); NEUTROPHILS % (AUTO) 71.3 % (43.0-81.0); PLATELET COUNT (AUTO) 297 /CMM (150-450); RED BLOOD CELL COUNT(AUTO) 3.63 MIL/uL (4.0-5.2); WHITE BLOOD COUNT (AUTO) 7.7 K/uL (4.3-11.0)
[2020-09-21 07:55] LABS: CREATININE 0.8 mg/dL (0.6-1.3); POTASSIUM 4.1 mmol/L (3.5-5.1)
[2020-09-21 08:09] LABS: ALBUMIN 3.6 g/dL (3.4-5.0); BILIRUBIN,DIRECT 0.1 mg/dL (0.0-0.2); BILIRUBIN,TOTAL 0.5 mg/dL (0.2-1.0); TOTAL PROTEIN, SERUM 7.5 g/dL (6.4-8.2)
[2020-09-21] MEDS ORDERED: ONDANSETRON HCL/PF 4 MG/2 ML VIAL ONE (08:09)
--- NOTE | 2020-09-21 08:12 | NUR ---
PATIENT IN BED AWAKE, HOOKED TO MONITOR, VSS. WILL CONTINUE TO MONITOR ACCORDINGLY.
[2020-09-21] MEDS ORDERED: LORAZEPAM INJ 2 MG/ML VIAL ONE (08:15)
[2020-09-21] MEDS ORDERED: FUROSEMIDE 20 MG/2 ML VIAL ONE (08:16)
[2020-09-21] MEDS ORDERED: ONDANSETRON HCL/PF 4 MG/2 ML VIAL IV ONE (08:30)
[2020-09-21] MEDS ORDERED: FUROSEMIDE 20 MG/2 ML VIAL IV ONE (08:30)
[2020-09-21] MEDS ORDERED: LORAZEPAM INJ 2 MG/ML VIAL IV ONE (08:30)
--- NOTE | 2020-09-21 09:27 | NUR ---
IV removed. Catheter intact and site benign. Pressure and 4x4 applied to site. No bleeding noted.
--- NOTE | 2020-09-21 09:34 | NUR ---
PROVIDED W JAGUAR AND ARMAND
--- NOTE | 2020-09-21 09:38 | NUR ---
Patient discharged to home in stable condition. Written and verbal after care instructions given. Patient verbalizes understanding of instruction.
[2020-09-21 09:41] VITALS: BP 137/84
== END 2020-09-21 09:41 | disposition home or self-care (01) ==
LOC: ER 06:56
DX: R06.02 Shortness of breath (principal); R11.2 Nausea with vomiting, unspecified; I11.0 Hypertensive heart disease with heart failure; I50.9 Heart failure, unspecified; J44.9 Chronic obstructive pulmonary disease, unspecified; I25.2 Old myocardial infarction; E78.5 Hyperlipidemia, unspecified; I25.10 Atherosclerotic heart disease of native coronary artery without angina pectoris; F17.200 Nicotine dependence, unspecified, uncomplicated; Z90.49 Acquired absence of other specified parts of digestive tract; Z98.890 Other specified postprocedural states; Z88.2 Allergy status to sulfonamides; Z88.1 Allergy status to other antibiotic agents; Z79.899 Other long term (current) drug therapy; Z79.82 Long term (current) use of aspirin
CPT/HCPCS: 36415; 71045; 80048; 80076; 83880; 84484; 85025; 93005; 96374; 96375; 99285; J1940; J2060; J2405

== ENCOUNTER 2020-09-23 06:35 | Inpatient (IN) | payer MEDICAID ==
[~2020-09-23] VITALS: Ht 152.4 cm; Wt 56.2 kg
--- NOTE | 2020-09-23 06:50 | NUR ---
PATIENT CAME TO ER BED 6 C/O ACD SITE YELLOWISH DRAINAGE. PATIENT RECENTLY HAD BATTERIES REPLACED LAST WEEK. PATIENT IS AAOX4. NO SOB .BREATHING EVENLY AND UNLABORED ON ROOM AIR. CONNECTED TO THE MONITOR.
[2020-09-23] MEDS ORDERED: LORAZEPAM 1 MG TABLET PO ONE ×2 (07:00→10:00)
[2020-09-23] MEDS ORDERED: FUROSEMIDE 20 MG/2 ML VIAL IV ONE (07:00)
[2020-09-23] MEDS ORDERED: ONDANSETRON HCL/PF 4 MG/2 ML VIAL IVP ONE (07:00)
[2020-09-23] MEDS ORDERED: ONDANSETRON HCL/PF 4 MG/2 ML VIAL ONE (07:10)
[2020-09-23] MEDS ORDERED: FUROSEMIDE 20 MG/2 ML VIAL ONE (07:13)
[2020-09-23] MEDS ORDERED: LORAZEPAM 0.5 MG TABLET ONE ×2 (07:13→09:43)
--- NOTE | 2020-09-23 07:13 | NUR ---
LIZID SWABBED, SENT TO LAB.
--- NOTE | 2020-09-23 07:30 | NUR ---
RECEIVED REPORT FROM MAR CASTILLO FOR MELLO. PT IS AAOX4, NOT IN RESPIRATORY DISTRESS, V/S STABLE, KEPT RESTED AND COMFORTABLE. WILL CONTINUE TO MONITOR.
[2020-09-23 07:49] LABS: BASOPHILS # (AUTO) 0.1 /CMM (0.0-0.2); BASOPHILS % (AUTO) 1.5 % (0.0-2.0); EOSINOPHILS % (AUTO) 10.2 % (0.0-6.0); HEMATOCRIT 35 % (33-45); HEMOGLOBIN 11.5 g/dL (11.5-14.8); LYMPHOCYTES # (AUTO) 0.8 /CMM (0.8-4.8); LYMPHOCYTES % (AUTO) 16.6 % (20.0-44.0); MEAN CORPUSCULAR HGB CONC 33 g/dl (31.0-36.0); MEAN CORPUSCULAR VOLUME 96 fL (82-100); MONOCYTES # (AUTO) 0.5 /CMM (0.1-1.30); NEUTROPHILS # (AUTO) 2.9 /CMM (1.8-8.9); NEUTROPHILS % (AUTO) 60.7 % (43.0-81.0); PLATELET COUNT (AUTO) 276 /CMM (150-450); RED BLOOD CELL COUNT(AUTO) 3.65 MIL/uL (4.0-5.2); WHITE BLOOD COUNT (AUTO) 4.8 K/uL (4.3-11.0)
[2020-09-23 07:55] LABS: CALCIUM, SERUM 8.9 mg/dL (8.5-10.1); CREATININE 0.8 mg/dL (0.6-1.3); POTASSIUM 4.2 mmol/L (3.5-5.1)
[2020-09-23] MEDS ORDERED: VANCOMYCIN 1 GM in IV D5W 250 ML IV ONE (08:00)
[2020-09-23] MEDS ORDERED: PIPERACILLIN /TAZOBACTAM 3.375 G in IV D5W 50 ML IV ONE (08:00)
--- NOTE | 2020-09-23 08:00 | NUR ---
CALLED PHARMACY FOR IV ANTIBIOTIC. PT HAS SULFA ALLERGY PHARMACIST AWARE.
--- NOTE | 2020-09-23 08:01 | NUR ---
KIDNEY PULLER AT BEDSIDE FOR XRAY.
[2020-09-23] MEDS ORDERED: FLUO40CA8 PO (08:05)
[2020-09-23] MEDS ORDERED: LORA-259 PO (08:05)
[2020-09-23] MEDS ORDERED: FURO-144 PO (08:05)
[2020-09-23] MEDS ORDERED: CARV6.252 PO (08:05)
[2020-09-23 08:08] LABS: ALBUMIN 3.5 g/dL (3.4-5.0); BILIRUBIN,DIRECT 0.1 mg/dL (0.0-0.2); BILIRUBIN,TOTAL 0.3 mg/dL (0.2-1.0); TOTAL PROTEIN, SERUM 7.2 g/dL (6.4-8.2)
[2020-09-23] MEDS ORDERED: IBUPROFEN 600 MG TABLET ONE (08:25)
[2020-09-23] MEDS ORDERED: IBUPROFEN 600 MG TABLET PO ONE (08:30)
--- NOTE | 2020-09-23 08:35 | NUR ---
AT BEDSIDE FOR EVAL.
[2020-09-23 08:55] LABS: BILIRUBIN,URINE NEGATIVE (NEGATIVE); BLOOD, URINE NEGATIVE Ery/uL (NEGATIVE); COLOR,URINE YELLOW (YELLOW); LEUKOCYTE ESTERASE ,URINE NEGATIVE (NEGATIVE); NITRITE, URINE NEGATIVE (NEGATIVE); PROTEIN,URINE NEGATIVE (NEGATIVE); UGLUCOSE NEGATIVE (NEGATIVE); UROBILINOGEN,URINE 0.2 EU/dL (0.2)
--- NOTE | 2020-09-23 08:55 | NUR ---
CALLED NURSING SUP FOR TELE BED.
[2020-09-23] MEDS ORDERED: ACETAMINOPHEN 325 MG TABLET PO PRN (09:00)
[2020-09-23] MEDS: SPIRONOLACTONE 25 MG TABLET PO SCH (09:00)
[2020-09-23] MEDS ORDERED: Z GUARD REMEDY 2 OZ OINT TP PRN (09:00)
[2020-09-23] MEDS ORDERED: MAGNESIUM HYDROXIDE 30 ML UDC PO PRN (09:00)
[2020-09-23] MEDS ORDERED: LORAZEPAM 1 MG TABLET PO PRN (09:00)
[2020-09-23] MEDS: LISINOPRIL (20MG) 20 MG TABLET PO SCH (09:00)
[2020-09-23] MEDS: FUROSEMIDE 40 MG/4 ML VIAL IV SCH ×2 (09:00→20:06)
[2020-09-23] MEDS: POTASSIUM CHLORIDE 10 MEQ TABLET.SA PO SCH (09:00)
[2020-09-23] MEDS: CARVEDILOL 6.25 MG TABLET PO SCH ×2 (09:00→20:05)
[2020-09-23] MEDS: ASPIRIN EC 81 MG TABLET.DR PO SCH (09:00)
--- NOTE | 2020-09-23 09:57 | NUR ---
room [phone]
[2020-09-23 10:00] VITALS: BP 138/92
--- NOTE | 2020-09-23 10:03 | NUR ---
report given to Catie MANUEL for tammie
--- NOTE | 2020-09-23 10:24 | NUR ---
RECEIVED PATIENT FROM ER NURSE ROLANDO VIA NORA. PATIENT VITALS ARE WITHIN NORMAL LIMIT , AFEBRILE IN ROOM AIR WITH NO SIGNS OF DISTRESS. PATIENT COMPLAINED OF 10/10 PS IN THE LEFT SIDE OF THE CHEST ON THE INFECTION SIDE. DENIED ANY PAIN RADIATING ANYWHERE ELSE. ORIENTED PATIENT TO HER ROOM. TOOK PHOTOS OF PATIENT LEFT CHEST INCISION AND LEFT WRIST BRUISE. SAFETY MEASURES ARE APPLIED BED IS IN LOW AND LOCKED POSITION SIDE RAILS UP X 2. CALL LIGHT WITH REACH. WILL CONTINUE TO MONITOR.
[2020-09-23] MEDS: FLUOXETINE HCL 20 MG CAPSULE PO SCH (10:41)
--- NOTE | 2020-09-23 11:00 | NUR ---
PATIENT NPO WILL BE GOING FOR PROCEDURE TODAY.
[2020-09-23] MEDS: MORPHINE SULFATE INJ 2 MG/ML DISP.SYRIN IV PRN ×2 (12:18→20:09)
[2020-09-23] MEDS: ZOSYN IVPB 3.375 G in IV D5W 50ml IV SCH ×2 (14:23→19:29)
--- NOTE | 2020-09-23 14:55 | NUR ---
PATIENT WENT TO OR VIA GURNEY WITH NO SIGNS OF DISTRESS CONSENT SIGNED AND PRE OP CHECKLIST COMPLETED.
[2020-09-23] MEDS ORDERED: FENTANYL PF 100MCG/2ML AMPUL ONE (15:25)
[2020-09-23] MEDS ORDERED: KETAMINE HCL (500MG/10ML) 50 MG/ML VIAL ONE (15:26)
[2020-09-23] MEDS ORDERED: LIDOCAINE HCL/MPF 1% 30 ML VIAL IJ ONE (15:33)
[2020-09-23] MEDS ORDERED: ETOMIDATE 2 MG/ML VIAL ONE (15:47)
[2020-09-23] MEDS ORDERED: BACITRACIN 50000 UNITS/VIAL ONE (15:51)
[2020-09-23 17:23] VITALS: BP 111/62
--- NOTE | 2020-09-23 17:30 | NUR ---
PATIENT BACK FROM OR VIA GURNEY IN 2 L OF NASAL CANNULA. SLEEPING IN THE MOMENT. ORDERS IN AND ORDERS FAXED TO PHARMACY. SAFETY MEASURES ARE APPLIED. BED IS IN LOWEST LOCKED POSITION WITH SIDE RAILS UP X 2 FOR SAFETY. CALL LIGHT IS WITHIN REACH. WILL CONTINUE TO MONITOR.
--- NOTE | 2020-09-23 19:33 | NUR ---
SOLAR SALES AMBASSADOR CLOSED NOTES PATIENT IS A/O X 4 WITH NO SIGNS OF DISTRESS IN ROOM AIR. DRESSING ON THE LEFT CHEST WITH NO SIGNS OF BLEEDING. NO COMPLAIN OF PAIN AND AFEBRILE. IV R HAND 22 G SL. ALL NEEDS, CARE, TREATMENT AND MEDICATIONS ADMINISTERED ANTICIPATED PER ORDER. SAFETY MEASURES ARE APPLIED. BED IS IN LOWEST LOCKED POSITION WITH SIDE RAILS UP X 2 FOR SAFETY. CALL LIGHT IS WITHIN REACH. WILL ENDORSE TO THE CENTER MAKER HAND NURSE.
--- NOTE | 2020-09-23 19:40 | NUR ---
AGRICULTURAL ADVISER OPENING NOTES PATIENT RECEIVED RESTING IN BED COMFORTABLY; AWAKE A/O3-4, PATIENT POST-OP; PATIENT DENIES DISCOMFORT; BREATHING EVEN AND UNLABORED; PATIENT TOLERATING ROOM AIR WELL; SATTING AT 98%; TELE MONITOR READS SINUS RHYTHM 78BPM; R HAND #22 INTACT AND PATENT; TOLERATING IVF WELL; SAFETY PRECAUTIONS IMPLEMENTED; BED LOCKED IN LOW POSITION; SIDE RAILSX2; CALL LIGHT WITHIN EASY REACH WILL CONT TO MONITOR
[2020-09-23 20:00] VITALS: BP 107/63
--- NOTE | 2020-09-23 20:09 | NUR ---
SPEAR FISHER NOTES PATIENT REPORTED SHE IS VERY HUNGRY, REQUESTED JELLO AND JUICE; PATIENT ALSO VERBALIZED 9/10 LEFT CHEST/ARM PAIN, PATIENT DENIES ANY TINGLING OR RADIATING TO ANY OTHER PART OF BODY; PATIENT IS POST-OP AND L CHEST/ARM IS SURGICAL SITE; PATIENT REQUESTING MORPHINE; VSS; 107/63 HR 76; MORPHINE ADMINISTERED PER MD ORDER; WILL CONT TO MONITOR PATIENT
[2020-09-23] MEDS: GABAPENTIN 300 MG CAPSULE PO SCH ×2 (21:31→21:33)
--- NOTE | 2020-09-23 21:33 | NUR ---
LIVE GAMES DEALER NOTES PATIENT REFUSING GABAPENTIN; RISKS/BENEFITS DISCUSSED WITH PATIENT; PER PATIENT SHE IS ANXIOUS AND IS REQUESTING ATIVAN INSTEAD; CHARGE NURSE AWARE; WILL ADMINISTER ATIVAN PER MD ORDER; WILL CONT TO MONITOR
[2020-09-23] MEDS: LORAZEPAM 0.5 MG TABLET PO PRN (21:47)
--- NOTE | 2020-09-23 21:58 | NUR ---
COBOL PROGRAMMER NOTES PATIENT REQUESTING AMBIEN TO HELP HER SLEEP LATER IN THE NIGHT; PER ANDERSON, TARYN 5MG PO HS PRN; ORDERS RECEIVED; WILL CONT TO MONITOR PATIENT;
[2020-09-23] MEDS: ZOLPIDEM TARTRATE 5 MG TABLET PO PRN (23:53)
[2020-09-24] VITALS: BP 118/62
[2020-09-24] MEDS: ZOSYN IVPB 3.375 G in IV D5W 50ml IV SCH ×4 (01:00→19:52)
[2020-09-24] MEDS: MORPHINE SULFATE INJ 2 MG/ML DISP.SYRIN IV PRN ×4 (01:01→17:28)
[2020-09-24 04:00] VITALS: BP 124/72
--- NOTE | 2020-09-24 05:41 | NUR ---
SLAGGER NOTES PATIENT REPORTED FEELING DIZZY AFTER SHE WALKED BACK TO HER BED FROM THE BATHROOM; PATIENT REQUESTING SALTINE CRACKERS AND ZOFRAN; WILL ADMINISTER ZOFRAN PER MD ORDER;
[2020-09-24] MEDS: ONDANSETRON HCL/PF 4 MG/2 ML VIAL IVP PRN ×2 (05:43→18:39)
[2020-09-24 05:52] LABS: BASOPHILS # (AUTO) 0.1 /CMM (0.0-0.2); BASOPHILS % (AUTO) 1.6 % (0.0-2.0); EOSINOPHILS % (AUTO) 7.6 % (0.0-6.0); HEMATOCRIT 36 % (33-45); HEMOGLOBIN 11.6 g/dL (11.5-14.8); LYMPHOCYTES # (AUTO) 0.9 /CMM (0.8-4.8); LYMPHOCYTES % (AUTO) 14.2 % (20.0-44.0); MEAN CORPUSCULAR HGB CONC 33 g/dl (31.0-36.0); MEAN CORPUSCULAR VOLUME 96 fL (82-100); MONOCYTES # (AUTO) 0.7 /CMM (0.1-1.30); MONOCYTES % (AUTO) 10.5 % (2.0-12.0); NEUTROPHILS # (AUTO) 4.3 /CMM (1.8-8.9); NEUTROPHILS % (AUTO) 66.1 % (43.0-81.0); PLATELET COUNT (AUTO) 287 /CMM (150-450); RED BLOOD CELL COUNT(AUTO) 3.71 MIL/uL (4.0-5.2); WHITE BLOOD COUNT (AUTO) 6.5 K/uL (4.3-11.0)
[2020-09-24 06:09] LABS: CALCIUM, SERUM 8.3 mg/dL (8.5-10.1); MAGNESIUM 1.9 mg/dL (1.8-2.4); PHOSPHORUS 4.6 mg/dL (2.5-4.9); POTASSIUM 4.6 mmol/L (3.5-5.1)
--- NOTE | 2020-09-24 06:35 | NUR ---
PAINT FACTORY WORKER CLOSING NOTES PATIENT RESTING IN BED COMFORTABLY; A/OX3, TOLERATING ROOM AIR WELL; BREATHING EVEN AND UNLABORED; NO SOB NOTED; TELE MONITOR READS SINUS RHYTHM WITH PVCS; PATIENT ABLE TO MAKE NEEDS KNOWN; R HAND #22 INTACT; ALL NEEDS RENDERED; SAFETY PRECAUTIONS IMPLEMENTED; BED LOCKED IN LOW POSITION; SIDE RAILSX2; CALL LIGHT WITHIN REACH; WILL ENDORSE MELLO TO ONCOMING SHIFT
--- NOTE | 2020-09-24 07:30 | NUR ---
received pt. this am alert and oriented x3-4.whines and complaintive at times.
[2020-09-24] MEDS ORDERED: VANCOMYCIN HCL 0.75 GM in IV D5W 250 ML IV SCH (08:00)
[2020-09-24 08:07] VITALS: BP 114/75
[2020-09-24] MEDS ORDERED: POTASSIUM CHLORIDE 10 MEQ TABLET.SA ONE (08:47)
[2020-09-24] MEDS: FUROSEMIDE 40 MG/4 ML VIAL IV SCH ×2 (08:50→21:01)
[2020-09-24] MEDS: CARVEDILOL 6.25 MG TABLET PO SCH ×2 (08:51→21:00)
[2020-09-24] MEDS: ASPIRIN EC 81 MG TABLET.DR PO SCH (08:51)
[2020-09-24] MEDS: LISINOPRIL (20MG) 20 MG TABLET PO SCH (08:54)
[2020-09-24] MEDS ORDERED: FLUOXETINE HCL 20 MG CAPSULE PO SCH (09:00)
[2020-09-24] MEDS: POTASSIUM CHLORIDE 10 MEQ TABLET.SA PO SCH ×2 (09:06→09:24)
[2020-09-24] MEDS: FLUOXETINE HCL 20 MG CAPSULE PO SCH (09:26)
--- NOTE | 2020-09-24 09:30 | NUR ---
DR. CARO IN AND CHEST DRESSING DONE WITH SALINE PACKING.
--- NOTE | 2020-09-24 09:56 | NUR ---
WOUND CARE CONSULT: PT PRESENTS WITH LEFT CHEST SURGICAL SITE DRESSING WHICH WAS JUST CHANGED BY DR CARO. DISCUSSED WOUND CARE WITH DR CARO. ORDERS RECEIVED AND DISCUSSED WITH NURSING STAFF. SLIGHT REDNESS/RASH TO BREASTFOLDS, PRESENT ON ADMISSION. RECOMMENDATIONS MADE FOR SKIN [id number]. DISCUSSED WITH NURSING STAFF. MD IN AGREEMENT WITH PLAN OF CARE.
[2020-09-24] MEDS: SPIRONOLACTONE 25 MG TABLET PO SCH (10:00)
[2020-09-24 12:02] VITALS: BP 92/69
[2020-09-24 16:16] VITALS: BP 92/50
--- NOTE | 2020-09-24 17:20 | NUR ---
concrete mixing plant superintendent rivka campa. requesting pain med.then find pt. falls asleep shortly after.
--- NOTE | 2020-09-24 17:34 | NUR ---
medicated again for pain.
[2020-09-24] MEDS: CLOTRIMAZOLE 1% 15 GM TUBE TP SCH (17:51)
[2020-09-24] MEDS: ENOXAPARIN SODIUM 40 MG/0.4 ML DISP.SYRIN SQ SCH (17:52)
--- NOTE | 2020-09-24 18:39 | NUR ---
medicated for nausea.
--- NOTE | 2020-09-24 19:07 | NUR ---
iv site rt. hand swollen ,removed and restarted on side of rt. hand.
--- NOTE | 2020-09-24 19:55 | NUR ---
DINING SERVICES DIRECTOR OPENING NOTES RECEIVED PATIENT IN BED, ALERT AND ORIENTED X 4. VERBALLY RESPONSIVE AND ABLE TO FOLLOW DIRECTIONS. BREATHING REGULAR AND UNLABORED ON ROOM AIR. RIGHT HAND G22 IV LINE INTACT AND PATENT, FLUSHING WELL WITH NO BLEEDING OR S/S OF INFILTRATION NOTED. ON CARDIAC MONITORING WITH NSR WITH PVC'S AT 84bpm. COMPLAINED OF 7/10 LEFT CHEST PAIN, NON-PHARMACOLOGICAL INTERVENTIONS PROVIDED. LEFT CHEST WOUND DRESSING INTACT, CLEAN AND DRY. BED LOW AND LOCKED ON SEMI FOWLERS POSITION. CALL LIGHT IN REACH. WILL CONTINUE TO MONITOR.
[2020-09-24 20:00] VITALS: BP 96/52
[2020-09-24] MEDS: HYDROCODONE/APAP 5/325MG TABLET PO PRN (20:12)
--- NOTE | 2020-09-24 20:15 | NUR ---
HEALTH CARE ATTORNEY NOTES COMPLAINED OF 7/10 LEFT CHEST WOUND PAIN, NORCO 5/325 GIVEN BY MOUTH. NON-PHARMACOLOGICAL INTERVENTIONS PROVIDED. RECHECK BLOOD PRESSURE, 101/62. WILL CLOSELY MONITOR.
[2020-09-24] MEDS: VANCOMYCIN 500 MG in IV D5W 100ml IV SCH (20:49)
[2020-09-24] MEDS: GABAPENTIN 300 MG CAPSULE PO SCH (21:13)
[2020-09-24] MEDS: ZOLPIDEM TARTRATE 5 MG TABLET PO PRN (21:47)
[2020-09-25] VITALS (7 sets, daily range): BP systolic 101–111; BP diastolic 56–68
[2020-09-25] MEDS: ZOSYN IVPB 3.375 G in IV D5W 50ml IV SCH ×3 (01:25→13:14)
[2020-09-25] MEDS: MORPHINE SULFATE INJ 2 MG/ML DISP.SYRIN IV PRN ×3 (02:37→23:21)
--- NOTE | 2020-09-25 02:45 | NUR ---
TRIGONOMETRY TUTOR NOTES COMPLAINED OF 8/10 LEFT CHEST WOUND PAIN, MORPHINE 2MG GIVEN VIA IVP. NON-PHARMACOLOGICAL INTERVENTIONS PROVIDED. RECHECK BLOOD PRESSURE, 122/71. WILL CLOSELY MONITOR.
--- NOTE | 2020-09-25 06:50 | NUR ---
KNITTING MACHINE OPERATOR HELPER CLOSING NOTES PATIENT IN BED, ALERT AND ORIENTED X 4. AFEBRILE WITH NO S/S OF DISTRESS OBSERVED. RIGHT HAND G22 IV LINE PATENT AND FLUSHING WELL. MAINTAINED ON CARDIAC MONITORING WITH NSR WITH PVC'S AT 78bpm. NO COMPLAINTS OF PAIN/DISCOMFORT AT THIS TIME. BED LOW AND LOCKED ON SEMI FOWLERS POSITION. CALL LIGHT IN REACH. WILL ENDORSE TO MORNING SHIFT FOR MELLO.
--- NOTE | 2020-09-25 07:40 | NUR ---
MS/RN OPENING NOTE RECEIVED PATIENT FROM NATURAL GAS BASIS TRADER NURSE A/O X4 ABLE TO VERBALIZE NEEDS. PATIENT ON ROOM AIR, TOLERATING WELL. BREATHING EVEN, NON LABORED, NO SOB NOTED. HEPLOCK RIGHT HAND #22 INTACT AND PATENT. NO SIGNS OF INFILTRATION NOTED. SAFETY MEASURES IN PLACE BED LOCKED AND IN LOWEST POSITION, CALL LIGHT WITHIN REACH. WILL CONTINUE TO MONITOR AND ENSURE SAFETY.
[2020-09-25] MEDS: FLUOXETINE HCL 20 MG CAPSULE PO SCH (08:52)
[2020-09-25] MEDS: SPIRONOLACTONE 25 MG TABLET PO SCH (08:52)
[2020-09-25] MEDS: ASPIRIN EC 81 MG TABLET.DR PO SCH (08:56)
[2020-09-25] MEDS: LISINOPRIL (20MG) 20 MG TABLET PO SCH (09:00)
[2020-09-25] MEDS: FUROSEMIDE 40 MG/4 ML VIAL IV SCH ×2 (09:00→21:00)
[2020-09-25] MEDS: CARVEDILOL 6.25 MG TABLET PO SCH ×2 (09:00→21:00)
[2020-09-25] MEDS: HYDROCODONE/APAP 5/325MG TABLET PO PRN ×2 (09:15→20:16)
--- NOTE | 2020-09-25 09:15 | NUR ---
MS/RN PAIN PATIENT COMPLAINED OF 8/10 PAIN. NORCO 5-325MG WAS GIVEN PER MD ORDER.
[2020-09-25] MEDS: CLOTRIMAZOLE 1% 15 GM TUBE TP SCH ×2 (09:29→16:41)
[2020-09-25] MEDS: DAKINS QUARTER STRENGTH (0.125%) 480 ML BOTTLE TOP SCH (09:29)
--- NOTE | 2020-09-25 10:31 | NUR ---
MS/RN PAIN PATIENT COMPLAINED OF 3/10 PAIN. TYLENOL 650MG WAS GIVEN PER MD ORDER.
--- NOTE | 2020-09-25 10:35 | NUR ---
WOUND CARE: PT SEEN FOR DRESSING CHANGE LEFT CHEST AREA. PHOTO TAKEN BY RN. RECOMMENDATIONS MADE FOR SKIN PROTECTION. PT CRYING AND VERY LABILE, REQUESTING ULTRASOUND SPECIALIST FOR INSURANCE CONCERNS. SOCIAL SERVICE CONSULT REQUESTED. WILL SEE PRN. SINGLETON IN AGREEMENT WITH PLAN OF CARE.
[2020-09-25 11:40] LABS: CALCIUM, SERUM 8.9 mg/dL (8.5-10.1); CREATININE 1.5 mg/dL (0.6-1.3)
[2020-09-25] MEDS: VANCOMYCIN 500 MG in IV D5W 100ml IV SCH ×2 (11:55→21:45)
[2020-09-25] MEDS: LORAZEPAM 0.5 MG TABLET PO PRN (15:05)
--- NOTE | 2020-09-25 15:05 | NUR ---
MS/RN AGITATED PATIENT BECAME AGITATED AND VERBALLY AGGRESSIVE. ATIVAN 0.5 MG WAS GIVEN PER MD ORDER.
--- NOTE | 2020-09-25 16:22 | NUR ---
Baseball Pitcher consult requested by TERENCE Calle as patient had concerns regarding insurance. Patient is a 64 year-old female. Patient is known to this SW from previous admissions. SW met with the patient at bedside. Patient informed this SW that the patient has been having a difficult time retrieving her medication from pharmacies. Patient informed this SW that she has tried to call her Securities Trader Charlee Burleson and has been unsuccessful. Patient provided claim number to this SW [id number]. Plan: SW to attempt to contact Charlee Burleson at the request of this patient. SW remains available for all needs regarding this patient.
--- NOTE | 2020-09-25 16:27 | NUR ---
SW attempted to contact patient's Frontend Engineer Charlee Burleson . EZRA unable to speak with Charlee, EZRA left callback number for this SW and Case Management team. Patient's claim number [id number]. EZRA remains available for all needs regarding this patient.
--- NOTE | 2020-09-25 16:39 | NUR ---
MS/RN PAIN PATIENT COMPLAINED OF HAVING 8/10 PAIN. MORPHINE 1MG WAS GIVEN PER MD ORDER
[2020-09-25] MEDS: ENOXAPARIN SODIUM 40 MG/0.4 ML DISP.SYRIN SQ SCH (17:48)
--- NOTE | 2020-09-25 18:36 | NUR ---
MS/RN CLOSING NOTE PATIENT REMAINS IN STABLE CONDITION. A/O X4 ABLE TO VERBALIZE NEEDS. TELEMONITOR READING NSR 70. PATIENT ON ROOM AIR TOLERATING WELL. BREATHING EVEN, NON LABORED, NO SOB NOTED. R HAND #22 HEPLOCK INTACT AND PATENT. SAFETY MEASURES IN PLACE. ALL NEEDS MET THROUGH OUT THE SHIFT. WILL ENDORSE TO PNEUMATIC JACK OPERATOR NURSE.
--- NOTE | 2020-09-25 19:43 | NUR ---
RN OPENING NOTES PATIENT RECEIVED RESTING IN BED SLEEPING. ON RA WITH BREATHING EVEN AND UNLABORED, NO SOB NOTED. NO SIGNS OF ACUTE DISTRESS. NO COMPLAINTS OF PAIN OR DISCOMFORT AT THE MOMENT. IV LOCATED ON R HAND #22 SL. SAFETY PRECAUTIONS IN PLACE WITH BED IN LOWEST POSITION, CALL LIGHT WITHIN REACH, BREAKS ON, SIDE RAILS UP. WILL CONTINUE TO MONITOR THROUGHOUT THE NIGHT.
[2020-09-25] MEDS: CEFTRIAXONE 1 G in IV D5W 50 ML IV SCH (20:27)
[2020-09-25] MEDS: ONDANSETRON HCL/PF 4 MG/2 ML VIAL IVP PRN (21:44)
[2020-09-25] MEDS: GABAPENTIN 300 MG CAPSULE PO SCH (21:47)
[2020-09-25] MEDS: ZOLPIDEM TARTRATE 5 MG TABLET PO PRN (22:47)
[2020-09-26] VITALS: BP 141/68
[2020-09-26 04:00] VITALS: BP 117/62
[2020-09-26] MEDS: MORPHINE SULFATE INJ 2 MG/ML DISP.SYRIN IV PRN ×4 (05:32→19:55)
[2020-09-26 06:25] LABS: CALCIUM, SERUM 9.1 mg/dL (8.5-10.1); CREATININE 1.4 mg/dL (0.6-1.3); POTASSIUM 4.8 mmol/L (3.5-5.1)
--- NOTE | 2020-09-26 06:41 | NUR ---
RN CLOSING NOTES PATIENT RESTING IN BED SLEEPING. ON RA WITH BREATHING EVEN AND UNLABORED, NO SOB NOTED. NO SIGNS OF ACUTE DISTRESS. NO COMPLAINTS OF PAIN OR DISCOMFORT AT THE MOMENT. TELE MONITOR READ SR. [place] LOCATED ON R HAND #22 SL. SAFETY PRECAUTIONS IN PLACE WITH BED IN LOWEST POSITION, CALL LIGHT WITHIN REACH, BREAKS ON, SIDE RAILS UP. ALL NEEDS ATTENDED TO. WILL ENDORSE TO ONCOMING SHIFT ABOUT MELLO.
[2020-09-26 08:00] VITALS: BP 114/66
--- NOTE | 2020-09-26 08:00 | NUR ---
MS/RN OPENING NOTE RECEIVED PT A/O X4 ABLE TO VERBALIZE NEEDS. PATIENT ON ROOM AIR, TOLERATING WELL. BREATHING EVEN, NON LABORED, NO SOB NOTED. HEPLOCK RIGHT HAND #22 INTACT AND PATENT. PAIN MGT PROVIDED FOR FREQUENT C/O CHEST WALL PAIN WITH EFFECTIVE RESULTS. SAFETY MEASURES IN PLACE BED LOCKED AND IN LOWEST POSITION, CALL LIGHT WITHIN REACH. WILL CONTINUE TO MONITOR AND ENSURE SAFETY.
[2020-09-26] MEDS: ASPIRIN EC 81 MG TABLET.DR PO SCH (08:36)
[2020-09-26] MEDS: CARVEDILOL 6.25 MG TABLET PO SCH ×2 (08:36→21:36)
[2020-09-26] MEDS: FLUOXETINE HCL 20 MG CAPSULE PO SCH (08:36)
[2020-09-26] MEDS: FUROSEMIDE 40 MG/4 ML VIAL IV SCH ×2 (08:37→21:44)
[2020-09-26] MEDS: LISINOPRIL (20MG) 20 MG TABLET PO SCH (08:37)
[2020-09-26] MEDS: SPIRONOLACTONE 25 MG TABLET PO SCH (08:37)
[2020-09-26] MEDS: LORAZEPAM 0.5 MG TABLET PO PRN ×2 (08:37→15:44)
[2020-09-26] MEDS: POTASSIUM CHLORIDE 10 MEQ TABLET.SA PO SCH (08:37)
[2020-09-26] MEDS: HYDROCODONE/APAP 5/325MG TABLET PO PRN (08:37)
[2020-09-26] MEDS: VANCOMYCIN 500 MG in IV D5W 100ml IV SCH (08:42)
[2020-09-26] MEDS: CLOTRIMAZOLE 1% 15 GM TUBE TP SCH ×2 (08:59→17:31)
[2020-09-26] MEDS: DAKINS QUARTER STRENGTH (0.125%) 480 ML BOTTLE TOP SCH (08:59)
[2020-09-26 16:00] VITALS: BP 129/75
[2020-09-26 16:42] LABS: CREATININE, URINE 46.9 MG/DL (30.0-125.0); URINE TOTAL PROTEIN 10.6 mg/dL (0-11.9)
[2020-09-26 16:45] LABS: BILIRUBIN,URINE NEGATIVE (NEGATIVE); BLOOD, URINE SMALL Ery/uL (NEGATIVE); COLOR,URINE YELLOW (YELLOW); LEUKOCYTE ESTERASE ,URINE NEGATIVE (NEGATIVE); NITRITE, URINE NEGATIVE (NEGATIVE); PROTEIN,URINE NEGATIVE (NEGATIVE); UGLUCOSE NEGATIVE (NEGATIVE); UROBILINOGEN,URINE 0.2 EU/dL (0.2)
[2020-09-26] MEDS: ENOXAPARIN SODIUM 40 MG/0.4 ML DISP.SYRIN SQ SCH (17:33)
[2020-09-26 18:20] LABS: EOSINOPHIL,URINE None Seen
--- NOTE | 2020-09-26 18:27 | NUR ---
PT RESTING IN BED EATING DINNER,PLEASANT AND APPRECIATIVE WITH STAFF. PT'S PAIN MGT IS EFFECTIVE. CALL LIGHT PLACED WITHIN REACH.WILL CONTINUE TO MONITOR.WILL ENDORSE TO NIGHT NURSE CARE.
--- NOTE | 2020-09-26 19:30 | NUR ---
tele radiological technician initial notes received report from am nurse and seen pt in bed awake and alert complaining of pain on her left shoulder. 06/10. no signs of any distress noted. dressing on her left chest wall dry and intact. she also complaint of pain on her IV site. checked IV site and found out occluded and pain when you flushed it with saline solution. removed it and will insert a new iv line per pt requested. kept her warm and comfortable at all times Tele Sinus Rhythm per monitor. place call light at reach.
--- NOTE | 2020-09-26 19:55 | NUR ---
Patient complains of left shoulder pain from ICD incision. Patient describes pain as acute and burning. Patient rates pain 9 on a 0-10 numerical scale. Administered PRN Morphine per MD order. Will continue to monitor.
[2020-09-26] MEDS: CEFTRIAXONE 1 G in IV D5W 50 ML IV SCH (19:57)
[2020-09-26 20:00] VITALS: BP 123/71
[2020-09-26] MEDS: GABAPENTIN 300 MG CAPSULE PO SCH (21:35)
[2020-09-26] MEDS: ZOLPIDEM TARTRATE 5 MG TABLET PO PRN (22:15)
--- NOTE | 2020-09-26 22:15 | NUR ---
tele supervisor sawing and assembly notes Ambien 5 mg po given per pt requested as ordered. educated regarding side effect.and encourage pt used the call light at if she needs some helped or needs assistance. will continue monitoring.
[2020-09-27] VITALS: BP 142/90
[2020-09-27] MEDS: VANCOMYCIN 500 MG in IV D5W 100ml IV SCH ×2 (03:39→20:42)
[2020-09-27] MEDS: MORPHINE SULFATE INJ 2 MG/ML DISP.SYRIN IV PRN ×5 (03:58→21:39)
--- NOTE | 2020-09-27 03:58 | NUR ---
Patient complains of left shoulder pain. Patient describes pain as burning and rates pain 9 on a 0-10 numerical scale. Administered PRN Morphine per MD order. Will continue to monitor.
[2020-09-27 04:00] VITALS: BP 122/73
[2020-09-27 06:14] LABS: CALCIUM, SERUM 9.7 mg/dL (8.5-10.1); CREATININE 1.4 mg/dL (0.6-1.3); MAGNESIUM 2.6 mg/dL (1.8-2.4); PHOSPHORUS 4.9 mg/dL (2.5-4.9); POTASSIUM 4.7 mmol/L (3.5-5.1)
[2020-09-27 06:27] LABS: URIC ACID 5.9 mg/dL (2.6-7.2)
--- NOTE | 2020-09-27 07:15 | NUR ---
tele [place] closing notes pt resting at this time after pain meds given earlier. no signs of any acute distress noted. all due meds given and all needs met. tele SR heart rate 74 per monitor. kept her warm and comfortable at all times. will endorse to am nurse for continuity of care. place call light at reach.
[2020-09-27 07:17] LABS: THYROID STIMULATING HORMONE 1.847 uIU/mL (0.358-3.74)
--- NOTE | 2020-09-27 07:45 | NUR ---
RN OPENING NOTE Patient is resting in bed, A/O x4, showing no signs of acute distress or SOB, stable on RA. Patient c/o pain 10/10 in the left upper chest/shoulder. Patient is able to ambulate to bathroom with steady gait. IV line is clean and intact flushing well. Bed is in lowest position, side rails x3 in upright position, call light is within reach. Fall safety and aspiration precautions enforced. Will continue with plan of care.
[2020-09-27 08:00] VITALS: BP 103/66
[2020-09-27] MEDS: SPIRONOLACTONE 25 MG TABLET PO SCH (08:07)
[2020-09-27] MEDS: FLUOXETINE HCL 20 MG CAPSULE PO SCH (08:08)
[2020-09-27] MEDS: POTASSIUM CHLORIDE 10 MEQ TABLET.SA PO SCH (08:08)
[2020-09-27] MEDS: ASPIRIN EC 81 MG TABLET.DR PO SCH (08:08)
[2020-09-27] MEDS: DAKINS QUARTER STRENGTH (0.125%) 480 ML BOTTLE TOP SCH (09:50)
[2020-09-27] MEDS: FUROSEMIDE 40 MG/4 ML VIAL IV SCH ×2 (09:50→20:11)
[2020-09-27] MEDS: CARVEDILOL 6.25 MG TABLET PO SCH ×2 (09:50→20:41)
[2020-09-27] MEDS: CLOTRIMAZOLE 1% 15 GM TUBE TP SCH ×2 (09:51→17:33)
[2020-09-27] MEDS: LORAZEPAM 0.5 MG TABLET PO PRN (10:03)
[2020-09-27 12:00] VITALS: BP 118/92
[2020-09-27 16:00] VITALS: BP 126/72
[2020-09-27] MEDS: ENOXAPARIN SODIUM 40 MG/0.4 ML DISP.SYRIN SQ SCH (17:28)
[2020-09-27] MEDS: MAG HYDROX/AL HYDROX/SIMETH 30 ML UDC PO PRN (19:26)
--- NOTE | 2020-09-27 19:30 | NUR ---
RN NOTE RECEIVED PATIENT IN BED, A0 X 4. PATIENT IN NO S/SX OF ACUTE DISTRESS AT THIS TIME. PATIENT'S BREATHING IS EVEN AND UNLABORED, SATURATING >95% ON ROOM AIR. PATIENT ON TELE MONITOR READING SR, HR IS 68. NOTED IV SITE AT LFA 22G; PATENT AND FLUSHING WELL, NO S/S OF INFECTION OR INFILTRATION. NOTED WOUND DRESSING AT L CHEST WALL DRY AND INTACT. SAFETY MEASURES IMPLEMENTED PER PROTOCOL. PATIENT BED ALARM IS ON. HEAD OF BED ELEVATED. BED IS LOCKED, IN LOWEST POSITION AND SIDE RAILS UP. CALL LIGHT WITHIN REACH OF THE PATIENT. WILL CONTINUE TO MONITOR AND REASSESS FOR ANY CHANGES.
[2020-09-27] MEDS: HYDROCODONE/APAP 5/325MG TABLET PO PRN (19:41)
--- NOTE | 2020-09-27 19:44 | NUR ---
RN CLOSING NOTE Patient is resting in bed, A/O x4, showing no signs of acute distress or SOB, stable on RA. Pain managed throughout shift. Patient is able to ambulate to bathroom with steady gait. IV line is clean and intact flushing well. Wound care completed as ordered. PICC line will be inserted tomorrow per Dr. Faraz Costa. Pending SNF placement per CM. All patient needs met, all due medications given, patient kept clean and dry throughout shift. Bed is in lowest position, side rails x3 in upright position, call light is within reach. Fall safety and aspiration precautions enforced. Will endorse to power and recovery shift engineer for MELLO.
[2020-09-27] MEDS: CEFTRIAXONE 1 G in IV D5W 50 ML IV SCH (20:07)
[2020-09-27 20:59] VITALS: BP 115/72
[2020-09-27] MEDS: GABAPENTIN 300 MG CAPSULE PO SCH (21:03)
[2020-09-27] MEDS: ONDANSETRON HCL/PF 4 MG/2 ML VIAL IVP PRN (21:53)
[2020-09-28] VITALS: BP 135/78
--- NOTE | 2020-09-28 00:45 | NUR ---
RN NOTE PATIENT ASLEEP IN BED, NO SIGN OF DISTRESS NOTED. ENDORSED TO SHAYLEE MANUEL FOR CONTINUATION OF CARE.
--- NOTE | 2020-09-28 01:00 | NUR ---
PET FEEDER NOTES RECEIVED REPORT FROM MAR ALCALA; WILL CONT PLAN OF CARE AND CONT TO MONITOR PATIENT
[2020-09-28 04:00] VITALS: BP 116/73
[2020-09-28] MEDS: MORPHINE SULFATE INJ 2 MG/ML DISP.SYRIN IV PRN ×4 (04:12→21:42)
--- NOTE | 2020-09-28 04:17 | NUR ---
TIMBER TREATMENT PLANT OPERATOR NOTES PATIENT AWOKE FROM SLEEP, COMPLAINING OF 9/10 LEFT CHEST PAIN DUE TO S/P ICD REMOVAL 09/23; PATIENT A/OX4, REQUESTING MORPHINE; MORPHINE ADMINISTERED PER MD ORDER; WILL CONT TO MONITOR
--- NOTE | 2020-09-28 07:02 | NUR ---
BUILDING CONSTRUCTION ESTIMATOR OPENING NOTES RECEIVED PT AWAKE IN BED AT THIS TIME. PT AOX4. PATIENT ABLE TO VERBALIZE NEEDS. NO SOB NOTED, NO S/S OF ANY ACUTE DISTRESS NOTED. NO C/O PAIN AT THIS TIME. RESPIRATIONS ARE EVEN AND UNLABORED. PT STABLE ON. IV ACCESS NOTED IN LFA G#22, INTACT, PATENT AND FLUSHING WELL. PT INSTRUCTED TO CALL FOR ASSISTANCE USING BEDSIDE COMMODE AND PT VERBALIZED UNDERSTANDING. ASPIRATION AND SAFETY PRECAUTION IN PLACE AND MAINTAINED AT ALL TIMES. BED IN LOWEST LOCKED POSITION, HOB ELEVATED, SIDE RAILS UP X 2, CALL LIGHT AND TABLE WITHIN REACH. WILL CONTINUE TO MONITOR.
--- NOTE | 2020-09-28 07:03 | NUR ---
ROPE CUTTER OPENING NOTES RECEIVED PT AWAKE IN BED AT THIS TIME. PT AOX4. PT ABLE TO VERBALIZE NEEDS. NO SOB NOTED, NO S/S OF ANY ACUTE DISTRESS NOTED. NO C/O PAIN AT THIS TIME. RESPIRATIONS ARE EVEN AND UNLABORED WITH EQUAL RISE AND FALL IN CASE. PT STABLE ON RA. PT ON EXTERNAL AGRICULTURAL RESEARCH TECHNICIAN READING SR IN THE 60S. IV ACCESS NOTED IN LFA G#20 INTACT, PATENT AND FLUSHING WELL. SAFETY PRECAUTION IN PLACE AND MAINTAINED AT ALL TIMES. BED IN LOWEST LOCKED POSITION, HOB ELEVATED, SIDE RAILS UP X 2, CALL LIGHT AND TABLE WITHIN REACH. WILL CONTINUE TO MONITOR.
--- NOTE | 2020-09-28 07:04 | NUR ---
TRUCK TRAILER FINAL INSPECTOR CLOSING NOTES PATIENT RESTING IN BED COMFORTABLY; A/OX4, BREATHING EVEN AND UNLABORED; TOLERATING ROOM AIR WELL; NO SOB NOTED; PATIENT ABLE TO MAKE NEEDS KNOWN; TELE MONITOR READS SINUS RHYTHM 80S; L FA # 22 INTACT AND PATENT; FLUSHING WELL; ALL NEEDS RENDERED; BED LOCKED IN LOW POSITION; SIDE RAILSX2; CALL LIGHT WITHIN REACH; AWAITING PICC LINE INSERTION THIS MORNING SHIFT; WILL ENDORSE MELLO TO ONCOMING SHIFT
[2020-09-28 08:00] VITALS: BP 121/71
[2020-09-28] MEDS: POTASSIUM CHLORIDE 10 MEQ TABLET.SA PO SCH (08:45)
[2020-09-28] MEDS: SPIRONOLACTONE 25 MG TABLET PO SCH (08:45)
[2020-09-28] MEDS: ASPIRIN EC 81 MG TABLET.DR PO SCH (08:45)
[2020-09-28] MEDS: CARVEDILOL 6.25 MG TABLET PO SCH ×2 (08:45→20:17)
[2020-09-28] MEDS: FUROSEMIDE 40 MG/4 ML VIAL IV SCH ×2 (08:45→20:17)
[2020-09-28] MEDS: FLUOXETINE HCL 20 MG CAPSULE PO SCH (08:45)
[2020-09-28] MEDS: DAKINS QUARTER STRENGTH (0.125%) 480 ML BOTTLE TOP SCH (08:46)
[2020-09-28] MEDS: CLOTRIMAZOLE 1% 15 GM TUBE TP SCH ×2 (08:46→16:59)
--- NOTE | 2020-09-28 09:45 | NUR ---
PT C/O OF LEFT CHEST ACHING PAIN OF 8/10. PT NOTED GRIMACING AND GRASPING. VS WNL. PER PT REQUEST, MOPHINE 2MG IV Q4HR PRN ADMINISTERED AT THIS TIME PER ORDER. WILL CONTINUE TO MONITOR
--- NOTE | 2020-09-28 11:14 | NUR ---
PT SCHEDULED FOR PICC LINE INSERTION, CONSENT FOR PROCEDURE SIGNED BY PT AND FILED IN CHART. WILL CONTINUE WITH PLAN OF CARE
[2020-09-28 11:27] LABS: CALCIUM, SERUM 9.5 mg/dL (8.5-10.1); CREATININE 1.3 mg/dL (0.6-1.3)
[2020-09-28 12:00] VITALS: BP 112/64
[2020-09-28 12:09] LABS: POTASSIUM 4.6 mmol/L (3.5-5.1)
[2020-09-28] MEDS ORDERED: LORAZEPAM INJ 2 MG/ML VIAL IV STA (13:03)
--- NOTE | 2020-09-28 13:15 | NUR ---
DOCTOR NAIR AT BEDSIDE FOR PICC LINE INSERTION. PT C/O OF ANXIETY. RECEIVED ORDERS FROM DOCTOR NAIR TO ADMINISTER ATIVAN 1MG IV ONCE STAT AT THIS TIME. VS WNL. ORDERS CARRIED OUT AND ADMINISTERED PER DOCTOR'S ORDER. WILL CONTINUE TO MONITOR
[2020-09-28] MEDS: VANCOMYCIN 500 MG in IV D5W 100ml IV SCH (15:10)
[2020-09-28 16:00] VITALS: BP 123/76
--- NOTE | 2020-09-28 17:04 | NUR ---
PT C/O OF LEFT CHEST THROBBING, ACHING PAIN ON A PAIN SCALE OF 9/10. PT NOTED WITH FACIAL GRIMACE AND GRASPING SITE. VS WNL. PER PT REQUEST, MOPHINE 2MG IV Q4HR PRN FOR PAIN ADMINISTERED AT THIS TIME PER ORDER. WILL CONTINUE TO MONITOR
[2020-09-28] MEDS: ENOXAPARIN SODIUM 40 MG/0.4 ML DISP.SYRIN SQ SCH (17:32)
--- NOTE | 2020-09-28 18:52 | NUR ---
PERMIT SPECIALIST CLOSING NOTES PT AWAKE IN BED AT THIS TIME. PT REMAINED STABLE THROUGHOUT SHIFT. ALL CARE, NEED, MEDICATIONS AND TREATMENT ADMINISTERED ANTICIPATED PER ORDER. PT KEPT CLEAN AND DRY. LCW DRESSING CHANGED. WOUND TREATMENT DONE. PAIN MANAGEMENT ADMINISTERED PER ORDER. SAFETY PRECAUTION IN PLACE AND MAINTAINED AT ALL TIMES. BED IN LOWEST LOCKED POSITION, HOB ELEVATED, SIDE RAILS UP X 2, CALL LIGHT AND TABLE WITHIN REACH. WILL CONTINUE TO MONITOR.
--- NOTE | 2020-09-28 19:45 | NUR ---
RN NOTES RECEIVED PT, AWAKE ON BED AND WAS ASKING FOR PAIN MEDICATION, INFORMED THE PT. THAT HER PAIN MEDICATION IS NOT DUE YET, PT. SUDDENLY SCREAM AT ME AND DOESN'T WANT TO LISTEN TO MY EXPLANATION, CALL NEL CLARK, [id number], CONTINUE TO MONITOR
[2020-09-28 20:00] VITALS: BP 132/70
[2020-09-28] MEDS: CEFTRIAXONE 1 G in IV D5W 50 ML IV SCH ×2 (20:02→20:05)
[2020-09-28] MEDS: HYDROCODONE/APAP 5/325MG TABLET PO PRN (20:02)
[2020-09-28] MEDS: ZOLPIDEM TARTRATE 5 MG TABLET PO PRN (20:13)
--- NOTE | 2020-09-28 20:15 | NUR ---
RN NOTES PT. ASKED FOR SLEEPING PINN- AMBIEN 5 MG PO GIVEN ORDERED, PT. WAS SO APOLOGETIC AFTER I GAVE THE SLEEPING PILL
[2020-09-28] MEDS: ONDANSETRON HCL/PF 4 MG/2 ML VIAL IVP PRN (20:30)
--- NOTE | 2020-09-28 20:30 | NUR ---
RN NOTES COMPLAINED OF FEELING NAUSEOUS- ZOFRAN 4MG IV GIVEN ORDERED
--- NOTE | 2020-09-28 21:40 | NUR ---
RN NOTES COMPLAINED OF GENERALIZED PAIN- MORPHINE 2 MG IV GIVEN ORDERED, V/S STABLE
[2020-09-28] MEDS: GABAPENTIN 300 MG CAPSULE PO SCH (21:43)
[2020-09-29] VITALS (9 sets, daily range): BP systolic 104–141; BP diastolic 61–73
[2020-09-29 05:57] LABS: BASOPHILS # (AUTO) 0.1 /CMM (0.0-0.2); BASOPHILS % (AUTO) 1.3 % (0.0-2.0); EOSINOPHILS % (AUTO) 10.2 % (0.0-6.0); HEMATOCRIT 40 % (33-45); HEMOGLOBIN 13.2 g/dL (11.5-14.8); MEAN CORPUSCULAR HGB CONC 33 g/dl (31.0-36.0); MEAN CORPUSCULAR VOLUME 95 fL (82-100); MONOCYTES # (AUTO) 0.7 /CMM (0.1-1.30); MONOCYTES % (AUTO) 11.2 % (2.0-12.0); NEUTROPHILS # (AUTO) 3.8 /CMM (1.8-8.9); NEUTROPHILS % (AUTO) 61.3 % (43.0-81.0); PLATELET COUNT (AUTO) 377 /CMM (150-450); WHITE BLOOD COUNT (AUTO) 6.2 K/uL (4.3-11.0)
[2020-09-29] MEDS: MORPHINE SULFATE INJ 2 MG/ML DISP.SYRIN IV PRN ×4 (05:59→23:26)
--- NOTE | 2020-09-29 06:00 | NUR ---
RN NOTES COMPLAINED OF GENERALIZED PAIN- MORPHINE 2 MG IV GIVEN ORDERED, V/S STABLE
[2020-09-29 06:06] LABS: CALCIUM, SERUM 9.7 mg/dL (8.5-10.1); CREATININE 1.4 mg/dL (0.6-1.3); POTASSIUM 5.4 mmol/L (3.5-5.1)
--- NOTE | 2020-09-29 06:45 | NUR ---
RN NOTES AWAKE, DENIES PAIN, NO SOB, MORNING CARE RENDERED, CALL [facility] WITHIN REACH, [id number], PT. NEEDS ATTENDED
--- NOTE | 2020-09-29 07:00 | NUR ---
RN OPENING NOTES RECEIVED PT AWAKE, A/O X3-4. ON RA SATURATING @99%. AMBULATORY WITH BRP. CARDIAC DIET. KATY PICC LINE AND LFA #22 BOTH INTACT, PATENT AND FLUSHED. SAFETY MEASURES IMPLEMENTED. CALL LIGHT WITHIN REACH. BED LOCKED AND AT LOWEST POSITION WITH SIDERAILSUPX2. WILL CONTINUE TO MONITOR
[2020-09-29] MEDS: SPIRONOLACTONE 25 MG TABLET PO SCH (08:23)
[2020-09-29] MEDS: VANCOMYCIN 500 MG in IV D5W 100ml IV SCH (08:23)
[2020-09-29] MEDS: FLUOXETINE HCL 20 MG CAPSULE PO SCH (08:23)
[2020-09-29] MEDS: FUROSEMIDE 40 MG/4 ML VIAL IV SCH ×2 (08:24→21:52)
[2020-09-29] MEDS: ASPIRIN EC 81 MG TABLET.DR PO SCH (08:24)
[2020-09-29] MEDS: DAKINS QUARTER STRENGTH (0.125%) 480 ML BOTTLE TOP SCH (08:24)
[2020-09-29] MEDS: CLOTRIMAZOLE 1% 15 GM TUBE TP SCH ×2 (08:24→16:18)
[2020-09-29] MEDS: CARVEDILOL 6.25 MG TABLET PO SCH ×2 (08:49→21:21)
[2020-09-29] MEDS: HYDROCODONE/APAP 5/325MG TABLET PO PRN ×2 (09:06→16:18)
[2020-09-29] MEDS: ONDANSETRON HCL/PF 4 MG/2 ML VIAL IVP PRN (09:07)
[2020-09-29] MEDS: LORAZEPAM 0.5 MG TABLET PO PRN (09:24)
[2020-09-29] MEDS ORDERED: SODIUM POLYSTYRENE SULFONATE 15 G/60 ML BOTTLE PO ONE (10:00)
--- NOTE | 2020-09-29 18:00 | NUR ---
RN NOTES PICC LINE DRESSING SOAKED WITH LITTLE BLOOD. PT LEANED ON KATY WHILE SLEEPING. ASKED THE PT IF RN CAN CHANGE DRESSING. PT REFUSED SAID SHE FEELS MORE SICK JUST LOOKING AT IT. DOESNT WANT IT TO BE TOUCHED. EDUCATION PROVIDED. OFFERED 5X STILL REFUSED. WILL ENDORSE TO NIGHT NURSE.
[2020-09-29] MEDS: ENOXAPARIN SODIUM 40 MG/0.4 ML DISP.SYRIN SQ SCH (18:02)
--- NOTE | 2020-09-29 19:11 | NUR ---
RN CLOSING NOTES PT AWAKE, A/O X3-4. ON RA SATURATING @99%. AMBULATORY WITH BRP. CARDIAC DIET. KATY PICC LINE AND LFA #22 BOTH INTACT, PATENT AND FLUSHED. ALL NEED ATTENDED. NO PAIN AT THIS TIME. SAFETY MEASURES IMPLEMENTED. CALL LIGHT WITHIN REACH. BED LOCKED AND AT LOWEST POSITION WITH SIDERAILSUPX2. WILL ENDORSE TO NIGHT NURSE FOR MELLO
--- NOTE | 2020-09-29 19:35 | NUR ---
RN OPENING NOTES PATIENT RECEIVED RESTING IN BED, A/O X 3. STABLE ON RA WITH BREATHING EVEN AND UNLABORED, NO SOB NOTED. NO SIGNS OF ACUTE DISTRESS. NO COMPLAINTS OF PAIN OR DISCOMFORT AT THE MOMENT. TELE MONITOR READING SR. IV LOCATED ON [facility] #[facility]. SAFETY PRECAUTIONS IN PLACE WITH BED IN LOWEST POSITION, CALL LIGHT WITHIN REACH, BREAKS ON, SIDE RAILS UP. WILL CONTINUE TO MONITOR THROUGHOUT THE NIGHT.
[2020-09-29] MEDS: CEFTRIAXONE 1 G in IV D5W 50 ML IV SCH (19:45)
[2020-09-29] MEDS: MAG HYDROX/AL HYDROX/SIMETH 30 ML UDC PO PRN (20:46)
[2020-09-29] MEDS: GABAPENTIN 300 MG CAPSULE PO SCH (21:21)
[2020-09-30] VITALS: BP 139/86
--- NOTE | 2020-09-30 02:00 | NUR ---
SOILED PICC LINE DRESSING CHANGED.
[2020-09-30 04:00] VITALS: BP 108/56
[2020-09-30 04:27] VITALS: BP 119/71
[2020-09-30] MEDS: MORPHINE SULFATE INJ 2 MG/ML DISP.SYRIN IV PRN ×2 (04:31→10:17)
[2020-09-30 06:24] LABS: BASOPHILS # (AUTO) 0.1 /CMM (0.0-0.2); BASOPHILS % (AUTO) 1.4 % (0.0-2.0); EOSINOPHILS % (AUTO) 9.5 % (0.0-6.0); HEMATOCRIT 37 % (33-45); HEMOGLOBIN 12.3 g/dL (11.5-14.8); LYMPHOCYTES # (AUTO) 0.9 /CMM (0.8-4.8); LYMPHOCYTES % (AUTO) 16.4 % (20.0-44.0); MEAN CORPUSCULAR HGB CONC 33 g/dl (31.0-36.0); MEAN CORPUSCULAR VOLUME 94 fL (82-100); MONOCYTES # (AUTO) 0.8 /CMM (0.1-1.30); MONOCYTES % (AUTO) 14.1 % (2.0-12.0); NEUTROPHILS # (AUTO) 3.3 /CMM (1.8-8.9); NEUTROPHILS % (AUTO) 58.6 % (43.0-81.0); PLATELET COUNT (AUTO) 343 /CMM (150-450); RED BLOOD CELL COUNT(AUTO) 3.91 MIL/uL (4.0-5.2); WHITE BLOOD COUNT (AUTO) 5.6 K/uL (4.3-11.0)
[2020-09-30 06:46] LABS: ALBUMIN 3.7 g/dL (3.4-5.0); BILIRUBIN,TOTAL 0.2 mg/dL (0.2-1.0); CREATININE 1.2 mg/dL (0.6-1.3); MAGNESIUM 2.3 mg/dL (1.8-2.4); PHOSPHORUS 4.6 mg/dL (2.5-4.9); POTASSIUM 3.6 mmol/L (3.5-5.1); TOTAL PROTEIN, SERUM 7.9 g/dL (6.4-8.2)
--- NOTE | 2020-09-30 06:47 | NUR ---
NOTIFIED BY TELE MONITOR PATIENT EXPERIENCED 3 PVC'S IN A ROW FOR THE FIRST TIME. NOTIFIED MD ARGUETA. WILL AWAIT ORDERS, IF MADE.
--- NOTE | 2020-09-30 07:00 | NUR ---
RN CLOSING NOTES PATIENT RESTING IN BED, A/O X 3. STABLE ON RA WITH BREATHING EVEN AND UNLABORED, NO SOB NOTED. NO SIGNS OF ACUTE DISTRESS. NO COMPLAINTS OF PAIN OR DISCOMFORT AT THE MOMENT. TELE MONITOR READING SR. IV LOCATED ON [facility] #22. SAFETY PRECAUTIONS IN PLACE WITH BED IN LOWEST POSITION, CALL LIGHT WITHIN REACH, BREAKS ON, SIDE RAILS UP. ALL NEEDS ATTENDED TO. WILL ENDORSE TO ONCOMING SHIFT ABOUT MELLO.
[2020-09-30 08:00] VITALS: BP 98/45
[2020-09-30] MEDS ORDERED: VANCOMYCIN 500 MG in IV D5W 100ml IV SCH (09:00)
[2020-09-30] MEDS: FLUOXETINE HCL 20 MG CAPSULE PO SCH (09:35)
[2020-09-30] MEDS: FUROSEMIDE 40 MG/4 ML VIAL IV SCH (09:35)
[2020-09-30] MEDS: ASPIRIN EC 81 MG TABLET.DR PO SCH (09:35)
[2020-09-30] MEDS: SPIRONOLACTONE 25 MG TABLET PO SCH (09:36)
[2020-09-30] MEDS: HYDROCODONE/APAP 5/325MG TABLET PO PRN ×2 (09:37→09:47)
[2020-09-30] MEDS: CLOTRIMAZOLE 1% 15 GM TUBE TP SCH (09:37)
[2020-09-30] MEDS: DAKINS QUARTER STRENGTH (0.125%) 480 ML BOTTLE TOP SCH (09:38)
--- NOTE | 2020-09-30 09:50 | NUR ---
SW received a call back from patient's Tray Casting Machine Operator Charlee Burleson . Per ERINN Deshpande, patient's correct claim number is [id number] and patient's Tray Casting Machine Operator is Rosalba Christy and Senior Mechanical Engineer is Annette Blankenship . ERINN Deshpande, informed this SW that the patient has to call ERINN Navarrete as Rosalba nor Charlee can provide further information to this SW. SW understood and informed Charlee that this SW will provide this new information to the patient. Plan: to provide this information to patient. SW remains available for all needs regarding this patient.
[2020-09-30 10:01] VITALS: BP 114/58
[2020-09-30] MEDS: CARVEDILOL 6.25 MG TABLET PO SCH (10:01)
[2020-09-30] MEDS: LORAZEPAM 0.5 MG TABLET PO PRN (12:39)
--- NOTE | 2020-09-30 12:51 | NUR ---
EZRA provided this patient the following information regarding patient's insurance request. Patient's claim number [id number] and patient's Project Management Advisor is Rosalba Christy and Foreign Collection Clerk is Annette Blankenship . Patient thanked this EZRA for this information, patient stated she would follow up with Hipolito. EZRA remains available for all needs regarding this patient.
== END 2020-09-30 14:45 | DRG 180 ==
LOC: ER 06:39 → MED 10:00 → TELE 10:29
PROVIDERS: ADMIT Internal Medicine; ATTEND Nurse Practitioner Acute Care
PROC: 0W980ZZ Drainage of Chest Wall, Open Approach (ICD-10-PCS; principal; 2020-09-23)
PROC: 02PA0MZ Removal of Cardiac Lead from Heart, Open Approach (ICD-10-PCS; 2020-09-23)
PROC: 02H633Z Insertion of Infusion Device into Right Atrium, Percutaneous Approach (ICD-10-PCS; 2020-09-28)
PROC: B548ZZA Ultrasonography of Superior Vena Cava, Guidance (ICD-10-PCS; 2020-09-28)
DX: T82.7XXA Infection and inflammatory reaction due to other cardiac and vascular devices, implants and grafts, initial encounter (principal); I42.0 Dilated cardiomyopathy; I11.0 Hypertensive heart disease with heart failure; I50.23 Acute on chronic systolic (congestive) heart failure; L02.213 Cutaneous abscess of chest wall; L03.313 Cellulitis of chest wall; I25.2 Old myocardial infarction; E78.5 Hyperlipidemia, unspecified; E87.1 Hypo-osmolality and hyponatremia; E87.5 Hyperkalemia; F32.9 Major depressive disorder, single episode, unspecified; I25.10 Atherosclerotic heart disease of native coronary artery without angina pectoris; J44.9 Chronic obstructive pulmonary disease, unspecified; N17.0 Acute kidney failure with tubular necrosis; Z79.82 Long term (current) use of aspirin; Y92.89 Other specified places as the place of occurrence of the external cause; T81.41XA Infection following a procedure, superficial incisional surgical site, initial encounter; M54.30 Sciatica, unspecified side; Z91.19 Patient's noncompliance with other medical treatment and regimen; Z87.891 Personal history of nicotine dependence; Y83.1 Surgical operation with implant of artificial internal device as the cause of abnormal reaction of the patient, or of later complication, without mention of misadventure at the time of the procedure; Z20.828 Contact with and (suspected) exposure to other viral communicable diseases
CPT/HCPCS: 36415; 36569; 71045-TC; 80048-TC; 80053-TC; 80076-TC; 80202-TC; 81001; 82570-TC; 83605-TC; 83735-TC; 83880; 83935-TC; 84100-TC; 84155-TC; 84300-TC; 84443-TC; 84484-TC; 84550-TC; 85025-TC; 85730-TC; 87040-TC; 87070-TC; 87081-TC; 87086-TC; 88300-TC; 97116-TC; 97530-TC; A4217; A6253; A6403; C1751; C9803; G0378; J0696; J1650; J1940; J2060; J2270; J2405; J2543; J3010; J3370; J3490; J7050; J7060

== ENCOUNTER 2020-10-09 06:07 | Inpatient (IN) | payer MEDICAID, OTHER ==
[~2020-10-09] VITALS: Ht 152.4 cm; Wt 56.3 kg
--- NOTE | 2020-10-09 06:17 | NUR ---
BIBSELF C/O THROBBING PAIN ON L UPPER CHEST WALL S/P ICD REMOVAL 09/23/2020; pt aaox4, -sob, nad noted, vss, pending er provider eval
--- NOTE | 2020-10-09 07:00 | NUR ---
per dr. hawkins. no iv, blood draw for labs
[2020-10-09 07:17] LABS: BASOPHILS # (AUTO) 0.1 /CMM (0.0-0.2); BASOPHILS % (AUTO) 2.2 % (0.0-2.0); EOSINOPHILS % (AUTO) 9.5 % (0.0-6.0); HEMATOCRIT 38 % (33-45); HEMOGLOBIN 12.5 g/dL (11.5-14.8); LYMPHOCYTES # (AUTO) 0.8 /CMM (0.8-4.8); LYMPHOCYTES % (AUTO) 14.4 % (20.0-44.0); MEAN CORPUSCULAR HGB CONC 33 g/dl (31.0-36.0); MEAN CORPUSCULAR VOLUME 95 fL (82-100); MONOCYTES # (AUTO) 0.4 /CMM (0.1-1.30); MONOCYTES % (AUTO) 7.9 % (2.0-12.0); NEUTROPHILS # (AUTO) 3.7 /CMM (1.8-8.9); PLATELET COUNT (AUTO) 324 /CMM (150-450); RED BLOOD CELL COUNT(AUTO) 4.02 MIL/uL (4.0-5.2); WHITE BLOOD COUNT (AUTO) 5.7 K/uL (4.3-11.0)
--- NOTE | 2020-10-09 07:26 | NUR ---
COVID SWAB COLLECTED, CALLED LAB FOR SHAKE LOADER
[2020-10-09] MEDS ORDERED: HYDROCODONE/APAP 5/325MG TABLET PO ONE (07:30)
[2020-10-09] MEDS ORDERED: ONDA4TAB5 PO (07:34)
[2020-10-09] MEDS ORDERED: HYDR-4354 PO (07:34)
[2020-10-09 07:36] LABS: CALCIUM, SERUM 9.5 mg/dL (8.5-10.1); CREATININE 0.9 mg/dL (0.6-1.3); POTASSIUM 4.6 mmol/L (3.5-5.1)
[2020-10-09] MEDS ORDERED: HYDROCODONE/APAP 5/325MG TABLET ONE (07:44)
--- NOTE | 2020-10-09 08:42 | NUR ---
PATIENT IN BED ASLEEP, EASILY AROUSABLE BY VOICE. HOOKED TO MONITOR. VSS. WILL CONTINUE TO MONITOR ACCORDINGLY
--- NOTE | 2020-10-09 08:57 | NUR ---
CHRISTOPH NO. WAITING FOR CALL BACK.
--- NOTE | 2020-10-09 10:16 | NUR ---
FOOD TRAY PROVIDED. TOLERATING PO WELL.
[2020-10-09] MEDS ORDERED: Medication Not On Formulary EA (Ondansetron Hcl (Zofran) 4 MG) PO PRN (11:00)
[2020-10-09] MEDS ORDERED: ACETAMINOPHEN 325 MG TABLET PO PRN (11:00)
[2020-10-09] MEDS ORDERED: MAG HYDROX/AL HYDROX/SIMETH 30 ML UDC PO PRN (11:00)
[2020-10-09] MEDS ORDERED: HYDROCODONE/APAP 10/325MG TABLET PO PRN (11:00)
[2020-10-09] MEDS ORDERED: MAGNESIUM HYDROXIDE 30 ML UDC PO PRN (11:00)
[2020-10-09] MEDS ORDERED: Z GUARD REMEDY 2 OZ OINT TP PRN (11:00)
[2020-10-09] MEDS ORDERED: ONDANSETRON HCL/PF 4 MG/2 ML VIAL IVP PRN (11:00)
[2020-10-09] MEDS ORDERED: ONDANSETRON HCL/PF 4 MG/2 ML VIAL ONE (11:03)
[2020-10-09] MEDS ORDERED: ONDANSETRON HCL/PF 4 MG/2 ML VIAL IV ONE ×2 (11:30→12:00)
--- NOTE | 2020-10-09 11:52 | NUR ---
PATIENT IN BED AWAKE, READING A BOOK. HOOKED TO MONITOR. VSS. WILL CONTINUE TO MONITOR ACCORDINGLY
--- NOTE | 2020-10-09 13:12 | NUR ---
FOOD TRAY PROVIDED. TOLERATED PO WELL.
--- NOTE | 2020-10-09 15:05 | NUR ---
CALLED HOUSE SUP... IN A MEETING AND WILL CALL US BACK.
--- NOTE | 2020-10-09 15:35 | NUR ---
REPORT GIVEN TO SANDEEP MANUEL OF TELE UNIT
--- NOTE | 2020-10-09 16:10 | NUR ---
Patient admitted from ER received report by Sarah/RN admittinf Dx;infection s/p ICD placement. Patient was asking pain medication but too soon schedule from last dose. Will continue to monitor.
--- NOTE | 2020-10-09 18:00 | NUR ---
RN Closing note Patient in bed resting finished eat dinner, patient c/o wound pain on left chest and given [place] as prn. Skin is warm to touch intact IV site on right AC 20g with SL, wound picture taken on left chest and dressing change. Respiratory even and unlabored on room air O2sata 97%. Kept locked bed with elevated HOB for ensure airway and aspiration precaution also lowest position for safety, call light within reach, will endorse long lines operator.
[2020-10-09] MEDS: HYDROCODONE/APAP 5/325MG TABLET PO PRN (18:48)
--- NOTE | 2020-10-09 19:20 | NUR ---
RN OPENING NOTES Received patient resting on bed, no respiratory distress noted. On tele monitor with NSR noted. No s/sx of discomfort noted. Kept on bed clean, dry and comfortable. Will continue to monitor accordingly.
[2020-10-09] MEDS ORDERED: VANCOMYCIN 1 GM in IV D5W 250 ML IV ONE (20:00)
[2020-10-09 20:25] VITALS: BP 122/67
[2020-10-09] MEDS: CEFTRIAXONE 1 G in IV D5W 50 ML IV SCH (21:35)
[2020-10-09] MEDS: GABAPENTIN 300 MG CAPSULE PO SCH (21:35)
[2020-10-09] MEDS: CARVEDILOL 6.25 MG TABLET PO SCH (21:36)
[2020-10-09] MEDS: LORAZEPAM 1 MG TABLET PO PRN (21:40)
[2020-10-09] MEDS: ZOLPIDEM TARTRATE 5 MG TABLET PO PRN (23:55)
[2020-10-10 00:35] VITALS: BP 125/44
[2020-10-10 04:19] VITALS: BP 155/97
[2020-10-10] MEDS: HYDROCODONE/APAP 5/325MG TABLET PO PRN ×3 (04:23→20:52)
--- NOTE | 2020-10-10 06:47 | NUR ---
RN CLOSING NOTES Pt asleep, no new unusalities noted. All nursing needs attended, due meds given as ordered. Kept on bed clean, dry and comfortable. Endorsed.
[2020-10-10 07:10] LABS: BASOPHILS # (AUTO) 0.1 /CMM (0.0-0.2); BASOPHILS % (AUTO) 1.3 % (0.0-2.0); EOSINOPHILS % (AUTO) 7.4 % (0.0-6.0); HEMATOCRIT 38 % (33-45); HEMOGLOBIN 12.4 g/dL (11.5-14.8); LYMPHOCYTES # (AUTO) 0.9 /CMM (0.8-4.8); LYMPHOCYTES % (AUTO) 18.2 % (20.0-44.0); MEAN CORPUSCULAR HGB CONC 32 g/dl (31.0-36.0); MEAN CORPUSCULAR VOLUME 96 fL (82-100); MONOCYTES # (AUTO) 0.5 /CMM (0.1-1.30); MONOCYTES % (AUTO) 9.1 % (2.0-12.0); NEUTROPHILS # (AUTO) 3.3 /CMM (1.8-8.9); PLATELET COUNT (AUTO) 291 /CMM (150-450); RED BLOOD CELL COUNT(AUTO) 3.97 MIL/uL (4.0-5.2); WHITE BLOOD COUNT (AUTO) 5.2 K/uL (4.3-11.0)
[2020-10-10 07:27] LABS: CALCIUM, SERUM 8.6 mg/dL (8.5-10.1); CREATININE 0.9 mg/dL (0.6-1.3); MAGNESIUM 1.9 mg/dL (1.8-2.4); PHOSPHORUS 4.5 mg/dL (2.5-4.9); POTASSIUM 4.4 mmol/L (3.5-5.1)
--- NOTE | 2020-10-10 07:45 | NUR ---
APPLICATION COORDINATOR NOTE PATIENT IN BED RESTING COMFORTABLY. PATIENT IN NO ACUTE DISTRESS. NO SOB NOTED. PATIENT BREATHING IS EVEN AND UNLABORED. PATIENT ON CARDIAC MONITORING READING SINUS RHYTHM HR 60 WITH PVC. PATIENT BED ALARM IS ON. SAFETY PRECAUTIONS IN PLACE. PATIENT BED IS LOCKED AND IN LOWEST POSITION. CALL LIGHT WITHIN REACH. WILL CONTINUE TO MONITOR.
[2020-10-10 08:00] VITALS: BP 121/69
[2020-10-10] MEDS: ASPIRIN EC 81 MG TABLET.DR PO SCH (08:59)
[2020-10-10] MEDS: VANCOMYCIN 0.75 GM in IV D5W 250 ML IV SCH ×2 (08:59→20:48)
[2020-10-10] MEDS: CARVEDILOL 6.25 MG TABLET PO SCH ×2 (09:00→23:01)
[2020-10-10] MEDS: SPIRONOLACTONE 25 MG TABLET PO SCH (09:00)
[2020-10-10] MEDS: LISINOPRIL (20MG) 20 MG TABLET PO SCH (09:00)
[2020-10-10] MEDS ORDERED: POTASSIUM CHLORIDE 10 MEQ TABLET.SA PO SCH (09:00)
[2020-10-10] MEDS: FLUOXETINE HCL 20 MG CAPSULE PO SCH (09:01)
[2020-10-10] MEDS: FUROSEMIDE 40 MG TABLET PO SCH (09:01)
--- NOTE | 2020-10-10 11:21 | NUR ---
RN NOTE GAVE REPORT TO PUMA MANUEL FOR MELLO. PATIENT IN NO ACUTE DISTRESS. NO SOB NOTED. PATIENT BREATHING IS EVEN AND UNLABORED. ENDORSED ALL CARE TO PUMA MANUEL.
[2020-10-10] MEDS: LORAZEPAM 1 MG TABLET PO PRN (12:29)
--- NOTE | 2020-10-10 12:37 | NUR ---
TELE/RN NOTES PATIENT VERBALIZED FEELING ANXIOUS ATIVAN 1MG 1 TAB P.O. WAS GIVEN. WILL CONTINUE TO MONITOR.
[2020-10-10 16:00] VITALS: BP 134/74
--- NOTE | 2020-10-10 19:02 | NUR ---
TELE/RN CLOSING NOTES PATIENT IS ON BED,ALERT AND ORIENTED X4.PATIENT IN NO APPARENT RESPIRATORY DISTRESS NOTED AT THIS TIME. TELE MONITOR. IN PLACE SINUS RHYTHM WITH PVC 58-88 BPM. NO COMPLAINED OF PAIN NOTED AT THIS TIME. IV ACCESS AT RIGHT AC # 20 PATENT AND INTACT. SEEN AND EXAMINED BY MD WITH ORDERS MADE AND CARRIED OUT. ALL DUE MEDICATION WAS GIVEN. SAFETY PRECAUTION WAS IN PLACED. BED IN LOWEST POSITION AND LOCKED. SIDERAILS UP X2 AND LOCKED. CALL LIGHT WITHIN REACH. WILL ENDORSED TO SECURITY DEVELOPER FOR MELLO.
--- NOTE | 2020-10-10 19:28 | NUR ---
INSPECTOR PLATING: CONTINUITY OF CARE Patient in bed, awake, A/O x4. Independent with ADL's and mobility. Tolerating room air, denies SOB. Patient anxious to get sleeping medication at early time, education provided, verbalized understanding. Fall precaution maintained.
[2020-10-10 20:00] VITALS: BP 119/64
[2020-10-10 20:10] VITALS: BP 119/64
--- NOTE | 2020-10-10 20:53 | NUR ---
TOWEL ROLLING MACHINE OPERATOR: BACK PAIN Patient c/o lower back pain, denies N/V. PRN [place] given, will reassess pain level. Fall precaution maintained.
[2020-10-10] MEDS: CEFTRIAXONE 1 G in IV D5W 50 ML IV SCH (22:04)
[2020-10-10] MEDS: ZOLPIDEM TARTRATE 5 MG TABLET PO PRN (23:01)
[2020-10-10] MEDS: GABAPENTIN 300 MG CAPSULE PO SCH (23:02)
[2020-10-11] VITALS: BP 121/55
[2020-10-11 04:00] VITALS: BP 121/62
[2020-10-11] MEDS: HYDROCODONE/APAP 5/325MG TABLET PO PRN ×4 (04:49→18:19)
--- NOTE | 2020-10-11 04:51 | NUR ---
EYE SPECIALIST: BACK PAIN Patient c/o lower back pain, denies N/V. PRN [place] given, will reassess pain level. Fall precaution maintained.
--- NOTE | 2020-10-11 06:14 | NUR ---
CONSUMER ADVOCATE: END OF SHIFT REPORT Sinus Rhythm, Sinus Bharath HR 58 in the Tele monitor. Oxygen sat in high 90's on room air. Back pain controlled with PRN [place] with Relief. Left upper chest wound dressing changed. On IV Vancomycin and Rocephin, Afebrile. Fall precaution maintained. Will endorse to oncoming RN.
[2020-10-11 07:50] LABS: BASOPHILS # (AUTO) 0.1 /CMM (0.0-0.2); BASOPHILS % (AUTO) 2.2 % (0.0-2.0); EOSINOPHILS % (AUTO) 10.7 % (0.0-6.0); HEMATOCRIT 36 % (33-45); HEMOGLOBIN 11.8 g/dL (11.5-14.8); LYMPHOCYTES # (AUTO) 0.7 /CMM (0.8-4.8); LYMPHOCYTES % (AUTO) 15.6 % (20.0-44.0); MEAN CORPUSCULAR HGB CONC 33 g/dl (31.0-36.0); MEAN CORPUSCULAR VOLUME 95 fL (82-100); MONOCYTES # (AUTO) 0.6 /CMM (0.1-1.30); NEUTROPHILS # (AUTO) 2.6 /CMM (1.8-8.9); NEUTROPHILS % (AUTO) 57.5 % (43.0-81.0); PLATELET COUNT (AUTO) 304 /CMM (150-450); WHITE BLOOD COUNT (AUTO) 4.5 K/uL (4.3-11.0)
--- NOTE | 2020-10-11 07:50 | NUR ---
RN OPENING NOTE Patient is resting in bed, A/O x4, showing no signs of acute distress or SOB, stable on RA. IV line is clean and intact flushing well. Patient is ambulatory with BRP and independent with self care. Bed is in lowest position, side rails x2 in upright position, call light is within reach, fall safety and aspiration precautions enforced. Will continue with plan of care.
[2020-10-11 07:55] LABS: CREATININE 0.9 mg/dL (0.6-1.3); POTASSIUM 4.5 mmol/L (3.5-5.1)
[2020-10-11 08:00] VITALS: BP 137/69
[2020-10-11 08:10] LABS: CALCIUM, SERUM 8.5 mg/dL (8.5-10.1)
[2020-10-11] MEDS: ASPIRIN EC 81 MG TABLET.DR PO SCH (08:33)
[2020-10-11] MEDS: SPIRONOLACTONE 25 MG TABLET PO SCH (08:33)
[2020-10-11] MEDS: VANCOMYCIN 0.75 GM in IV D5W 250 ML IV SCH (08:33)
[2020-10-11] MEDS: FLUOXETINE HCL 20 MG CAPSULE PO SCH (08:33)
[2020-10-11] MEDS: LISINOPRIL (20MG) 20 MG TABLET PO SCH (08:34)
[2020-10-11] MEDS: CARVEDILOL 6.25 MG TABLET PO SCH ×2 (08:34→20:22)
[2020-10-11] MEDS: FUROSEMIDE 40 MG TABLET PO SCH (08:34)
--- NOTE | 2020-10-11 09:27 | NUR ---
WOUND CARE CONSULT: PT PRESENTS WITH LEFT CHEST SURGICAL WOUND, PRESENT ON ADMISSION. RECOMMENDATIONS MADE FOR WOUND CARE AND SKIN PROTECTION. DISCUSSED WITH NURSING STAFF. MD IN AGREEMENT WITH PLAN OF CARE.
[2020-10-11] MEDS: LORAZEPAM 1 MG TABLET PO PRN (11:07)
[2020-10-11 12:00] VITALS: BP 119/68
[2020-10-11] MEDS: DAKINS QUARTER STRENGTH (0.125%) 480 ML BOTTLE TOP SCH (12:17)
[2020-10-11 16:00] VITALS: BP 109/60
--- NOTE | 2020-10-11 18:59 | NUR ---
RN CLOSING NOTE Patient is resting in bed, A/O x4, showing no signs of acute distress or SOB, stable on RA. IV line is clean and intact flushing well. Patient is ambulatory with BRP and independent with self care. All patient needs met, all due medications given, patient kept clean and dry throughout shift. Bed is in lowest position, side rails x2 in upright position, call light is within reach, fall safety and aspiration precautions enforced. Will endorse to certified nursing assistant for MELLO.
--- NOTE | 2020-10-11 19:10 | NUR ---
CAUSTIC LOADER OPENING NOTES RECEIVED PATIENT IN BED AWAKE ALERT AND ORIENTED X4, RESPIRATIONS EVEN AND UNLABORED WITH EQUAL RISE AND FALL OF CHEST, DENIES ANY PAIN OR DISCOMFORT AT THIS TIME. ON SENIOR JAVA SOFTWARE DEVELOPER SR 68. IV SITE TO RIGHT WRIST #22G INTACT AND PATENT, NO REDNESS, NO INFILTRATION PRESENT, ORIENTED TO STAFF AND CALL LIGHT AND KEPT WITHIN REACH, LOW BED AND LOCKED, ALL NEEDS ATTENDED AT THIS TIME, WILL CONTINUE TO MONITOR. DRESSING TO LCW REMAIN INTACT CLEAN AND DRY.
[2020-10-11 20:00] VITALS: BP 120/64
[2020-10-11] MEDS: VANCOMYCIN 500 MG in IV D5W 100 ML IV SCH (20:21)
[2020-10-11] MEDS: GABAPENTIN 300 MG CAPSULE PO SCH (21:36)
[2020-10-11] MEDS: ZOLPIDEM TARTRATE 5 MG TABLET PO PRN (21:36)
[2020-10-11] MEDS: CEFTRIAXONE 1 G in IV D5W 50 ML IV SCH (21:36)
--- NOTE | 2020-10-11 21:37 | NUR ---
AIR INTERCEPT CONTROLLER NOTES PATIENT REQUESTED FOR SLEEP AIDE, STATES I WOULD LIKE TO TRY TO GET SOME SLEEP CAN I HAVE AMBIEN. PRN AMBIEN GIVEN ORDERED, WILL CONTINUE TO MONITOR FOR EFFECTIVENESS.
[2020-10-12] VITALS: BP 118/68
[2020-10-12 04:30] VITALS: BP 111/68
[2020-10-12] MEDS: HYDROCODONE/APAP 5/325MG TABLET PO PRN ×4 (04:39→18:44)
--- NOTE | 2020-10-12 04:40 | NUR ---
rn notes patient complained of headache and back ache, states 06/10 can i have norco?. vs wnl. norco prn given for pain will continue to monitor.
--- NOTE | 2020-10-12 06:42 | NUR ---
CARPENTER BRIDGE CLOSING NOTES PATIENT IN BED AWAKE ALERT AND ORIENTED X4, RESPIRATIONS EVEN AND UNLABORED WITH EQUAL RISE AND FALL OF CHEST, REMAINS COMFORTABLE AT THIS TIME, ON VALUE ANALYSIS COORDINATOR SR 63. IV SITE TO RIGHT WRIST #22G INTACT AND PATENT, NO REDNESS, NO INFILTRATION PRESENT, CALL LIGHT KEPT WITHIN REACH, LOW BED AND LOCKED, ALL NEEDS ATTENDED AT THIS TIME, WILL CONTINUE TO MONITOR. DRESSING TO LCW REMAIN INTACT CLEAN AND DRY. WILL ENDORSE TO NEXT SHIFT.
[2020-10-12 07:01] LABS: CALCIUM, SERUM 8.4 mg/dL (8.5-10.1); POTASSIUM 4.9 mmol/L (3.5-5.1)
[2020-10-12 08:00] VITALS: BP 167/76
[2020-10-12] MEDS: SPIRONOLACTONE 25 MG TABLET PO SCH (08:13)
[2020-10-12] MEDS: VANCOMYCIN 500 MG in IV D5W 100 ML IV SCH ×2 (08:13→20:22)
[2020-10-12] MEDS: ASPIRIN EC 81 MG TABLET.DR PO SCH (08:13)
[2020-10-12] MEDS: FLUOXETINE HCL 20 MG CAPSULE PO SCH (08:14)
[2020-10-12] MEDS: FUROSEMIDE 40 MG TABLET PO SCH (08:15)
[2020-10-12] MEDS: CARVEDILOL 6.25 MG TABLET PO SCH ×2 (08:31→21:52)
[2020-10-12] MEDS: LISINOPRIL (20MG) 20 MG TABLET PO SCH (08:31)
[2020-10-12] MEDS: DAKINS QUARTER STRENGTH (0.125%) 480 ML BOTTLE TOP SCH (09:20)
[2020-10-12] MEDS: LORAZEPAM 1 MG TABLET PO PRN (11:52)
[2020-10-12 16:00] VITALS: BP 100/54
[2020-10-12 20:00] VITALS: BP 109/58
--- NOTE | 2020-10-12 20:02 | NUR ---
RN CLOSING NOTE Patient is resting in bed, A/O x4, showing no signs of acute distress or SOB, stable on RA. IV line is clean and intact flushing well. Patient is ambulatory with BRP and independent with self care. All patient needs met, all due medications given. Bed is in lowest position, side rails x2 in upright position, call light is within reach, fall safety and aspiration precautions enforced. Will endorse to night monitor.
[2020-10-12] MEDS: GABAPENTIN 300 MG CAPSULE PO SCH (21:51)
[2020-10-12] MEDS: CEFTRIAXONE 1 G in IV D5W 50 ML IV SCH (21:51)
[2020-10-12] MEDS: ZOLPIDEM TARTRATE 5 MG TABLET PO PRN (21:52)
[2020-10-13 04:00] VITALS: BP 128/55
[2020-10-13] MEDS: HYDROCODONE/APAP 5/325MG TABLET PO PRN ×4 (04:07→18:59)
[2020-10-13 08:00] VITALS: BP 122/60
[2020-10-13] MEDS: VANCOMYCIN 500 MG in IV D5W 100 ML IV SCH ×2 (08:00→13:08)
[2020-10-13 08:55] LABS: CALCIUM, SERUM 8.9 mg/dL (8.5-10.1); CREATININE 0.9 mg/dL (0.6-1.3)
[2020-10-13] MEDS: SPIRONOLACTONE 25 MG TABLET PO SCH (09:28)
[2020-10-13] MEDS: FUROSEMIDE 40 MG TABLET PO SCH (09:28)
[2020-10-13] MEDS: FLUOXETINE HCL 20 MG CAPSULE PO SCH (09:28)
[2020-10-13] MEDS: ASPIRIN EC 81 MG TABLET.DR PO SCH (09:28)
[2020-10-13] MEDS: CARVEDILOL 6.25 MG TABLET PO SCH ×2 (09:35→21:37)
[2020-10-13] MEDS: LISINOPRIL (20MG) 20 MG TABLET PO SCH (09:35)
[2020-10-13] MEDS: DAKINS QUARTER STRENGTH (0.125%) 480 ML BOTTLE TOP SCH (09:41)
[2020-10-13 12:00] VITALS: BP 117/55
[2020-10-13] MEDS: LORAZEPAM 1 MG TABLET PO PRN (13:08)
[2020-10-13 16:00] VITALS: BP 96/44
--- NOTE | 2020-10-13 19:01 | NUR ---
RN OPENING NOTE Patient is resting in bed, A/O x4, showing no signs of acute distress or SOB, stable on RA. IV line is clean and intact flushing well. Patient is ambulatory with BRP and independent with self care. All patient needs met, all due medications given. Bed is in lowest position, side rails x2 in upright position, call light is within reach, fall safety and aspiration precautions enforced. Will endorse to shift nurse manager.
--- NOTE | 2020-10-13 19:10 | NUR ---
PROCESS LEAD OPENING NOTES PATIENT SLEEPING, EASY TO AWAKEN. A/OX4. ON RA; NO S/S OF ACUTE RESPIRATORY DISTRESS; BREATHING EVEN AND UNLABORED. NO C/O MATTHEW. TELE MONITOR READING NSR. MIDLINE PRESENT ON RIGHT UPPER ARM, INTACT & PATENT HEP LOCKED. IV PRESENT ON RIGHT WRIST, SIZE 22, INTACT & PATENT, HEP LOCKED. SAFETY MEASURES IN PLACE AND PATIENT'S NEEDS MET. BED LOCKED, SIDE RAILS X2, CALL LIGHT WITHIN REACH. ENDORSED TO DAY SHIFT RN PLAN OF CARE.
[2020-10-13 20:00] VITALS: BP 126/70
[2020-10-13] MEDS: CEFTRIAXONE 1 G in IV D5W 50 ML IV SCH (21:37)
[2020-10-13] MEDS: GABAPENTIN 300 MG CAPSULE PO SCH (21:37)
[2020-10-13] MEDS: ZOLPIDEM TARTRATE 5 MG TABLET PO PRN (21:41)
[2020-10-14] VITALS: BP 107/46
[2020-10-14] MEDS: HYDROCODONE/APAP 5/325MG TABLET PO PRN ×5 (00:23→20:08)
[2020-10-14 04:00] VITALS: BP 101/61
--- NOTE | 2020-10-14 07:15 | NUR ---
STAINED GLASS ARTIST NOTES PATIENT IN BED RESTING COMFORTABLY, ALERT AND ORIENTED X4. ON ROOM AIR WITH NO S/S OF ACUTE RESPIRATORY DISTRESS; BREATHING EVEN AND UNLABORED. ON LITHOGRAPHY CONTACT WORKER NSR. MIDLINE PRESENT ON RIGHT UPPER ARM, INTACT & PATENT SALINE LOCK. IV PRESENT ON RIGHT WRIST, SIZE 22, INTACT & PATENT, SALINE LOCKED. MET ALL OF PATIENT'S NEEDS, SKIN KEPT CLEAN, WARM AND DRY. SAFETY PRECAUTIONS IMPLEMENTED WITH BED LOCKED, BILATERAL SIDE RAILS UP, BED IN THE LOWEST POSITION, AND CALL LIGHT WITHIN EASY REACH OF THE PATIENT. WILL ENDORSE PLAN OF CARE TO UPCOMING RN. Addendum: 10/14/20 at 2002 by LYNDA DUMONT RN STAINED GLASS ARTIST NOTES PATIENT IN BED RESTING COMFORTABLY, ALERT AND ORIENTED X4. ON ROOM AIR WITH NO S/S OF ACUTE RESPIRATORY DISTRESS; BREATHING EVEN AND UNLABORED. ON LITHOGRAPHY CONTACT WORKER NSR. MIDLINE PRESENT ON RIGHT UPPER ARM, INTACT & PATENT SALINE LOCK. IV PRESENT ON RIGHT WRIST, SIZE 22, INTACT & PATENT, SALINE LOCKED. MET ALL OF PATIENT'S NEEDS, SKIN KEPT CLEAN, WARM AND DRY. SAFETY PRECAUTIONS IMPLEMENTED WITH BED LOCKED, BILATERAL SIDE RAILS UP, BED IN THE LOWEST POSITION, AND CALL LIGHT WITHIN EASY REACH OF THE PATIENT. WILL ENDORSE PLAN OF CARE TO UPCOMING RN.
[2020-10-14 07:27] LABS: BASOPHILS # (AUTO) 0.1 /CMM (0.0-0.2); BASOPHILS % (AUTO) 1.7 % (0.0-2.0); EOSINOPHILS % (AUTO) 15.4 % (0.0-6.0); HEMATOCRIT 35 % (33-45); HEMOGLOBIN 11.5 g/dL (11.5-14.8); LYMPHOCYTES # (AUTO) 0.9 /CMM (0.8-4.8); LYMPHOCYTES % (AUTO) 23.1 % (20.0-44.0); MEAN CORPUSCULAR HGB CONC 33 g/dl (31.0-36.0); MEAN CORPUSCULAR VOLUME 94 fL (82-100); MONOCYTES # (AUTO) 0.6 /CMM (0.1-1.30); MONOCYTES % (AUTO) 15.8 % (2.0-12.0); NEUTROPHILS # (AUTO) 1.7 /CMM (1.8-8.9); PLATELET COUNT (AUTO) 304 /CMM (150-450); WHITE BLOOD COUNT (AUTO) 3.9 K/uL (4.3-11.0)
[2020-10-14 08:00] VITALS: BP 128/60
--- NOTE | 2020-10-14 08:00 | NUR ---
LOCAL ANNOUNCER OPENING NOTES PATIENT SLEEPING AT THIS TIME, EASY TO AWAKEN. ALERT AND ORIENTED X4. ON ROOM AIR WITH NO S/S OF ACUTE RESPIRATORY DISTRESS; BREATHING EVEN AND UNLABORED. ON MUNITIONS WORKER NSR. MIDLINE PRESENT ON RIGHT UPPER ARM, INTACT & PATENT SALINE LOCK. IV PRESENT ON RIGHT WRIST, SIZE 22, INTACT & PATENT, SALINE LOCKED. SAFETY PRECAUTIONS IMPLEMENTED WITH BED LOCKED, BILATERAL SIDE RAILS UP, BED IN THE LOWEST POSITION, AND CALL LIGHT WITHIN EASY REACH OF THE PATIENT. WILL CONTINUE TO MONITOR.
[2020-10-14 08:02] LABS: CALCIUM, SERUM 8.7 mg/dL (8.5-10.1); CREATININE 1.1 mg/dL (0.6-1.3); POTASSIUM 5.3 mmol/L (3.5-5.1)
--- NOTE | 2020-10-14 08:18 | NUR ---
AUTOMATION ENGINEERING TECHNICIAN CLOSING NOTES PATIENT AWAKE IN BED. A/OX4. ON RA; DENIES SOB; BREATHING EVEN AND UNLABORED. NO C/O PAIN AT THIS TIME. TELE MONITOR READING NSR. MIDLINE PRESENT ON RIGHT UPPER ARM, INTACT & PATENT HEP LOCKED. IV PRESENT ON RIGHT WRIST, SIZE 22, INTACT & PATENT, HEP LOCKED. LEFT UPPER CHEST DRESSING DRY AND INTACT. SAFETY MEASURES IN PLACE AND PATIENT'S NEEDS MET. BED LOCKED, SIDE RAILS X2, CALL LIGHT WITHIN REACH. ENDORSED TO DAY SHIFT RN PLAN OF CARE.
[2020-10-14] MEDS: VANCOMYCIN 500 MG in IV D5W 100 ML IV SCH (08:51)
[2020-10-14] MEDS: LISINOPRIL (20MG) 20 MG TABLET PO SCH (08:52)
[2020-10-14] MEDS: ASPIRIN EC 81 MG TABLET.DR PO SCH (08:52)
[2020-10-14] MEDS: FLUOXETINE HCL 20 MG CAPSULE PO SCH (08:52)
[2020-10-14] MEDS: FUROSEMIDE 40 MG TABLET PO SCH (08:52)
[2020-10-14] MEDS: SPIRONOLACTONE 25 MG TABLET PO SCH (08:52)
[2020-10-14] MEDS: CARVEDILOL 6.25 MG TABLET PO SCH ×2 (08:53→21:00)
[2020-10-14] MEDS: DAKINS QUARTER STRENGTH (0.125%) 480 ML BOTTLE TOP SCH (08:54)
[2020-10-14] MEDS ORDERED: FUROSEMIDE 40 MG TABLET PO ONE (15:30)
[2020-10-14 16:00] VITALS: BP 124/60
--- NOTE | 2020-10-14 19:15 | NUR ---
LEAF TIER NOTES PATIENT IN BED RESTING COMFORTABLY, ALERT AND ORIENTED X4. ON ROOM AIR WITH NO S/S OF ACUTE RESPIRATORY DISTRESS; BREATHING EVEN AND UNLABORED. ON COMMUNICATIONS FIELD TECHNICIAN NSR. MIDLINE PRESENT ON RIGHT UPPER ARM, INTACT & PATENT SALINE LOCK. IV PRESENT ON RIGHT WRIST, SIZE 22, INTACT & PATENT, SALINE LOCKED. MET ALL OF PATIENT'S NEEDS, SKIN KEPT CLEAN, WARM AND DRY. SAFETY PRECAUTIONS IMPLEMENTED WITH BED LOCKED, BILATERAL SIDE RAILS UP, BED IN THE LOWEST POSITION, AND CALL LIGHT WITHIN EASY REACH OF THE PATIENT. WILL ENDORSE PLAN OF CARE TO UPCOMING RN.
[2020-10-14 20:00] VITALS: BP 117/55
[2020-10-14 20:06] VITALS: BP 117/58
[2020-10-14] MEDS: CEFTRIAXONE 1 G in IV D5W 50 ML IV SCH (20:13)
--- NOTE | 2020-10-14 21:30 | NUR ---
Patient in bed resting comfortably. She is awake, alert, and oriented x4, able to make needs known. Breathing even and u nlabored on room air. No SOB or acute respiratory distress noted. Safety measure in place, bed is in the lowest level, bed is locked, alarm is on, side rails x2 are up, and call light is within reach. Will continue to monitor.
--- NOTE | 2020-10-14 21:30 | NUR ---
Received report from [facility] for continuity of care.
[2020-10-14] MEDS: LORAZEPAM 1 MG TABLET PO PRN (21:48)
[2020-10-14] MEDS: GABAPENTIN 300 MG CAPSULE PO SCH (21:48)
--- NOTE | 2020-10-14 21:53 | NUR ---
Held Carvedilol to due to decreased HR, 58.
[2020-10-15] VITALS: BP 126/68
[2020-10-15] MEDS: ZOLPIDEM TARTRATE 5 MG TABLET PO PRN ×2 (00:02→23:12)
--- NOTE | 2020-10-15 00:03 | NUR ---
Patient verbalized difficulty sleeping. Administered PRN Ambien per MD order. Will continue to monitor.
[2020-10-15 04:00] VITALS: BP 131/77
[2020-10-15 07:50] LABS: CALCIUM, SERUM 9.2 mg/dL (8.5-10.1); CREATININE 1.2 mg/dL (0.6-1.3); POTASSIUM 5.8 mmol/L (3.5-5.1)
[2020-10-15 07:57] LABS: BASOPHILS # (AUTO) 0.1 /CMM (0.0-0.2); BASOPHILS % (AUTO) 1.4 % (0.0-2.0); EOSINOPHILS % (AUTO) 17.1 % (0.0-6.0); HEMATOCRIT 39 % (33-45); LYMPHOCYTES # (AUTO) 0.9 /CMM (0.8-4.8); MEAN CORPUSCULAR HGB CONC 34 g/dl (31.0-36.0); MEAN CORPUSCULAR VOLUME 94 fL (82-100); MONOCYTES # (AUTO) 0.5 /CMM (0.1-1.30); MONOCYTES % (AUTO) 11.9 % (2.0-12.0); NEUTROPHILS # (AUTO) 2.3 /CMM (1.8-8.9); NEUTROPHILS % (AUTO) 50.6 % (43.0-81.0); PLATELET COUNT (AUTO) 357 /CMM (150-450); RED BLOOD CELL COUNT(AUTO) 4.13 MIL/uL (4.0-5.2); WHITE BLOOD COUNT (AUTO) 4.5 K/uL (4.3-11.0)
[2020-10-15 08:00] VITALS: BP 124/70
--- NOTE | 2020-10-15 08:00 | NUR ---
TELE/RN OPENING NOTES PATIENT RECEIVED IN BED. A/O X4. WITH IV ON KATY MIDLINE #18. RIGHT FOREARM #22, INTACT AND PATENT. ON TELE MONITOR READING SINUS BRADYCARDIA 1ST DEG AV BLOCK. NO SIGNS OF ACUTE RESPIRATORY DISTRESS. BREATHING EVEN AND UNLABORED. SAFETY PRECAUTIONS WERE PROVIDED. BED IN LOWEST POSITION. SIDE RAILS UP X2. WILL CONTINUE TO MONITOR.
[2020-10-15] MEDS: FLUOXETINE HCL 20 MG CAPSULE PO SCH (08:20)
[2020-10-15] MEDS: CARVEDILOL 6.25 MG TABLET PO SCH ×2 (08:25→21:54)
[2020-10-15] MEDS: LISINOPRIL (20MG) 20 MG TABLET PO SCH (08:25)
[2020-10-15] MEDS: HYDROCODONE/APAP 5/325MG TABLET PO PRN ×4 (08:26→21:55)
[2020-10-15] MEDS: ASPIRIN EC 81 MG TABLET.DR PO SCH (08:26)
--- NOTE | 2020-10-15 08:26 | NUR ---
TELE/RN NOTES PATIENT VERBALIZED PAIN 9/10. HYDROCODONE PRN GIVEN.
[2020-10-15] MEDS: SPIRONOLACTONE 25 MG TABLET PO SCH (08:27)
[2020-10-15] MEDS: FUROSEMIDE 40 MG TABLET PO SCH (08:28)
[2020-10-15] MEDS: VANCOMYCIN 500 MG in IV D5W 100 ML IV SCH (08:30)
[2020-10-15] MEDS: DAKINS QUARTER STRENGTH (0.125%) 480 ML BOTTLE TOP SCH (08:41)
--- NOTE | 2020-10-15 08:46 | NUR ---
RN CLOSING NOTE: Patient in bed resting comfortably. Patient breathing even and unlabored, no SOB or acute respiratory distress noted. Safety measure maintained, bed is in the lowest level, bed is locked, alarm is on, side rails x2 are up, and call light is within reach. Endorsed continuity of care to AM nurse.
--- NOTE | 2020-10-15 09:26 | NUR ---
TELE/RN NOTES RE ASSESSED PATIENT. PAIN WENT DOWN FROM 9 TO 3. WILL CONTINUE TO MONITOR.
[2020-10-15] MEDS: LORAZEPAM 1 MG TABLET PO PRN (10:54)
[2020-10-15 16:00] VITALS: BP 128/56
--- NOTE | 2020-10-15 18:39 | NUR ---
TELE/RN CLOSING NOTES PATIENT SITTING ON BED. A/O X4. AMBULATORY, INDEPENDENT WITH SELF CARE. WITH IV ON KATY MIDLINE INSERTION #18, RIGHT FA #22, INTACT AND PATENT. NOT SHOWING ANY SIGNS OF RESPIRATORY DISTRESS. PRN PAIN MED ADMINISTERED PER MD ORDER. SAFETY PRECAUTIONS WERE PROVIDED. SIDE RAILS UP x2. BED IN LOWEST POSITION. CALL LIGHT WITHIN REACH. WILL ENDORSE CONTINUITY OF CARE TO PANTRY STEWARD/STEWARDESS.
--- NOTE | 2020-10-15 19:25 | NUR ---
MOTOR BRAKEMAN OPENING NOTES PATIENT AWAKE IN BED. A/OX4. ON RA; NO S/S OF ACUTE RESPIRATORY DISTRESS; BREATHING EVEN AND UNLABORED. NO C/O PAIN. TELE MONITOR READING NSR. MIDLINE PRESENT ON RIGHT UPPER ARM, INTACT & PATENT HEP LOCKED. IV PRESENT ON RIGHT WRIST, SIZE 22, INTACT & PATENT, HEP LOCKED. DRESSING ON LEFT UPPER CHEST DRY AND INTACT. SAFETY MEASURES IN PLACE AND PATIENT'S NEEDS MET. BED LOCKED, SIDE RAILS X2, CALL LIGHT WITHIN REACH. WILL CONTINUE TO MONITOR.
[2020-10-15 20:00] VITALS: BP 97/47
[2020-10-15 20:46] VITALS: BP 97/47
[2020-10-15] MEDS: GABAPENTIN 300 MG CAPSULE PO SCH (21:48)
[2020-10-15] MEDS: CEFTRIAXONE 1 G in IV D5W 50 ML IV SCH (21:48)
[2020-10-16] VITALS (7 sets, daily range): BP systolic 91–118; BP diastolic 50–62
[2020-10-16] MEDS: HYDROCODONE/APAP 5/325MG TABLET PO PRN ×4 (04:41→18:31)
[2020-10-16] MEDS: VANCOMYCIN 500 MG in IV D5W 100 ML IV SCH (07:18)
--- NOTE | 2020-10-16 07:50 | NUR ---
MS RN CLOSING NOTES PATIENT AWAKE IN BED. A/OX4. ON RA; NO S/S OF ACUTE RESPIRATORY DISTRESS; BREATHING EVEN AND UNLABORED. NO C/O PAIN. TELE MONITOR READING NSR. MIDLINE PRESENT ON RIGHT UPPER ARM, INTACT & PATENT HEP LOCKED. IV PRESENT ON RIGHT WRIST, SIZE 22, INTACT & PATENT, HEP LOCKED. SAFETY MEASURES IN PLACE AND PATIENT'S NEEDS MET. BED LOCKED, SIDE RAILS X2, CALL LIGHT WITHIN REACH. ENDORSED TO DAY SHIFT RN PLAN OF CARE.
--- NOTE | 2020-10-16 08:15 | NUR ---
TELE/RN OPENING NOTE RECEIVED PATIENT SITTING ON THE BED. A/O X4. VERY RESPONSIVE. WITH IV ON KATY MIDLINE #18, HL ON RIGHT WRIST #22, INTACT AND PATENT. ON DIFFUSION OPERATOR SB WITH 1ST DEG AVB. NO SIGNS OF RESPIRATORY DISTRESS. BREATHING EVEN AND UNLABORED. IMPLEMENTED SAFETY PRECAUTION. SIDE RAILS UP X2. CALL LIGHT WITHIN REACH. WILL CONTINUE TO MONITOR.
[2020-10-16 08:20] LABS: BASOPHILS # (AUTO) 0.1 /CMM (0.0-0.2); BASOPHILS % (AUTO) 1.3 % (0.0-2.0); EOSINOPHILS % (AUTO) 12.7 % (0.0-6.0); HEMATOCRIT 37 % (33-45); HEMOGLOBIN 12.2 g/dL (11.5-14.8); LYMPHOCYTES # (AUTO) 0.9 /CMM (0.8-4.8); LYMPHOCYTES % (AUTO) 16.6 % (20.0-44.0); MEAN CORPUSCULAR HGB CONC 33 g/dl (31.0-36.0); MEAN CORPUSCULAR VOLUME 96 fL (82-100); MONOCYTES # (AUTO) 0.7 /CMM (0.1-1.30); MONOCYTES % (AUTO) 13.4 % (2.0-12.0); NEUTROPHILS # (AUTO) 3.1 /CMM (1.8-8.9); PLATELET COUNT (AUTO) 289 /CMM (150-450); RED BLOOD CELL COUNT(AUTO) 3.87 MIL/uL (4.0-5.2); WHITE BLOOD COUNT (AUTO) 5.6 K/uL (4.3-11.0)
[2020-10-16] MEDS: CARVEDILOL 6.25 MG TABLET PO SCH ×2 (08:30→20:46)
[2020-10-16] MEDS: FUROSEMIDE 40 MG TABLET PO SCH (08:30)
[2020-10-16] MEDS: FLUOXETINE HCL 20 MG CAPSULE PO SCH (08:30)
[2020-10-16] MEDS: ASPIRIN EC 81 MG TABLET.DR PO SCH (08:30)
[2020-10-16 08:31] LABS: CREATININE 1.3 mg/dL (0.6-1.3); POTASSIUM 5.8 mmol/L (3.5-5.1)
[2020-10-16] MEDS: DAKINS QUARTER STRENGTH (0.125%) 480 ML BOTTLE TOP SCH (08:31)
[2020-10-16] MEDS: LORAZEPAM 1 MG TABLET PO PRN (09:42)
--- NOTE | 2020-10-16 10:09 | NUR ---
WOUND CARE CONSULT: PT SEEN FOR RE-EVALUATION OF LEFT CHEST SURGICAL WOUND, PRESENT ON ADMISSION. WOUND SHOWS RED GRANULATION TISSUE, SMALL AMOUNT OF PURULENT DRAINAGE WITHOUT ODOR. NO UNDERMINING NOTED AT THIS TIME. SUTURE WAS NOTED TO LEFT UPPER EDGE OF WOUND. DR ALTAMIRANO EXAMINED PT AND REMOVED SUTURE. PT TOLERATED WELL. WOUND WAS DRESSED PER MD ORDERS. DISCUSSED WITH RHIT, WOUND TEAM INCLUDING Judson BYERS, SURGICAL Anna Marie WILL SEE PRN. Addendum: 10/16/20 at 1012 by DEBORAH SMITH WNDNU Amended: Links added.
--- NOTE | 2020-10-16 10:36 | NUR ---
TELE/RN URINE SPECIMEN COLLECTED. SPEC WAS SENT TO THE LAB.
--- NOTE | 2020-10-16 13:47 | NUR ---
TELE/RN PATIENT VERBALIZED PAIN, 7/10 ON THE LEST CHEST. PRN PAIN MED WAS GIVEN.
[2020-10-16] MEDS ORDERED: CEFT1FRO2 IV (15:47)
[2020-10-16] MEDS ORDERED: VANC500P5 IV (15:47)
--- NOTE | 2020-10-16 18:04 | NUR ---
TELE/RN CLOSING NOTE PATIENT IN BED. A/O X4. NO SIGNS OF RESPIRATORY DISTRESS. BREATHING EVEN AND UNLABORED. MEDS WAS GIVEN ORDERED. NEEDS MET. SIDE RAILS x2. CALL LIGHT WITHIN REACH. WILL ENDORSE CONTINUITY OF CARE TO PROGRAM CONSULTANT.
--- NOTE | 2020-10-16 18:40 | NUR ---
Tele/RN - End of shift summary Patient for discharge home tonight post Rocephin IV administration to be given at 19:30, p/u by ambulance at 20:30. All discharge papers done, picture taken on the left chest wall wound. Patient to be discharged with KATY midline in place for IV antibiotic management. Will endorse to night RN for completion of discharge.
--- NOTE | 2020-10-16 19:30 | NUR ---
ms rn note received patient in bed. a/ox4. tolerating room air. respirations are even and unlabored. no s/s sob noted. patient was just given norco and rates pain now a 5/10. patient has already removed tele monitor d/t going home. in no apparent distress. iv access in joyce midline patent and saline locked. and right forearm patent and saline locked, informed will remove the forearm iv site and she will keep the midline d/t at home iv antibiotics will be administered. bed is low and locked, hob elevated in semi fowlers, side rails up x2, call light within reach. will continue to monitor.
[2020-10-16 20:31] LABS: CHLORIDE,URINE RANDOM 45 mmol/L (55-125); POTASSIUM RNDM,URINE 56 mmol/L (25-125); URINE SODIUM, RANDOM 42 mmol/l (40-220)
[2020-10-16] MEDS: CEFTRIAXONE 1 G in IV D5W 50 ML IV SCH (20:41)
[2020-10-16] MEDS: GABAPENTIN 300 MG CAPSULE PO SCH (21:04)
--- NOTE | 2020-10-16 21:30 | NUR ---
ms rn digestive note patient is being discharge to home. a/ox4. tolerating room air.no resp distres noted. no c/o pain noted. no distress. iv access maintained in joyce midline patent and saline locked. iv access in right forearm removed. patient is in stable condition. vs 116/50 hr 63 rr 18 temp 98.1 o2 sat 96%. exit care given and explained. belongings list completed. photos taken by AM shift. tele taken to threat monitoring analyst.
[2020-10-17 05:22] LABS: OSMOLALITY,URINE 458 mOS/kg (340-1090)
== END 2020-10-17 | disposition home health service (06) | DRG 206 ==
LOC: ER 06:07 → TELE 15:45
PROVIDERS: ADMIT Family Medicine; ATTEND Nurse Practitioner Acute Care
PROC: 05HD33Z Insertion of Infusion Device into Right Cephalic Vein, Percutaneous Approach (ICD-10-PCS; principal; 2020-10-12)
DX: T82.7XXA Infection and inflammatory reaction due to other cardiac and vascular devices, implants and grafts, initial encounter (principal); L03.313 Cellulitis of chest wall; E78.5 Hyperlipidemia, unspecified; J44.9 Chronic obstructive pulmonary disease, unspecified; K21.9 Gastro-esophageal reflux disease without esophagitis; F41.9 Anxiety disorder, unspecified; R79.89 Other specified abnormal findings of blood chemistry; I50.22 Chronic systolic (congestive) heart failure; Y84.8 Other medical procedures as the cause of abnormal reaction of the patient, or of later complication, without mention of misadventure at the time of the procedure; Y92.129 Unspecified place in nursing home as the place of occurrence of the external cause; I13.0 Hypertensive heart and chronic kidney disease with heart failure and stage 1 through stage 4 chronic kidney disease, or unspecified chronic kidney disease; F41.8 Other specified anxiety disorders; M54.30 Sciatica, unspecified side; N17.0 Acute kidney failure with tubular necrosis; N18.9 Chronic kidney disease, unspecified; I42.0 Dilated cardiomyopathy; Z90.710 Acquired absence of both cervix and uterus; Z20.828 Contact with and (suspected) exposure to other viral communicable diseases; Z90.49 Acquired absence of other specified parts of digestive tract; Z88.3 Allergy status to other anti-infective agents; Z88.2 Allergy status to sulfonamides; I25.2 Old myocardial infarction; F32.9 Major depressive disorder, single episode, unspecified; Z79.899 Other long term (current) drug therapy; T46.4X5A Adverse effect of angiotensin-converting-enzyme inhibitors, initial encounter; Z79.82 Long term (current) use of aspirin; E87.1 Hypo-osmolality and hyponatremia; E87.5 Hyperkalemia; F41.0 Panic disorder [episodic paroxysmal anxiety]; Z95.810 Presence of automatic (implantable) cardiac defibrillator
CPT/HCPCS: 36415; 71045-TC; 76882; 80048-TC; 80061-TC; 80202-TC; 82436-TC; 83735-TC; 83935-TC; 84100-TC; 84133-TC; 84300-TC; 85025-TC; 87040-TC; 87070-TC; 87081-TC; A6407; C9803; G0378; J0696; J2405; J3370; J7050; J7060

== ENCOUNTER 2020-10-18 20:50 | Emergency (ER) | payer OTHER ==
[~2020-10-18] VITALS: Ht 152.4 cm; Wt 54.4 kg
[~2020-10-18 20:50] MED LIST changes: +CEFT1FRO2 IV; +HYDR-4354 PO; +ONDA4TAB5 PO; +VANC500P5 IV
[2020-10-18] MEDS ORDERED: ONDANSETRON HCL/PF 4 MG/2 ML VIAL ONE (22:20)
--- NOTE | 2020-10-18 22:28 | NUR ---
BIBS FROM HOME TO ER BED 7. AAOX4. NOT IN RESP DISTRESS, BREATHING EVEN AND UNLABORED. AMBULATORY. CAME IN FOR LEFT UPPER CHEST PAIN D/T AN INFECTED PACEMAKER SITE, DIZZYNESS, NAUSEA AND FEVER. PT IS AFEBRILE UPON PRESENTATION. PAIN IS 8/10. PT IS PRESENT WITH PICC ON HER KATY. WAS AT TH BEDSIDE FOR EVAL. ORDERS RECEIVED, NOTED AND CARRIED OUT.
[2020-10-18] MEDS ORDERED: VANCOMYCIN 1 GM in IV D5W 250 ML IV ONE (22:30)
[2020-10-18] MEDS ORDERED: IV NS 0.9% 500 ML BAG IV ONE (22:30)
[2020-10-18] MEDS ORDERED: ONDANSETRON HCL/PF 4 MG/2 ML VIAL IVP ONE (22:30)
--- NOTE | 2020-10-18 22:34 | NUR ---
PHLEB AT BEDSIDE FOR BLOOD DRAW. WILL GIVE VANCOMYCIN USE BLOOD CULTURE IS DONE
[2020-10-18] MEDS ORDERED: VANCOMYCIN 1 GM VIAL ONE (22:37)
[2020-10-18 22:50] LABS: BASOPHILS # (AUTO) 0.1 /CMM (0.0-0.2); EOSINOPHILS % (AUTO) 5.6 % (0.0-6.0); HEMATOCRIT 38 % (33-45); HEMOGLOBIN 12.6 g/dL (11.5-14.8); LYMPHOCYTES # (AUTO) 0.8 /CMM (0.8-4.8); LYMPHOCYTES % (AUTO) 10.3 % (20.0-44.0); MEAN CORPUSCULAR HGB CONC 34 g/dl (31.0-36.0); MEAN CORPUSCULAR VOLUME 95 fL (82-100); MONOCYTES # (AUTO) 0.7 /CMM (0.1-1.30); MONOCYTES % (AUTO) 9.3 % (2.0-12.0); NEUTROPHILS # (AUTO) 5.4 /CMM (1.8-8.9); NEUTROPHILS % (AUTO) 73.8 % (43.0-81.0); PLATELET COUNT (AUTO) 290 /CMM (150-450); RED BLOOD CELL COUNT(AUTO) 3.97 MIL/uL (4.0-5.2); WHITE BLOOD COUNT (AUTO) 7.3 K/uL (4.3-11.0)
[2020-10-18 22:58] LABS: CALCIUM, SERUM 9.4 mg/dL (8.5-10.1); CARBON DIOXIDE 28 mmol/L (21-32); CHLORIDE 100 mmol/L (98-107); CREATININE 1.7 mg/dL (0.6-1.3); GLUCOSE 93 mg/dL (74-106); POTASSIUM 4.5 mmol/L (3.5-5.1); SODIUM SERUM 138 mmol/L (136-145); UREA NITROGEN, BLOOD 62 mg/dL (7-18)
[2020-10-18 23:04] LABS: ALANINE AMINOTRANSFERASE 31 U/L (12-78); ALBUMIN 4.1 g/dL (3.4-5.0); ALKALINE PHOSPHATASE 101 U/L (46-116); ASPARTATE AMINOTRANSFERASE 18 U/L (15-37); BILIRUBIN,DIRECT 0.1 mg/dL (0.0-0.2); BILIRUBIN,TOTAL 0.2 mg/dL (0.2-1.0); TOTAL PROTEIN, SERUM 8.2 g/dL (6.4-8.2)
--- NOTE | 2020-10-18 23:27 | NUR ---
pt endorsed to juanjose smith for tammie
[2020-10-18] MEDS ORDERED: HYDROCODONE/APAP 5/325MG TABLET ONE (23:41)
[2020-10-18 23:50] VITALS: BP 127/75
--- NOTE | 2020-10-18 23:50 | NUR ---
Patient discharged to home in stable condition. Written and verbal after care instructions given. Patient verbalizes understanding of instruction.
--- NOTE | 2020-10-18 23:50 | NUR ---
IV removed. Catheter intact and site benign. Pressure and 4x4 applied to site. No bleeding noted.
--- NOTE | 2020-10-18 23:51 | NUR ---
PATIENT PICKED UP BY .
[2020-10-19] MEDS ORDERED: HYDROCODONE/APAP 5/325MG TABLET PO ONE
== END 2020-10-18 23:51 | disposition home or self-care (01) ==
LOC: ER 20:53
DX: L02.213 Cutaneous abscess of chest wall (principal); L03.313 Cellulitis of chest wall; E78.5 Hyperlipidemia, unspecified; I11.0 Hypertensive heart disease with heart failure; I50.22 Chronic systolic (congestive) heart failure; J44.9 Chronic obstructive pulmonary disease, unspecified; Z90.710 Acquired absence of both cervix and uterus; Z90.49 Acquired absence of other specified parts of digestive tract; Z98.890 Other specified postprocedural states; Z88.2 Allergy status to sulfonamides; Z88.8 Allergy status to other drugs, medicaments and biological substances; Z79.899 Other long term (current) drug therapy; Z79.82 Long term (current) use of aspirin
CPT/HCPCS: 71045; 80048; 80076; 83605; 84484; 85025; 85730; 87040 ×2; 93005; 96365; 96375; 99285; J2405; J3370; J7040; 36415

== ENCOUNTER 2020-10-19 07:14 | Emergency (ER) | payer OTHER ==
[~2020-10-19] VITALS: Ht 152.4 cm; Wt 54.4 kg
--- NOTE | 2020-10-19 07:30 | NUR ---
bib self c/o left arm pain, and headache, was here last night for same reason,03/10PS. vs checked. seen by
[2020-10-19] MEDS ORDERED: HYDROCODONE/APAP 5/325MG TABLET ONE (07:48)
[2020-10-19 07:54] VITALS: BP 136/71
[2020-10-19] MEDS ORDERED: HYDROCODONE/APAP 5/325MG TABLET PO ONE (08:00)
== END 2020-10-19 08:04 | disposition home or self-care (01) ==
LOC: ER 07:21
DX: L02.213 Cutaneous abscess of chest wall (principal); L03.313 Cellulitis of chest wall; I11.0 Hypertensive heart disease with heart failure; I50.9 Heart failure, unspecified; E78.5 Hyperlipidemia, unspecified; I25.2 Old myocardial infarction; J44.9 Chronic obstructive pulmonary disease, unspecified; F17.200 Nicotine dependence, unspecified, uncomplicated; Z90.49 Acquired absence of other specified parts of digestive tract; Z98.890 Other specified postprocedural states; Z88.2 Allergy status to sulfonamides; Z88.1 Allergy status to other antibiotic agents; Z79.899 Other long term (current) drug therapy; Z79.82 Long term (current) use of aspirin

== ENCOUNTER 2021-02-25 19:52 | Inpatient (IN) | payer OTHER ==
[2021-02-24 00:45] VITALS: BP 126/80
[~2021-02-25] VITALS: Ht 149.9 cm; Wt 53.2 kg
[~2021-02-25 19:52] MED LIST changes: +AZIT250T PO; -LISI-603 PO; +LISI20TA30 PO
--- NOTE | 2021-02-25 20:00 | NUR ---
PT BIBSELF C/O SOB AND DIZZINESS. PT STATES SHE PASSED OUT AT STORE [facility] TODAY. PT AAOX4, CRYING. VITAL SIGNS STABLE. PLACED IN GOWN AND ON MONITOR, WILL CONTINUE TO MONITOR
--- NOTE | 2021-02-25 20:34 | NUR ---
PT AMBULATORY TO RESTROOM WITH ASSISTANCE
--- NOTE | 2021-02-25 20:37 | NUR ---
BROUGHT BY RADIOLOGY VIA WHEELCHAIR
[2021-02-25 20:53] LABS: BASOPHILS # (AUTO) 0.1 /CMM (0.0-0.2); BASOPHILS % (AUTO) 1.2 % (0.0-2.0); EOSINOPHILS % (AUTO) 2.6 % (0.0-6.0); HEMATOCRIT 36 % (33-45); HEMOGLOBIN 11.7 g/dL (11.5-14.8); LYMPHOCYTES # (AUTO) 0.7 /CMM (0.8-4.8); MEAN CORPUSCULAR HGB CONC 33 g/dl (31.0-36.0); MEAN CORPUSCULAR VOLUME 98 fL (82-100); MONOCYTES # (AUTO) 0.5 /CMM (0.1-1.30); MONOCYTES % (AUTO) 7.7 % (2.0-12.0); NEUTROPHILS # (AUTO) 4.8 /CMM (1.8-8.9); NEUTROPHILS % (AUTO) 76.5 % (43.0-81.0); PLATELET COUNT (AUTO) 312 /CMM (150-450); RED BLOOD CELL COUNT(AUTO) 3.62 MIL/uL (4.0-5.2); WHITE BLOOD COUNT (AUTO) 6.2 K/uL (4.3-11.0)
[2021-02-25 20:55] LABS: BILIRUBIN,URINE SMALL (NEGATIVE); COLOR,URINE DARK YELLOW (YELLOW); LEUKOCYTE ESTERASE ,URINE NEGATIVE (NEGATIVE); NITRITE, URINE NEGATIVE (NEGATIVE); PROTEIN,URINE 100 mg/dl (NEGATIVE); UGLUCOSE NEGATIVE (NEGATIVE)
[2021-02-25 21:03] LABS: CALCIUM, SERUM 8.7 mg/dL (8.5-10.1); CREATININE 0.9 mg/dL (0.6-1.3); POTASSIUM 3.9 mmol/L (3.5-5.1)
[2021-02-25 21:04] LABS: BACTERIA,URINE Few /HPF (None Seen); SQUAMOUS EPITHELIAL CELL,UR Many /HPF (None Seen); WBC,URINE 0-2 /HPF (0-3)
[2021-02-25 21:17] LABS: ALBUMIN 3.4 g/dL (3.4-5.0); BILIRUBIN,DIRECT 0.2 mg/dL (0.0-0.2); BILIRUBIN,TOTAL 0.5 mg/dL (0.2-1.0); TOTAL PROTEIN, SERUM 7.1 g/dL (6.4-8.2)
[2021-02-25] MEDS ORDERED: FUROSEMIDE 40 MG/4 ML VIAL IV ONE (21:30)
[2021-02-25] MEDS ORDERED: MAGNESIUM HYDROXIDE 30 ML UDC PO PRN (22:00)
[2021-02-25] MEDS ORDERED: ZOLPIDEM TARTRATE 5 MG TABLET PO PRN (22:00)
[2021-02-25] MEDS ORDERED: ACETAMINOPHEN 325 MG TABLET PO PRN (22:00)
[2021-02-25] MEDS ORDERED: LORAZEPAM 1 MG TABLET PO PRN (22:00)
[2021-02-25] MEDS ORDERED: Z GUARD REMEDY 2 OZ OINT TP PRN (22:00)
[2021-02-25] MEDS ORDERED: MAG HYDROX/AL HYDROX/SIMETH 30 ML UDC PO PRN (22:00)
[2021-02-25] MEDS ORDERED: ONDANSETRON HCL/PF 4 MG/2 ML VIAL IVP PRN (22:00)
--- NOTE | 2021-02-25 23:19 | NUR ---
Call from lab. Rapid covid negative.
[2021-02-26] MEDS ORDERED: HYDROMORPHONE 1 MG/1 ML DISP.SYRIN IV ONE (00:30)
--- NOTE | 2021-02-26 00:30 | NUR ---
TELE [phone]
--- NOTE | 2021-02-26 00:33 | NUR ---
REPORT GIVEN TO MAR BARROSO FOR MELLO
[2021-02-26 00:45] VITALS: BP 126/80
--- NOTE | 2021-02-26 00:45 | NUR ---
DIVISION OFFICER WEAPONS DEPARTMENTMAITRE D NOTE RECEIVED PATIENT VIA GURNEY. AMBULATED TO BED WITH STAND BY ASSIST D/T SOB. ON OXYGEN 2L/MIN VIA NASAL CANNULA. RESPIRATIONS ARE EVEN AND UNLABORED. STATES FEELS SOB. C/O PAIN IN BACK 06/10. EXTERNAL TELE MONITOR READ SINUS TACHYCARDIA HR 103. IN NO APPARENT DISTRESS. IV ACCESS IN LEFT HAND #22 PATENT AND SALINE LOCKED. INATAL PHYSIAL ASSESSMENT DONE AT THIS TIME. SKIN ASSESSMENT COMPLETE, PHOTOS TAKEN AND PLACED IN CHART. RESIDENTIAL LIFE DIRECTOR OBTAINED VITALS AND COMPLETED BELONGING LIST. BED IS LOW AND LOCKED, HOB ELEVATED IN SEMI FOWLERS, SIDE RIAL SUP X2, CALL LIGHT WITHIN REACH. EXPLAINED USE. WILL CONTINUE TO MONITOR THROUGHOUT SHIFT.
--- NOTE | 2021-02-26 00:47 | NUR ---
PT TRANSFERRED PER ACLS PROTOCOL
[2021-02-26] MEDS: GABAPENTIN 300 MG CAPSULE PO SCH ×2 (01:45→21:18)
[2021-02-26] MEDS ORDERED: FUROSEMIDE 40 MG/4 ML VIAL IV ONE (02:00)
[2021-02-26 04:00] VITALS: BP 116/79
[2021-02-26] MEDS: HYDROCODONE/APAP 5/325MG TABLET PO PRN ×3 (04:18→21:19)
[2021-02-26 04:24] LABS: BASOPHILS # (AUTO) 0.1 /CMM (0.0-0.2); BASOPHILS % (AUTO) 1.4 % (0.0-2.0); EOSINOPHILS % (AUTO) 3.7 % (0.0-6.0); HEMATOCRIT 37 % (33-45); HEMOGLOBIN 12.4 g/dL (11.5-14.8); LYMPHOCYTES # (AUTO) 1.3 /CMM (0.8-4.8); LYMPHOCYTES % (AUTO) 19.3 % (20.0-44.0); MEAN CORPUSCULAR HGB CONC 33 g/dl (31.0-36.0); MEAN CORPUSCULAR VOLUME 98 fL (82-100); MONOCYTES # (AUTO) 0.6 /CMM (0.1-1.30); MONOCYTES % (AUTO) 8.7 % (2.0-12.0); NEUTROPHILS # (AUTO) 4.5 /CMM (1.8-8.9); NEUTROPHILS % (AUTO) 66.9 % (43.0-81.0); PLATELET COUNT (AUTO) 322 /CMM (150-450); WHITE BLOOD COUNT (AUTO) 6.7 K/uL (4.3-11.0)
[2021-02-26 04:49] LABS: ALBUMIN 3.9 g/dL (3.4-5.0); BILIRUBIN,TOTAL 0.4 mg/dL (0.2-1.0); CALCIUM, SERUM 9.3 mg/dL (8.5-10.1); CREATININE 0.9 mg/dL (0.6-1.3); MAGNESIUM 1.8 mg/dL (1.8-2.4); PHOSPHORUS 4.2 mg/dL (2.5-4.9); TOTAL PROTEIN, SERUM 7.8 g/dL (6.4-8.2)
--- NOTE | 2021-02-26 06:31 | NUR ---
PHYSICIAN CODER CLOSING NOTE PATIENT RESTING IN BED. HAS OXYGEN 2L/MIN VIA NASAL CANNULA ON AND OFF. NO RESP DISTRESS. MANAGED PAIN WITH DILUADID AND NORCO 5 TELE MONITOR READ SINUS RHYTHM HR 88. NO DISTRESS. IV ACCESS MAINTAINED IN LEFT HAND #22. BED REMAINS LOW AND LOCKED, HOB ELEVATED IN SEMI FOWLERS, SIDE RIALS UP X2, CALL LIGHT WITHIN REACH. WILL ENDORSE TO ONCOMING SHIFT.
--- NOTE | 2021-02-26 07:39 | NUR ---
PALLIATIVE NURSE OPENING NOTES RECEIVED PATIENT IN BED, ASLEEP. PATIENT ON OXYGEN THERAPY AT 2 LPM VIA NASAL CANNULA; BREATHING EVEN AND UNLABORED. NO S/S OF PAIN SUCH MOANING, FACIAL GRIMACING OR GUARDING. TELE MONITOR WITH A CURRENT READING OF SR 96BMP. IV ACCESS ON L HAND G # 22 PRESENT AND INTACT, SL. SAFETY PRECAUTIONS IN PLACE; BED IN LOW POSITION AND LOCKED, RAILS UP X2, CALL LIGHT WITHIN REACH. WILL CONTINUE TO MONITOR PATIENT.
[2021-02-26 08:00] VITALS: BP 120/77
[2021-02-26] MEDS: ASPIRIN EC 81 MG TABLET.DR PO SCH (08:34)
[2021-02-26] MEDS: CARVEDILOL 6.25 MG TABLET PO SCH ×2 (08:34→21:17)
[2021-02-26] MEDS: LISINOPRIL (20MG) 20 MG TABLET PO SCH (08:35)
[2021-02-26] MEDS: FLUOXETINE HCL 20 MG CAPSULE PO SCH (08:35)
[2021-02-26] MEDS: POTASSIUM CHLORIDE 10 MEQ TABLET.SA PO SCH (08:37)
[2021-02-26] MEDS ORDERED: FUROSEMIDE 40 MG/4 ML VIAL IV SCH (09:30)
--- NOTE | 2021-02-26 09:43 | NUR ---
WOUND CARE CONSULT: PT HAS BEEN FOLLOWED BY SURGICAL TEAM FOR RT AXILLARY RAISED LESIONS, PRESENT ON ADMISSION. DR SPEAR NOTIFIED OF PT ADMISSION. CURRENT ELAN SCORE IS 21. PT IS SLEEPING SOUNDLY AT THIS TIME. IN AGREEMENT WITH PLAN OF CARE.
[2021-02-26] MEDS: FUROSEMIDE 40 MG TABLET PO SCH ×3 (12:51→21:18)
[2021-02-26] MEDS: clonazePAM 1 MG TABLET PO PRN (15:09)
--- NOTE | 2021-02-26 15:10 | NUR ---
COOK JELLY NOTES PATIENT FEELING ANXIOUS, CRYING, SHAKING. ASKING FOR PRN MEDICATION. PRN KLONOPIN ADMINISTERED PER MD ORDER.
[2021-02-26 15:58] VITALS: BP 104/69
--- NOTE | 2021-02-26 17:14 | NUR ---
CREAM BEATER NOTES 1700 BP 121/82 HR 93
--- NOTE | 2021-02-26 18:44 | NUR ---
WIRE BRUSH OPERATOR CLOSING NOTES PATIENT REMAINS IN BED, AWAKE, A/O X4. PATIENT ON OXYGEN THERAPY AT 2 LPM VIA NASAL CANNULA; BREATHING EVEN AND UNLABORED. PAIN TREATED WITH PRN NORCO PER MD ORDER. TELE MONITOR WITH A CURRENT READING OF SR 98 BMP. NO IV ACCESS, PATIENT VERY HARD STICK. AWAITING MIDLINE INSERTION. ALL NEEDS ATTENDED DURING THE DAY. SAFETY PRECAUTIONS IN PLACE; BED IN LOW POSITION AND LOCKED, RAILS UP X2, CALL LIGHT WITHIN REACH. WILL ENDORSE TO FLIGHT OPERATION COORDINATOR NURSE.
--- NOTE | 2021-02-26 19:18 | NUR ---
POPULATION HEALTH COACH MAGGIE NOTES PATIENT DECIDED TO LEAVE AMA ALL OF THE SUDDEN AT THE CHANGE OF SHIFT STATING SHE HAS TO GO, SHE FEELS BETTER NOW,, SHE CAN BREATHE AND THAT SHE HAS BEEN THROUGH THIS TOO MANY TIMES. CHARGE NURSE TRIED TALKING WITH PATIENT WELL ASKING HER TO STAY BUT SHE REFUSED. ALL THE POSSIBLE COMPLICATIONS OF LEAVING AT THIS TIME HAVE BEEN DISCUSSED; PATIENT SAID SHE UNDERSTANDS EVERYTHING AND CAN COME SEE DR. ALTAMIRANO ANY DAY AND THAT HER PACEMAKER CAN WAIT WELL. SHE SAID THANK YOU FOR EVERYTHING BUT SHE FEELS LIKE GOING AT THIS TIME. IN CASE SHE FEELS WORSE, PATIENT STATED SHE CAN RETURN TO THE HOSPITAL. AMA HAS BEEN SIGNED.
[2021-02-26 20:00] VITALS: BP 115/65
--- NOTE | 2021-02-26 20:52 | NUR ---
MS RN: CONTINUITY OF CARE Patient in bed A/O x4. Per MAR Johnson charge nurse patient was assisted back to unit from the [facility], patient reports with dizziness and decided to come back for hospitalization. AMA was cancelled at 1999. supervisor vat house was aware. Patient made comfortable in bed. Fall precaution maintained. Addendum: 02/27/21 at 0032 by KATELYNN MAS RN CLARIFICATION NOTES ABOVE: MAR Saavedra Error documentation placed under MAR Gilliland
--- NOTE | 2021-02-26 21:43 | NUR ---
CLARIFICATION NOTES ABOVE: MAR Saavedra Error documentation placed under MAR Gilliland Addendum: 02/27/21 at 0033 by KATELYNN MAS RN DISREGARD NOTES ABOVE
[2021-02-27] VITALS: BP 125/58
[2021-02-27] MEDS: clonazePAM 1 MG TABLET PO PRN ×2 (00:29→12:16)
[2021-02-27] MEDS: HYDROCODONE/APAP 5/325MG TABLET PO PRN ×2 (03:24→15:32)
[2021-02-27 04:00] VITALS: BP 88/59
--- NOTE | 2021-02-27 04:00 | NUR ---
BP LOW BP 88/59, no c/o dizziness. Patient with crying behavior, states she takes anxiety medication every 4 hours. Patient is on Klonopin 1mg BID, received 1mg at 0029, educated patient on Klonopin-indication and possible side effect, patient verbalized understanding.
--- NOTE | 2021-02-27 06:15 | NUR ---
END OF SHIFT REPORT Sinus rhythm in the Tele monitor HR 76. [place] given for Back pain and Body ache with intermittent relief. Patient refused IV peripheral line, declined education. Patient voicing to go home as soon as after breakfast, again wants to leave AMA. Importance/benefits of continued hospitalization and risk of leaving AMA provided. Will endorse to oncoming RN.
[2021-02-27 06:24] LABS: BASOPHILS # (AUTO) 0.1 /CMM (0.0-0.2); BASOPHILS % (AUTO) 1.3 % (0.0-2.0); EOSINOPHILS % (AUTO) 7.2 % (0.0-6.0); HEMATOCRIT 38 % (33-45); HEMOGLOBIN 12.8 g/dL (11.5-14.8); LYMPHOCYTES # (AUTO) 1.1 /CMM (0.8-4.8); LYMPHOCYTES % (AUTO) 18.9 % (20.0-44.0); MEAN CORPUSCULAR HGB CONC 33 g/dl (31.0-36.0); MEAN CORPUSCULAR VOLUME 97 fL (82-100); MONOCYTES # (AUTO) 0.5 /CMM (0.1-1.30); MONOCYTES % (AUTO) 8.3 % (2.0-12.0); NEUTROPHILS # (AUTO) 3.8 /CMM (1.8-8.9); NEUTROPHILS % (AUTO) 64.3 % (43.0-81.0); PLATELET COUNT (AUTO) 338 /CMM (150-450); RED BLOOD CELL COUNT(AUTO) 3.96 MIL/uL (4.0-5.2); WHITE BLOOD COUNT (AUTO) 5.9 K/uL (4.3-11.0)
[2021-02-27 07:03] LABS: ALBUMIN 3.3 g/dL (3.4-5.0); BILIRUBIN,TOTAL 0.4 mg/dL (0.2-1.0); CALCIUM, SERUM 8.4 mg/dL (8.5-10.1); CREATININE 1.2 mg/dL (0.6-1.3); MAGNESIUM 1.6 mg/dL (1.8-2.4); PHOSPHORUS 5.5 mg/dL (2.5-4.9); POTASSIUM 3.7 mmol/L (3.5-5.1)
[2021-02-27] MEDS: FUROSEMIDE 40 MG/4 ML VIAL IV SCH ×3 (07:30→15:32)
[2021-02-27 08:00] VITALS: BP 89/53
--- NOTE | 2021-02-27 08:00 | NUR ---
RN OPENING NOTE RECEIVED PATIENT IN BED SLEEPING, AO X 4, ABLE TO RESPONDS ALL STIMULI. SKIN IS WARM TO TOUCH, KEEP CLEAN/DRY, INTACT IV SITE. RESPIRATORY EVEN AND UNLABORED WITH OXYGEN AT 2LPM. KEPT ELEVATED HOB FOR ENSURE AIRWAY AND ASPIRATION PRECAUTION, ALSO LOWEST BED POSITION FOR SAFETY. CALL LIGHT WITHIN REACH, WILL CONTINUE TO MONITOR.
--- NOTE | 2021-02-27 08:08 | NUR ---
PATIENT REFUSED MAKE NEW IV SITE, ALSO LOW BP-89/53, P-74 WILL HOLD MEDS. MADE AWARE.
[2021-02-27] MEDS: ASPIRIN EC 81 MG TABLET.DR PO SCH (08:35)
[2021-02-27] MEDS: POTASSIUM CHLORIDE 10 MEQ TABLET.SA PO SCH (08:35)
[2021-02-27] MEDS: FLUOXETINE HCL 20 MG CAPSULE PO SCH (08:35)
[2021-02-27] MEDS: LISINOPRIL (20MG) 20 MG TABLET PO SCH (08:36)
[2021-02-27] MEDS: CARVEDILOL 6.25 MG TABLET PO SCH (08:36)
[2021-02-27] MEDS ORDERED: MAGNESIUM OXIDE 400 MG TABLET PO ONE (09:08)
[2021-02-27 12:00] VITALS: BP 119/76
[2021-02-27] MEDS ORDERED: MORPHINE SULFATE INJ 2 MG/ML DISP.SYRIN IV PRN (15:30)
--- NOTE | 2021-02-27 15:44 | NUR ---
PATIENT REFUSED RIGHT AXILLA LESION DRESSING CHANGE.
--- NOTE | 2021-02-27 16:00 | NUR ---
PATIENT SIGNED AMA AND LEFT FACILITY, WHO VERBALLY UNDERSTAND ABOUT THE RISKS AND CONSEQUENCES INVOLVED IN LEAVING THE HOSPITAL AT THIS TIME, THE BENEFIT OF CONTINUED TREATMENT AND HOSPITALIZATION. REMOVED MIDLINE AND ID BAND MADE AWARE.
[2021-02-27] MEDS ORDERED: CEPHALEXIN MONOHYDRATE 500 MG CAPSULE PO SCH (21:00)
== END 2021-02-27 16:15 | disposition left against medical advice (07) | DRG 194 ==
LOC: ER 19:56 → TELE 02-26 00:35
PROVIDERS: ADMIT Nurse Practitioner Acute Care; ATTEND Nurse Practitioner Acute Care
PROC: 05H633Z Insertion of Infusion Device into Left Subclavian Vein, Percutaneous Approach (ICD-10-PCS; principal; 2021-02-27)
PROC: B547ZZA Ultrasonography of Left Subclavian Vein, Guidance (ICD-10-PCS; 2021-02-27)
DX: I13.0 Hypertensive heart and chronic kidney disease with heart failure and stage 1 through stage 4 chronic kidney disease, or unspecified chronic kidney disease (principal); N17.0 Acute kidney failure with tubular necrosis; J44.9 Chronic obstructive pulmonary disease, unspecified; I42.8 Other cardiomyopathies; E83.42 Hypomagnesemia; E78.5 Hyperlipidemia, unspecified; I50.23 Acute on chronic systolic (congestive) heart failure; L73.2 Hidradenitis suppurativa; F41.9 Anxiety disorder, unspecified; F39 Unspecified mood [affective] disorder; Z79.82 Long term (current) use of aspirin; R55 Syncope and collapse; Z20.822 Contact with and (suspected) exposure to COVID-19; R74.01 Elevation of levels of liver transaminase levels; Z91.19 Patient's noncompliance with other medical treatment and regimen; N18.9 Chronic kidney disease, unspecified; Z90.710 Acquired absence of both cervix and uterus; Z90.49 Acquired absence of other specified parts of digestive tract
CPT/HCPCS: 36410; 36415; 71045-TC; 80048-TC; 80053-TC; 80061-TC; 80076-TC; 81001; 82140-TC; 83735-TC; 83880; 84100-TC; 84484-TC; 85025-TC; 85730-TC; 87081-TC; C9803; G0378; J1170; J1940

== ENCOUNTER 2021-03-06 11:13 | Inpatient (IN) | payer OTHER ==
[~2021-03-06] VITALS: Ht 152.4 cm; Wt 63.5 kg
--- NOTE | 2021-03-06 11:39 | NUR ---
bib self c/o sob since yesterday. R armpit area rash noted. On room air, breathing evenly, anxious. Connected to the monitor and pulse ox. Kept comfortable, will continue to monitor accordingly.
--- NOTE | 2021-03-06 11:39 | NUR ---
IV access on the left AC, blood drawned and sent to lab.
[2021-03-06 12:09] LABS: BASOPHILS # (AUTO) 0.1 /CMM (0.0-0.2); BASOPHILS % (AUTO) 0.9 % (0.0-2.0); EOSINOPHILS % (AUTO) 1.9 % (0.0-6.0); HEMATOCRIT 41 % (33-45); HEMOGLOBIN 13.4 g/dL (11.5-14.8); LYMPHOCYTES # (AUTO) 1.1 /CMM (0.8-4.8); LYMPHOCYTES % (AUTO) 9.6 % (20.0-44.0); MEAN CORPUSCULAR HGB CONC 33 g/dl (31.0-36.0); MEAN CORPUSCULAR VOLUME 98 fL (82-100); MONOCYTES # (AUTO) 0.9 /CMM (0.1-1.30); NEUTROPHILS # (AUTO) 9.1 /CMM (1.8-8.9); NEUTROPHILS % (AUTO) 79.6 % (43.0-81.0); PLATELET COUNT (AUTO) 383 /CMM (150-450); RED BLOOD CELL COUNT(AUTO) 4.17 MIL/uL (4.0-5.2); WHITE BLOOD COUNT (AUTO) 11.5 K/uL (4.3-11.0)
[2021-03-06 12:16] LABS: CREATININE 0.8 mg/dL (0.6-1.3); POTASSIUM 3.9 mmol/L (3.5-5.1)
[2021-03-06] MEDS ORDERED: ONDANSETRON HCL/PF 4 MG/2 ML VIAL ONE (12:23)
[2021-03-06 12:28] LABS: ALBUMIN 3.9 g/dL (3.4-5.0); BILIRUBIN,DIRECT 0.1 mg/dL (0.0-0.2); BILIRUBIN,TOTAL 0.5 mg/dL (0.2-1.0); TOTAL PROTEIN, SERUM 7.7 g/dL (6.4-8.2)
[2021-03-06] MEDS ORDERED: ONDANSETRON HCL/PF - ER 4 MG/2 ML VIAL IV ONE (12:30)
[2021-03-06] MEDS ORDERED: MORPHINE SULFATE INJ 2 MG/ML DISP.SYRIN IV ONE (13:00)
[2021-03-06] MEDS ORDERED: VANCOMYCIN 1 GM in IV D5W 250 ML IV ONE (13:00)
[2021-03-06] MEDS ORDERED: MORPHINE SULFATE INJ 4 MG/ML DISP.SYRIN ONE (13:33)
--- NOTE | 2021-03-06 15:58 | NUR ---
GOING TO 307.1
--- NOTE | 2021-03-06 17:26 | NUR ---
COVID RESULT: NEGATIVE
--- NOTE | 2021-03-06 18:12 | NUR ---
MS RN RECEIVED A NEW ADMISSION ,65 YEAR OLD FEMALE, AWAKE,ALERT,ORIENTED X4,CAME IN W/ SOB, DX. CHF,DENIES PAIN AT THIS TIME, WILL MONITOR PATIENT'S CONDITION.
--- NOTE | 2021-03-06 18:14 | NUR ---
Note osminone in ED - 03/06/21 at 1900 by PRERNA Patient discharged to home in stable condition. Written and verbal after care instructions given. Patient verbalizes understanding of instruction.IV removed. Catheter intact and site benign. Pressure and 4x4 applied to site. No bleeding noted.
--- NOTE | 2021-03-06 18:14 | NUR ---
wheeled patient via gurney accompanied by RN and emt in no distress. RN at bedside to assume care.
[2021-03-06] MEDS ORDERED: Z GUARD REMEDY 2 OZ OINT TP PRN (18:30)
[2021-03-06] MEDS ORDERED: MORPHINE SULFATE INJ 2 MG/ML DISP.SYRIN IV PRN (18:30)
[2021-03-06] MEDS ORDERED: MAGNESIUM HYDROXIDE 30 ML UDC PO PRN (18:30)
[2021-03-06] MEDS ORDERED: MAG HYDROX/AL HYDROX/SIMETH 30 ML UDC PO PRN (18:30)
[2021-03-06] MEDS ORDERED: ZOLPIDEM TARTRATE 5 MG TABLET PO PRN (18:30)
[2021-03-06] MEDS ORDERED: ACETAMINOPHEN 325 MG TABLET PO PRN (18:30)
[2021-03-06] MEDS ORDERED: ONDANSETRON HCL/PF 4 MG/2 ML VIAL IVP PRN (18:30)
--- NOTE | 2021-03-06 18:50 | NUR ---
MS RN PATIENT ON BED, NO DISTRESS NOTED, WILL EBDORSED TO SHIPPER RECEIVER FOR CONTINUITY OF CARE.
--- NOTE | 2021-03-06 19:30 | NUR ---
AIRPORT CLERK OPENING NOTE PATIENT RECEIVED IN BED, RESTING. A/O X 3. PATIENT IS ABLE TO MAKE NEEDS KNOWN. BREATHING EVEN AND UNLABORED. COMPLAINS OF SOB WHEN LAYING DOWN. TELE MONITOR READS SR. SAFETY MEASURES IN PLACE: HOB ELEVATED, CALL LIGHT WITHIN REACH, SIDE RAILS UP, BED IN LOCKED AND LOWEST POSITION. WILL MONITOR PATIENT CLOSELY.
[2021-03-06 20:00] VITALS: BP 114/67
--- NOTE | 2021-03-06 20:00 | NUR ---
R HAND IV NOT PATENT. IV INSERTED ON THE LEFT HAND 24G.
[2021-03-06] MEDS: HYDROCODONE/APAP 5/325MG TABLET PO PRN (20:43)
--- NOTE | 2021-03-06 20:44 | NUR ---
MEMORIAL COUNSELOR NOTE PATIENT COMPLAINING OF 7/10 PAIN ON THE 0-10 PAIN SCALE ON HER RIGHT AXILLA/ARM. Addendum: 03/06/21 at 2043 by LAURE SUTTON RN JIGNESH MEDEROS.
[2021-03-06] MEDS: PIPERACILLIN /TAZOBACTAM 3.375 G in IV D5W 50 ML IV SCH (21:02)
--- NOTE | 2021-03-06 22:19 | NUR ---
COMMAND CENTER ANALYST NOTE PATIENT REQUESTED AMBIEN FOR SLEEP.
[2021-03-07] VITALS: BP 116/75
[2021-03-07] MEDS: HYDROCODONE/APAP 5/325MG TABLET PO PRN ×5 (02:23→20:34)
--- NOTE | 2021-03-07 02:23 | NUR ---
FISHERIES TECHNICAL OFFICER NOTE PATIENT COMPLAINING OF 7/10 HEADACHE AND PAIN ON THE R AXILLA. NORCO GIVEN.
--- NOTE | 2021-03-07 03:05 | NUR ---
SCREENER OPERATOR NOTE PATIENT CRYING AND HAVING ANXIETY ATTACK, THERAPEUTIC MEASURES APPLIED. NOTIFIED TWAN CENTENO, ORDERED ATIVAN 0.5 MG PO X 1 AND PSYCH CONSULT. ORDERS READ BACK AND CARRIED OUT.
--- NOTE | 2021-03-07 03:20 | NUR ---
HAM STRIPPER NOTE ATIVAN ADMINISTERED, WILL CONTINUE TO MONITOR PATIENT'S BEHAVIOR.
[2021-03-07] MEDS ORDERED: LORAZEPAM 0.5 MG TABLET PO ONE (03:30)
[2021-03-07 04:00] VITALS: BP 119/71
[2021-03-07] MEDS: PIPERACILLIN /TAZOBACTAM 3.375 G in IV D5W 50 ML IV SCH ×4 (05:18→23:42)
--- NOTE | 2021-03-07 05:30 | NUR ---
MDS COORDINATOR NOTE PATIENT PUT BACK ON 2 L O2 D/T 86% SATURATION, PATIENT WAS SLEEPING AND HOB SLIGHTLY DOWN, PATIENT HOB RE-ELEVATED AND APPLIED SUPPLEMENTAL O2. SATURATION NOW AT 98%-100%.
[2021-03-07] MEDS: VANCOMYCIN 0.75 GM in IV D5W 250 ML IV SCH (06:10)
[2021-03-07 06:24] LABS: BASOPHILS # (AUTO) 0.1 /CMM (0.0-0.2); BASOPHILS % (AUTO) 0.9 % (0.0-2.0); EOSINOPHILS % (AUTO) 4.7 % (0.0-6.0); HEMATOCRIT 37 % (33-45); HEMOGLOBIN 12.3 g/dL (11.5-14.8); MEAN CORPUSCULAR HGB CONC 33 g/dl (31.0-36.0); MEAN CORPUSCULAR VOLUME 98 fL (82-100); MONOCYTES # (AUTO) 0.8 /CMM (0.1-1.30); MONOCYTES % (AUTO) 9.5 % (2.0-12.0); NEUTROPHILS # (AUTO) 6.1 /CMM (1.8-8.9); NEUTROPHILS % (AUTO) 72.9 % (43.0-81.0); PLATELET COUNT (AUTO) 312 /CMM (150-450); RED BLOOD CELL COUNT(AUTO) 3.78 MIL/uL (4.0-5.2); WHITE BLOOD COUNT (AUTO) 8.4 K/uL (4.3-11.0)
--- NOTE | 2021-03-07 06:42 | NUR ---
CUT OFF SAW SET UP OPERATOR CLOSING NOTE PATIENT IN BED, EYES CLOSED. EASILY AWAKEN. PATIENT CURRENTLY ON 2 L OXYGEN SUPPLEMENTATION, TOLERATING WITH 98% SATURATION. BREATHING EVEN AND UNLABORED. STILL COMPLAINS OF DYSPNEA WHEN LAYING DOWN AND AMBULATING. TELE MONITOR READS SR 72 BPM. ALL NEEDS MET AND ATTENDED, ALL ORDERS CARRIED OUT. ATB THERAPY INFUSED DURING THE SHIFT. SAFETY MEASURES MAINTAINED: HOB ELEVATED, CALL LIGHT WITHIN REACH, SIDE RAILS UP X3, BED IN LOCKED AND LOWEST POSITION. WILL ENDORSE TO DAY SHIFT NURSE FOR MELLO.
[2021-03-07 06:51] LABS: CALCIUM, SERUM 8.5 mg/dL (8.5-10.1); CREATININE 0.9 mg/dL (0.6-1.3); PHOSPHORUS 4.6 mg/dL (2.5-4.9); POTASSIUM 4.2 mmol/L (3.5-5.1)
--- NOTE | 2021-03-07 07:04 | NUR ---
BAND TOP MAKER OPENING NOTES RECEIVED PT AWAKE IN BED AT THIS TIME. AOX4. PT ABLE TO MAKE NEEDS KNOWN. NO SOB NOTED, NO S/O ANY APPARENT DISTRESS NOTED, NO C/O OF PAIN AT THIS TIME. PT NOTED ON 2LPM OXYGEN VIA NC. RESPIRATIONS EVEN AND UNLABORED. PT ON EXTERNAL CARDIAC TELE MONITOR READING SR IN THE 70s. IV ACCESS NOTED IN LEFT HAND G#24, INTACT, PATENT AND FLUSHING WELL. SAFETY PRECAUTIONS IN PLACE AND MAINTAINED AT ALL TIMES. BED IN LOWEST LOCKED POSITION, HOB ELEVATED, SIDE RAILS UP X 2. CALL LIGHT AND TABLE WITHIN REACH. WILL CONTINUE TO MONITOR
[2021-03-07 07:24] LABS: THYROID STIMULATING HORMONE 1.677 uIU/mL (0.358-3.74)
[2021-03-07] MEDS: PANTOPRAZOLE 40 MG TABLET.DR PO SCH (07:54)
[2021-03-07 08:00] VITALS: BP 109/68
[2021-03-07] MEDS: CARVEDILOL 6.25 MG TABLET PO SCH ×2 (09:00→20:28)
[2021-03-07] MEDS: LISINOPRIL (20MG) 20 MG TABLET PO SCH (09:00)
[2021-03-07] MEDS ORDERED: FLUOXETINE HCL 20 MG CAPSULE PO SCH (09:00)
--- NOTE | 2021-03-07 09:08 | NUR ---
WOUND CARE CONSULT: PT PRESENTS WITH RAISED LESIONS TO RT AXILLA, PRESENT ON ADMISSION. CULTURE SENT OF PROXIMAL LESION WHICH IS OPEN WITH SCANT PURULENT DRAINAGE, NO ODOR. RECOMMEND SURGICAL CONSULT. DR SPEAR NOTIFIED. DISCUSSED WITH NURSING STAFF. IN AGREEMENT WITH PLAN OF CARE. Addendum: 03/07/21 at 0909 by DEBORAH SMITH WNDNU Amended: Links added.
[2021-03-07] MEDS: FUROSEMIDE 40 MG TABLET PO SCH (09:36)
[2021-03-07] MEDS: ASPIRIN EC 81 MG TABLET.DR PO SCH (09:36)
[2021-03-07] MEDS: POTASSIUM CHLORIDE 20 MEQ TAB.PRT.SR PO SCH (09:36)
[2021-03-07] MEDS: SPIRONOLACTONE 25 MG TABLET PO SCH (09:36)
--- NOTE | 2021-03-07 09:44 | NUR ---
PATIENT COMPLAINED OF ACHING PAIN ON THE RIGHT ARM. WITH PAIN LEVEL OF 7/10. PRN MEDICATION OF NORCO 5-325MG GIVEN ORDERED. HEALTH TEACHING REGARDING PAIN MEDICATION NORCO DONE AND VERBALIXED UNDERSTANDING AND APPRECIATION. WILL MONITOR PATIENT CLOSELY.
--- NOTE | 2021-03-07 09:53 | NUR ---
PATIENT'S ANTIHYPERTENSIVE MEDICATIOBN ON HOLD BECAUSE OF RELATIVELY LOW BLOOD PRESSURE. PATIENT ALSO ON DIURETICS AT THIS TIME. NO SIGNS OF DISTRESS NOTED. WILL MONITOR CLOSELY.
[2021-03-07] MEDS ORDERED: IPRATROPIUM NEB FS 0.5 MG/2.5 ML AMPUL.NEB NEB PRN (12:00)
--- NOTE | 2021-03-07 13:35 | NUR ---
DR RIVERA, PSYCH MD, TELE CONSULTED PATIENT AT THIS TIME. WILL CONTINUE WITH PLAN OF CARE
[2021-03-07] MEDS: CITALOPRAM HYDROBROMIDE 10 MG TABLET GT SCH (14:40)
[2021-03-07] MEDS: ARIPIPRAZOLE 5 MG TABLET PO SCH ×2 (14:41→17:18)
--- NOTE | 2021-03-07 15:18 | NUR ---
PATIENT COMPLAINED OF RIGHT AXILLA THROBBING PAIN, WITH PAIN OF 7/10 ON PAIN SCALE. COMFORT MEASURES PROVIDED. PATIENT'S VITAL SIGNS WITHIN THE NORMAL LIMITS. PATIENT ENCOURAGED TO DO DEEP BREATHING EXERCISES RELAXATION TECHNIQUE. PROVIDED WITH CALM AND QUIET ENVIRONMENT. WILL CONTINUE TO MONITOR PATIENT CLOSELY.
[2021-03-07 16:00] VITALS: BP 112/75
--- NOTE | 2021-03-07 18:26 | NUR ---
MS RN CLOSING NOTES PT AWAKE IN BED AT THIS TIME. PT REMAINED STABLE THROUGHOUT SHIFT. ALL CARE, NEEDS, TREATMENT AND MEDICATIONS ADMINISTERED ANTICIPATED PER ORDER. PT KEPT CLEAN AND DRY. PAIN MANAGEMENT ADMINISTERED PER ORDER. SAFETY PRECAUTIONS IN PLACE AND MAINTAINED AT ALL TIMES. BED IN LOWEST LOCKED POSITION, HOB ELEVATED, SIDE RAILS UP X 2. CALL LIGHT AND TABLE WITHIN REACH. WILL ENDORSE TO COUNTY ORDINARY NURSE FOR MELLO
--- NOTE | 2021-03-07 19:15 | NUR ---
MS RN OPENING NOTE PATIENT IN BED SLEEPING, BREATHING EVEN AND UNLABORED TOLERATING ROOM AIR AT 95% SATURATION. PATIENT ABLE TO MAKE NEEDS KNOW. IV ACCESS PATENT AND INTACT. SAFETY MEASURES IN PLACE: PULSE OX ON, HOB ELEVATED, CALL LIGHT WITHIN REACH, SIDE RAILS UP X 3, BED IN LOCKED AND LOWEST POSITION. WILL MONITOR PATIENT CLOSELY.
[2021-03-07 20:00] VITALS: BP 108/67
--- NOTE | 2021-03-07 20:35 | NUR ---
MS RN NOTE PATIENT COMPLAINING OF BURNING PAIN ON HER AXILLA 04/10. NORCO GIVEN AND HOT PACK APPLIED ON THE SITE.
[2021-03-08] MEDS: VANCOMYCIN 0.75 GM in IV D5W 250 ML IV SCH (00:45)
--- NOTE | 2021-03-08 00:45 | NUR ---
R HAND G 22 INSERTED. L HAND IV ACCESS LEAKING.
[2021-03-08] MEDS: HYDROCODONE/APAP 5/325MG TABLET PO PRN ×4 (01:16→21:06)
--- NOTE | 2021-03-08 01:16 | NUR ---
NORCO GIVEN FOR BURNING PAIN 10 ON R AXILLA.
--- NOTE | 2021-03-08 02:09 | NUR ---
PATIENT REPORTS BEING NAUSEOUS. ZOFRAN 4 MG GIVEN.
[2021-03-08] MEDS: PIPERACILLIN /TAZOBACTAM 3.375 G in IV D5W 50 ML IV SCH (05:58)
--- NOTE | 2021-03-08 06:15 | NUR ---
R HAND 22 G IV ACCESS INFILTRATING, INSERTED 22 G ON L FA.
--- NOTE | 2021-03-08 06:49 | NUR ---
MS RN CLOSING NOTE PATIENT EYES CLOSED, AROUSES EASILY. BREATHING EVEN AND UNLABORED. SOB PRESENT DURING PANIC/ANXIETY ATTACKS. PATIENT CURRENTLY ON RA AT 95% SATURATION. ALL NEEDS MET AND ATTENDED. ATB THERAPY FULFILLED, ROUTINE MEDICATIONS AND PRN MEDICATIONS GIVEN. THERAPEUTIC COMMUNICATION APPLIED DURING ANXIETY/PANIC EPISODES. SAFETY MEASURES MAINTAINED. HOB ELEVATED, CALL LIGHT WITHIN REACH. WILL ENDORSE TO DAY SHIFT NURSE FOR MELLO.
[2021-03-08 08:00] VITALS: BP 122/54
--- NOTE | 2021-03-08 08:00 | NUR ---
RN OPENING NOTE RECEIVED PATIENT IN BED, AO X4, ABLE TO RESPONDS ALL STIMULI. NO DISTRESS OR DISCOMFORT OBSERVED. SKIN IS WARM TO TOUCH, KEEP CLEAN/DRY, INTACT IV SITE. RESPIRATORY EVEN AND UNLABORED ON ROOM AIR. KEPT ELEVATED HOB FOR ENSURE AIRWAY AND ASPIRATION PRECAUTION, ALSO LOWEST BED POSITION AND BED ALARM IS ON AT ALL THE TIMES FOR SAFETY. CALL LIGHT WITHIN REACH, WILL CONTINUE TO MONITOR.
[2021-03-08] MEDS: ASPIRIN EC 81 MG TABLET.DR PO SCH (08:19)
[2021-03-08] MEDS: PANTOPRAZOLE 40 MG TABLET.DR PO SCH (08:19)
[2021-03-08] MEDS: CITALOPRAM HYDROBROMIDE 10 MG TABLET GT SCH (08:20)
[2021-03-08] MEDS: FUROSEMIDE 40 MG TABLET PO SCH (08:20)
[2021-03-08] MEDS: POTASSIUM CHLORIDE 20 MEQ TAB.PRT.SR PO SCH (08:20)
[2021-03-08] MEDS: ARIPIPRAZOLE 5 MG TABLET PO SCH ×2 (08:20→16:58)
[2021-03-08] MEDS: CARVEDILOL 6.25 MG TABLET PO SCH ×2 (08:22→20:43)
[2021-03-08] MEDS: SPIRONOLACTONE 25 MG TABLET PO SCH (08:29)
[2021-03-08] MEDS: LISINOPRIL (20MG) 20 MG TABLET PO SCH (08:30)
[2021-03-08 12:07] LABS: BASOPHILS # (AUTO) 0.1 /CMM (0.0-0.2); BASOPHILS % (AUTO) 1.5 % (0.0-2.0); EOSINOPHILS % (AUTO) 5.5 % (0.0-6.0); HEMATOCRIT 43 % (33-45); HEMOGLOBIN 14.3 g/dL (11.5-14.8); LYMPHOCYTES # (AUTO) 0.8 /CMM (0.8-4.8); LYMPHOCYTES % (AUTO) 9.5 % (20.0-44.0); MEAN CORPUSCULAR HGB CONC 33 g/dl (31.0-36.0); MEAN CORPUSCULAR VOLUME 97 fL (82-100); MONOCYTES # (AUTO) 0.7 /CMM (0.1-1.30); MONOCYTES % (AUTO) 8.6 % (2.0-12.0); NEUTROPHILS # (AUTO) 6.1 /CMM (1.8-8.9); NEUTROPHILS % (AUTO) 74.9 % (43.0-81.0); PLATELET COUNT (AUTO) 361 /CMM (150-450); RED BLOOD CELL COUNT(AUTO) 4.43 MIL/uL (4.0-5.2); WHITE BLOOD COUNT (AUTO) 8.1 K/uL (4.3-11.0)
[2021-03-08 12:21] LABS: CALCIUM, SERUM 9.3 mg/dL (8.5-10.1); MAGNESIUM 2.2 mg/dL (1.8-2.4); PHOSPHORUS 5.5 mg/dL (2.5-4.9); POTASSIUM 4.5 mmol/L (3.5-5.1)
[2021-03-08 12:57] LABS: C-REACTIVE PROTEIN 3.7 mg/dL (0.0-0.9)
[2021-03-08 16:03] VITALS: BP 113/75
--- NOTE | 2021-03-08 18:34 | NUR ---
RN CLOSING NOTE PATIENT IN BED RESTING, REMAINS AO X 4, NO DISTRESS OR DISCOMFORT OBSERVED. SKIN IS WARM TO TOUCH, KEEP CLEAN/DRY, INTACT IV SITE, PATIENT REFUSED WARM COMPRESSION FOR RIGHT AXILLA TREATMENT. RESPIRATORY EVEN AND UNLABORED IN ROOM AIR. KEPT ELEVATED HOB FOR ENSURE AIRWAY AND ASPIRATION PRECAUTION, ALSO LOWEST BED POSITION FOR SAFETY, BED ALARM IS ON AT ALL THE TIME. CALL LIGHT WITHIN REACH, WILL ENDORSE BEATER TENDER.
--- NOTE | 2021-03-08 19:05 | NUR ---
RN NOTES: RECEIVED LYING ON BED IN SEMI FOWLERS POSITION,NO SIGN OF SOB OR RESPIRATORY DISTRESS,CALM AND COMMUNICATING WELL,A/OX2-3,ON ROOM AIR SPO2-94%,NO SIGN OF ANXIETY, TRYING TO GET SOME NAP, ORIENTED TO UNIT AND STAFF, FALL,SAFETY AND ASPIRATION PRECAUTION OBSERVED, KEPT CALL LIGHT WITHIN EASY REACH,IV SITE LFA G#22 PATENT/SALINE LOCKED.
[2021-03-08 20:00] VITALS: BP 123/65
[2021-03-08] MEDS: DOXYCYCLINE HYCLATE (100 MG) 100 MG TABLET PO SCH (20:43)
--- NOTE | 2021-03-08 21:11 | NUR ---
RN NOTES: COMPLAINED OF GENERALIZED PAIN,05/10 REQUESTING FOR HER PAIN MEDICATION, NORCO GIVEN AT 2106, NON PHARMACOLOGIC INTERVENTION RENDERED.
--- NOTE | 2021-03-09 00:16 | NUR ---
RN NOTES: AFTER HER NORCO SHE WAS ABLE TO SLEEP AND REST, KEPT CALL LIGHT WITHIN EASY REACH, ON FREQUENT VISUAL CHECK.
[2021-03-09 05:36] LABS: BASOPHILS # (AUTO) 0.1 /CMM (0.0-0.2); BASOPHILS % (AUTO) 1.4 % (0.0-2.0); EOSINOPHILS % (AUTO) 9.3 % (0.0-6.0); HEMATOCRIT 43 % (33-45); HEMOGLOBIN 14.6 g/dL (11.5-14.8); LYMPHOCYTES % (AUTO) 13.5 % (20.0-44.0); MEAN CORPUSCULAR HGB CONC 34 g/dl (31.0-36.0); MEAN CORPUSCULAR VOLUME 96 fL (82-100); MONOCYTES # (AUTO) 0.8 /CMM (0.1-1.30); MONOCYTES % (AUTO) 10.6 % (2.0-12.0); NEUTROPHILS # (AUTO) 4.7 /CMM (1.8-8.9); NEUTROPHILS % (AUTO) 65.2 % (43.0-81.0); PLATELET COUNT (AUTO) 388 /CMM (150-450); WHITE BLOOD COUNT (AUTO) 7.3 K/uL (4.3-11.0)
[2021-03-09 06:21] LABS: CALCIUM, SERUM 9.6 mg/dL (8.5-10.1); CREATININE 0.9 mg/dL (0.6-1.3); MAGNESIUM 2.4 mg/dL (1.8-2.4); PHOSPHORUS 4.9 mg/dL (2.5-4.9); POTASSIUM 5.5 mmol/L (3.5-5.1)
--- NOTE | 2021-03-09 06:55 | NUR ---
RN NOTES: -WEIGH-122.6, ASSISTED TO BED SIDE COMMODE, URINE OUTPUT =800, SPO2-94%RA, NO ANXIETY ATTACH, FOR LABS THIS MORNING. -ENDORSED FOR CONTINUITY OF CARE.
[2021-03-09] MEDS: PANTOPRAZOLE 40 MG TABLET.DR PO SCH (07:32)
--- NOTE | 2021-03-09 07:40 | NUR ---
M/S RN OPENING NOTES RECEIVED PT ON BED, AAOX3-4, RESPONSIVE TO ALL STIMULI. RESPIRATION EVEN AND NON LABORED WITH NO ACUTE RESPIRATORY DISTRESS, ON RA 98%. ABD SOFT AND NON DISTENDED WITH ACTIVE BOWEL SOUNDS, LBM 5/8. C/O PAIN 7/10 RIGHT UPPER ARM AND BACK, PRN MEDICATION TO BE ADMINISTERED ORDERED. SKIN WARM TO TOUCH AND DRY. IV SITE AT LEFT FA#22 PATENT IN FLUSHING, NO S/SX OF INFILTRATION. ALL CONCERNS ATTENDED. SRX2 UP FOR SAFETY. CALL LIGHT WITHIN REACHED. WILL CONT TO MONITOR CARE
[2021-03-09] MEDS: HYDROCODONE/APAP 5/325MG TABLET PO PRN ×2 (07:50→14:18)
[2021-03-09 08:00] VITALS: BP 123/71
[2021-03-09] MEDS: ASPIRIN EC 81 MG TABLET.DR PO SCH (08:10)
[2021-03-09] MEDS: CITALOPRAM HYDROBROMIDE 10 MG TABLET GT SCH (08:10)
[2021-03-09] MEDS: SPIRONOLACTONE 25 MG TABLET PO SCH (08:10)
[2021-03-09] MEDS: FUROSEMIDE 40 MG TABLET PO SCH (08:10)
[2021-03-09 08:11] VITALS: BP 123/71
[2021-03-09] MEDS: CARVEDILOL 6.25 MG TABLET PO SCH (08:11)
[2021-03-09] MEDS: LISINOPRIL (20MG) 20 MG TABLET PO SCH (08:11)
[2021-03-09] MEDS: DOXYCYCLINE HYCLATE (100 MG) 100 MG TABLET PO SCH (08:11)
[2021-03-09] MEDS: ARIPIPRAZOLE 5 MG TABLET PO SCH ×2 (08:11→16:06)
[2021-03-09] MEDS: POTASSIUM CHLORIDE 20 MEQ TAB.PRT.SR PO SCH (08:21)
--- NOTE | 2021-03-09 08:22 | NUR ---
M/S RN NOTES K DUR 20 MEQ DUE AT 9AM HELD DUE TO POTASSIUM BLOOD LEVEL OF 5.5. PATIENT DENIES N/V, WEAKNESS, FATIGUE, EXTREMITIES TINGLING/NUMBNESS. WILL CONTINUE TO MONITOR CARE
--- NOTE | 2021-03-09 08:38 | NUR ---
M/S RN NOTES RECEIVED A CALL FROM VICENTE HANCOCK. RIGHT UPPER ARM WOUND CULTURE - + MRSA. CHARGE NURSE COLBY NOTIFIED. PT ALONE AT ROOM. WILL CONT TO MONITOR.
--- NOTE | 2021-03-09 10:42 | NUR ---
M/S RN NOTES PT SEEN AND EVAL BY MS. JENNI SANDS LEARNING AND DEVELOPMENT CONSULTANT UNDER DR. ORDONEZ. NO NEW ORDER GIVEN. CONT TO MONITOR CARE Addendum: 03/09/21 at 1045 by PRAVIN CANALES RN LEARNING AND DEVELOPMENT CONSULTANT MADE AWARE OF +MRSA STATUS OF WOUND. DOXYCYCLINE PO ABX COVER THE INFECTION.
--- NOTE | 2021-03-09 15:10 | NUR ---
M/S RN NOTES PT SEEN AND EVALUATED BY DR. ARGUETA WITH NEW ORDER FOR DISCHARGE TO HOME TODAY. CHAPERONED MD. DISCHARGE INSTRUCTION: CONTINUE PO ANTIBIOTIC (DOXYCYCLINE) AND FF UP WITH PRIMARY CARE PROVIDER IN 1 WK. PT ASKED FOR ATIVAN AND NORCO AT DISCHARGE, PER HOSPITALIST, TO FF UP WITH PCP ADVISED, CAN TAKE OTC TYLENOL OR ADVIL FOR PAIN ON RIGHT AXILLA. PT UNDERSTOOD AND AGREED WITH DISCHARGE INSTRUCTION PER COMMUNICATION WITH THE PROVIDER. MD REASSURED TO OFFER CM SERVICE FOR PCP FF UP. PT STATED SHE HAS NO PCP, OFFERED OLDER ADULT SOCIAL WORK SPECIALIST SERVICE TO FIND ONE FOR FF UP, PER PATIENT "I CAN FIND ONE WHEN I GET HOME, [facility]'LL GO TO [facility] SINCE I HAVE MEDICAL". ALL CONCERNS ATTENDED WITH THE NEW ORDER. TO GET A TAXI VOUCHER PER PT CAUSE SHE STATED SHE HAS NO WALLET NOR CAR TO GET HOME, THE HOUSE IS ONLY 2 MILES AWAY, 3 BLOCKS BUT PATIENT REFUSED TO WALK. TAXI VOUCHER WILL BE OBTAINED WITH THE RN HOSPITALIST PROGRAM DIRECTOR. CHARGE NURSE COLBY NOTIFIED.
[2021-03-09] MEDS ORDERED: DOXY100T2 PO (15:47)
--- NOTE | 2021-03-09 16:15 | NUR ---
M/S RN NOTES PT READY TO BE DISCHARGED. KIERSTEN CALLED NO ANSWER. PT WAITING IN ROOM.
--- NOTE | 2021-03-09 17:00 | NUR ---
M/S RN NOTES TAXI ETA 1 HOUR. PT AWARE. IN ROOM WITH NO MELLO. RESTING COMFORTABLY. WILL CONT TO FF UP AND MONITOR UNTIL DISCHARGE.
--- NOTE | 2021-03-09 17:21 | NUR ---
M/S SOLAR DESIGNER NOTES PT DISCHARGED TO HOME IN MEDICALLY STABLE CONDITION. NO PRESENCE OF DEPRESSION OR ANXIETY MOOD UPON DISCHARGE, PLEASANT AND COOPERATIVE WITH CARE. EXIT CARE INSTRUCTIONS PROVIDED WITH ALL CONCERNS ATTENDED AND UNDERSTOOD. PT WENT HOME VIA [facility] () AT HOME WAITING. IV SITE PULLED OUT AND ID PER HOSPITAL PROTOCOL. VS BP 123/70, HR 64, T 97.4, RR 18, SPO2 AT 94% RA. AAOX4, NO SOB, DENIES PAIN AND NO NEW OPEN SKIN BREAKDOWN. PT WHEELED OUT BY ELISA CARPIO. LEFT IN STABLE CONDITION
== END 2021-03-09 17:34 | disposition home or self-care (01) | DRG 383 ==
LOC: ER 11:19 → TELE 17:20 → MED 03-07 10:29
PROVIDERS: ADMIT Student in an Organized Health Care Education/Training Program; ATTEND Student in an Organized Health Care Education/Training Program
DX: L02.411 Cutaneous abscess of right axilla (principal); I42.9 Cardiomyopathy, unspecified; F33.3 Major depressive disorder, recurrent, severe with psychotic symptoms; I11.0 Hypertensive heart disease with heart failure; I50.22 Chronic systolic (congestive) heart failure; L73.2 Hidradenitis suppurativa; J44.9 Chronic obstructive pulmonary disease, unspecified; E78.5 Hyperlipidemia, unspecified; F41.9 Anxiety disorder, unspecified; K21.9 Gastro-esophageal reflux disease without esophagitis; F17.200 Nicotine dependence, unspecified, uncomplicated; F41.0 Panic disorder [episodic paroxysmal anxiety]; Z20.822 Contact with and (suspected) exposure to COVID-19; Z79.82 Long term (current) use of aspirin; Z90.710 Acquired absence of both cervix and uterus; M54.30 Sciatica, unspecified side; I25.2 Old myocardial infarction; Z91.19 Patient's noncompliance with other medical treatment and regimen; D72.829 Elevated white blood cell count, unspecified; R74.01 Elevation of levels of liver transaminase levels; Z88.2 Allergy status to sulfonamides; Z88.1 Allergy status to other antibiotic agents
CPT/HCPCS: 36415; 71045-TC; 80048-TC; 80061-TC; 80076-TC; 83735-TC; 83880; 84100-TC; 84443-TC; 84484-TC; 85025-TC; 86140-TC; 87070-TC; 87081-TC; G0378; J2270; J2405; J2543; J3370; J7050; J7060

== ENCOUNTER 2021-03-13 00:23 | Inpatient (IN) | payer OTHER ==
[~2021-03-13] VITALS: Ht 152.4 cm; Wt 56.7 kg
[~2021-03-13 00:23] MED LIST changes: -AZIT250T PO; -CEFT1FRO2 IV; +DOXY100T2 PO; -GABA-534 PO; -VANC500P5 IV
--- NOTE | 2021-03-13 00:40 | NUR ---
BIB SELF C/C Body aches, chills, congestion, and SOB x 2 days, Pt stated also that she didnt take her lasix for 3 days and she had a very small amount of urine for 1 day, SPO2 89% in room air put on 2L O2 via NC with SPO2 now of 91-93% Hooked to Monitor will cont to monitor
--- NOTE | 2021-03-13 00:50 | NUR ---
Dr. Nam at Bed Side
[2021-03-13] MEDS ORDERED: NITROGLYCERIN PACKET 1 GM PACKET ONE (00:55)
[2021-03-13] MEDS ORDERED: ASPIRIN 81 MG TAB.CHEW PO ONE (01:00)
[2021-03-13] MEDS ORDERED: NITROGLYCERIN PACKET 1 GM PACKET TD ONE (01:00)
[2021-03-13] MEDS ORDERED: HYDROMORPHONE HCL 2 MG TABLET ONE ×2 (01:08→02:48)
[2021-03-13] MEDS ORDERED: ASPIRIN 81 MG TAB.CHEW ONE (01:09)
[2021-03-13] MEDS: HYDROMORPHONE HCL 2 MG TABLET PO PRN ×2 (01:10→20:11)
[2021-03-13 01:15] LABS: BASOPHILS # (AUTO) 0.1 /CMM (0.0-0.2); BASOPHILS % (AUTO) 0.6 % (0.0-2.0); EOSINOPHILS % (AUTO) 1.7 % (0.0-6.0); HEMATOCRIT 39 % (33-45); LYMPHOCYTES # (AUTO) 0.5 /CMM (0.8-4.8); LYMPHOCYTES % (AUTO) 4.7 % (20.0-44.0); MEAN CORPUSCULAR HGB CONC 33 g/dl (31.0-36.0); MEAN CORPUSCULAR VOLUME 96 fL (82-100); MONOCYTES # (AUTO) 1.2 /CMM (0.1-1.30); MONOCYTES % (AUTO) 11.2 % (2.0-12.0); NEUTROPHILS % (AUTO) 81.8 % (43.0-81.0); PLATELET COUNT (AUTO) 305 /CMM (150-450); RED BLOOD CELL COUNT(AUTO) 4.04 MIL/uL (4.0-5.2)
--- NOTE | 2021-03-13 01:20 | NUR ---
COVID TEST DONE SPECIMEN SEND TO LAB
[2021-03-13 01:47] LABS: CALCIUM, SERUM 9.1 mg/dL (8.5-10.1); CARBON DIOXIDE 25 mmol/L (21-32); CHLORIDE 104 mmol/L (98-107); CREATININE 1.6 mg/dL (0.6-1.3); GLUCOSE 137 mg/dL (74-106); POTASSIUM 3.9 mmol/L (3.5-5.1); SODIUM SERUM 139 mmol/L (136-145); UREA NITROGEN, BLOOD 47 mg/dL (7-18)
[2021-03-13 02:02] LABS: ALANINE AMINOTRANSFERASE 19 U/L (12-78); ALBUMIN 3.7 g/dL (3.4-5.0); ALKALINE PHOSPHATASE 116 U/L (46-116); ASPARTATE AMINOTRANSFERASE 11 U/L (15-37); B-TYPE NATRIURETIC PEPTIDE 972 PG/ML (0-125); BILIRUBIN,DIRECT 0.1 mg/dL (0.0-0.2); BILIRUBIN,TOTAL 0.4 mg/dL (0.2-1.0); TOTAL PROTEIN, SERUM 7.8 g/dL (6.4-8.2)
[2021-03-13 02:07] LABS: D-DIMER 2.73 mg/L(FEU (0.17-0.50)
[2021-03-13] MEDS ORDERED: FUROSEMIDE 20 MG/2 ML VIAL ONE (02:46)
[2021-03-13] MEDS ORDERED: POTASSIUM CHLORIDE 20 MEQ TAB.PRT.SR PO ONE ×2 (02:46→03:00)
--- NOTE | 2021-03-13 02:48 | NUR ---
tele bed: 116-2
[2021-03-13] MEDS ORDERED: ONDANSETRON HCL/PF 4 MG/2 ML VIAL ONE (02:57)
[2021-03-13] MEDS ORDERED: FUROSEMIDE 20 MG/2 ML VIAL IV ONE (03:00)
[2021-03-13] MEDS ORDERED: ONDANSETRON HCL/PF - ER 4 MG/2 ML VIAL IV ONE (03:00)
[2021-03-13] MEDS ORDERED: HYDROMORPHONE HCL 2 MG TABLET PO PRN (03:00)
[2021-03-13] MEDS ORDERED: ENOXAPARIN SODIUM 40 MG/0.4 ML DISP.SYRIN SQ ONE (03:00)
[2021-03-13] MEDS ORDERED: ENOXAPARIN SODIUM 60 MG/0.6 ML DISP.SYRIN SQ ONE (03:14)
--- NOTE | 2021-03-13 03:26 | NUR ---
REPORT GIVEN TO CECILE MANUEL FOR MELLO
[2021-03-13] MEDS ORDERED: ALBUTEROL HALF STRENGTH 1.25 MG/3 ML VIAL.NEB NEB PRN (03:30)
[2021-03-13] MEDS ORDERED: ZOLPIDEM TARTRATE 5 MG TABLET PO PRN (03:30)
[2021-03-13] MEDS ORDERED: IPRATROPIUM NEB FS 0.5 MG/2.5 ML AMPUL.NEB NEB PRN (03:30)
[2021-03-13] MEDS ORDERED: LORAZEPAM 1 MG TABLET PO PRN (03:30)
[2021-03-13] MEDS ORDERED: ACETAMINOPHEN 325 MG TABLET PO PRN (03:30)
[2021-03-13] MEDS ORDERED: ONDANSETRON HCL/PF 4 MG/2 ML VIAL IVP PRN (03:30)
[2021-03-13 03:35] VITALS: BP 131/68
--- NOTE | 2021-03-13 03:35 | NUR ---
DRY COLOR TESTERELECTRICIAN YARD NOTE RECEIVED PATIENT VIA GURNEY. AMBULATED TO BED WITH ASSIST. A/OX4. ON OXYGEN 2L/MIN VIAS NASAL CANNULA. RESPIRATIONS ARE EVEN AND UNLABORED. NO S/S SOB NOTED. PATIENT C/O BACK PAIN 05/10. INFORMED HER SHE JUST RECEIVED DILAUDID 2MG IN ER. EXTERNAL TELE MONITOR PACED. READS SINUS RHTYHM / SINUS TACHYCARDIA HR 96-102. IN NO APPARENT DISTRESS. IV ACCESS IN LAC#20 PATENT AND SALINE LOCKED. INITIAL PHYSICAL ASSESSMENT COMPLETED AT THIS TIME, SKIN ASSESSMENT COMPLETED. PHOTOS TAKEN AND PLACED IN CHART. SALES ASSISTANT DISPLAYS OBTAINED VITALS. BED IS LOW AND LOCKED, HOB ELEVATED IN SEMI FOWLERS, SIDE RIALS UP X2, SHARMILA LIGHT WITHIN REACH, INFORMED ON USE. ALSO INFORMED HER OF HER FLUID RESTRICTION. WILL CONTINUE TO MONITOR THROUGHOUT SHIFT.
--- NOTE | 2021-03-13 03:40 | NUR ---
TRANSFER PT TO ROOM 116-2 VIA ACLS PROTOCOL PT IS AA/O X4 ABLE TO AMBULATE TO BED WITH ASSISTANCE, RECEIVING NURSE AT BEDSIDE ON O2 VIA NC 2L SPO2 95%
[2021-03-13 04:00] VITALS: BP 128/64
--- NOTE | 2021-03-13 06:23 | NUR ---
DIGITIZER CLOSING NOTE PATIENT RESTING IN BED. A/OX4. REMAINS ON OXYGEN 2L/MIN VIAS NASAL CANNULA. NO RESP DISTRESS. STATES SHE FEELS LIKE SHE AN BREATH BETTER. ATIVAN 1MG GIVEN D/T PATIENT REQUEST FOR EXPERIENCING ANXIETY. TELE MONITOR STILL READS SINUS RHTYHM / SINUS TACHYCARDIA. NO DISTRESS. IV ACCESS MAINTAINED IN LAC#20. BED REMAINS LOW AND LOCKED, HOB ELEVATED IN SEMI FOWLERS, SIDE RIALS UP X2, CALL LIGHT WITHIN REACH WILL ENDORSE TO ONCOMING SHIFT.
[2021-03-13 08:00] VITALS: BP 113/69
--- NOTE | 2021-03-13 08:00 | NUR ---
ms rn note patient in bed alert oriented x3 on 2l nc ,no sob noted ,saturation 95%, lac hl intact and flushed well , bed in lowest and locked position ,seen by dr stevens ,per dr stevens ok t order Ativan 0.25 mg po q8 hour for anxiety ,patient stated that taking Ativan home for anxiety, call light within reach, will cont to monitor closely,plan of care disused with patient
[2021-03-13] MEDS: FUROSEMIDE 40 MG TABLET PO SCH (08:29)
[2021-03-13] MEDS: ASPIRIN EC 81 MG TABLET.DR PO SCH (08:29)
[2021-03-13] MEDS: FLUOXETINE HCL 20 MG CAPSULE PO SCH (08:30)
[2021-03-13] MEDS: SPIRONOLACTONE 25 MG TABLET PO SCH (08:30)
[2021-03-13] MEDS: LISINOPRIL (20MG) 20 MG TABLET PO SCH (08:30)
--- NOTE | 2021-03-13 08:30 | NUR ---
ms rn note assisted to bsc ,able to urinae 400 ml of yellow clear urine
[2021-03-13] MEDS: CARVEDILOL 6.25 MG TABLET PO SCH ×2 (08:31→20:18)
[2021-03-13] MEDS: HYDROCODONE/APAP 5/325MG TABLET PO PRN (08:32)
--- NOTE | 2021-03-13 08:57 | NUR ---
ms rn note patient in bed alert oriented x3 on2l nc ,no sob noted ,[id number]%, lac hl intact and flushed well , bed in lowest and locked position ,seen by dr stevens per dr stevens ok t order ativan 0.25 mg po q8 hour ,patient stated that taking Ativan home for anxiety, call light within reach, will cont to monitor closely
[2021-03-13] MEDS ORDERED: LORAZEPAM 0.5 MG TABLET PO PRN (09:00)
--- NOTE | 2021-03-13 09:00 | NUR ---
ms rn note [place] po given bp113/69 saturation 95% for pain back 7\10
--- NOTE | 2021-03-13 10:15 | NUR ---
MS RN NOTE DR SELF AT BEDSIDE NOTIFIED ABOUT LUMPS UNDER RT ARMPIT , ATB ORDER GIVE , ASLO NOTIFIED THAT PATIENT C\O PAIN IN BACK ,NO DILAUDID ORDER GIVEN AND OK LIDODERM PATCH FOR BACK
[2021-03-13] MEDS: LIDOCAINE 5% (PATCH) 1 EA PATCH TP SCH (11:20)
[2021-03-13] MEDS: CLINDAMYCIN HCL 150 MG CAPSULE PO SCH ×2 (12:06→16:23)
--- NOTE | 2021-03-13 12:54 | NUR ---
MS RN NOTE UA COLLECTED ORDERED
--- NOTE | 2021-03-13 14:31 | NUR ---
ms rn note c\o back pain 3\10 scale Tylenol po given as ordered ,will cont to monitor
[2021-03-13 15:15] LABS: BILIRUBIN,URINE NEGATIVE (NEGATIVE); COLOR,URINE YELLOW (YELLOW); LEUKOCYTE ESTERASE ,URINE NEGATIVE (NEGATIVE); NITRITE, URINE NEGATIVE (NEGATIVE); PH,URINE 5.5 (5.0-8.0); PROTEIN,URINE NEGATIVE (NEGATIVE); UGLUCOSE NEGATIVE (NEGATIVE); UROBILINOGEN,URINE 0.2 EU/dL (0.2)
--- NOTE | 2021-03-13 15:25 | NUR ---
MS RN NOTE ASSISTED TO BSC ABLE TO URINATE YELLOW COLOR URINE, KEEP CLEAN DRY
[2021-03-13 15:30] LABS: CREATININE, URINE 35.2 MG/DL (30.0-125.0); URINE TOTAL PROTEIN 9.7 mg/dL (0-11.9)
[2021-03-13 15:33] LABS: BACTERIA,URINE None seen /HPF (None Seen); WBC,URINE 0-2 /HPF (0-3)
[2021-03-13 15:34] LABS: SQUAMOUS EPITHELIAL CELL,UR 0-2 /HPF (None Seen)
[2021-03-13 16:00] VITALS: BP 96/55
[2021-03-13 16:12] LABS: EOSINOPHIL,URINE None Seen
--- NOTE | 2021-03-13 17:12 | NUR ---
MS RN NOTE CALLED TO DR SELF NOTIFIED THAT PATIENT WOUND LIKE TO HAVE SOMA FOR PAIN ON BACK, STATED THAT WAS HELPING HER BEFORE BUT PER DR SELF NO ORDER GIVEN ,STATED TO CONT ON NORCO OR TYLENOL
--- NOTE | 2021-03-13 18:25 | NUR ---
MS RN NOTE HAVING DINNER , ABLE TO EAT SELF, ALL NEEDS ATTENDED ON 2L NC, NO SOB NOTED AT THIS TIME, , BED IN LOWEST AND LOCKED POSITION CALL LIGHT WITHIN REACH ,
[2021-03-13 20:00] VITALS: BP 96/55
[2021-03-14] MEDS ORDERED: HYDROMORPHONE MDV 1 MG in IV D5W 50 ML IV ONE (01:00)
[2021-03-14] MEDS ORDERED: HYDROMORPHONE 1 MG/1 ML DISP.SYRIN IV ONE (01:30)
--- NOTE | 2021-03-14 02:57 | NUR ---
RN notes In bed lying uncomfortably because of neck pain extending to the spinal cord 06/10. Given dilaudid PO, with relief. Ambien given for sleep, with help. Alert and oriented x 4. Verbally able to communicate needs. At about 0100, patient started shouting for pain. Apparently as the patient claimed, norco provided only a slight relief. The pain is becoming worse. Called MD, spoke with Deedee and ordered dilaudid 1mg IV push x 1. Noted and carried out. Patient was relieved. Kept clean and dry. Will endorse to next shift for continuity of care.
[2021-03-14 04:00] VITALS: BP 109/51
[2021-03-14 06:02] LABS: CALCIUM, SERUM 8.9 mg/dL (8.5-10.1); CREATININE 1.2 mg/dL (0.6-1.3); POTASSIUM 5.1 mmol/L (3.5-5.1)
[2021-03-14 06:09] LABS: BASOPHILS # (AUTO) 0.1 /CMM (0.0-0.2); BASOPHILS % (AUTO) 0.7 % (0.0-2.0); EOSINOPHILS % (AUTO) 5.4 % (0.0-6.0); HEMATOCRIT 37 % (33-45); HEMOGLOBIN 12.1 g/dL (11.5-14.8); LYMPHOCYTES % (AUTO) 10.8 % (20.0-44.0); MEAN CORPUSCULAR HGB CONC 33 g/dl (31.0-36.0); MEAN CORPUSCULAR VOLUME 97 fL (82-100); MONOCYTES # (AUTO) 1.5 /CMM (0.1-1.30); MONOCYTES % (AUTO) 16.3 % (2.0-12.0); NEUTROPHILS # (AUTO) 6.1 /CMM (1.8-8.9); NEUTROPHILS % (AUTO) 66.8 % (43.0-81.0); PLATELET COUNT (AUTO) 283 /CMM (150-450); RED BLOOD CELL COUNT(AUTO) 3.76 MIL/uL (4.0-5.2); WHITE BLOOD COUNT (AUTO) 9.2 K/uL (4.3-11.0)
[2021-03-14] MEDS: HYDROCODONE/APAP 5/325MG TABLET PO PRN ×2 (06:30→10:33)
--- NOTE | 2021-03-14 07:15 | NUR ---
RN OPENING NOTES RECEIVED PT AWAKE, A/O X4. ON 2L O2 VIA NASAL CANNULA. NO SOB OR ANY RESPIRATORY DISTRESS. IV ACCESS IN LAC #20 INTACT, PATENT AND FLUSHED. NO PAIN REPORTED. SAFETY MEASURES IN PLACE. CALL LIGHT WITHIN REACH. BED LOCKED AND AT LOWEST POSITION WITH SIDE RAILS UP X2. HOB ELEVATED. WILL CONTINUE TO MONITOR.
[2021-03-14 08:00] VITALS: BP_SYST 102; BP_SYST 146; BP_DIAS 53; BP_DIAS 55
[2021-03-14] MEDS ORDERED: CLIN300C12 PO (08:20)
[2021-03-14] MEDS: FUROSEMIDE 40 MG TABLET PO SCH (08:34)
[2021-03-14] MEDS: LISINOPRIL (20MG) 20 MG TABLET PO SCH (08:35)
[2021-03-14] MEDS: ASPIRIN EC 81 MG TABLET.DR PO SCH (08:35)
[2021-03-14] MEDS: SPIRONOLACTONE 25 MG TABLET PO SCH (08:35)
[2021-03-14] MEDS: FLUOXETINE HCL 20 MG CAPSULE PO SCH (08:35)
[2021-03-14 08:36] VITALS: BP 112/53
[2021-03-14] MEDS: CLINDAMYCIN HCL 150 MG CAPSULE PO SCH (08:36)
[2021-03-14] MEDS: CARVEDILOL 6.25 MG TABLET PO SCH (08:36)
[2021-03-14] MEDS: LIDOCAINE 5% (PATCH) 1 EA PATCH TP SCH (10:27)
--- NOTE | 2021-03-14 11:10 | NUR ---
RN CLOSING NOTES DISCHARGED PT HOME, INSTRUCTIONS GIVEN. VERBALIZED UNDERSTANDING. VACCINATIONS ALL UP TO DATE. REFUSES PICTURE TAKEN FOR WOUND ON R AXILLA. VS WNL. NOT IN DISTRESS. WENT HOME IN STABLE CONDITION ACCOMPANIED BY FRIEND.
[2021-03-15 04:06] LABS: PTH, INTACT 47 pg/mL (15-65)
[2021-03-17 07:06] LABS: *SPE ALBUMIN 3.2 g/dL (2.9-4.4); *SPE ALPHA-1-GLOBULIN 0.4 g/dL (0.0-0.4); *SPE ALPHA-2-GLOBULIN 0.9 g/dL (0.4-1.0); *SPE BETA GLOBULIN 1.1 g/dL (0.7-1.3); *SPE GLOBULIN, TOTAL 3.1 g/dL (2.2-3.9); *SPE M-SPIKE Not Observed g/dL (Not Observed); *SPEGAMMA GLOBULIN 0.7 g/dL (0.4-1.8)
== END 2021-03-14 11:10 | disposition home or self-care (01) | DRG 194 ==
LOC: ER 00:23 → TELE1 02:58 → MEDSG1 08:17
DX: I13.0 Hypertensive heart and chronic kidney disease with heart failure and stage 1 through stage 4 chronic kidney disease, or unspecified chronic kidney disease (principal); N17.0 Acute kidney failure with tubular necrosis; I21.4 Non-ST elevation (NSTEMI) myocardial infarction; I42.0 Dilated cardiomyopathy; J44.9 Chronic obstructive pulmonary disease, unspecified; E78.5 Hyperlipidemia, unspecified; K21.9 Gastro-esophageal reflux disease without esophagitis; I50.43 Acute on chronic combined systolic (congestive) and diastolic (congestive) heart failure; I25.10 Atherosclerotic heart disease of native coronary artery without angina pectoris; F17.200 Nicotine dependence, unspecified, uncomplicated; G89.4 Chronic pain syndrome; I25.2 Old myocardial infarction; F41.0 Panic disorder [episodic paroxysmal anxiety]; Z20.822 Contact with and (suspected) exposure to COVID-19; Z79.82 Long term (current) use of aspirin; Z91.19 Patient's noncompliance with other medical treatment and regimen; Z88.2 Allergy status to sulfonamides; L02.411 Cutaneous abscess of right axilla; N18.9 Chronic kidney disease, unspecified; F32.9 Major depressive disorder, single episode, unspecified
CPT/HCPCS: 36415; 71045-TC; 76770-TC; 80048-TC; 80061-TC; 80076-TC; 81001; 82550-TC; 82570-TC; 83735-TC; 83880; 83970; 84100-TC; 84155; 84155-TC; 84165; 84300-TC; 84484-TC; 85025-TC; 85378-TC; 85730-TC; 87040-TC; 87081-TC; A4217; A6403; C9803; G0378; J1170; J1650; J1940; J2405; U0003

== ENCOUNTER 2021-04-20 04:52 | Inpatient (IN) | payer OTHER ==
[~2021-04-20] VITALS: Ht 152.4 cm; Wt 56.7 kg
[~2021-04-20 04:52] MED LIST changes: +CLIN300C12 PO; -DOXY100T2 PO; -LORA-259 PO; -ONDA4TAB5 PO
--- NOTE | 2021-04-20 04:55 | NUR ---
Pt bibra c/o sweating and pain x2days. Pt aaox4 breathing evenly and unlabored. Pt denies, fever, painful urination, or cough. MD at bedside for eval. Pt attached to monitor and pox. Pt given blanket and call light within reach
[2021-04-20] MEDS ORDERED: LORAZEPAM INJ 2 MG/ML VIAL IV ONE (05:30)
--- NOTE | 2021-04-20 05:50 | NUR ---
PT DOYLE. MULTIPLE UNSUCCESSFUL ATTEMPTS FOR IV ACCESS/BLOOD DRAW. MD AWARE, CALLED NURSING PIECER UP FOR MIDLINE
[2021-04-20] MEDS ORDERED: LORAZEPAM 1 MG TABLET ONE (06:28)
[2021-04-20] MEDS ORDERED: LORAZEPAM 1 MG TABLET PO ONE (06:30)
--- NOTE | 2021-04-20 06:46 | NUR ---
PICC LINE NURSE WAS CALLED FOR MIDLINE; JAYDA CALLED BACK. WILL BE HERE SOON
--- NOTE | 2021-04-20 07:05 | NUR ---
gave report to MAR Sanchez for tammie
--- NOTE | 2021-04-20 07:10 | NUR ---
PICC line RN at bedside
--- NOTE | 2021-04-20 07:33 | NUR ---
ASSESSED PT ON BED AWAKE AND ALERT NOT IN RESPIRATORY DISTRESS, VS STABLE, KEPT RESTED AND COMFORTABLE. WILL CONTINUE TO MONITOR.
[2021-04-20 07:57] LABS: BASOPHILS # (AUTO) 0.1 /CMM (0.0-0.2); EOSINOPHILS % (AUTO) 0.5 % (0.0-6.0); HEMATOCRIT 43 % (33-45); HEMOGLOBIN 14.4 g/dL (11.5-14.8); LYMPHOCYTES # (AUTO) 1.1 /CMM (0.8-4.8); LYMPHOCYTES % (AUTO) 11.7 % (20.0-44.0); MEAN CORPUSCULAR HGB CONC 33 g/dl (31.0-36.0); MEAN CORPUSCULAR VOLUME 97 fL (82-100); MONOCYTES # (AUTO) 0.6 /CMM (0.1-1.30); MONOCYTES % (AUTO) 6.2 % (2.0-12.0); NEUTROPHILS % (AUTO) 80.6 % (43.0-81.0); PLATELET COUNT (AUTO) 308 /CMM (150-450); RED BLOOD CELL COUNT(AUTO) 4.47 MIL/uL (4.0-5.2); WHITE BLOOD COUNT (AUTO) 9.9 K/uL (4.3-11.0)
[2021-04-20 08:00] LABS: CALCIUM, SERUM 9.3 mg/dL (8.5-10.1); CARBON DIOXIDE 27 mmol/L (21-32); CHLORIDE 98 mmol/L (98-107); CREATININE 3.5 mg/dL (0.6-1.3); GLUCOSE 122 mg/dL (74-106); POTASSIUM 4.2 mmol/L (3.5-5.1); SODIUM SERUM 136 mmol/L (136-145); UREA NITROGEN, BLOOD 48 mg/dL (7-18)
[2021-04-20 08:13] LABS: ALANINE AMINOTRANSFERASE 17 U/L (12-78); ALBUMIN 4.1 g/dL (3.4-5.0); ALKALINE PHOSPHATASE 108 U/L (46-116); ASPARTATE AMINOTRANSFERASE 13 U/L (15-37); BILIRUBIN,DIRECT 0.1 mg/dL (0.0-0.2); BILIRUBIN,TOTAL 0.5 mg/dL (0.2-1.0); TOTAL PROTEIN, SERUM 7.8 g/dL (6.4-8.2)
[2021-04-20] MEDS ORDERED: LORA-258 PO (09:42)
--- NOTE | 2021-04-20 11:31 | NUR ---
CALLED NURSING SUP FOR BED
[2021-04-20] MEDS ORDERED: IV NS 0.9% 500 ML BAG IV ONE (12:00)
--- NOTE | 2021-04-20 15:35 | NUR ---
WILL GET A BED ASSIGNED AROUND 1600
--- NOTE | 2021-04-20 16:21 | NUR ---
room 308-1
--- NOTE | 2021-04-20 16:40 | NUR ---
REPORT GIVEN TO MAR CRAWLEY FOR MELLO.
[2021-04-20 16:48] VITALS: BP 103/60
--- NOTE | 2021-04-20 19:15 | NUR ---
Received pt in beed alert and orientated X4 asking for food sandwitch and juice served talking in sentences w/o SOB watching TV
--- NOTE | 2021-04-20 19:42 | NUR ---
TELE/RN NOTES ADMITTED A FEMALE 65Y/O PATIENT. INITIAL ASSESSMENT WAS DONE AND RECORDED. PATIENT IS ALERT AND ORIENTED X4. PATIENT IS IN ROOM AIR SATURATING WELL. PATIENT IN NO APPARENT RESPIRATORY DISTRESS NOTED. NO COMPLAINED OF PAIN NOTED AT THIS TIME. TELE MONITOR READING SINUS RHYTHM 77BPM. WAITING FOR DOCTORS ORDERS. WILL ENDORSED TO MILITARY TECHNOLOGY MANAGER FOR MELLO.
--- NOTE | 2021-04-20 20:00 | NUR ---
environmental monitoring specialist stated patient off monitor went to pt room monitor on the bed pt rosa hanson called and made aware called and made aware he said he would call me if she came home
== END 2021-04-20 20:00 | disposition left against medical advice (07) | DRG 194 ==
LOC: ER 04:54 → TELE 16:20
PROC: 05H533Z Insertion of Infusion Device into Right Subclavian Vein, Percutaneous Approach (ICD-10-PCS; principal; 2021-04-20)
PROC: B546ZZA Ultrasonography of Right Subclavian Vein, Guidance (ICD-10-PCS; 2021-04-20)
DX: I11.0 Hypertensive heart disease with heart failure (principal); N17.9 Acute kidney failure, unspecified; J44.9 Chronic obstructive pulmonary disease, unspecified; I42.0 Dilated cardiomyopathy; E78.5 Hyperlipidemia, unspecified; F41.9 Anxiety disorder, unspecified; I25.2 Old myocardial infarction; R53.1 Weakness; R10.9 Unspecified abdominal pain; Z88.2 Allergy status to sulfonamides; Z95.810 Presence of automatic (implantable) cardiac defibrillator; Z79.82 Long term (current) use of aspirin; Z90.710 Acquired absence of both cervix and uterus; Z20.822 Contact with and (suspected) exposure to COVID-19; I50.33 Acute on chronic diastolic (congestive) heart failure
CPT/HCPCS: 36415; 71045-TC; 80048-TC; 80076-TC; 83880; 84484-TC; 85025-TC; 85730-TC; C9803; G0378

== ENCOUNTER 2021-09-28 17:51 | Emergency (ER) | payer OTHER ==
[~2021-09-28] VITALS: Ht 152.4 cm; Wt 52.6 kg
[~2021-09-28 17:51] MED LIST changes: -CLIN300C12 PO; +LORA-258 PO
--- NOTE | 2021-09-28 17:51 | NUR ---
BIBRA 88 FROM HOME PT C/O SHARP LOWER RIGHT ABDOMINAL X2 WEEKS AND DULL CHEST PAIN [id number] THAT COMES AND GOES. PT IS A&OX4 AND STABLE. PT VITALS ARE WITHIN NORMAL LIMITS. PT ATTCHED TO MONITOR AND PULSE OX. WILL CONTINUE TO MONITOR.
--- NOTE | 2021-09-28 18:17 | NUR ---
IV INITIATED #20G R WRIST. LABS COLLECTED AND SENT.
[2021-09-28] MEDS: FAMOTIDINE/PF INJ 20 MG/2 ML VIAL IV ONE (18:30)
[2021-09-28] MEDS: ONDANSETRON HCL/PF 4 MG/2 ML VIAL IV ONE (18:30)
[2021-09-28] MEDS: LORAZEPAM INJ 2 MG/ML VIAL IV ONE (18:30)
[2021-09-28] MEDS ORDERED: LORAZEPAM 1 MG TABLET PO ONE (18:30)
--- NOTE | 2021-09-28 18:31 | NUR ---
PT UNABLE TO PROVIDE URINE SAMPLE AT THIS TIME
[2021-09-28] MEDS ORDERED: ONDANSETRON HCL/PF 4 MG/2 ML VIAL ONE (18:37)
[2021-09-28] MEDS ORDERED: FAMOTIDINE (20 MG) 20 MG TABLET ONE (18:37)
[2021-09-28] MEDS ORDERED: LORAZEPAM INJ 2 MG/ML VIAL ONE (18:37)
--- NOTE | 2021-09-28 19:41 | NUR ---
PT BEING TAKEN TO CT
[2021-09-28 19:54] LABS: BASOPHILS % (AUTO) 0.8 % (0.0-2.0); EOSINOPHILS % (AUTO) 1.9 % (0.0-6.0); HEMATOCRIT 44 % (33-45); HEMOGLOBIN 14.6 g/dL (11.5-14.8); LYMPHOCYTES # (AUTO) 0.9 K/uL (0.8-4.8); MEAN CORPUSCULAR HGB CONC 34 g/dl (31.0-36.0); MEAN CORPUSCULAR VOLUME 98 fL (82-100); MONOCYTES # (AUTO) 0.5 K/uL (0.1-1.30); MONOCYTES % (AUTO) 8.2 % (2.0-12.0); NEUTROPHILS # (AUTO) 4.2 K/uL (1.8-8.9); NEUTROPHILS % (AUTO) 74.1 % (43.0-81.0); PLATELET COUNT (AUTO) 287 K/uL (150-450); RED BLOOD CELL COUNT(AUTO) 4.46 MIL/uL (4.0-5.2); WHITE BLOOD COUNT (AUTO) 5.7 K/uL (4.3-11.0)
[2021-09-28 20:00] LABS: CALCIUM, SERUM 9.1 mg/dL (8.5-10.1); CREATININE 0.9 mg/dL (0.6-1.3); POTASSIUM 3.9 mmol/L (3.5-5.1)
[2021-09-28 20:06] LABS: ALBUMIN 3.9 g/dL (3.4-5.0); BILIRUBIN,DIRECT 0.1 mg/dL (0.0-0.2); BILIRUBIN,TOTAL 0.4 mg/dL (0.2-1.0); TOTAL PROTEIN, SERUM 7.4 g/dL (6.4-8.2)
--- NOTE | 2021-09-28 20:17 | NUR ---
URINE COLLECTED AND SENT TO LAB
[2021-09-28 20:33] LABS: BILIRUBIN,URINE NEGATIVE (NEGATIVE); COLOR,URINE YELLOW (YELLOW); LEUKOCYTE ESTERASE ,URINE NEGATIVE (NEGATIVE); NITRITE, URINE NEGATIVE (NEGATIVE); PH,URINE 6.5 (5.0-8.0); PROTEIN,URINE 100 mg/dl (NEGATIVE); UGLUCOSE NEGATIVE (NEGATIVE); UROBILINOGEN,URINE 0.2 EU/dL (0.2)
[2021-09-28 20:43] LABS: BACTERIA,URINE RARE /HPF (None Seen)
[2021-09-28 20:44] LABS: MUCUS,URINE Few /LPF (None Seen)
[2021-09-28 21:00] LABS: MAGNESIUM 2.3 mg/dL (1.8-2.4)
--- NOTE | 2021-09-28 23:07 | NUR ---
Patient does not wish to proceed with medical care recommended by Dr. Mchugh. Patient given information related to possible complications, up to and including , which could occur as a result of leaving the hospital at this time. Patient verbalizes understanding of risks involved due to leaving against medical advice. Patient has signed AMA form.
[2021-09-29 00:34] VITALS: BP 144/75
== END 2021-09-28 23:07 | disposition left against medical advice (07) ==
LOC: ER 17:55
DX: R10.13 Epigastric pain (principal); F41.9 Anxiety disorder, unspecified; N20.0 Calculus of kidney; K42.9 Umbilical hernia without obstruction or gangrene; I11.9 Hypertensive heart disease without heart failure; I43 Cardiomyopathy in diseases classified elsewhere; E78.5 Hyperlipidemia, unspecified; I25.2 Old myocardial infarction; J44.9 Chronic obstructive pulmonary disease, unspecified; F12.90 Cannabis use, unspecified, uncomplicated; Z98.890 Other specified postprocedural states; Z90.49 Acquired absence of other specified parts of digestive tract; Z88.2 Allergy status to sulfonamides; Z88.1 Allergy status to other antibiotic agents; Z79.899 Other long term (current) drug therapy; Z79.82 Long term (current) use of aspirin
CPT/HCPCS: 36415; 71045; 74176; 80048; 80076; 81001; 83690; 83735; 83880; 84484; 85025; 93005; 96374; 96375; 99285; J2060; J2405

== ENCOUNTER 2022-01-22 05:34 | Emergency (ER) | payer OTHER ==
[~2022-01-22] VITALS: Ht 152.4 cm; Wt 60.8 kg
--- NOTE | 2022-01-22 05:45 | NUR ---
BIBS. EPIGASTRIC BURNING GOING UP TO THROAT X 2 DAYS WORST TODAY.PT IS NOTED ANXIOUS. PATIENT ALERT AND ORIENTED X3. AMBULATORY WITH NON LABORED BREATHING IN BED 07 ON MONITOR AWAITING MD BILLY.
[2022-01-22] MEDS ORDERED: MAG HYDROX/AL HYDROX/SIMETH 30 ML UDC ONE (06:19)
[2022-01-22] MEDS ORDERED: LIDOCAINE VISCOUS 2% UD 15 ML UDC ONE (06:19)
[2022-01-22] MEDS ORDERED: FAMOTIDINE (20 MG) 20 MG TABLET ONE (06:20)
--- NOTE | 2022-01-22 06:24 | NUR ---
LAB AT BEDSIDE
[2022-01-22] MEDS ORDERED: LIDOCAINE VISCOUS 2% UD 15 ML UDC MM ONE (06:30)
[2022-01-22] MEDS ORDERED: MAG HYDROX/AL HYDROX/SIMETH 30 ML UDC PO ONE (06:30)
[2022-01-22] MEDS ORDERED: FAMOTIDINE (20 MG) 20 MG TABLET PO ONE (06:30)
[2022-01-22 06:51] LABS: BASOPHILS # (AUTO) 0.1 K/uL (0.0-0.2); BASOPHILS % (AUTO) 1.1 % (0.0-2.0); EOSINOPHILS % (AUTO) 3.8 % (0.0-6.0); HEMATOCRIT 38 % (33-45); HEMOGLOBIN 12.6 g/dL (11.5-14.8); LYMPHOCYTES # (AUTO) 1.1 K/uL (0.8-4.8); LYMPHOCYTES % (AUTO) 20.4 % (20.0-44.0); MEAN CORPUSCULAR HGB CONC 33 g/dl (31.0-36.0); MEAN CORPUSCULAR VOLUME 96 fL (82-100); MONOCYTES # (AUTO) 0.6 K/uL (0.1-1.30); MONOCYTES % (AUTO) 11.4 % (2.0-12.0); NEUTROPHILS # (AUTO) 3.5 K/uL (1.8-8.9); NEUTROPHILS % (AUTO) 63.3 % (43.0-81.0); PLATELET COUNT (AUTO) 289 K/uL (150-450); RED BLOOD CELL COUNT(AUTO) 3.97 MIL/uL (4.0-5.2); WHITE BLOOD COUNT (AUTO) 5.6 K/uL (4.3-11.0)
[2022-01-22 07:17] LABS: ALANINE AMINOTRANSFERASE 17 U/L (12-78); ALBUMIN 3.7 g/dL (3.4-5.0); ALKALINE PHOSPHATASE 86 U/L (46-116); ASPARTATE AMINOTRANSFERASE 13 U/L (15-37); BILIRUBIN,DIRECT 0.1 mg/dL (0.0-0.2); BILIRUBIN,TOTAL 0.3 mg/dL (0.2-1.0); CALCIUM, SERUM 9.3 mg/dL (8.5-10.1); CARBON DIOXIDE 30 mmol/L (21-32); CHLORIDE 103 mmol/L (98-107); CREATININE 1.1 mg/dL (0.6-1.3); GLUCOSE 116 mg/dL (74-106); LIPASE 105 U/L (73-393); POTASSIUM 2.9 mmol/L (3.5-5.1); SODIUM SERUM 140 mmol/L (136-145); UREA NITROGEN, BLOOD 22 mg/dL (7-18)
--- NOTE | 2022-01-22 07:40 | NUR ---
ASSESSED PT ON BED ASLEEP, NOT IN RESPIRATORY DISTRESS, V/S STABLE, KEPT RESTED AND COMFORTABLE. AWAITING XRAY AND TROPONIN RESULT.
[2022-01-22 07:54] VITALS: BP 108/57
--- NOTE | 2022-01-22 07:54 | NUR ---
CALLED LAB TO FOLLOW UP TROPONIN RESULT.
--- NOTE | 2022-01-22 07:55 | NUR ---
PATIENT BECOMES AGITATED REQUESTING NURSES PERSONAL PHONE TO BE USED. OFFERED HOSPITAL PHONE BUT REFUSED. STARTED SCREAMING.
[2022-01-22] MEDS ORDERED: LORAZEPAM 1 MG TABLET ONE (07:59)
[2022-01-22] MEDS ORDERED: LORAZEPAM 1 MG TABLET PO ONE (08:00)
--- NOTE | 2022-01-22 08:01 | NUR ---
Pt appears agitated, uncooperative and unreasonable. doesnt want to comply nor cooperate with requests to calmly express needs. Screaming loudly stating "want to use the phone", verbally abusive and using foul languege, cussing calling LUAN plascencia "fuck you bitch....you are all a bunch of faggots"
--- NOTE | 2022-01-22 08:03 | NUR ---
PATIENT ELOPED, WALKED OUT OF FACILITY. AWARE
== END 2022-01-22 08:05 | disposition home or self-care (01) ==
LOC: ER 05:40
DX: R10.13 Epigastric pain (principal); F41.0 Panic disorder [episodic paroxysmal anxiety]; K21.9 Gastro-esophageal reflux disease without esophagitis; R07.89 Other chest pain; I11.0 Hypertensive heart disease with heart failure; I50.9 Heart failure, unspecified; I25.2 Old myocardial infarction; J44.9 Chronic obstructive pulmonary disease, unspecified; E78.5 Hyperlipidemia, unspecified; Z86.69 Personal history of other diseases of the nervous system and sense organs; Z86.79 Personal history of other diseases of the circulatory system; Z90.49 Acquired absence of other specified parts of digestive tract; Z87.39 Personal history of other diseases of the musculoskeletal system and connective tissue; Z95.810 Presence of automatic (implantable) cardiac defibrillator; Z88.2 Allergy status to sulfonamides; Z79.52 Long term (current) use of systemic steroids; Z79.891 Long term (current) use of opiate analgesic; Z79.82 Long term (current) use of aspirin; Z79.899 Other long term (current) drug therapy
CPT/HCPCS: 36415; 71045-TC; 80048-TC; 80076-TC; 83690-TC; 84484-TC; 85025-TC

== ENCOUNTER 2022-03-16 12:03 | Emergency (ER) | payer OTHER ==
[~2022-03-16] VITALS: Ht 154.9 cm; Wt 57.2 kg
--- NOTE | 2022-03-16 12:03 | NUR ---
BIB RA 60 FROM HOME C/P L HIP PAIN 10/10 ON PS S/P GROUND LEVEL FALL. PLACED ON BED, AAOX4, IN PAIN 10/10
--- NOTE | 2022-03-16 12:05 | NUR ---
SEEN AND EXAMINED BY DR LINK
[2022-03-16] MEDS ORDERED: MORPHINE SULFATE INJ 2 MG/ML DISP.SYRIN IM ONE (12:30)
--- NOTE | 2022-03-16 12:30 | NUR ---
MULTI OPERATION FORMING MACHINE SETTER AT BED SIDE FOR BLOOD WORKS
[2022-03-16] MEDS ORDERED: MORPHINE SULFATE INJ 4 MG/ML DISP.SYRIN ONE (12:34)
[2022-03-16 12:52] LABS: BASOPHILS # (AUTO) 0.1 K/uL (0.0-0.2); EOSINOPHILS % (AUTO) 3.6 % (0.0-6.0); HEMATOCRIT 38 % (33-45); HEMOGLOBIN 12.6 g/dL (11.5-14.8); LYMPHOCYTES # (AUTO) 0.8 K/uL (0.8-4.8); LYMPHOCYTES % (AUTO) 14.4 % (20.0-44.0); MEAN CORPUSCULAR HGB CONC 33 g/dl (31.0-36.0); MEAN CORPUSCULAR VOLUME 95 fL (82-100); MONOCYTES # (AUTO) 0.6 K/uL (0.1-1.30); MONOCYTES % (AUTO) 10.9 % (2.0-12.0); NEUTROPHILS # (AUTO) 3.7 K/uL (1.8-8.9); NEUTROPHILS % (AUTO) 70.1 % (43.0-81.0); PLATELET COUNT (AUTO) 286 K/uL (150-450); RED BLOOD CELL COUNT(AUTO) 3.98 MIL/uL (4.0-5.2); WHITE BLOOD COUNT (AUTO) 5.2 K/uL (4.3-11.0)
--- NOTE | 2022-03-16 12:57 | NUR ---
PATIENT WENT FOR CT ABDO. AND PELVIS VIA [facility]
[2022-03-16 13:04] LABS: CALCIUM, SERUM 9.4 mg/dL (8.5-10.1); CREATININE 0.8 mg/dL (0.6-1.3); POTASSIUM 3.2 mmol/L (3.5-5.1)
--- NOTE | 2022-03-16 13:17 | NUR ---
PATIENT BACK FROM CT DEPT.
[2022-03-16] MEDS ORDERED: HYDR-3980 PO (13:54)
--- NOTE | 2022-03-16 14:16 | NUR ---
Patient discharged to home in stable condition. Written and verbal after care instructions given. Patient verbalizes understanding of instruction.
[2022-03-16 14:17] VITALS: BP 140/75
== END 2022-03-16 14:21 | disposition home or self-care (01) ==
LOC: ER 12:09
DX: S22.32XA Fracture of one rib, left side, initial encounter for closed fracture (principal); I11.0 Hypertensive heart disease with heart failure; I50.9 Heart failure, unspecified; J44.9 Chronic obstructive pulmonary disease, unspecified; E78.5 Hyperlipidemia, unspecified; F17.200 Nicotine dependence, unspecified, uncomplicated; Z86.69 Personal history of other diseases of the nervous system and sense organs; Z87.39 Personal history of other diseases of the musculoskeletal system and connective tissue; Z90.49 Acquired absence of other specified parts of digestive tract; Z90.710 Acquired absence of both cervix and uterus; Z88.8 Allergy status to other drugs, medicaments and biological substances; Z79.899 Other long term (current) drug therapy; W18.30XA Fall on same level, unspecified, initial encounter; Y93.89 Activity, other specified; Y92.89 Other specified places as the place of occurrence of the external cause; Y99.8 Other external cause status
CPT/HCPCS: 36415; 71250; 72131; 74176; 80048; 85025; 96372; 99284; J2270

== ENCOUNTER 2022-06-18 04:56 | Inpatient (IN) | payer OTHER ==
[~2022-06-18] VITALS: Ht 152.4 cm; Wt 59.9 kg
[~2022-06-18 04:56] MED LIST changes: +HYDR-3980 PO
[2022-06-18 08:30] LABS: BASOPHILS # (AUTO) 0.1 K/uL (0.0-0.2); BASOPHILS % (AUTO) 0.7 % (0.0-2.0); EOSINOPHILS % (AUTO) 1.3 % (0.0-6.0); HEMATOCRIT 38 % (33-45); HEMOGLOBIN 12.8 g/dL (11.5-14.8); MEAN CORPUSCULAR HGB CONC 33 g/dl (31.0-36.0); MEAN CORPUSCULAR VOLUME 97 fL (82-100); MONOCYTES # (AUTO) 0.6 K/uL (0.1-1.30); MONOCYTES % (AUTO) 7.6 % (2.0-12.0); NEUTROPHILS # (AUTO) 5.6 K/uL (1.8-8.9); NEUTROPHILS % (AUTO) 66.4 % (43.0-81.0); PLATELET COUNT (AUTO) 419 K/uL (150-450); RED BLOOD CELL COUNT(AUTO) 3.96 MIL/uL (4.0-5.2); WHITE BLOOD COUNT (AUTO) 8.4 K/uL (4.3-11.0)
[2022-06-18 08:50] LABS: ALBUMIN 3.7 g/dL (3.4-5.0); BILIRUBIN,TOTAL 0.4 mg/dL (0.2-1.0); CALCIUM, SERUM 8.4 mg/dL (8.5-10.1); CREATININE 1.2 mg/dL (0.6-1.3); POTASSIUM 2.9 mmol/L (3.5-5.1); TOTAL PROTEIN, SERUM 7.9 g/dL (6.4-8.2)
--- NOTE | 2022-06-18 09:45 | NUR ---
PT NOTED W/ IV LINE ON LAC #20.
--- NOTE | 2022-06-18 09:47 | NUR ---
MOVE SHEET SUBMITTED.
--- NOTE | 2022-06-18 09:50 | NUR ---
PT AWAKE AND VERBALLY RESPONSIVE; NOT IN ACUTE DISTRESS. PT STATES THAT SHE HAS SHORTNESS OF BREATH LAST NIGHT ACCOMPANIED BY WHAT SHE DESCRIBES "PANIC ATTACK".
--- NOTE | 2022-06-18 10:32 | NUR ---
[facility] CALLED CENTER MEDICAL DIRECTOR PAGED.
[2022-06-18 10:35] VITALS: BP 144/59
--- NOTE | 2022-06-18 10:57 | NUR ---
GOT BED 311-2
--- NOTE | 2022-06-18 11:30 | NUR ---
REPORT GIVEN TO JODY MANUEL
--- NOTE | 2022-06-18 11:48 | NUR ---
PT TRANSFERRED TO UNIT VIA NORA ACLS PROTOCOL. WARM HANDOFF GIVEN TO RN ASSIGNED.
[2022-06-18] MEDS ORDERED: ACETAMINOPHEN 325 MG TABLET PO PRN (12:00)
[2022-06-18] MEDS ORDERED: ONDANSETRON HCL/PF 4 MG/2 ML VIAL IVP PRN (12:00)
[2022-06-18] MEDS ORDERED: LORAZEPAM 0.5 MG TABLET PO PRN (12:00)
[2022-06-18] MEDS ORDERED: ALBUTEROL FS 2.5 MG/0.5 ML VIAL.NEB NEB PRN (12:00)
[2022-06-18] MEDS ORDERED: hydrALAZINE HCL IV 20 MG VIAL IV PRN (12:00)
[2022-06-18] MEDS ORDERED: HYDROCODONE/APAP 10/325MG TABLET PO PRN (12:00)
[2022-06-18] MEDS ORDERED: HEPARIN SODIUM, PORCINE 5000 UNITS/1 ML VIAL SQ SCH (12:00)
[2022-06-18] MEDS ORDERED: POTASSIUM CHLORIDE 20 MEQ TAB.PRT.SR PO SCH (13:00)
[2022-06-18] MEDS: methylPREDNISolone SOD SUCC 125 MG/2ML VIAL IV SCH ×2 (13:08→13:54)
[2022-06-18] MEDS ORDERED: IPRATROPIUM NEB FS 0.5 MG/2.5 ML AMPUL.NEB NEB SCH (13:30)
--- NOTE | 2022-06-18 14:39 | NUR ---
PATIENT NOTED LACTIC ACID 5.74, AWARE. WILL REPEAT LACTIC ACID AT 1999.
[2022-06-18 16:56] LABS: BILIRUBIN,DIRECT 0.1 mg/dL (0.0-0.2)
[2022-06-18] MEDS ORDERED: FUROSEMIDE 40 MG/4 ML VIAL IV SCH (17:00)
--- NOTE | 2022-06-18 17:50 | NUR ---
PATIENT C/O CHRONIC LOWER BACK PAIN SAID "NARCO DOES NOT SNEHAL FOR ME!" INFORMED DR. ROSAS REGARDING ABOVE AND RECEIVED ORDER MORPHINE 2MG IV Q 4HOURS. NOTED ANDD CARRY OUT.
[2022-06-18] MEDS ORDERED: MORPHINE SULFATE INJ 2 MG/ML DISP.SYRIN IV PRN (18:00)
--- NOTE | 2022-06-18 19:30 | NUR ---
RESORT MANAGER OPENING NOTE PATIENT AWAKE IN BED, ALERT/ORIENTED X 3, PT ABLE TO MAKE NEEDS KNOWN. PATIENT STABLE ON RA, NO S/S OF DISTRESS OR SOB NOTED, BREATHING EVEN AND UNLABORED. PATIENT ON EXTERNAL SALESPERSON STEREO EQUIPMENT READING SINUS RHYTHM, HR: 98. IV ACCESS ON LAC #20G INTACT AND SALINE LOCKED. SAFETY MEASURES IN PLACE: CALL LIGHT, TELEPHONE AND TABLE WITHIN REACH, SIDE RAILS UP X 2, BED LOCKED IN LOWEST POSITION, BED ALARM ON. WILL CONTINUE TO MONITOR PATIENT
--- NOTE | 2022-06-18 20:17 | NUR ---
BREW HOUSE SUPERVISOR NOTE PATIENT STATED SHE'S GOING HOME, EXPLAINED THAT SHE JUST GOT HERE TODAY AND TRIED TO CONVINCE TO AT LEAST STAY THE NIGHT TO BE SEEN BY MD IN THE AM. PATIENT STATED "I JUST HAD A PANIC ATTACK, I'M FINE, LOOK MY VITALS ARE NORMAL." PATIENT INSISTED ON GOING HOME, EXPLAINED THAT SHE MUST SIGN FORM THAT SHE'S LEAVING AGAINST MEDICAL ADVICE AND PATIENT AGREED. AMA FORM SIGNED. PATIENT STATED MAMADOU WILL COME PICK HER UP
--- NOTE | 2022-06-18 20:39 | NUR ---
FLOOR LAYER APPRENTICE NOTE PATIENT TAKEN DOWN VIA WHEELCHAIR BY SPECIFICATION CONSULTANT. IV REMOVED AND GAUZE PLACED. TELE MONITOR REMOVED. ALL BELONGINGS TAKEN WITH PATIENT. FAMILY DOWNSTAIRS TO PHOTOLITHOGRAPHER PATIENT
[2022-06-19] MEDS ORDERED: FLUOXETINE HCL 20 MG CAPSULE PO SCH (09:00)
[2022-06-19] MEDS ORDERED: LISINOPRIL (20MG) 20 MG TABLET PO SCH (09:00)
[2022-06-19] MEDS ORDERED: ASPIRIN EC 81 MG TABLET.DR PO SCH (09:00)
== END 2022-06-18 21:00 | disposition left against medical advice (07) | DRG 194 ==
LOC: ER 04:56 → TELE 11:02
PROVIDERS: ADMIT Internal Medicine; ATTEND Internal Medicine
DX: I11.0 Hypertensive heart disease with heart failure (principal); J44.0 Chronic obstructive pulmonary disease with (acute) lower respiratory infection; I42.0 Dilated cardiomyopathy; I50.43 Acute on chronic combined systolic (congestive) and diastolic (congestive) heart failure; E78.5 Hyperlipidemia, unspecified; Z20.822 Contact with and (suspected) exposure to COVID-19; Z88.1 Allergy status to other antibiotic agents; Z88.2 Allergy status to sulfonamides; Z79.899 Other long term (current) drug therapy; Z79.82 Long term (current) use of aspirin; F32.A Depression, unspecified; E87.6 Hypokalemia; I25.2 Old myocardial infarction; Z98.891 History of uterine scar from previous surgery; Z90.710 Acquired absence of both cervix and uterus; F17.200 Nicotine dependence, unspecified, uncomplicated; M54.30 Sciatica, unspecified side; F41.0 Panic disorder [episodic paroxysmal anxiety]
CPT/HCPCS: 36415; 71045-TC; 80053-TC; 82248-TC; 83605-TC; 83880; 84484-TC; 85025-TC; 85730-TC; 87081-TC; 93307-TC; C9803; G0378; J1644; J1940; J2270; J2930

== ENCOUNTER 2022-09-14 12:46 | Emergency (ER) | payer OTHER ==
[~2022-09-14] VITALS: Ht 152.4 cm; Wt 56.2 kg
[~2022-09-14 12:46] MED LIST changes: -CARV6.252 PO; -FURO-144 PO; -HYDR-3980 PO; -POTA10TA10 PO; -SPIR25TA PO
--- NOTE | 2022-09-14 15:05 | NUR ---
Lexi BARKLEY #20 IV LINE ESTABLISHED, BLOOD DRAWN AND COLLECTED BY PHLEB AT BEDSIDE Addendum: 09/14/22 at 1558 by CHELSEA Amendment undone in EDM - 09/14/22 at 1559 by CHELSEA SHANDRA COREY)
[2022-09-14 15:15] LABS: BASOPHILS # (AUTO) 0.1 K/uL (0.0-0.2); BASOPHILS % (AUTO) 1.6 % (0.0-2.0); EOSINOPHILS % (AUTO) 1.8 % (0.0-6.0); HEMATOCRIT 37 % (33-45); HEMOGLOBIN 11.6 g/dL (11.5-14.8); LYMPHOCYTES # (AUTO) 0.7 K/uL (0.8-4.8); LYMPHOCYTES % (AUTO) 12.9 % (20.0-44.0); MEAN CORPUSCULAR HGB CONC 31 g/dl (31.0-36.0); MEAN CORPUSCULAR VOLUME 97 fL (82-100); MONOCYTES # (AUTO) 0.7 K/uL (0.1-1.30); NEUTROPHILS # (AUTO) 3.7 K/uL (1.8-8.9); NEUTROPHILS % (AUTO) 70.7 % (43.0-81.0); PLATELET COUNT (AUTO) 284 K/uL (150-450); WHITE BLOOD COUNT (AUTO) 5.3 K/uL (4.3-11.0)
[2022-09-14 15:32] LABS: CARBON DIOXIDE 25 mmol/L (21-32); CHLORIDE 100 mmol/L (98-107); CREATININE 1.2 mg/dL (0.6-1.3); GLUCOSE 99 mg/dL (74-106); POTASSIUM 4.6 mmol/L (3.5-5.1); SODIUM SERUM 134 mmol/L (136-145); UREA NITROGEN, BLOOD 22 mg/dL (7-18)
[2022-09-14 15:45] LABS: ALANINE AMINOTRANSFERASE 24 U/L (12-78); ALBUMIN 3.6 g/dL (3.4-5.0); ALKALINE PHOSPHATASE 124 U/L (46-116); ASPARTATE AMINOTRANSFERASE 26 U/L (15-37); BILIRUBIN,DIRECT 0.4 mg/dL (0.0-0.2); BILIRUBIN,TOTAL 0.9 mg/dL (0.2-1.0); TOTAL PROTEIN, SERUM 7.2 g/dL (6.4-8.2)
--- NOTE | 2022-09-14 15:50 | NUR ---
PATIENTS DAUGHTER CALLED AND LEFT CONTACT # [phone] Addendum: 09/14/22 at 1559 by CHELSEA SHANDRA MCDONALD
[2022-09-14] MEDS ORDERED: ASPI-1420 PO (15:59)
[2022-09-14] MEDS ORDERED: ONDA4TAB11 SL (15:59)
[2022-09-14] MEDS ORDERED: OXYC10TA59 PO (15:59)
[2022-09-14] MEDS ORDERED: TRAM50TA2 PO (15:59)
[2022-09-14] MEDS ORDERED: FURO20TA4 PO (15:59)
[2022-09-14] MEDS ORDERED: CLOP75TA15 PO (15:59)
[2022-09-14] MEDS ORDERED: POTA10CA43 PO (15:59)
[2022-09-14] MEDS ORDERED: MELA3TAB41 PO (15:59)
[2022-09-14] MEDS ORDERED: DOCU100C36 PO (15:59)
[2022-09-14] MEDS ORDERED: OMEP20CA15 PO (15:59)
[2022-09-14] MEDS ORDERED: HALO1TAB5 PO (15:59)
--- NOTE | 2022-09-14 16:23 | NUR ---
DR RODRIGUEZ, HOSPITALIST, SPEAKING W/ PT'S DTR OVER THE PHONE
[2022-09-14] MEDS ORDERED: LORAZEPAM 1 MG TABLET PO ONE (16:30)
[2022-09-14] MEDS ORDERED: LORAZEPAM 1 MG TABLET ONE (16:38)
[2022-09-14] MEDS ORDERED: ONDANSETRON 4 MG TAB.RAPDIS ONE (16:57)
[2022-09-14] MEDS ORDERED: ONDANSETRON 4 MG TAB.RAPDIS SL ONE (17:00)
--- NOTE | 2022-09-14 17:04 | NUR ---
IV removed. Catheter intact and site benign. Pressure and 4x4 applied to site. No bleeding noted.
--- NOTE | 2022-09-14 17:08 | NUR ---
ATIVAN PO AND ZOFRAN PO GIVEN INDICATED, ELMO WELL
--- NOTE | 2022-09-14 17:12 | NUR ---
Patient discharged to home in stable condition. Written and verbal after care instructions given. Patient verbalizes understanding of instruction.
[2022-09-14 17:16] VITALS: BP 142/70
== END 2022-09-14 17:16 | disposition home or self-care (01) ==
LOC: ER 12:48
DX: R06.00 Dyspnea, unspecified (principal); I11.0 Hypertensive heart disease with heart failure; I50.84 End stage heart failure; J44.9 Chronic obstructive pulmonary disease, unspecified; F41.9 Anxiety disorder, unspecified; F17.200 Nicotine dependence, unspecified, uncomplicated; Z88.2 Allergy status to sulfonamides; Z88.0 Allergy status to penicillin; Z79.899 Other long term (current) drug therapy
CPT/HCPCS: 99285; 71045; 93005; 85025; 80048; 80076; 36415; 84484; 83880; Q0162